=== PATIENT | female | born 1970 | race Caucasian/White ===

== ENCOUNTER → 2018-03-22 10:29 | Outpatient (CLI) | payer OTHER, SELFPAY | PROVIDERS: Family Provider Internal Medicine; PCP Internal Medicine; Referring Provider Nurse Practitioner Primary Care; Visit Provider Nurse Practitioner Primary Care | DX: R00.2 Palpitations (principal) | CPT/HCPCS: 93225; 93226 ==

== ENCOUNTER → 2022-06-19 | Outpatient (CLI) | payer OTHER, SELFPAY ==
[2022-06-19 12:43] LABS: hCG Titer Quant., Serum 4 mIU/mL (1-3)
[2022-06-19 12:46] LABS: T3 Total - Triiodothyronine 1.03 ng/mL (0.6-1.81)
[2022-06-19 12:48] LABS: Ferritin 90 ng/mL (8-252); Follicle Stimulating Hormone 67.3 mIU/mL; T4 Free Direct 0.94 ng/dL (0.76-1.46); Thyroid Stim Hormone (TSH) 1.07 uIU/mL (0.358-3.74)
== END | disposition home or self-care (01) ==
LOC: MTLAB 09:54
PROVIDERS: PCP Internal Medicine; Referring Provider Dermatology Pediatric Dermatology; Visit Provider Dermatology Pediatric Dermatology
DX: L65.9 Nonscarring hair loss, unspecified (principal); E28.2 Polycystic ovarian syndrome; E03.8 Other specified hypothyroidism; L82.1 Other seborrheic keratosis; L81.4 Other melanin hyperpigmentation; D10.1 Benign neoplasm of tongue; D22.5 Melanocytic nevi of trunk; Z71.89 Other specified counseling; L57.8 Other skin changes due to chronic exposure to nonionizing radiation; L91.8 Other hypertrophic disorders of the skin; Z87.2 Personal history of diseases of the skin and subcutaneous tissue
CPT/HCPCS: 36415; 82157; 82627; 82728; 83001; 84270; 84402; 84403; 84439; 84443; 84480; 84702; 86038; 86376; 82626

== ENCOUNTER → 2024-11-26 | Outpatient (CLI) | payer OTHER, SELFPAY ==
--- NOTE | 2024-11-26 13:06 | BI_ITS ---
EXAM: DIAG MAMM W/CAD, UNILAT; LT BRST UNILAT ISAAK ADD ON 11/26/2024 CLINICAL HISTORY: 54-year-old female presents for follow-up of the left breast findings seen on the outside examination of 10/24/2024. Family history of breast cancer in a paternal grandmother at age 63. TECHNIQUE: DIAG MAMM W/CAD, UNILAT; LT BRST UNILAT ISAAK ADD ON. COMPARISON: Prior exam(s) dated 10/24/2024, 03/29/2007. FINDINGS: MAMMOGRAM: TISSUE DENSITY: The breasts are heterogeneously dense, which may obscure small masses. The mammogram demonstrates that the patient has dense breasts. Supplemental screening with whole breast ultrasound or MRI may be considered for further evaluation. Unilateral Left Breast Mammographic Findings: 1. Follow-up examination performed for the focal asymmetry in the left breast visualized on the outside examination of 10/24/2024. On the present examination, there is an irregular spiculated mass in the upper inner left breast at posterior depth. 2. There is a mass with associated calcifications in the medial left breast at anterior depth. 3. There are innumerable masses scattered throughout the left breast. ULTRASOUND: 1. Ultrasound performed of the upper inner left breast demonstrates an irregular hypoechoic mass with posterior shadowing in the left breast at 11 o'clock 6 cm from the nipple, measuring 0.9 x 0.9 x 0.8 cm. This correlates with the mammographic finding. 2. There is a cyst cluster in the left breast at 10 o'clock 3 cm from the nipple measuring 0.9 x 0.9 x 0.6 cm. This correlates to the other mammographic finding in the medial left breast at anterior depth. 3. There is an additional incidental complicated cyst in the left breast at 9 o'clock 5 cm from the nipple measuring 0.9 x 0.6 x 0.4 cm and a cyst at 12 o'clock 5 cm from the nipple measuring 2.4 x 2.4 x 2.1 cm. BI/Lt Brst Unilat Isaak Add On IMPRESSION: 1. Left breast mass at 11 o'clock 6 cm from the nipple is highly suggestive of malignancy. Recommend tissue sampling with ultrasound core needle biopsy. Also, at the time of the biopsy recommend addit ional images being taken of the left axilla and the remainder of the left breast to assess for additional suspicious masses and axillary lymph nodes. OVERALL FINAL ASSESSMENT BI-RADS 5: HIGHLY SUGGESTIVE OF MALIGNANCY. RECOMMENDATION: Biopsy Recommended A letter with findings and recommendations will be mailed to the patient. Reading Location: [id number]
== END | disposition home or self-care (01) ==
LOC: OPBI 13:00
PROVIDERS: PCP Internal Medicine; Referring Provider Nurse Practitioner Family; Visit Provider Nurse Practitioner Family
DX: R92.8 Other abnormal and inconclusive findings on diagnostic imaging of breast (principal)
CPT/HCPCS: 76642; 77061; 77065; G0279

== ENCOUNTER → 2024-12-17 | Outpatient (CLI) | payer OTHER, SELFPAY ==
--- NOTE | 2024-12-17 09:45 | BRBX_PTH ---
PATIENT: DEEPIKA BOYKIN LOC: [facility] U#:[id number] AGE/SX: 54/F ROOM: RE12/17/[address]: Dr. Aimee Hylton MD : 1970 BED: DIS: 12/17/2024 SPEC #: [id number] RECD: 12/17/24 10:09 STATUS: YOANA REOriana #: [id number] ALEX: 12/17/24 09:[address]: Aimee Hylton DEPT: SURGICAL PATHOLOGY RECD BY: Froy Banks ENTERED: 12/17/24 14:10 SP TYPE: BREAST BX OTHR DR: Jaqui Berg, PODIATRIC PHYSICIAN-C Tissues: A - Left breast, NOS Procedures: Immunohistochemical Stains Surgery Specimen Level V IHC Stain ADDITIONAL HEADER OPERATION: Left breast biopsy PRE-OP DIAGNOSIS: Left breast TISSUE SUBMITTED: A- Left breast - 11:00, 9cm from nipple MICROSCOPIC DIAGNOSIS A. 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 - Grade 1 (tubule 1, nuclear 1, mitosis 1). - ER: positive (95%, strong intensity). - NC: positive (50%, intermediate intensity). - [id number]: PENDING, to be reported in an addendum. - Ki67: 10-15% MICROSCOPIC DESCRIPTION Slides are reviewed. E-cadherin is positive. CK5/6 and p40 are negative in the carcinoma. ?All matched controls reacted appropriately. These tests were developed and their performance characteristics determined by [facility]. They may not have been cleared or approved by the U.S. Food and Drug Administration. The FDA has determined that such clearance or approval is not necessary.? The above immunohistochemical?markers and/or special stains have been reviewed by the Pathologist. GROSS DESCRIPTION A. Received in formalin labeled with the patient's name and date of . Designated as L breast tissue are 3 pool-yellow, fragmented tissue cores, 1.1 cm to 1.3 cm in length by 0.1 cm in diameter. Entirely submitted in 1 cassette. Cold ischemic time: <1 minuteFormalin fixation time: 9 hours, 45 minutes [place] 12/17/2024 CPT:[id number] ADDENDUM ADDENDUM ADDENDUM ADDENDUM ADDENDUM ADDENDUM ADDENDUM ADDENDUM ADDENDUM ADDENDUM ADDENDUM ADDENDUM ADDENDUM ADDENDUM ADDENDUM ADDENDUM 12/24/2024 16:24 ADDENDUM 12/24/2024 16:24 ADDENDUM 12/24/2024 16:24 ADDENDUM 12/24/2024 16:24 ADDENDUM 12/24/2024 16:24 This addendum is to report the [id number] performed at [facility]: [id number]: positive (3+) All controls show appropriate reactivity. All immunohistochemistry, in situ hybridization, and histochemical tests were developed by and are performed at the [facility], [address], [address], [place] [address]. All Immunofluorescent (IF)?tests were developed by and are performed at the [facility], [facility]. [address] [place] [address], [place], [place] ?[address]. All tests reported here, except those addressing HER2 overexpression as a predictive marker, have not been cleared by or approved by the US Food and Drug Administration (FDA). The laboratory is regulated under CLIA as qualified to perform high-complexity testing. The tests are used for clinical purposes. They should not be regarded as investigational or for research.
== END | disposition home or self-care (01) ==
LOC: LABSPEC 10:56
PROVIDERS: PCP Nurse Practitioner Family; Referring Provider Surgery; Visit Provider Surgery
DX: C50.912 Malignant neoplasm of unspecified site of left female breast (principal)
CPT/HCPCS: 88307; 88341; 88342

== ENCOUNTER → 2025-01-09 | Outpatient (CLI) | payer OTHER, SELFPAY ==
--- NOTE | 2025-01-09 11:17 | ECHODONC_ITS ---
Reason For Study : CHEMO Procedure This was a 2D Doppler, Color Flow transthoracic echocardiogram. Myocardial strain analysis was performed in this exam to aid in the assessment of cardiac function. Exam performed in department. Left Ventricle Normal LV size. Mild concentric left ventricular hypertrophy. The left ventricular ejection fraction is 65 %. Stage 1 diastolic dysfunction. The global longitudinal strain is normal. Right Ventricle Normal right ventricle. Atria The left and right atria are normal. Mitral Valve Trivial mitral valve insufficiency. Tricuspid Valve Normal tricuspid valve. Aortic Valve Trisinus/trileaflet aortic valve. Pulmonic Valve The pulmonic valve is not well visualized. Great Vessels Normal sized aortic root. Pericardium/Pleural No pericardial effusion. MMode/2D Measurements & Calculations LVIDd: 4.8 cm IVSd: 1.4 cm LVOT diam: 2.0 cm LVIDs: 3.2 cm LVPWd: 1.4 cm LVOT area: 3.0 cm2 RVDd: 2.8 cm FS: 33.1 % Ao root diam: 3.4 cm LVAd ap4: 19.7 cm2 LVAd ap2: 19.2 cm2 LA dimension: 3.9 cm LVLd ap4: 6.5 cm LVLd ap2: 5.3 cm EDV(MOD-sp4): 49.7 ml EDV(MOD-sp2): 54.8 ml EDV(sp4-el): 50.7 ml EDV(sp2-el): 58.6 ml LVAs ap4: 12.6 cm2 LVLs ap4: 6.2 cm ESV(MOD-sp4): 22.8 ml ESV(sp4-el): 22.0 ml EF(MOD-sp4): 54.1 % EF(sp4-el): 56.6 % SV(MOD-sp4): 26.9 ml SV(sp4-el): 28.7 ml LA A4 area: 16.7 cm2 SI(MOD-sp4): 12.5 ml/m2 LA dimension(2D): 3.8 cm RA A4 area: 13.1 cm2 Time Measurements MV dec time: 0.21 sec Doppler Measurements & Calculations MV E max kai: 72.0 cm/sec Lat Peak E' Kai: 9.7 cm/sec Med Peak E' Kai: 6.8 cm/sec MV A max kai: 84.9 cm/sec E/E' lat: 7.4 E/E' med: 10.6 MV E/A: 0.85 MV V2 max: 92.5 cm/sec Ao V2 max: 155.7 cm/sec MV max P.4 mmHg MV dec slope: 356.7 cm/sec2 Ao max P.7 mmHg MV V2 mean: 63.2 cm/sec Ao V2 mean: 102.3 cm/sec MV mean P.7 mmHg Ao mean P.9 mmHg MV V2 VTI: 34.4 cm Ao V2 VTI: 35.0 cm AV (velocity ratio): 0.84 MVA(VTI): 2.6 cm2 YAMIL(I,D): 2.6 cm2 YAMIL(V,D): 2.4 cm2 LV V1 max: 121.6 cm/sec SV(LVOT): 90.1 ml PA V2 max: 102.8 cm/sec LV V1 max P.9 mmHg PA V2 mean: 77.8 cm/sec LV V1 mean P.2 mmHg LV V1 mean: 84.0 cm/sec LV V1 VTI: 29.6 cm ECHO/ONC Echo Complete Interpretation Summary Mild concentric left ventricular hypertrophy. The left ventricular ejection fraction is 65 %. Stage 1 diastolic dysfunction. Ordering Physician: Jason Bueno Referring Physician: Jason Bueno Performed By: Alyson Monreal RCS
== END | disposition home or self-care (01) ==
LOC: CVS 11:07
PROVIDERS: PCP Nurse Practitioner Family; Referring Provider Internal Medicine Hematology & Oncology; Visit Provider Internal Medicine Hematology & Oncology
DX: C50.919 Malignant neoplasm of unspecified site of unspecified female breast (principal)
CPT/HCPCS: 93306; 93356

== ENCOUNTER → 2025-01-12 | Outpatient (CLI) | payer OTHER, SELFPAY ==
--- NOTE | 2025-01-12 13:57 | MRI_ITS ---
PROCEDURE: BREAST BILATERAL W/O AND W 01/12/2025 REASON FOR EXAM: HAS MULTIPLE CYSTS AND LEFT BREAST IDC TECHNIQUE: Procedure Code: [id number] Modality: MR Procedure: BREAST BILATERAL W/O AND W CONTRAST: 23 mL of Clariscan contrast COMPARISON: Breast ultrasound examination dated 11/26/2024 and mammogram studies dated 11/26/2024, 10/24/2004, and 10/19/2023. FINDINGS: TISSUE DENSITY: The breasts are heterogeneously dense, which may obscure small masses. Background Parenchymal Enhancement: Moderate. This may decrease the sensitivity of breast MRI. RIGHT Breast: Multiple benign-appearing cystic and fibrocystic masses are seen in the right breast. No suspicious mass or non-mass enhancement. LEFT Breast: An 11 mm, abnormal enhancing mass in the superior medial aspect of the left breast is noted, approximately 6 cm from the nipple. This mass is highly worrisome for malignancy. It does correlate to a mass seen on the mammogram and ultrasound exam. Biopsy is warranted. Benign-appearing cystic and fibrocystic appearing masses are seen elsewhere in the breast. There are no additional suspicious masses or non-mass enhancement areas. Other Findings: No suspicious axillary or internal mammary lymph nodes. Visualized portions of the thoracic and abdominal viscera are unremarkable. MRI/Breast Bilateral W/O and W IMPRESSION: OVERALL FINAL ASSESSMENT BI-RADS 5: HIGHLY SUGGESTIVE OF MALIGNANCY. RECOMMENDATION: Biopsy Recommended At the time of the breast mass biopsy or yonathan or to the biopsy, dedicated ultrasound of the axillary region should be performed for further evaluation of the lymph nodes. If any abnormal nodes are seen, though should also be biopsied at the time of the left breast mass biopsy. Reading Location: [id number]
== END | disposition home or self-care (01) ==
LOC: MRI 13:54
PROVIDERS: PCP Nurse Practitioner Family; Referring Provider Surgery; Visit Provider Surgery
DX: C50.919 Malignant neoplasm of unspecified site of unspecified female breast (principal)
CPT/HCPCS: 77049; A9575; A4216; C8908

== ENCOUNTER 2025-01-14 05:54 | Day surgery (SDC) | payer OTHER, SELFPAY ==
--- NOTE | 2025-01-13 10:40 | PAT.ANESEVAL ---
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 When Was Last Pacemaker Check QUESTION #4 FULL TEXT: You/Your Family Experience fever (hyperthermia) with Anesthesia Last Oral Intake Last Oral intake: Last Oral Intake NPO since Meds taken in AM with sips of water? 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 Female Yes 01/08/25 15:07 HX of Motion Sickness No 01/08/25 15:07 HX of N/V After Surgery No 01/08/25 15:07 Non-Smoker Yes 01/08/25 15:07 Duration of Surgery greater No 01/08/25 15:07 than 60 minutes Number of Risk Factors 2 01/08/25 15:07 PONV Score Moderate Risk 01/08/25 15:07 Height & Weight Height & Weight: Anesthesia: Height & Weight Height 5 ft 5 in 01/05/25 11:29 Respiratory Assessment Respiratory Assessment - boat joiner helper: Respiratory Tract Infection Hx - boat joiner helper Hx Respiratory Tract Infection No 01/08/25 15:07 STOP Sleep Apnea STOP Sleep Apnea - boat joiner helper: STOP Sleep Apnea - boat joiner helper Hx Hypertension Yes: CONTROLLED WITH MED 01/08/25 15:07 Hx Sleep Apnea No 01/08/25 15:07 CPAP BIPAP Do you snore loudly (louder No 01/08/25 15:07 than talking or can be heard Do you often feel tired/ No 01/08/25 15:07 fatigued/ sleepy during daytime? Has anyone observed you stop No 01/08/25 15:07 breathing during sleep? STOP Results Negative 01/08/25 15:07 QUESTION #5 FULL TEXT : Do you snore loudly (louder than talking or can be heard through closed doors)? 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 Specify any problems Hx of Preganancy in last 3 No 01/08/25 15:07 Months Nurse Filling Out Transfusion DSCHRIBER 01/08/25 15:07 & Questions: Date: 01/08/25 01/08/25 15:07 Time: 15:01/08/25 15:07 Patient unable to answer at this time (ie. confused, unrespo /Reproduction History /Reproductive History - boat joiner helper: /Reproductive Hx- boat joiner helper Hx Now No 01/08/25 15:07 Gestational Age (in weeks): EDC: Hx Hx Para Hx Section SAB No 01/08/25 15:07 Active Medications Active Medications: Current Medications Generic Name Dose Route Start Last Admin Trade Name Freq PRN Reason Stop Dose Admin Cefazolin Sodium 2 gm/ Sodium 110 mls @ 200 mls/hr 01/14/25 07:30 Chloride IV 01/14/25 08:02 INTRAOP ONE PFS Medical History (Updated 01/08/25 @ 15:21 by Renetta Osorio) Post-menopausal Wears glasses Cancer Arthritis High cholesterol Back pain Migraine headache Pre-diabetes Dietary restriction Former smoker History of echocardiogram History of Holter monitoring Endometriosis HTN (hypertension) Anxiety Home Medications ?Medication ?Instructions ?Recorded ?Last Taken ?Type cholecalciferol (vitamin D3) 1,250 1,250 mcg PO QWEEK 12/17/24 Unknown History mcg (50,000 unit) tablet hydrochlorothiazide 12.5 mg capsule 12.5 mg PO QAM 12/17/24 Unknown History metformin 500 mg tablet 500 mg PO BID 12/17/24 Unknown History pravastatin 20 mg tablet 20 mg PO QDAY 12/17/24 Unknown History propranolol 60 mg capsule,24 60 mg PO QDAY 12/17/24 Unknown History hr,extended release lidocaine-prilocaine 2.5 %-2.5 % 1 applic topical ONCE PRN port 01/07/25 Unknown Rx topical cream access 30 days #30 grams ondansetron 8 mg disintegrating 8 mg PO Q8H PRN nausea and 01/07/25 Unknown Rx tablet vomiting #30 tabs prochlorperazine maleate 10 mg 10 mg PO Q6H PRN nausea and 01/07/25 Unknown Rx tablet vomiting #30 tabs Allergy/AdvReac Type Severity Reaction Status Date / Time adhesive tape Allergy Severe rash Verified 01/08/25 15:04 acetaminophen (From Vicodin) Allergy Intermediate Other Verified 01/08/25 15:04 hydrocodone (From Vicodin) Allergy Intermediate Other Verified 01/08/25 15:04 Family History Father Colon cancer Mother Cancer pancreatic Grandmother Breast cancer paternal grandmother Heart disease Grandfather Colon cancer Heart disease Surgical History (Updated 01/08/25 @ 15:21 by Renetta Osorio) History of hysteroscopy H/O left breast biopsy Social History Smoking Status: Former smoker Tobacco: How many years used: 20 alcohol intake: never substance use type: does not use Audit: Pertinent Findings Pertinent Findings Echo (EF%) pertinent findings: 01/09/2025. EF of 65%. No aortic stenosis noted. Mild LVH Recommendation Anesthesia Recommendation Anesthesia recommendation: OPTIMIZED for anesthesia
[2025-01-14] VITALS (7 sets, daily range): BP systolic 142–159; BP diastolic 81–92; PULSE 55–68; RESP 16–20; TEMP 36.1–36.6; O2SAT 95–99; BMI 40.7
--- OUTSIDE RECORDS SUMMARY | 2025-01-14 05:57 | XMS RPT_ITS | CCD ---
Author Organization [facility] CliniSymd Care Team Providers Care Psychology Department Chair Name Role Phone Ivet Castanon MD Primary Care Provider Donn Choe MD Primary Care Provider Donn Choe MD Primary Care Provider Donn Choe MD Primary Care Provider Donn Choe MD Primary Care Provider Tannhof CERTIFIED TECHNICIAN SPECIALIST.Jaqui WALKER Unavailable Joey CERTIFIED TECHNICIAN SPECIALIST.Ashish WALKER Unavailable Farzad Covarrubias MD Primary Care Provider Juany CERTIFIED TECHNICIAN SPECIALIST.Nenita WALKER Unavailable Juany CERTIFIED TECHNICIAN SPECIALIST.Nenita WALKER M Unavailable Dr. Ivet Castanon MD Primary Care Provider Chelsea CERTIFIED ANESTHESIOLOGIST ASSISTANT-CDiana Attending Provider Chelsea STONER-CDiana Referring Provider Dr. Aimee Hylton MD Attending Provider Morena CERTIFIED ANESTHESIOLOGIST ASSISTANT-CJaqui Primary Care Provider Morena STONER-CJaqui Referring Provider Dr. Aimee Hylton MD Referring Provider Dr. Jason Bueno MD Attending Provider Dr. Jason Bueno MD Referring Provider Hollis CERTIFIED ANESTHESIOLOGIST ASSISTANT-C, Milana Attending Provider IHRAM, KLEBER P Attending Unavailable RAJIV, YUKO Referring Unavailable COVARRUBIAS, LATOSHA Primary Care Unavailable ELDERBOBBYCK, DONN Prince Primary Care Unavailable TANNHOF, JAQUI Referring Unavailable ELDERBROCK, DONN D Primary Care Unavailable ELDERBROCK, DONN D Primary Care Unavailable TANNHOF, JAQUI Referring Unavailable NENITA MEJIA Attending Unavailable COVARRUBIAS, LATOSHA Primary Care Unavailable DONN CHOE D Primary Care Unavailable TANNHOF, JAQUI Attending Unavailable BALLARD, DIANA Referring Unavailable COVARRUBIAS, LATOSHA Primary Care Unavailable BALLARD, DIANA Attending Unavailable COVARRUBIAS, LATOSHA Primary Care Unavailable BALLARD, DIANA Referring Unavailable BALLARD, DIANA Referring Unavailable COVARRUBIAS, LATOSHA Primary Care Unavailable BALLARD, DIANA Referring Unavailable COVARRUBIAS, LATOSHA Primary Care Unavailable BOOM ESPOSITO Attending Unavailable COVARRUBIAS, LATOSHA Primary Care Unavailable Isckarus, Mansour Attending Unavailable Tannho, Jaqui Primary Care Unavailable Robotham, Aimee Referring Unavailable Tannho, Jaqui Primary Care Unavailable Robotham, Aimee Attending Unavailable Tannho, Jaqui Primary Care Unavailable Katerina Mitchell Attending Unavailable Tannho, Jaqui Primary Care Unavailable Tannhof, Jaqui Referring Unavailable Robotham, Aimee Attending Unavailable Ballard CERTIFIED ANESTHESIOLOGIST ASSISTANT, Diana Attending Unavailable Ballard CERTIFIED ANESTHESIOLOGIST ASSISTANT, Diana Referring Unavailable Ganta, Ivet Primary Care Unavailable Tannho, Jaqui Primary Care Unavailable Robotham, Aimee Referring Unavailable Robotham, Aimee Attending Unavailable Hollis CERTIFIED ANESTHESIOLOGIST ASSISTANTMilana Attending Unavailable [facility] Jaqui Primary Care Unavailable Tannho, Jaqui Referring Unavailable Tannho, Jaqui Primary Care Unavailable Tannhof, Jaqui Referring Unavailable Robotham, Aimee Attending Unavailable Isckarus, Mansour Attending Unavailable Isckarus, Mansour Referring Unavailable Tannho, Jaqui Primary Care Unavailable Isckarus, Mansour Attending Unavailable Isckarus, Mansour Referring Unavailable Tannhof, Jaqui Primary Care Unavailable Tannhof, Jaqui Primary Care Unavailable Robotham, Aimee Attending Unavailable Tannhof, Jaqui Primary Care Unavailable Robotham, Aimee Attending Unavailable Robotham, Aimee Referring Unavailable Allergies Allergy Classification Reported Allergen(s) Allergy Type Date of Onset Reaction(s) Facility (20 sources) Acetaminophen / HYDROcodone; Translations: [HYDROCODONE-ACETA MINOPHEN] Drug Allergy 9 GI Upset [facility] Work Phone: (6 sources) Acetaminophen Drug Allergy [address] [facility] (6 sources) HYDROcodone Drug Allergy [address] [facility] (4 sources) Adhesive Tape; Translations: [adhesive tape] Allergy to substance [address] [facility] Comment on above: cloth bandages are o norman. (1 source) Acetaminophen Drug Allergy [address] [facility] Repository (1 source) HYDROcodone Drug Allergy [address] [facility] Repository Medications Current Medications Medication Drug Class(es) Dates Sig (Normalized) Sig (Original) Cholecalciferol (20 sources) Vitamin D Start: 12-17-2024 take 1 tablet by mouth every week Cholecalciferol (Vitamin D3) 1,250 mcg (50,000 unit) tablet Active 1250 ug PO EVERY WEEK December 17, 2024 12:00am Start: 03-29-2022 take 1 capsule by mo ut every week cholecalciferol, Vitamin D3, (VITAMIN D3) 1,250 mcg (50,000 unit) cap capsule Indications: Vitamin D deficiency Take 1 capsule by mouth one time a week. 12 capsule 3 03/29/2022 Active Comment on above: Take 1 capsule by mo ut one time a week. dexamethasone 4 mg oral tablet (1 source) Corticosteroid Start : 01-07 take 2 tablets by mouth twice daily Dexamethasone 4 mg tablet Active 8 mg PO .COMPLEX 12 5 January 07, 2025 12:00am Malignant neoplasm of breast Malignant neoplasm of unspecified site of left female breast Estrogen receptor positive status [ER+] 8 mg orally twice daily ONLY the day before the day of and the day after hydroCHLOROthiazide 12.5 mg oral capsule (20 sources) Thiazide Diuretic Start : 11-07 End: 09-06 take 1 capsule by mouth once daily in the morning Hydrochlorothiazide 12.5 mg capsule Active 12.5 mg PO EVERY MORNING December 17, 2024 12:00am Start: 01-10-2021 take 1 capsule by mo ut once daily hydroCHLOROthiazide 12.5 mg capsule Indications: Essential hypertension Take 1 capsule by mouth once daily. 90 capsule 3 01/10/2021 Active Comment on above: Take 1 capsule by mo [facility] once daily. Lidocaine / Prilocaine (1 source) Antiarrhythmic, Amide Local Anesthetic Start: 01-08-20 Lidocaine-Prilocain e 2.5-2.5 % cream Active 1 NMA TOPICAL ONCE as needed for port access 30 30 2 January 07, 2025 12:00am Malignant neoplasm of breast Malignant neoplasm of unspecified site of left female breast Estrogen receptor positive status [ER+] LORazepam 0.5 mg oral tablet (4 sources) Benzodiazepine Start: 12-24-19 take 1 tablet by mouth every hour for anxiety Lorazepam (Ativan) 0.5 mg tablet Active 0.5 mg PO ONCE as needed for anxiety 2 0 December 23, 2024 12:00am Take 1 tab an hour before procedure, if needed take the other tab half hour before procedure metFORMIN hydrochloride 500 mg oral tablet (20 sources) Biguanide Start: 12-18-19 take 1 tablet by mouth twice daily Metformin 500 mg tablet Active 500 mg PO TWICE A DAY December 17, 2024 12:00am Start: 03-31-2022 End: 06-23-2025 take 2 tablets by mouth once daily at breakfast, then take 1 tablet by mouth once daily at dinner metFORMIN ER (GLUCOPHAGE XR) 500 mg 24 hr tablet Indications: Controlled type 2 diabetes mellitus without complication, without long-term current use of insulin (HCC) Take 2 tablets by mouth daily with breakfast AND 1 tablet daily with dinner. 270 tablet 3 10/20/2024 Active Comment on above: Take 1 tablet by [facility] daily with breakfast. nitrofurantoin, macrocrystals 25 mg / nitrofurantoin, monohydrate 75 mg oral capsule (1 source) Nitrofuran Antibacterial Start: End: take 1 capsule by mouth twice daily nitrofurantoin monohydrate and macrocrystal (MACROBID) 100 mg capsule Take 1 capsule by mouth two times a day for 5 days. 10 capsule 07/13/2024 07/18/2024 Active ondansetron 8 mg disintegrating oral tablet (20 sources) Serotonin-3 Receptor Antagonist Start: take 1 tablet by mouth every eight hours as needed for nausea and vomiting Ondansetron 8 mg tablet,disintegrating Active 8 mg PO Q8H as needed for nausea and vomiting January 07, 2025 12:00am Malignant neoplasm of breast Malignant neoplasm of unspecified site of left female breast Estrogen receptor positive status [ER+] Start: 03-11-2018 End: 03-25-2024 take 1 tablet by mouth every six hours as needed ondansetron orally disintegrating (ZOFRAN ODT) 4 mg disintegrating tablet Take 1 tablet by mouth every 6 hours as needed for Nausea/Vomiting. 6 tablet 03/11/2018 03/25/2024 Discontinued (Course of therapy completed) Comment on above: Take 1 tablet by omkar th every 6 hours as needed for Nausea/Vomiting. OTC NUTRITIONAL SUPPLEMENT (9 sources) Start: 10-21-19 OTC NUTRITIONAL SUPPLEMENT Nutraful two tabs once a day 10/20/2024 Active pravastatin sodium 20 mg oral tablet (20 sources) HMG-CoA Reductase Inhibitor Start: 06-23-19 take 1 tablet by mouth once daily Pravastatin 20 mg tablet Active 20 mg PO daily December 17, 2024 12:00am Start: 01-10-2021 End: 06-21-2024 take 1 tablet by mouth once daily pravastatin (PRAVACHOL) 20 mg tablet Indications: Mixed hyperlipidemia Take 1 tablet by mouth once daily. 90 tablet 3 08/20/2023 06/21/2024 Discontinued Comment on above: Take 1 tablet by omkar th once daily. TAKE 1 TABLET BY OMKAR TH ONCE DAILY prochlorperazine 10 mg oral tablet (1 source) Phenothiazine Start: 2024 take 1 tablet by mouth every six hours as needed for nausea and vomiting Prochlorperazine Maleate 10 mg tablet Active 10 mg PO EVERY 6 HOURS as needed for nausea and vomiting January 07, 2025 12:00am Chemotherapy-induced nausea and vomiting Nausea with vomiting, unspecified Adverse effect of antineoplastic and immunosuppressive drugs, initial encounter 24 hr propranolol hydrochloride 60 mg extended release oral capsule (20 sources) beta-Adrenergic Juan Start: 2024 take 1 capsule by mouth once daily Propranolol 60 mg capsule,extended release 24 hr Active 60 mg PO daily December 17, 2024 12:00am Start: 01-10-2021 End: 09-06-2025 take 1 tablet by mouth three times daily propranolol (INDERAL) 20 mg tablet Indications: Hypertension, essential Take 1 tablet by mouth three times a day. 270 tablet 3 09/11/2024 10/20/2024 Discontinued (Changing Therapy/Dosage Form) Comment on above: Take 1 tablet by omkar th three times daily. TAKE 1 TABLET BY OMKAR TH 3 TIMES DAILY Completed/Discontinued Medications Medication Drug Class(es) Dates Sig (Normalized) Sig (Original) busPIRone hydrochloride 5 mg oral tablet (20 sources) Start: 01-10-2021 End: 10-20-2024 take 1 tablet by mouth three times daily as needed busPIRone (BUSPAR) 5 mg tablet Indications: Generalized anxiety disorder with panic attacks Take 1 tablet by mouth three times a day as needed. 270 tablet 3 08/20/2023 10/20/2024 Discontinued (Discontinued by Patient) Comment on above: Take 1 tablet by omkar three times daily as needed. cyclobenzaprine hydrochloride 10 mg oral tablet (11 sources) Muscle Relaxant Start: 10-07-2020 End: 07-14-2022 take 5-10 mg by mouth every eight hours as needed cyclobenzaprine (FLEXERIL) 10 mg tablet Take 0.5-1 tablets by mouth three times daily as needed for Muscle Spasm. 90 tablet 0 10/07/2020 07/14/2022 Discontinued Comment on above: Take 0.5-1 tablets b y mouth three times daily as needed for Muscle Spasm. diclofenac sodium 0.01 mg/mg topical gel (20 sources) Nonsteroidal Anti-inflammatory Drug Start: 02-26-2018 End: 03-25-2024 diclofenac sodium (VOLTAREN) 1 % topical gel Indications: Chronic right-sided low back pain with right-sided sciatica Apply 2 g to affected area as directed. 2-4 time daily 100 g 2 02/26/2018 03/25/2024 Discontinued (Course of therapy completed) Comment on above: Apply 2 g to affecte d area as directed. 2-4 time daily fexofenadine hydrochloride 180 mg oral tablet (11 sources) Histamine-1 Receptor Antagonist Start: 08-18-2020 End: 07-14-2022 take 1 tablet by mouth once daily fexofenadine (JANUSZ ALLERGY) 180 mg tablet Take 1 tablet by mouth once daily. 30 tablet 2 08/18/2020 07/14/2022 Discontinued Comment on above: Take 1 tablet by omkar th once daily. fluticasone propionate 0.05 mg/actuat metered dose nasal spray (11 sources) Corticosteroid Start: 08-18-2020 End: 07-14-2022 take 2 spray(s) by mouth once daily fluticasone (FLONASE) 50 mcg/actuation nasal spray Use 2 Sprays in each nostril once daily. Rinse mouth after use. 1 Bottle 2 08/18/2020 07/14/2022 Discontinued Comment on above: Use 2 Sprays in each nostril once daily. Rinse mouth after use. meloxicam 15 mg oral tablet (11 sources) Nonsteroidal Anti-inflammatory Drug Start: 11-19-2020 End: 07-14-2022 take 1 tablet by mouth once daily at mealtime meloxicam (MOBIC) 15 mg tablet Take 1 tablet by mouth once daily. With food. 90 tablet 3 11/19/2020 07/14/2022 Discontinued Comment on above: Take 1 tablet by omkar th once daily. With food. nutroful (6 sources) Start: 12-17-2024 End: 01-05-2025 nutroful Discontinued PO December 17, 2024 12:00am January 05, 2025 11:18am Start: 12-17-2024 nutroful Activ e PO December 17, 2024 12:00am SUMAtriptan 50 mg oral tablet (11 sources) Serotonin-1b and Serotonin-1d Receptor Agonist Start: 03-11-2018 End: 07-14-2022 take 1 tablet by mouth every two hours as needed for headache SUMAtriptan (IMITREX) 50 mg tablet Take 1 tablet by mouth as needed for Migraine Headache (see administration instructions). May repeat dose in 2 hours if ineffective 9 tablet 2 03/11/2018 07/14/2022 Discontinued Comment on above: Take 1 tablet by omkar th as needed for Migraine Headache (see administration instructions). May repeat dose in 2 hours if ineffective Problems Active Problems Problem Classification Problem Date Documented Date Episodic/Chronic Adjustment disorders (20 sources) Family tension; Translations: [Reaction to severe stress, unspecified] Onset: 05-22-2016 05-22-2016 Chronic Administrative/socia l admission (1 source) Counseling, unspecified; Translations: [Counseling, unspecified] Onset: 01-08-2025 Episodic Anxiety disorders (8 sources) Generalized anxiety disorder; Translations: [Generalized anxiety disorder] Onset: 03-25-2024 Chronic Cancer of breast (12 sources) Malignant tumor of breast ; Translations: [Malignant neoplasm of unspecified site of unspecified female breast] Onset: 01-05-2025 01-05-2025 Chronic Diabetes mellitus without complication (20 sources) Type 2 diabetes mellitus without complication; Translations: [Type 2 diabetes mellitus without complications] Onset: 01-15-2015 09-21-2015 Chronic Diabetes mellitus without complication (3 sources) Prediabetes; Translations: [Prediabetes] 01-05-2025 Episodic Disorders of lipid metabolism (20 sources) Mixed hyperlipidemia; Translations: [Mixed hyperlipidemia] Onset: 04-29-2012 11-13-2017 Chronic E Codes: Adverse effects of medical drugs (1 source) Adverse effect of antineoplastic and immunosuppressive drugs, initial encounter; Translations: [Adverse effect of antineoplastic and immunosuppressive drugs, initial encounter] Onset: 01-08-2025 Episodic Essential hypertension (20 sources) Essential hypertension; Translations: [Essential (primary) hypertension] Onset: 03-25-2024 Chronic Headache; including migraine (20 sources) Migraine with aura; Translations: [Migraine with aura, not intractable, with status migrainosus] Onset: 12-18-2014 12-18-2014 Chronic Menopausal disorders (1 source) Menopausal syndrome; Translations: [Menopausal and female climacteric states] 10-24-2024 Chronic Nausea and vomiting (1 source) Nausea with vomiting, unspecified; Translations: [Nausea with vomiting, unspecified] Onset: 01-08-2025 Episodic Nonmalignant breast conditions (20 sources) Fibrocystic disease of breast; Translations: [Diffuse cystic mastopathy of unspecified breast] Onset: 07-21-2009 07-21-2009 Chronic Nonmalignant breast conditions (20 sources) Breast lump; Translations: [Unspecified lump in unspecified breast] Onset: 08-16-2011 Resolved: 08-18-2014 08-18-2014 Episodic Nutritional deficiencies (15 sources) Vitamin D deficiency; Translations: [Vitamin D deficiency, unspecified] Onset: 10-20-2024 Chronic Other aftercare (1 source) Encounter for adjustment and management of vascular access device; Translations: [Encounter for adjustment and management of vascular access device] Onset: 01-08-2025 Episodic Other connective tissue disease (3 sources) Muscle pain; Translations: [Myalgia, unspecified site] Episodic Other hematologic conditions (1 source) ESR raised; Translations: [Elevated erythrocyte sedimentation rate] 01-12-2023 Episodic Other nervous system disorders (3 sources) Chronic pain syndrome; Translations: [Chronic pain syndrome] 01-11-2023 Chronic Other nervous system disorders (1 source) Chronic pain syndrome; Translations: [Chronic pain syndrome] Onset: 03-25-2024 Chronic Other nutritional; endocrine; and metabolic disorders (20 sources) Body mass index 40+ - severely obese; Translations: [Body mass index (BMI) 40.0-44.9, adult] Onset: 08-19-2013 08-19-2013 Chronic Other nutritional; endocrine; and metabolic disorders (2 sources) Severe obesity; Translations: [Morbid (severe) obesity due to excess calories] Chronic Other nutritional; endocrine; and metabolic disorders (1 source) Body mass index (BMI) 40.0-44.9, adult; Translations: [BMI 40.0-44.9, adult (HCC)] Onset: 08-19-2013 Chronic Other screening for suspected conditions (not mental disorders or infectious disease) (20 sources) Patient encounter status; Translations: [Encounter for screening mammogram for malignant neoplasm of breast] Onset: 10-24-2024 Episodic Other skin disorders (2 sources) Loss of hair; Translations: [Nonscarring hair loss, unspecified] Episodic Other skin disorders (1 source) Nonscarring hair loss, unspecified; Translations: [Hair thinning] Onset: 10-24-2024 Episodic Other skin disorders (1 source) Generalized hyperhidrosis; Translations: [Night sweats] Onset: 10-24-2024 Episodic Residual codes; unclassified (1 source) Estrogen receptor positive status [ER+]; Translations: [Estrogen receptor positive status [ER+]] Onset: 01-08-2025 Episodic Screening and history of mental health and substance abuse codes (20 sources) Tobacco use and exposure - finding; Translations: [Personal history of nicotine dependence] Onset: 11-26-2010 08-18-2014 Episodic Unclassified (2 sources) Infiltrating ductal carcinoma of breast Unclassified (19 sources) C50.919 - Malignant neoplasm of unspecified site of unspecified female breast Unclassified (6 sources) Malignant neoplasm of breast Unclassified (1 source) Consult Onset: 12-08-2024 Urinary tract infections (1 source) Acute cystitis; Translations: [Acute cystitis without hematuria] 07-13-2024 Episodic Past or Other Problems Problem Classification Problem Date Documented Da te Episodic/Chronic Immunizations and screening for infectious disease (1 source) Encounter for immunization; Translations: [Encounter for immunization] Onset: 03-25-2024 Episodic Menstrual disorders (20 sources) Excessive and frequent menstruation; Translations: [Excessive and frequent menstruation with regular cycle] Onset: 09-24-2007 Resolved: 08-18-2014 08-18-2014 Chronic Other skin disorders (19 sources) Ingrowing nail; Translations: [Ingrowing nail] Onset: 06-17-2008 Resolved: 08-18-2014 08-18-2014 Episodic Skin and subcutaneous tissue infections (20 sources) Pilonidal cyst; Translations: [Pilonidal cyst without abscess] Onset: 07-15-2008 Resolved: 10-12-2015 07-19-2016 Episodic Spondylosis; intervertebral disc disorders; other back problems (20 sources) Acute back pain with sciatica; Translations: [Lumbago with sciatica, unspecified side] Onset: 01-26-2016 01-26-2016 Episodic Unclassified (3 sources) Patient encounter status 10-24-2024 Unclassified (1 source) Benign mammary dysplasia of left breast 12-10-2024 Results Test Name Value Interpretation Reference Range Facility Breast Bilateral W/O and Won 01-12-2025 Breast Bilateral W/O and W [facility] Imaging Services [address] [place] [id number] Breast Bilateral W/O and W MR#: [id number] Acct: [id number] Name: ALLISON BOYKIN Rep #: [id number] : 1970 F 54 From: Elise Ortega PCP: TORIE Mccarthy Status: REG CLI Study: Breast Bilateral W/O and W Date of Exam: 01/12 Exam# [id number] Ordering Dr: Aimee Hylton MD PROCEDURE: BREAST BILATERAL W/O AND W 01/12/2025 REASON FOR EXAM: HAS MULTIPLE CYSTS AND LEFT BREAST IDC TECHNIQUE: Procedure Code: [id number] Modality: MR Procedure: BREAST BILATERAL W/O AND W CONTRAST: 23 mL of Clariscan contrast COMPARISON: Breast ultrasound examination dated 11/26/2024 and mammogram studies dated 11/26/2024, 10/24/2004, and 10/19/2023. FINDINGS: TISSUE DENSITY: The breasts are heterogeneously dense, which may obscure small masses. Background Parenchymal Enhancement: Moderate. This may decrease the sensitivity of breast MRI. RIGHT Breast: Multiple benign-appearing cystic and fibrocystic masses are seen in the right breast. No suspicious mass or non-mass enhancement. LEFT Breast: An 11 mm, abnormal enhancing mass in the superior medial aspect of the left breast is noted, approximately 6 cm from the nipple. This mass is highly worrisome for malignancy. It does correlate to a mass seen on the mammogram and ultrasound exam. Biopsy is warranted. Benign-appearing cystic and fibrocystic appearing masses are seen elsewhere in the breast. There are no additional suspicious masses or non-mass enhancement areas. Other Findings: No suspicious axillary or internal mammary lymph nodes. Visualized portions of the thoracic and abdominal viscera are unremarkable. MRI/Breast Bilateral W/O and W IMPRESSION: OVERALL FINAL ASSESSMENT BI-RADS 5: HIGHLY SUGGESTIVE OF MALIGNANCY. RECOMMENDATION: Biopsy Recommended At the time of the breast mass biopsy or prior to the biopsy, dedicated ultrasound of the axillary region should be performed for further evaluation of the lymph nodes. If any abnormal nodes are seen, though should also be biopsied at the time of the left breast mass biopsy. Reading Location: [id number] CC: TORIE Berg; Dr. Aimee Hylton MD Billing Adjudicator: Signed Normal [facility] ONC Echo Completeon 01-10-20 ONC Echo Complete [facility] [address] [place] [address] ONC Echo Complete 01/09/25 1118 MR#: [id number] Acct: [id number] Name: ALLISON BOYKIN Rep #: [id number] : 1970 54 From: Katerina Mitchell MD Attending Dr: Dr. Jason Bueno MD Status: REG CLI Ordering Dr: Jason Bueno MD Date: 01/09/25 Location: [facility] Sex: F C Admitted: Reason For Study : CHEMO Procedure This was a 2D Doppler, Color Flow transthoracic echocardiogram. Myocardial strain analysis was performed in this exam to aid in the assessment of cardiac function. Exam performed in department. Left Ventricle Normal LV size. Mild concentric left ventricular hypertrophy. The left ventricular ejection fraction is 65 %. Stage 1 diastolic dysfunction. The global longitudinal strain is normal. Right Ventricle Normal right ventricle. Atria The left and right atria are normal. Mitral Valve Trivial mitral valve insufficiency. Tricuspid Valve Normal tricuspid valve. Aortic Valve Trisinus/trileaflet aortic valve. Pulmonic Valve The pulmonic valve is not well visualized. Great Vessels Normal sized aortic root. Pericardium/Pleural No pericardial effusion. MMode/2D Measurements Calculations LVIDd: 4.8 cm IVSd: 1.4 cm LVOT diam: 2.0 cm LVIDs: 3.2 cm LVPWd: 1.4 cm LVOT area: 3.0 cm2 RVDd: 2.8 cm FS: 33.1 % Ao root diam: 3.4 cm LVAd ap4: 19.7 cm2 LVAd ap2: 19.2 cm2 LA dimension: 3.9 cm LVLd ap4: 6.5 cm LVLd ap2: 5.3 cm EDV(MOD-sp4): 49.7 ml EDV(MOD-sp2): 54.8 ml EDV(sp4-el): 50.7 ml EDV(sp2-el): 58.6 ml LVAs ap4: 12.6 cm2 LVLs ap4: 6.2 cm ESV(MOD-sp4): 22.8 ml ESV(sp4-el): 22.0 ml EF(MOD-sp4): 54.1 % EF(sp4-el): 56.6 % SV(MOD-sp4): 26.9 ml SV(sp4-el): 28.7 ml LA A4 area: 16.7 cm2 SI(MOD-sp4): 12.5 ml/m2 LA dimension(2D): 3.8 cm RA A4 area: 13.1 cm2 Time Measurements MV dec time: 0.21 sec Doppler Measurements Calculations MV E max robert: 72.0 cm/sec Lat Peak E' Robert: 9.7 cm/sec Med Peak E' Robert: 6.8 cm/sec MV A max robert: 84.9 cm/sec E/E' lat: 7.4 E/E' med: 10.6 MV E/A: 0.85 MV V2 max: 92.5 cm/sec Ao V2 max: 155.7 cm/sec MV max P.4 mmHg MV dec slope: 356.7 cm/sec2 Ao max P.7 mmHg MV V2 mean: 63.2 cm/sec Ao V2 mean: 102.3 cm/sec MV mean P.7 mmHg Ao mean P.9 mmHg MV V2 VTI: 34.4 cm Ao V2 VTI: 35.0 cm AV (velocity ratio): 0.84 MVA(VTI): 2.6 cm2 YAMIL(I,D): 2.6 cm2 YAMIL(V,D): 2.4 cm2 LV V1 max: 121.6 cm/sec SV(LVOT): 90.1 ml PA V2 max: 102.8 cm/sec LV V1 max P.9 mmHg PA V2 mean: 77.8 cm/sec LV V1 mean P.2 mmHg LV V1 mean: 84.0 cm/sec LV V1 VTI: 29.6 cm ECHO/ONC Echo Complete Interpretation Summary Mild concentric left ventricular hypertrophy. The left ventricular ejection fraction is 65 %. Stage 1 diastolic dysfunction. Ordering Physician: Jason Bueno Referring Physician: Jason Bueno Performed By: Alyson Monreal RCS 01/13/25 0856 Date Katerina Mitchell MD CC: CERTIFIED ANESTHESIOLOGIST ASSISTANT-C Jaqui Berg; Dr. Jason Bueno MD Date Dictated: 01/09/25 1118 Date Transcribed: 01/13/25 0853 Billing Adjudicator: Signed Normal [facility] Oncology Visit Reporton 12-29 Oncology Visit Report [facility] [address] [place] [address] OFFICE VISIT Date of Service: 01/07/25 1522 MR#: [id number] Acct: [id number] Name: ALLISON BOYKIN Rep #: [id number] : 1970 From: Milana Shafer NP CERTIFIED ANESTHESIOLOGIST ASSISTANT -[place] Age/Sex: 54/F Location: [facility] Status: Signed HPI Subjective Date of Service 01/07/25 Chief Complaint Chemotherapy Education - [facility] History of Present Illness 54-year-old female postmenopausal (last menstrual period was 3 years earlier) whose disease presented after an abnormal screening mammogram. November 26, 2024 screening mammography and ultrasound: Unilateral Left Breast Mammographic Findings: 1. Follow-up examination performed for the focal asymmetry in the left breast visualized on the outside examination of 10/24/2024. On the present examination, there is an irregular spiculated mass in the upper inner left breast at posterior depth. 2. There is a mass with associated calcifications in the medial left breast at anterior depth. 3. There are innumerable masses scattered throughout the left breast. ULTRASOUND: 1. Ultrasound performed of the upper inner left breast demonstrates an irregular hypoechoic mass with posterior shadowing in the left breast at 11 o'clock 6 cm from the nipple, measuring 0.9 x 0.9 x 0.8 cm. This correlates with the mammographic finding. 2. There is a cyst cluster in the left breast at 10 o'clock 3 cm from the nipple measuring 0.9 x 0.9 x 0.6 cm. This correlates to the other mammographic finding in the medial left breast at anterior depth. 3. There is an additional incidental complicated cyst in the left breast at 9 o'clock 5 cm from the nipple measuring 0.9 x 0.6 x 0.4 cm and a cyst at 12 o'clock 5 cm from the nipple measuring 2.4 x 2.4 x 2.1 cm. IMPRESSION: 1. Left breast mass at 11 o'clock 6 cm from the nipple is highly suggestive of malignancy. Recommend tissue sampling with ultrasound core needle biopsy. Also, at the time of the biopsy recommend additional images being taken of the left axilla and the remainder of the left breast to assess for additional suspicious masses and axillary lymph nodes. OVERALL FINAL ASSESSMENT BI-RADS 5: HIGHLY SUGGESTIVE OF MALIGNANCY. December 17, 2024 MICROSCOPIC DIAGNOSIS A. Breast, left, 11 o???clock, 9 CMFN, core biopsy: - Invasive ductal carcinoma at least 0.8 cm. - Grade 1 (tubule 1, nuclear 1, mitosis 1). - ER: positive (95%, strong intensity). - FL: positive (50%, intermediate intensity). - [id number]: PENDING, to be reported in an addendum. - Ki67: 10-15% This addendum is to report the [id number] performed at [facility]: [id number]: positive (3+) Interval History The patient is presenting to clinic accompanied by spouse for an education visit. [facility] Medical History (Updated 01/08/25 @ 10:08 by Milana Shafer NP, CERTIFIED ANESTHESIOLOGIST ASSISTANT-C) Encounter for education Dyslipidemia Breast cancer Prediabetes Endometriosis HTN (hypertension) Anxiety Surgical History H/O left breast biopsy Family History Father Colon cancer Mother Cancer pancreatic Grandmother Breast cancer paternal grandmother Heart disease Grandfather Colon cancer Heart disease Social History Smoking Status: Former smoker Tobacco: How many years used: 20 alcohol intake: never substance use type: does not use ROS Constitutional Constitutional: Reports systems reviewed and no addt'l complaints, except as documented, weight loss and other Details: Active weight loss ; Denies anorexia, fatigue or fever(s) Eyes Eyes: Reports systems reviewed and no addt'l complaints, except as documented; Denies change in vision ENT HEENT: Reports systems reviewed and no addt'l complaints, except as documented; Denies mouth lesions Cardiovascular Cardiovascular: Reports systems reviewed and no addt'l complaints, except as documented; Denies chest pain with activity or edema Respiratory/Chest Respiratory/Chest: Reports systems reviewed and no addt'l complaints, except as documented; Denies cough or dyspnea Gastrointestinal Gastrointestinal: Reports systems reviewed and no addt'l complaints, except as documented; Denies change in bowel habits, hematochezia or melena Genitourinary Genitourinary: Reports systems reviewed and no addt'l complaints, except as documented Musculoskeletal Musculoskeletal: Reports systems reviewed and no addt'l complaints, except as documented and arthralgias; Denies back pain Integumentary Integumentary: Reports systems reviewed and no addt'l complaints, except as documented; Denies new lesions Neurologic Neurologic: Reports systems reviewed and no addt'l complaints, except as documented; Denies focal weakness or paresthesias Psychia (more content not included)... Normal [facility] Surgery Visit Reporton 01-07 Surgery Visit Report [facility] [address] [place] [address] OFFICE VISIT Date of Service: 01/07/25 MR#: [id number] Acct: [id number] Name: ALLISON BOYKIN Suresh Rep #: [id number] : 1970 Provider: Dr. Aimee freeman MD Age/Sex: 54/F Location: [facility] Status: Signed Intake Vital Signs 01/05/25 11:29 01/07/25 14:33 Height 5 ft 5 in 5 ft 5 in Weight: 248 lb 246 lb 6 oz BMI 41.2 41.0 BP 142/90 H 169/96 H Blood Pressure Location Rt brachial Rt brachial Position Sitting Sitting Respiration 18 17 Pulse 60 75 Pulse Source Monitor Monitor Temp 98.2 F Pulse Oximetry (%) 97 98 Oxygen Delivery Method room air room air Intake Visit Reasons: PORT PLACEMENT Chief Complaint: port placement Allergies adhesive tape Allergy (Severe, Verified 01/07/25 14:35) rash acetaminophen (From Vicodin) Allergy (Intermediate, Verified 01/07/25 14:35) Other hydrocodone (From Vicodin) Allergy (Intermediate, Verified 01/07/25 14:35) Other Medications ???Medication ???Instructions ???Recorded ???Confirmed ???Type cholecalciferol (vitamin D3) 1,250 1,250 mcg PO QWEEK 12/17/2412/29 History mcg (50,000 unit) tablet hydrochlorothiazide 12.5 mg capsule 12.5 mg PO QAM 12/17/24 5 History metformin 500 mg tablet 500 mg PO BID 12/17/24 01/07/25 Hi story pravastatin 20 mg tablet 20 mg PO QDAY 12/17/24 01/07/25 Hi story propranolol 60 mg capsule,24 60 mg PO QDAY 12/17/24 01/07/25 Hi story hr,extended release lorazepam 0.5 mg tablet (Ativan) 0.5 mg PO ONCE PRN anxiety #2 tabs 12/23/24 01/07/25 Rx PFSH Medical History (Updated 01/07/25 @ 14:[address] Aimee Hylton MD) Dyslipidemia Breast cancer Prediabetes Endometriosis HTN (hypertension) Anxiety Surgical History (Updated 01/05/25 @ 11:23 by Lin Terrazas) H/O left breast biopsy Family History (Updated 01/05/25 @ 11:22 by Lin Terrazas) Father Colon cancer Mother Cancer pancreatic Grandmother Breast cancer paternal grandmother Heart disease Grandfather Colon cancer Heart disease Social History (Updated 01/05/25 @ 11:21 by Lin Terrazas) Smoking Status: Former smoker Tobacco: How many years used: 20 alcohol intake: never substance use type: does not use HPI HPI HPI: 54-year-old female presents to discuss port placement due to 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 Patient will plan to get her MRI done at an outpatient facility as insurance will not pay for a hospital facility. Patient states she had multiple conversations with insurance to try to get chemotherapy approved. ROS General General: Yes breast cancer; No weight change, appetite, fatigue, colon cancer or weakness HEENT HEENT: No difficulty swallowing, eye injury, eye surgery, swollen glands or hoarseness Endo Endocrine: No thyroid disease, diabetes mellitus, thyroid cancer, Hair loss, heat intolerance or cold intolerance Additional Details: pre diabetic Skin Skin: No rash or changing moles Breast Breast: Yes left breast lump, abnormal mammogram and abnormal US; No right breast lump, nipple discharge, breast pain or breast enlargement Musc Musculoskeletal: No back problems, arthritis, rheumatoid arthritis, gout or joint pain Cardio Cardiovascular: No murmur, pacemaker, heart disease, atrial fibrillation, high blood pressure, heart attack, heart stent, palpitations, shortness of breath with exertion or chest pain Psych Psychiatric: No depression, anxiety or hearing voices Resp Respiratory: No shortness of breath, No sleep apnea, No cough, No COPD, No asthma, No emphysema and No wheezing Gastro Gastrointestinal: No abdominal pain, No nausea or vomiting, No diarrhea, No constipation, No blood in stool, No acid reflux, No hemorrhoids, No ulcers, No gallbladder problem and No black,tarry stools Adams Hematologic: No blood thinners, No blood disorders, No bleeding, No anemia and No blood clots Neuro Neurologic: No system reviewed and no additional complaints, except as documented, No as per HPI, No abnormal gait, No abnormal hearing, No abnormal movements, No abnormal speech, No behavioral changes, No burning sensations, No confusion, No convulsions, No disequilibrium, No dizziness, No localized weakness, No frequent falls, No headache(s), No lack of coordination, No loss of vision, No memory loss, No numbness, No other visual disturbances, No radicular pain, No restless legs, No sensory deficit, No syncope, No tingling, No tremor(s), No weakness and No other Exam Const General: cooperative, healthy appearing, comfortable and no acute distress HENKS Head: normocephalic Neck Neck: supple Chest Other: Palpation upper chest bilaterally normal Resp Effort Inspe (more content not included)... Normal [facility] Absolute lymphocyte countOrd ered By: Jason Bueno on 01-05-2025 Lymphocytes Auto (Unsp spec) [#/Vol] 2.18 10*3/uL 0.83-4.[address] [facility] Absolute neutrophil countOrd ered By: Jasno Bueno on 01-05-2025 Neutrophils (Bld) [#/Vol] 5.3 10*3/uL 2.0-7.[address] [facility] Anion gap in Serum or Plasma Ordered By: Jason Bueno on 01-05-2025 Anion gap [Moles/Vol] 13 mmol/L 5-15 [facility] Automated lymphocyte count a s percentage of total leukocytesOrdered By: Jason Bueno on 01-05-2025 Lymphocytes/100 WBC Auto (Unsp spec) 26.5 % 19-[address] [facility] BUN/creatinine ratioOrdered By: Jason Bueno on 01-05-2025 Urea nitrogen/Creatinine [Mass ratio] 24.4 mg/mg High 10-[address] [facility] Basophil percentageOrdered B y: Jason Bueno on 01-05-2025 Basophils/100 WBC (Bld) 0.9 % 0-1 [facility] Bilirubin, totalOrdered By: Jason Bueno on 01-05-2025 Bilirubin [Mass/Vol] 0.26 mg/dL 0.00-1.30 [facility] CBC W/Diff, Automatedon Absolute Lymph 2.18 X10 3/uL Normal 0.83-4.[address] [facility] Comment on above: Performed By: #### L 900.0098, L500.4050, L100.0100 #### [facility] [address] [place], [address] Absolute Neut 5.3 X10 3/uL Normal 2.0-7.[address] [facility] Comment on above: Performed By: #### L 900.0098, L500.4050, L100.0100 #### [facility] [address] [place], [address] Basophils/100 WBC (Bld) 0.9 % Normal 0-1 [facility] Comment on above: Performed By: #### L 900.0098, L500.4050, L100.0100 #### [facility] [address] [place], [address] Eosinophils/100 WBC (Bld) 1.7 % Normal 0-[address] [facility] Comment on above: Performed By: #### L 900.0098, L500.4050, L100.0100 #### [facility] [address] [place], [address] Erythrocyte distribution width (RBC) [Ratio] 12.3 % Normal 11.6-14.[address] [facility] Comment on above: Performed By: #### L 900.0098, L500.4050, L100.0100 #### [facility] [address] [place], [address] Hematocrit (Bld) [Volume fraction] 41.7 % Normal 37-[address] [facility] Comment on above: Performed By: #### L 900.0098, L500.4050, L100.0100 #### [facility] [address] [place], [address] Hemoglobin (Bld) [Mass/Vol] 13.8 g/dL Normal 12.0-15.[address] [facility] Comment on above: Performed By: #### L 900.0098, L500.4050, L100.0100 #### [facility] [address] [place], [address] IG% 0.400 Normal 0.0-0.[address] [facility] Comment on above: Result Comment: IG% - Immature Granulocytes (promyelocytes, myelocytes and metamyelocytes) > 1% indicates that a LEFT SHIFT is Present. Performed By: #### L 900.0098, L500.4050, L100.0100 #### [facility] [address] [place], [address] Lymphocytes/100 WBC (Bld) 26.5 % Normal 19-[address] [facility] Comment on above: Performed By: #### L 900.0098, L500.4050, L100.0100 #### [facility] [address] [place], [address] MCH (RBC) [Entitic mass] 27.7 pg Normal 27.0-32.[address] [facility] Comment on above: Performed By: #### L 900.0098, L500.4050, L100.0100 #### [facility] [address] [place], [address] MCHC (RBC) [Mass/Vol] 33.1 g/dL Normal 32-36 [facility] Comment on above: Performed By: #### L 900.0098, L500.4050, L100.0100 #### [facility] [address] [place], [address] MCV (RBC) [Entitic vol] 83.6 fL Normal 81-99 [facility] Comment on above: Performed By: #### L 900.0098, L500.4050, L100.0100 #### [facility] [address] [place], [address] Monocytes/100 WBC (Bld) 6.2 % Normal 0-10 [facility] Comment on above: Performed By: #### L 900.0098, L500.4050, L100.0100 #### [facility] [address] [place], [address] Neutrophils/100 WBC (Bld) 64.3 % Normal 47-[address] [facility] Comment on above: Performed By: #### L 900.0098, L500.4050, L100.0100 #### [facility] [address] [place], [address] Nucleated RBC (Bld) [#/Vol] 0 10*3/uL Normal 0-[address] [facility] Comment on above: Performed By: #### L 900.0098, L500.4050, L100.0100 #### [facility] [address] [place], [address] Platelet mean volume (Bld) [Entitic vol] 11.8 fL Normal 6.2-12.[address] [facility] Comment on above: Performed By: #### L 900.0098, L500.4050, L100.0100 #### [facility] [address] [place], [address] Platelets (Bld) [#/Vol] 208 10*3/uL Normal 150-[address] [facility] Comment on above: Performed By: #### L 900.0098, L500.4050, L100.0100 #### [facility] [address] [place], [address] RBC (Bld) [#/Vol] 4.99 10*6/uL Normal 4.2-5.4 [facility] Comment on above: Performed By: #### L 900.0098, L500.4050, L100.0100 #### [facility] [address] [place], [address] RDW SD 37.4 fl Normal 35.1-43.[address] [facility] Comment on above: Performed By: #### L 900.0098, L500.4050, L100.0100 #### [facility] [address] [place], [address] WBC (Bld) [#/Vol] 8.2 10*3/uL Normal 4.4-11.0 [facility] Comment on above: Performed By: #### L 900.0098, L500.4050, L100.0100 #### [facility] [address] [place], [address] Carbon dioxide, total [Moles /volume] in Central venous bloodOrdered By: Jason Bueno on 01-05-2025 CO2 [Moles/Vol] 23.7 mmol/L 21.0-32.[address] [facility] Chloride assayOrdered By: Billy Bueno on 01-05-2025 Chloride [Moles/Vol] 103 mmol/L 98-108 [facility] Comprehensive Metabolic Prof ilon 01-05-2025 Albumin [Mass/Vol] 4.5 g/dL Normal 3.5-5.0 [facility] Comment on above: Performed By: #### L 900.0098, L500.4050, L100.0100 #### [facility] [address] [place], [address] Albumin/Globulin [Mass ratio] 1.5 {ratio} Normal 0.9-2.[address] [facility] Comment on above: Performed By: #### L 900.0098, L500.4050, L100.0100 #### [facility] [address] [place], [address] ALK PHOS 70 U/L Normal 35-[address] [facility] Comment on above: Performed By: #### L 900.0098, L500.4050, L100.0100 #### [facility] [address] [place], [address] ALT [Catalytic activity/Vol] 25 U/L Normal <=[address] [facility] Comment on above: Performed By: #### L 900.0098, L500.4050, L100.0100 #### [facility] [address] [place], [address] AST [Catalytic activity/Vol] 19 U/L Normal <=[address] [facility] Comment on above: Performed By: #### L 900.0098, L500.4050, L100.0100 #### [facility] [address] [place], [address] Bilirubin [Mass/Vol] 0.26 mg/dL Normal 0.00-1.30 [facility] Comment on above: Performed By: #### L 900.0098, L500.4050, L100.0100 #### [facility] [address] [place], [address] BUN/CRE 24.4 RATIO High 10-[address] [facility] Comment on above: Performed By: #### L 900.0098, L500.4050, L100.0100 #### [facility] [address] [place], [address] Calcium [Mass/Vol] 9.9 mg/dL Normal 7.6-11.0 [facility] Comment on above: Performed By: #### L 900.0098, L500.4050, L100.0100 #### [facility] [address] [place], [address] Chloride [Moles/Vol] 103 mmol/L Normal 98-108 [facility] Comment on above: Performed By: #### L 900.0098, L500.4050, L100.0100 #### [facility] [address] [place], [address] CO2 [Moles/Vol] 23.7 mmol/L Normal 21.0-32.[address] [facility] Comment on above: Performed By: #### L 900.0098, L500.4050, L100.0100 #### [facility] [address] [place], [address] Creatinine [Mass/Vol] 0.83 mg/dL Normal 0.70-1.20 [facility] Comment on above: Performed By: #### L 900.0098, L500.4050, L100.0100 #### [facility] [address] [place], [address] GAP 13 Normal 5-[address] [facility] Comment on above: Performed By: #### L 900.0098, L500.4050, L100.0100 #### [facility] [address] [place], [address] GFR/1.73 sq M.predicted among non-blacks MDRD (S/P/Bld) [Vol rate/Area] 84 mL/min/{1.73_m2} Normal >[address] [facility] Comment on above: Result Comment: mL/m in/1.73m2 CKD-EPI Creatinine Equation (2020) Performed By: #### L 900.0098, L500.4050, L100.0100 #### [facility] [address] [place], [address] Globulin (S) [Mass/Vol] 3.0 g/dL Normal 2.2-4.2 [facility] Comment on above: Performed By: #### L 900.0098, L500.4050, L100.0100 #### [facility] [address] [place], [address] Glucose [Mass/Vol] 123 mg/dL High 70-99 [facility] Comment on above: Performed By: #### L 900.0098, L500.4050, L100.0100 #### [facility] [address] [place], [address] Potassium [Moles/Vol] 3.7 mmol/L Normal 3.3-5.1 [facility] Comment on above: Performed By: #### L 900.0098, L500.4050, L100.0100 #### [facility] [address] [place], [address] Sodium [Moles/Vol] 140 mmol/L Normal 133-145 [facility] Comment on above: Performed By: #### L 900.0098, L500.4050, L100.0100 #### [facility] [address] [place], [address] T PROT 7.5 g/dL Normal 5.9-8.[address] [facility] Comment on above: Performed By: #### L 900.0098, L500.4050, L100.0100 #### [facility] [address] [place], [address] Urea nitrogen [Mass/Vol] 20 mg/dL High 4-[address] [facility] Comment on above: Performed By: #### L 900.0098, L500.4050, L100.0100 #### [facility] [address] [place], [address] Eosinophil percentageOrdered By: Jason Bueno on 01-05-2025 Eosinophils/100 WBC (Bld) 1.7 % 0-[address] [facility] Erythrocyte distribution wid th ratioOrdered By: Jason Bueno on 01-05-2025 Erythrocyte distribution width (RBC) [Ratio] 12.3 % 11.6-14.[address] [facility] Erythrocyte distribution wid th standard deviationOrdered By: Jason Bueno on 01-05-2025 Erythrocyte distribution width (RBC) [Ratio] 37.4 fl 35.1-43.[address] [facility] Glomerular filtration rate ( GFR) estimation/1.73 sq m using serum, plasma, or whole bOrdered By: Jason Bueno on 01-05-2025 GFR/1.73 sq M.predicted among non-blacks MDRD (S/P/Bld) [Vol rate/Area] 84 mL/min/{1.73_m2} >[address] [facility] Comment on above: mL/min/1.73m2 CKD-EP I Creatinine Equation (2020) Hematocrit Auto (Bld) [Volum e fraction]Ordered By: Jason Bueno on 01-05-2025 Hematocrit (Bld) [Volume fraction] 41.7 % 37-[address] [facility] Hemoglobin measurementOrdere d By: Jason Bueno on 01-05-2025 Hemoglobin (Bld) [Mass/Vol] 13.8 g/dL 12.0-15.[address] [facility] Immature granulocytes/100 WB C Auto (Bld)Ordered By: Jason Bueno on 01-05-2025 Immature granulocytes/100 WBC (Bld) 0.400 % 0.0-0.[address] [facility] Comment on above: IG% - Immature Granu locytes (promyelocytes, myelocytes and metamyelocytes) > 1% indicates that a LEFT SHIFT is Present. Laboratory - Chemistry and C hemistry - challengeOrdered By: Jason Bueno on 01-05-2025 AST [Catalytic activity/Vol] 19 U/L <[address] [facility] MCV (mean corpuscular volume ) determinationOrdered By: Jason Bueno on 01-05-2025 MCV (RBC) [Entitic vol] 83.6 fL 81-99 [facility] Mean corpuscular hemoglobin (MCH) determinationOrdered By: Jason Bueno on 01-05-2025 MCH (RBC) [Entitic mass] 27.7 pg 27.0-32.[address] [facility] Mean corpuscular hemoglobin concentration (MCHC) determinationOrdered By: Jason Bueno on 01-05-2025 MCHC (RBC) [Mass/Vol] 33.1 g/dL 32-36 [facility] Mean platelet volume determi nationOrdered By: Jason Bueno on 01-05-2025 Platelet mean volume (Bld) [Entitic vol] 11.8 fL 6.2-12.[address] [facility] Monocyte percentageOrdered B y: Jason Bueno on 01-05-2025 Monocytes/100 WBC (Bld) 6.2 % 0-10 [facility] NATERAon 01-05-2025 NATURA SEE SCANNED REPORT Normal [facility] Comment on above: Performed By: #### L 900.0098, L500.4050, L100.0100 #### [facility] [address] [place], [address] Neutrophil percentageOrdered By: Jason Bueno on 01-05-2025 Neutrophils/100 WBC (Bld) 64.3 % 47-[address] [facility] Nucleated red blood cell per centageOrdered By: Jason Bueno on 01-05-2025 Nucleated RBC/100 WBC (Bld) [Ratio] 0 % 0-[address] [facility] Oncology Visit Reporton Oncology Visit Report [facility] [place] [facility] [address] [facility] [place] [address] OFFICE VISIT Date of Service: 01/05/25 1109 MR#: [id number] Acct: [id number] Name: ALLISON BOYKIN Rep #: [id number] : 1970 From: Jason Bueno MD Age/Sex: 54/F [place] [facility] [place]: Signed HPI Subjective Date of Service 01/05/25 Chief Complaint Breast cancer History of Present Illness 54-year-old female postmenopausal (last menstrual period was 3 years earlier) whose disease presented after an abnormal screening mammogram. November 26, 2024 screening mammography and ultrasound: Unilateral Left Breast Mammographic Findings: 1. Follow-up examination performed for the focal asymmetry in the left breast visualized on the outside examination of 10/24/2024. On the present examination, there is an irregular spiculated mass in the upper inner left breast at posterior depth. 2. There is a mass with associated calcifications in the medial left breast at anterior depth. 3. There are innumerable masses scattered throughout the left breast. ULTRASOUND: 1. Ultrasound performed of the upper inner left breast demonstrates an irregular hypoechoic mass with posterior shadowing in the left breast at 11 o'clock 6 cm from the nipple, measuring 0.9 x 0.9 x 0.8 cm. This correlates with the mammographic finding. 2. There is a cyst cluster in the left breast at 10 o'clock 3 cm from the nipple measuring 0.9 x 0.9 x 0.6 cm. This correlates to the other mammographic finding in the medial left breast at anterior depth. 3. There is an additional incidental complicated cyst in the left breast at 9 o'clock 5 cm from the nipple measuring 0.9 x 0.6 x 0.4 cm and a cyst at 12 o'clock 5 cm from the nipple measuring 2.4 x 2.4 x 2.1 cm. IMPRESSION: 1. Left breast mass at 11 o'clock 6 cm from the nipple is highly suggestive of malignancy. Recommend tissue sampling with ultrasound core needle biopsy. Also, at the time of the biopsy recommend additional images being taken of the left axilla and the remainder of the left breast to assess for additional suspicious masses and axillary lymph nodes. OVERALL FINAL ASSESSMENT BI-RADS 5: HIGHLY SUGGESTIVE OF MALIGNANCY. December 17, 2024 MICROSCOPIC DIAGNOSIS A. Breast, left, 11 o???clock, 9 CMFN, core biopsy: - Invasive ductal carcinoma at least 0.8 cm. - Grade 1 (tubule 1, nuclear 1, mitosis 1). - ER: positive (95%, strong intensity). - FL: positive (50%, intermediate intensity). - [id number]: PENDING, to be reported in an addendum. - Ki67: 10-15% This addendum is to report the TQF8NCI performed at [facility]: [id number]: positive (3+) [facility] Medical History (Updated 01/05/25 @ 12:[address] Jason Bueno MD) Dyslipidemia Breast cancer Prediabetes Endometriosis HTN (hypertension) Anxiety Surgical History (Updated 01/05/25 @ 11:23 by Lin Terrazas) H/O left breast biopsy Family History (Updated 01/05/25 @ 11:22 by Lin Terrazas) Father Colon cancer Mother Cancer pancreatic Grandmother Breast cancer paternal grandmother Heart disease Grandfather Colon cancer Heart disease Social History (Updated 01/05/25 @ 11:21 by Lin Terrazas) Smoking Status: Former smoker Tobacco: How many years used: 20 alcohol intake: never substance use type: does not use ROS Constitutional Constitutional: Reports systems reviewed and no addt'l complaints, except as documented, weight loss and other Details: Active weight loss ; Denies anorexia, fatigue or fever(s) Eyes Eyes: Reports systems reviewed and no addt'l complaints, except as documented; Denies change in vision ENT HEENT: Reports systems reviewed and no addt'l complaints, except as documented; Denies mouth lesions Cardiovascular Cardiovascular: Reports systems reviewed and no addt'l complaints, except as documented; Denies chest pain with activity or edema Respiratory/Chest Respiratory/Chest: Reports systems reviewed and no addt'l complaints, except as documented; Denies cough or dyspnea Gastrointestinal Gastrointestinal: Reports systems reviewed and no addt'l complaints, except as documented; Denies change in bowel habits, hematochezia or melena Genitourinary Genitourinary: Reports systems reviewed and no addt'l complaints, except as documented Musculoskeletal Musculoskeletal: Reports systems reviewed and no addt'l complaints, except as documented and arthralgias; Denies back pain Integumentary Integumentary: Reports systems reviewed and no addt'l complaints, except as documented; Denies new lesions Neurologic Neurologic: Reports systems reviewed and no addt'l complaints, except as documented; Denies focal weakness or paresthesias Psychiatric Psychiatric: Reports systems reviewed and no addt'l complaints, except as documented Endocrine Endocrinology: Reports systems reviewed and no addt'l (more content not included)... Normal [facility] Platelet countOrdered By: Billy Bueno on 01-05-2025 Platelets (Bld) [#/Vol] 208 10*3/uL 150-[address] [facility] Potassium measurement (mass/ volume)Ordered By: Jason Bueno on 01-05-2025 Potassium (Unsp spec) [Mass/Vol] 3.7 mmol/L 3.3-5.[address] [facility] RBC Auto (Bld) [#/Vol]Ordere d By: Jason Bueno on 01-05-2025 RBC (Bld) [#/Vol] 4.99 10*6/uL 4.2-5.4 [facility] Serum creatinine measurement (mass/volume)Ordered By: Jason Bueno on 01-05-2025 Creatinine [Mass/Vol] 0.83 mg/dL 0.70-1.20 [facility] Serum globulin measurementOr dered By: Jason Bueno on 01-05-2025 Globulin (S) [Mass/Vol] 3.0 g/dL 2.2-4.2 [facility] Serum glucose measurement (m ass/volume)Ordered By: Jason Bueno on 01-05-2025 Glucose [Mass/Vol] 123 mg/dL High 70-99 [facility] Serum or plasma alanine ahuja otransferase (ALT) measurementOrdered By: Jason Bueno on 01-05-2025 ALT [Catalytic activity/Vol] 25 U/L <[address] [facility] Serum or plasma albumin shannon urement (mass/volume)Ordered By: Jason Bueno on 01-05-2025 Albumin [Mass/Vol] 4.5 g/dL 3.5-5.0 [facility] Serum or plasma albumin/glob ulin mass ratioOrdered By: Jason Bueno on 01-05-2025 Albumin/Globulin [Mass ratio] 1.5 {ratio} 0.9-2.[address] [facility] Serum or plasma alkaline lisa sphatase measurementOrdered By: Jason Bueno on 01-05-2025 ALP [Catalytic activity/Vol] 70 U/L 35-[address] [facility] Serum or plasma calcium shannon urement (mass/volume)Ordered By: Jason Bueno on 01-05-2025 Calcium [Mass/Vol] 9.9 mg/dL 7.6-11.0 [facility] Serum or plasma urea nitroge n measurement (mass/volume)Ordered By: Jason Myles on 01-05-2025 Urea nitrogen [Mass/Vol] 20 mg/dL High 4-[address] [facility] Sodium levelOrdered By: James ernandez Myles on 01-05-2025 Sodium [Moles/Vol] 140 mmol/L 133-145 [facility] Total proteinOrdered By: Hieu king Myles on 01-05-2025 Protein [Mass/Vol] 7.5 g/dL 5.9-8.4 [facility] White blood cell (WBC) count Ordered By: Jason Myles on 01-05-2025 WBC (Bld) [#/Vol] 8.2 10*3/uL 4.4-11.0 [facility] Surgical pathology reportOrd ered By: Shonna Aponte on 12-19-2024 Surgical pathology study [facility] Immunohistochemical Stainson 12-17-2024 Immunohistochemical Stains ---- Patient Age/Sex Location Account Attending Physician ---- ALLISON BOYKIN 54/F LABSPEC [id number] Dr. Aimee Hylton MD ---- Specimen: [id number] Received: 12/17/24 Status: YOANA White Num: [id number] Spec Type: BREAST BX Subm Dr: Dr. Aimee Hylton MD HEADER OPERATION: Left breast biopsy PRE-OP DIAGNOSIS: Left breast TISSUE SUBMITTED: A- Left breast - 11:00, 9cm from nipple ---- MICROSCOPIC DIAGNOSIS A. 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 - Grade 1 (tubule 1, nuclear 1, mitosis 1). - ER: positive (95%, strong intensity). - FL: positive (50%, intermediate intensity). - HCZ0DEP: PENDING, to be reported in an addendum. - Ki67: 10-15% MICROSCOPIC DESCRIPTION Slides are reviewed. E-cadherin is positive. CK5/6 and p40 are negative in the carcinoma. ???All matched controls reacted appropriately. These tests were developed and their performance characteristics determined by [facility]. They may not have been cleared or approved by the U.S. Food and Drug Administration. The FDA has determined that such clearance or approval is not necessary.??? The above immunohistochemical??? markers and/or special stains have been reviewed by the Pathologist. GROSS DESCRIPTION A. Received in formalin labeled with the patient's name and date of . Designated as L breast tissue are 3 pool-yellow, fragmented tissue cores, 1.1 cm to 1.3 cm in length by 0.1 cm in diameter. Entirely submitted in 1 cassette. Cold ischemic time: <1 minuteFormalin fixation time: 9 hours, 45 minutes [place] 12/17/2024 CPT:02055,54142,75711n 2,08871b1 ---- ---- Patient Age/Sex Location Account Attending Physician ---- ALLISON BOYKIN 54/F LABSPEC [id number] Dr. Aimee Hylton MD ---- ADDENDUM Addendum 1 Entered: 12/24/24-1623 This addendum is to report the CTE0BBI performed at [facility]: [id number]: positive (3+) All controls show appropriate reactivity. All immunohistochemistry, in situ hybridization, and histochemical tests were developed by and are performed at the [facility], [address] [place] [address]. All Immunofluorescent (IF)???tests were developed by and are performed at the [facility], [address] [place] [address] ???[id number]. All tests reported here, except those addressing HER2 overexpression as a predictive marker, have not been cleared by or approved by the US Food and Drug Administration (FDA). The laboratory is regulated under CLIA as qualified to perform high-complexity testing. The tests are used for clinical purposes. They should not be regarded as investigational or for research. Addendum Signed (signature on file) Dr. Shonna Aponte MD 12/24/24 1624 ---- ---- Patient Age/Sex Location Account Attending Physician ---- ALLISON BOYKIN 54/F LABSPEC [id number] Dr. Aimee Hylton MD ---- Signed (signature on file) Dr. Shonna Aponte MD 12/19/24 1527 ---- Normal [facility] Comment on above: Performed By: #### P MOJGANND ####[facility] [id number] [place], [place], [id number] Surgery Visit Reporton 12-17 Surgery Visit Report [facility] [address] [place] [address] OFFICE VISIT Date of Service: 12/17/24 MR#: [id number] Acct: [id number] Name: ALLISON BOYKIN Rep #: [id number] : 1970 Provider: Dr. Aimee freeman MD Age/Sex: 54/F Location: [facility] [place] Status: Signed Intake Vital Signs 12/17/24 09:13 Height 5 ft 7 in Weight: 254 lb BMI 39.7 BP 159/97 H Blood Pressure Location Rt brachial Position Sitting Respiration 17 Pulse 75 Pulse Source Monitor Pulse Oximetry (%) 98 Oxygen Delivery Method room air Intake Visit Reasons: Birads 5 Chief Complaint: birads 5 Is patient in pain?: No Allergies acetaminophen (From Vicodin) Allergy (Intermediate, Verified 12/17/24 09:14) Other hydrocodone (From Vicodin) Allergy (Intermediate, Verified 12/17/24 09:14) Other Medications ???Medication ???Instructions ???Recorded ???Confirmed ???Type cholecalciferol (vitamin D3) 1,250 1,250 mcg PO QWEEK 12/17/2411/29 History mcg (50,000 unit) tablet hydrochlorothiazide 12.5 mg capsule 12.5 mg PO QAM 12/17/24 5 History metformin 500 mg tablet 500 mg PO BID 12/17/24 12/17/24 Hi story nutroful PO 12/17/24 12/17/24 History pravastatin 20 mg tablet 20 mg PO QDAY 12/17/24 12/17/24 Hi story propranolol 60 mg capsule,24 60 mg PO QDAY 12/17/24 12/17/24 Hi story hr,extended release PFSH Medical History (Updated 12/17/24 @ 09:11 by Poonam Edwards) HTN (hypertension) Anxiety Family History (Updated 12/17/24 @ 09:12 by Poonam Edwards) Father Colon cancer Mother Cancer pancreatic Grandmother Breast cancer paternal grandmother Social History (Updated 12/17/24 @ 09:13 by Poonam Edwards) Smoking Status: Former smoker alcohol intake: never HPI HPI HPI: 54-year-old female presents due to abnormal screening mammogram and ultrasound. Patient does have very dense breast tissue. The patient had a hypoechoic lesion in the left breast at 11:00 6 cm from the nipple per report given a BI-RADS 5 with posterior shadowing. Patient denies any breast pain or change in overlying skin or nipple discharge. Patient does have a history of breast cysts and has had some aspirated in the past as well. Age at menses 14, age at time of of first child N/AA, family history of breast cancer paternal grandmother in her late 50s???status post lumpectomy and radiation, no previous breast biopsies BREAST LIMITED UNILATERAL 11/26/2024 CLINICAL HISTORY: 54-year-old female presents for follow-up of the left breast findings seen on the outside examination of 10/24/2024. Family history of breast cancer in a paternal grandmother at age 63. TECHNIQUE: BREAST LIMITED UNILATERAL. COMPARISON: Prior exam(s) dated 10/24/2024, 03/29/2007. FINDINGS: MAMMOGRAM: TISSUE DENSITY: The breasts are heterogeneously dense, which may obscure small masses. The mammogram demonstrates that the patient has dense breasts. Supplemental screening with whole breast ultrasound or MRI may be considered for further evaluation. Unilateral Left Breast Mammographic Findings: 1. Follow-up examination performed for the focal asymmetry in the left breast visualized on the outside examination of 10/24/2024. On the present examination, there is an irregular spiculated mass in the upper inner left breast at posterior depth. 2. There is a mass with associated calcifications in the medial left breast at anterior depth. 3. There are innumerable masses scattered throughout the left breast. ULTRASOUND: 1. Ultrasound performed of the upper inner left breast demonstrates an irregular hypoechoic mass with posterior shadowing in the left breast at 11 o'clock 6 cm from the nipple, measuring 0.9 x 0.9 x 0.8 cm. This correlates with the mammographic finding. 2. There is a cyst cluster in the left breast at 10 o'clock 3 cm from the nipple measuring 0.9 x 0.9 x 0.6 cm. This correlates to the other mammographic finding in the medial left breast at anterior depth. 3. There is an additional incidental complicated cyst in the left breast at 9 o'clock 5 cm from the nipple measuring 0.9 x 0.6 x 0.4 cm and a cyst at 12 o'clock 5 cm from the nipple measuring 2.4 x 2.4 x 2.1 cm. US/Breast Limited Unilateral IMPRESSION: 1. Left breast mass at 11 o'clock 6 cm from the nipple is highly suggestive of malignancy. Recommend tissue sampling with ultrasound core needle biopsy. Also, at the time of the biopsy recommend additional images being taken of the left axilla and the remainder of the left breast to assess for additional suspicious masses and axillary lymph nodes. OVERALL FINAL ASSESSMENT BI-RADS 5: HIGHLY SUGGESTIVE OF MALIGNANCY. ROS General General: No weight (more content not included)... [facility] (RADMN) ALLISON BOYKIN ([id number]) 1970 F Date Time Provider Department 12/11/24 SWAPNA CHAMPION RADMN During your visit today, we recorded the following information about you: Swapna Champion, RN 12/11/2024 1:44 PM Signed Outside Biopsy Recommended Review Request Patient Name: Allison Boykin Date films received: 11/26/2024 Name of outside facility: [facility] Images in AGFA: Yes Outside Radiologist's recommendation: Left Breast US Bx Date of outside study: 11/26/2024 Patient told to bring script: No IS PATIENT ON BLOOD THINNERS: no Last INR AND Date: Comments Graciela Brothers MD 12/15/2024 12:12 PM Signed Approve ultrasound biopsy of a mass in the left breast at 11:00, 6 cm from the nipple seen on the 11/26/2024 ultrasound. Also, recommend left diagnostic mammogram and left ultrasound for further evaluation of the multiple findings seen on the 11/26/2024 ultrasound. Allergies As of Date: 12/11/2024 Noted Allergy Reaction VICODIN (HYDROCODONE-ACETAMINO PHE*06/17/2008 8 - GI Upset Date Reviewed: 12/10/2024 Reviewed by: Lars Serna, RN - Fully Assessed Reason for Visit: Outside Recommended Biopsy Review [Other] Prescriptions as of 12/18/2024 - OTC NUTRITIONAL SUPPLEMENT Nutraful two tabs once a day - metFORMIN ER (GLUCOPHAGE XR) 500 mg 24 hr tablet Take 2 tablets by mouth daily with breakfast AND 1 tablet daily with dinner. - propranolol ER (INDERAL LA) 60 mg 24 hr capsule Take 1 capsule by mouth once daily. - hydroCHLOROthiazide 12.5 mg capsule Take 1 capsule by mouth once daily. - pravastatin (PRAVACHOL) 20 mg tablet Take 1 tablet by mouth once daily. - cholecalciferol, Vitamin D3, (VITAMIN D3) 1,250 mcg (50,000 unit) cap capsule Take 1 capsule by mouth one time a week. Problem List As Of Date 12/11/2024 Noted Resolved Excessive or frequent menstruation [N92.0] 09/24/2007 08/18/2014 Dysmenorrhea [N94.6] 09/24/2007 08/18/2014 Ingrowing nail [L60.0] 06/17/2008 08/18/2014 Cellulitis and abscess of foot, except toes [L0*07/15/2008 08/18/2014 Fibrocystic Disease of Breast [N60.19] 07/21/2009 History of tobacco use [Z87.891] 11/26/2010 Lump or mass in breast [N63.0] 08/16/2011 08/18/2014 Mixed hyperlipidemia [E78.2] 04/29/2012 BMI 40.0-44.9, adult (HCC) [Z68.41] 08/19/2013 Migraine with aura and with status migrainosus,* 5 Diabetes mellitus type 2, controlled, without c*01/15/2015 Pilonidal cyst with abscess [L05.01] 03/29/2015 10/12/2015 Acute back pain with sciatica [M54.40] 01/26/2016 Stress at home [F43.9] 05/22/2016 Pilonidal cyst without abscess [L05.91] 07/19/2016 Vitamin D deficiency [E55.9] 10/20/2024 Primary hypertension [I10] 10/20/2024 Encounter Status:Closed by SWAPNA CHAMPION on 12/18/24 Normal [facility]OVon 12-10-2024 CNOV Office Visit (GENSWS ) ALLISON BOYKIN ([id number]) 1970 F Date Time Provider Department 12/10/24 3:00 PM BOOM ESPOSITO GENZOYA During your visit today, we recorded the following information about you: Boom Esposito MD 12/10/2024 6:37 PM Signed HISTORY AND PHYSICAL - BREAST COMPLAINT Allison Boykin 1970 REFERRING PHYSICIAN: Dr. Covarrubias/Dr. Gandhi CHIEF COMPLAINT: Abnormal left breast imaging suspicious area 12:00 HPI: Rosanne Prince Ashutosh is a 54-year-old female presenting for evaluation of multiple breast cysts, with a recent diagnostic mammogram revealing a concerning shadow within one of the cysts. Rosanne has a history of multiple breast cysts, one of which was previously aspirated due to its large size and discomfort. She recently underwent a diagnostic mammogram, which revealed a shadow within one of the cysts that was not present in previous imaging. Rosanne reports that none of the cysts are currently causing her discomfort, but she is concerned about the new finding. She was initially seen by Dr. Gandhi, who referred her back to Dr. Esposito for further evaluation. Imaging - Breast Ultrasound: - Dense breast tissue with multiple cysts, including a large cyst measuring approximately 5 cm from the nipple at the 12 o?clock position. - One lesion measuring approximately 0.86 cm with shadowing and lacking posterior acoustic enhancement, suspicious for possible solid component. The area of concern between multiple cysts was noted to be at the 11 o'clock position 6 cm from the nipple. - Diagnostic Mammogram: - Multiple cystic lesions in the left breast, with a suspicious area at approximately the 11-12 o?clock position. Images were imported from the [facility] system and reviewed prior to evaluating the patient The patient is being seen by me today at the request of Dr. Farzad Covarrubias MD for my opinion and advice regarding area of suspicion on ultrasound with recommended biopsy. PAST MEDICAL HISTORY Diagnosis Date Chronic low back pain with sciatica 09/18/2008 Diabetes (HCC) Diffuse cystic mastopathy 04/30/1999 Aspiration on left x2 Dysmetabolic syndrome 08/19/2013 Essential hypertension Hyperlipidemia Other and unspecified ovarian cyst Solitary cyst of breast 04/16/2007 PAST SURGICAL HISTORY Procedure Laterality Date DILATION AND CURETTAGE DXAND/THER NONOBSTETRIC 07/05 Dilation AND curettage US FNA BREAST 04/16/07;2003 U/S FNA large outer mid left breast cyst Current Outpatient Medications Medication Sig Dispense Refill OTC NUTRITIONAL SUPPLEMENT Nutraful two tabs once a day metFORMIN ER (GLUCOPHAGE XR) 500 mg 24 hr tablet Take 2 tablets by mouth daily with breakfast AND 1 tablet daily with dinner. 270 tablet 3 pravastatin (PRAVACHOL) 20 mg tablet Take 1 tablet by mouth once daily. 90 tablet 3 cholecalciferol, Vitamin D3, (VITAMIN D3) 1,250 mcg (50,000 unit) cap capsule Take 1 capsule by mouth one time a week. 12 capsule 3 propranolol ER (INDERAL LA) 60 mg 24 hr capsule Take 1 capsule by mouth once daily. 90 capsule 3 hydroCHLOROthiazide 12.5 mg capsule Take 1 capsule by mouth once daily. 90 capsule 3 No current facility-administered medications for this visit. ALLERGIES: Vicodin [Hydrocodone-Acetamino phen] PERSONAL HISTORY: SOCIAL HISTORY[1] FAMILY HISTORY: FAMILY HISTORY Problem Relation Age of Onset Cancer Mother PANCREATIC, 48 Prostate Cancer Father No Known Problems Brother Breast Cancer Paternal Grandmother 67 Prostate Cancer Paternal Grandfather REVIEW OF SYMPTOMS: The review of systems data was entered by the nurse and reviewed by me There are no exam notes on file for this visit. PHYSICAL EXAMINATION: General: The patient is 54 year old female, well nourished, well hydrated in no acute distress. The patient is oriented to time, place, and person. VITALS: Last menstrual period 04/30/2018. There is no height or weight on file to calculate BMI. HEENT: Normal cephalic, ataumatic, pupils are equally round, sclera are anicteric, mucous membranes are moist, oropharynx is clear. Neck has no masses, asymmetry or lymphadenopathy. Thyroid is unremarkable. Respiratory: Clear to auscultation and percussion. Normal respiratory excursion and pattern. Cardiac: Examination is regular rate and rhythm. Abdominal exam: Soft, nontender, with no palpable masses. No hepatosplenomegaly. No palpable hernias. Rectal exam: exam deferred Extremities: no clubbing, cyanosis or edema. No adenopathy. Breast: Visual inspection reveals no retractions, nipple inversion, or skin changes. Palpation of the right breast reveals multiple benign feeling nodules. Palpation of the left breast reveals no dominant or suspicious masses and multiple benign feeling nodules. Axillary exam demonstrates no suspicious masses in either (more content not included)... Normal [facility] CNOVon 12-08-2024 CNOV Office Visit (GENSWS ) ALLISON BOYKIN ([id number]) 1970 F Date Time Provider Department 12/08/24 3:30 PM KLEBER GANDHI During your visit today, we recorded the following information about you: Temperature Pulse Blood pressure Weight 97.2 degrees 76/minute 148/98 116.5 kg Kleber Gandhi MD 12/10/2024 12:40 PM Signed HISTORY AND PHYSICAL Allison Boykin 1970 REFERRING PHYSICIAN: Yuko Osborn APRN.[employer]INEER CHIEF COMPLAINT: Consult (Abnormal mammogram) HPI: Rosanne Boykin is a 54-year-old female with a history of multiple breast cysts, presenting for evaluation of a recent mammogram and ultrasound. Rosanne has a history of multiple cysts in both breasts, with 6-8 cysts in the left breast and several in the right breast. She has undergone previous aspirations and biopsies by Dr. Weber, with the last biopsy performed in 2011. She reports undergoing annual mammograms. Recent imaging revealed an area of concern at the 11 o'clock position, 6 cm in size, which appeared different from previous cysts. The ultrasound showed a deep shadow, prompting the need for a biopsy. Rosanne inquires about the procedure and expresses concern about the findings. The patient is being seen by me today at the request of Dr. Osborn for my opinion and advice regarding Encounter for screening mammogram for malignant neoplasm of breast. PAST MEDICAL HISTORY Diagnosis Date Chronic low back pain with sciatica 09/18/2008 Diabetes (HCC) Diffuse cystic mastopathy 04/30/1999 Aspiration on left x2 Dysmetabolic syndrome 08/19/2013 Essential hypertension Hyperlipidemia Other and unspecified ovarian cyst Solitary cyst of breast 04/16/2007 PAST SURGICAL HISTORY Procedure Laterality Date DILATION AND CURETTAGE DXAND/THER NONOBSTETRIC 07/05 Dilation AND curettage US FNA BREAST 04/16/07;2003 U/S FNA large outer mid left breast cyst Current Outpatient Medications Medication Sig OTC NUTRITIONAL SUPPLEMENT Nutraful two tabs once a day metFORMIN ER (GLUCOPHAGE XR) 500 mg 24 hr tablet Take 2 tablets by mouth daily with breakfast AND 1 tablet daily with dinner. propranolol ER (INDERAL LA) 60 mg 24 hr capsule Take 1 capsule by mouth once daily. hydroCHLOROthiazide 12.5 mg capsule Take 1 capsule by mouth once daily. pravastatin (PRAVACHOL) 20 mg tablet Take 1 tablet by mouth once daily. cholecalciferol, Vitamin D3, (VITAMIN D3) 1,250 mcg (50,000 unit) cap capsule Take 1 capsule by mouth one time a week. No current facility-administered medications for this visit. ALLERGIES: Vicodin [Hydrocodone-Acetamino phen] PERSONAL HISTORY: SOCIAL HISTORY[1] FAMILY HISTORY: FAMILY HISTORY Problem Relation Age of Onset Cancer Mother PANCREATIC, 48 Prostate Cancer Father No Known Problems Brother Breast Cancer Paternal Grandmother 67 Prostate Cancer Paternal Grandfather REVIEW OF SYMPTOMS: The review of systems data was entered by the nurse and reviewed by me There are no exam notes on file for this visit. PHYSICAL EXAMINATION: General: The patient is 54 year old female, well nourished, well hydrated in no acute distress. The patient is oriented to time, place, and person. VITALS: Blood pressure 148/98, pulse 76, temperature 36.2 ?C (97.2 ?F), weight 116.5 kg (256 lb 12.8 oz), last menstrual period 04/30/2018, SpO2 98%. HEENT: Normal cephalic, ataumatic, pupils are equally round, sclera are anicteric, mucous membranes are moist, oropharynx is clear. Neck has no masses, asymmetry or lymphadenopathy. Thyroid is unremarkable. Respiratory: Clear to auscultation and percussion. Normal respiratory excursion and pattern. Cardiac: Examination is regular rate and rhythm. Abdominal exam: Soft, nontender, with no palpable masses. No hepatosplenomegaly. No palpable hernias. Rectal exam: exam deferred Extremities: no clubbing, cyanosis or edema. No adenopathy. Other: LABORATORY VALUES: As Noted RADIOLOGIC STUDIES: As Noted Assessment IMPRESSION: Encounter for screening mammogram for malignant neoplasm of breast PLAN: 1. Encounter for screening mammogram for malignant neoplasm of breast (Z12.31) Ultrasound revealed a lesion at 11 o'clock position with deep shadowing, differentiating it from simple cysts. Lesion is less than 2 cm in diameter and appears irregular, warranting further investigation. - Scheduled an ultrasound-guided biopsy with Dr. Weber to obtain tissue samples for histopathological examination. - Educated patient on the biopsy procedure, including skin preparation with Betadine, local anesthesia, and the use of a hollow needle to obtain tissue samples. - Informed patient about the placement of a small titanium clip to donn the biopsy site. - Advised patient that if the lesion is not visible during the biopsy, a referral to interventional radiology for a high-powered (more content not included)... Normal [facility] ALLISON BOYKIN ([id number]) 1970 F Date Time Provider Department 12/03/24 KLEBER GANDHI GENZOYA During your visit today, we recorded the following information about you: Mariela Betancourt RN 12/03/2024 11:29 AM Signed Images requested from [facility] Allergies As of Date: 12/03/2024 Noted Allergy Reaction VICODIN (HYDROCODONE-ACETAMINO PHE*06/17/2008 8 - GI Upset Date Reviewed: 10/24/2024 Reviewed by: Diana Ballard APRN.DUST CONTROL ENGINEER - Fully Assessed Prescriptions as of 12/03/2024 - OTC NUTRITIONAL SUPPLEMENT Nutraful two tabs once a day - metFORMIN ER (GLUCOPHAGE XR) 500 mg 24 hr tablet Take 2 tablets by mouth daily with breakfast AND 1 tablet daily with dinner. - propranolol ER (INDERAL LA) 60 mg 24 hr capsule Take 1 capsule by mouth once daily. - hydroCHLOROthiazide 12.5 mg capsule Take 1 capsule by mouth once daily. - pravastatin (PRAVACHOL) 20 mg tablet Take 1 tablet by mouth once daily. - cholecalciferol, Vitamin D3, (VITAMIN D3) 1,250 mcg (50,000 unit) cap capsule Take 1 capsule by mouth one time a week. Problem List As Of Date 12/03/2024 Noted Resolved Excessive or frequent menstruation [N92.0] 09/24/2007 08/18/2014 Dysmenorrhea [N94.6] 09/24/2007 08/18/2014 Ingrowing nail [L60.0] 06/17/2008 08/18/2014 Cellulitis and abscess of foot, except toes [L0*07/15/2008 08/18/2014 Fibrocystic Disease of Breast [N60.19] 07/21/2009 History of tobacco use [Z87.891] 11/26/2010 Lump or mass in breast [N63.0] 08/16/2011 08/18/2014 Mixed hyperlipidemia [E78.2] 04/29/2012 BMI 40.0-44.9, adult (HCC) [Z68.41] 08/19/2013 Migraine with aura and with status migrainosus,* 5 Diabetes mellitus type 2, controlled, without c*01/15/2015 Pilonidal cyst with abscess [L05.01] 03/29/2015 10/12/2015 Acute back pain with sciatica [M54.40] 01/26/2016 Stress at home [F43.9] 05/22/2016 Pilonidal cyst without abscess [L05.91] 07/19/2016 Vitamin D deficiency [E55.9] 10/20/2024 Primary hypertension [I10] 10/20/2024 Encounter Status:Closed by MARIELA BETANCOURT on 12/03/24 Normal [facility] Breast Limited Unilateralon 11-26-2024 Breast Limited Unilateral [facility] Imaging Services [address] [place] [id number] Breast Limited Unilateral MR#: [id number] Acct: [id number] Name: ASHUTOSHALLISON Rep #: [id number] : 1970 F 54 From: Esperanza Kelly MD PCP: Dr. Ivet Castanon MD Status: [facility] Study: Breast Limited Unilateral Date of Exam: Exam# [id number] Ordering Dr: Diana Ballard CERTIFIED ANESTHESIOLOGIST ASSISTANT CERTIFIED ANESTHESIOLOGIST ASSISTANT-C EXAM: BREAST LIMITED UNILATERAL 11/26/2024 CLINICAL HISTORY: 54-year-old female presents for follow-up of the left breast findings seen on the outside examination of 10/24/2024. Family history of breast cancer in a paternal grandmother at age 63. TECHNIQUE: BREAST LIMITED UNILATERAL. COMPARISON: Prior exam(s) dated 10/24/2024, 03/29/2007. FINDINGS: MAMMOGRAM: TISSUE DENSITY: The breasts are heterogeneously dense, which may obscure small masses. The mammogram demonstrates that the patient has dense breasts. Supplemental screening with whole breast ultrasound or MRI may be considered for further evaluation. Unilateral Left Breast Mammographic Findings: 1. Follow-up examination performed for the focal asymmetry in the left breast visualized on the outside examination of 10/24/2024. On the present examination, there is an irregular spiculated mass in the upper inner left breast at posterior depth. 2. There is a mass with associated calcifications in the medial left breast at anterior depth. 3. There are innumerable masses scattered throughout the left breast. ULTRASOUND: 1. Ultrasound performed of the upper inner left breast demonstrates an irregular hypoechoic mass with posterior shadowing in the left breast at 11 o'clock 6 cm from the nipple, measuring 0.9 x 0.9 x 0.8 cm. This correlates with the mammographic finding. 2. There is a cyst cluster in the left breast at 10 o'clock 3 cm from the nipple measuring 0.9 x 0.9 x 0.6 cm. This correlates to the other mammographic finding in the medial left breast at anterior depth. 3. There is an additional incidental complicated cyst in the left breast at 9 o'clock 5 cm from the nipple measuring 0.9 x 0.6 x 0.4 cm and a cyst at 12 o'clock 5 cm from the nipple measuring 2.4 x 2.4 x 2.1 cm. US/Breast Limited Unilateral IMPRESSION: 1. Left breast mass at 11 o'clock 6 cm from the nipple is highly suggestive of malignancy. Recommend tissue sampling with ultrasound core needle biopsy. Also, at the time of the biopsy recommend additional images being taken of the left axilla and the remainder of the left breast to assess for additional suspicious masses and axillary lymph nodes. OVERALL FINAL ASSESSMENT BI-RADS 5: HIGHLY SUGGESTIVE OF MALIGNANCY. RECOMMENDATION: Biopsy Recommended A letter with findings and recommendations will be mailed to the patient. Reading Location: [id number] CC: TORIE Ballard; Dr. Ivet Castanon MD Billing Adjudicator: Signed [facility] Breast imaging reportOrdered By: Esperanza Kelly on 11-26-2024 Study report [facility] Imaging Services [address] [place], [place] [id number] DIAG MAMM W/CAD, UNILAT MR#: [id number] Acct: [id number] Name: ALLISON BOYKIN Rep #: [id number] : 1970 F 54 From: Caity Kelly MD PCP: Dr. Ivet Castanon MD Status: REG C [facility]DA Study:DIAG MAMM W/CAD, UNILAT Date of Exam: 11/26/24 Exam# [id number] Ordering Dr: Diana Ballard CERTIFIED ANESTHESIOLOGIST ASSISTANT CERTIFIED ANESTHESIOLOGIST ASSISTANT-C EXAM: DIAG MAMM W/CAD, UNILAT; LT BRST UNILAT GUY ADD ON 11/26/2024 CLINICAL HISTORY: 54-year-old female presents for follow-up of the left breast findings seen on the outside examination of 10/24/2024. Family history of breast cancer in a paternal grandmother at age 63. TECHNIQUE: DIAG MAMM W/CAD, UNILAT; LT BRST UNILAT GUY ADD ON. COMPARISON: Prior exam(s) dated 10/24/2024, 03/29/2007. FINDINGS: MAMMOGRAM: TISSUE DENSITY: The breasts are heterogeneously dense, which may obscure small masses. The mammogram demonstrates that the patient has dense breasts. Supplemental screening with whole breast ultrasound or MRI may be considered for further evaluation. Unilateral Left Breast Mammographic Findings: 1. Follow-up examination performed for the focal asymmetry in the left breast visualized on the outside examination of 10/24/2024. On the present examination, there is an irregular spiculated mass in the upper inner left breast at posterior depth. 2. There is a mass with associated calcifications in the medial left breast at anterior depth. 3. There are innumerable masses scattered throughout the left breast. ULTRASOUND: 1. Ultrasound performed of the upper inner left breast demonstrates an irregular hypoechoic mass with posterior shadowing in the left breast at 11 o'clock 6 cm from the nipple, measuring 0.9 x 0.9 x 0.8 cm. This correlates with the mammographic finding. 2. There is a cyst cluster in the left breast at 10 o'clock 3 cm from the nipple measuring 0.9 x 0.9 x 0.6 cm. This correlates to the other mammographic finding in the medial left breast at anterior depth. 3. There is an additional incidental complicated cyst in the left breast at 9 o'clock 5 cm from the nipple measuring 0.9 x 0.6 x 0.4 cm and a cyst at 12 o'clock 5 cm from the nipple measuring 2.4 x 2.4 x 2.1 cm. BI/DIAG MAMM W/CAD, UNILAT IMPRESSION: 1. Left breast mass at 11 o'clock 6 cm from the nipple is highly suggestive of malignancy. Recommend tissue sampling with ultrasound core needle biopsy. Also, at the time of the biopsy recommend additional images being taken of the left axilla and the remainder of the left breast to assess for additional suspicious masses and axillary lymph nodes. OVERALL FINAL ASSESSMENT BI-RADS 5: HIGHLY SUGGESTIVE OF MALIGNANCY. RECOMMENDATION: Biopsy Recommended A letter with findings and recommendations will be mailed to the patient. Reading Location: [facility] CC: CERTIFIED ANESTHESIOLOGIST ASSISTANT-C Diana Ballard; Dr. Ivet Castanon MD ~ Billing Adjudicator: Signed [facility] Study report [facility] Imaging Services [address] [place] [address] Lt Brst Unilat Guy Add On MR#: [id number] Acct: [id number] Name: ALLISON BOYKIN Rep #: [id number] : 1970 F 54 From: Caity Kelly MD PCP: Dr. Ivet Castanon MD Status: REG [place] [facility] Study:Lt Brst Unilat Guy Add On Date of Exam : 11/26/24 Exam# [id number] Ordering Dr: Diana Ballard NP CERTIFIED ANESTHESIOLOGIST ASSISTANT-C EXAM: DIAG MAMM W/CAD, UNILAT; LT BRST UNILAT GUY ADD ON 11/26/2024 CLINICAL HISTORY: 54-year-old female presents for follow-up of the left breast findings seen on the outside examination of 10/24/2024. Family history of breast cancer in a paternal grandmother at age 63. TECHNIQUE: DIAG MAMM W/CAD, UNILAT; LT BRST UNILAT GUY ADD ON. COMPARISON: Prior exam(s) dated 10/24/2024, 03/29/2007. FINDINGS: MAMMOGRAM: TISSUE DENSITY: The breasts are heterogeneously dense, which may obscure small masses. The mammogram demonstrates that the patient has dense breasts. Supplemental screening with whole breast ultrasound or MRI may be considered for further evaluation. Unilateral Left Breast Mammographic Findings: 1. Follow-up examination performed for the focal asymmetry in the left breast visualized on the outside examination of 10/24/2024. On the present examination, there is an irregular spiculated mass in the upper inner left breast at posterior depth. 2. There is a mass with associated calcifications in the medial left breast at anterior depth. 3. There are innumerable masses scattered throughout the left breast. ULTRASOUND: 1. Ultrasound performed of the upper inner left breast demonstrates an irregular hypoechoic mass with posterior shadowing in the left breast at 11 o'clock 6 cm from the nipple, measuring 0.9 x 0.9 x 0.8 cm. This correlates with the mammographic finding. 2. There is a cyst cluster in the left breast at 10 o'clock 3 cm from the nipple measuring 0.9 x 0.9 x 0.6 cm. This correlates to the other mammographic finding in the medial left breast at anterior depth. 3. There is an additional incidental complicated cyst in the left breast at 9 o'clock 5 cm from the nipple measuring 0.9 x 0.6 x 0.4 cm and a cyst at 12 o'clock 5 cm from the nipple measuring 2.4 x 2.4 x 2.1 cm. BI/Lt Brst Unilat Guy Add On IMPRESSION: 1. Left breast mass at 11 o'clock 6 cm from the nipple is highly suggestive of malignancy. Recommend tissue sampling with ultrasound core needle biopsy. Also, at the time of the biopsy recommend additional images being taken of the left axilla and the remainder of the left breast to assess for additional suspicious masses and axillary lymph nodes. OVERALL FINAL ASSESSMENT BI-RADS 5: HIGHLY SUGGESTIVE OF MALIGNANCY. RECOMMENDATION: Biopsy Recommended A letter with findings and recommendations will be mailed to the patient. Reading Location: [id number] CC: CERTIFIED ANESTHESIOLOGIST ASSISTANT-C Diana Ballard; Dr. Ivet Castanon MD ~ Billing Adjudicator: Signed [facility] DIAG MAMM W/CAD, UNILATon DIAG MAMM W/CAD, UNILAT [facility] Imaging Services [address] [place] [address] DIAG MAMM W/CAD, UNILAT MR#: [id number] Acct: [id number] Name: ALLISON BOYKIN Rep #: [id number] : 1970 F 54 From: Esperanza Kelly MD PCP: Dr. Ivet Castanon MD Status: REG CLI Study: DIAG MAMM W/CAD, UNILAT Date of Exam: 11/26/24 Exam# [id number] Ordering Dr: Diana Ballard NP CERTIFIED ANESTHESIOLOGIST ASSISTANT-C EXAM: DIAG MAMM W/CAD, UNILAT; LT BRST UNILAT GUY ADD ON 11/26/2024 CLINICAL HISTORY: 54-year-old female presents for follow-up of the left breast findings seen on the outside examination of 10/24/2024. Family history of breast cancer in a paternal grandmother at age 63. TECHNIQUE: DIAG MAMM W/CAD, UNILAT; LT BRST UNILAT GUY ADD ON. COMPARISON: Prior exam(s) dated 10/24/2024, 03/29/2007. FINDINGS: MAMMOGRAM: TISSUE DENSITY: The breasts are heterogeneously dense, which may obscure small masses. The mammogram demonstrates that the patient has dense breasts. Supplemental screening with whole breast ultrasound or MRI may be considered for further evaluation. Unilateral Left Breast Mammographic Findings: 1. Follow-up examination performed for the focal asymmetry in the left breast visualized on the outside examination of 10/24/2024. On the present examination, there is an irregular spiculated mass in the upper inner left breast at posterior depth. 2. There is a mass with associated calcifications in the medial left breast at anterior depth. 3. There are innumerable masses scattered throughout the left breast. ULTRASOUND: 1. Ultrasound performed of the upper inner left breast demonstrates an irregular hypoechoic mass with posterior shadowing in the left breast at 11 o'clock 6 cm from the nipple, measuring 0.9 x 0.9 x 0.8 cm. This correlates with the mammographic finding. 2. There is a cyst cluster in the left breast at 10 o'clock 3 cm from the nipple measuring 0.9 x 0.9 x 0.6 cm. This correlates to the other mammographic finding in the medial left breast at anterior depth. 3. There is an additional incidental complicated cyst in the left breast at 9 o'clock 5 cm from the nipple measuring 0.9 x 0.6 x 0.4 cm and a cyst at 12 o'clock 5 cm from the nipple measuring 2.4 x 2.4 x 2.1 cm. BI/DIAG MAMM W/CAD, UNILAT IMPRESSION: 1. Left breast mass at 11 o'clock 6 cm from the nipple is highly suggestive of malignancy. Recommend tissue sampling with ultrasound core needle biopsy. Also, at the time of the biopsy recommend additional images being taken of the left axilla and the remainder of the left breast to assess for additional suspicious masses and axillary lymph nodes. OVERALL FINAL ASSESSMENT BI-RADS 5: HIGHLY SUGGESTIVE OF MALIGNANCY. RECOMMENDATION: Biopsy Recommended A letter with findings and recommendations will be mailed to the patient. Reading Location: [facility] CC: TORIE Ballard; Dr. Ivet Castanon MD Billing Adjudicator: Signed Normal [facility] Brst Unilat Guy Add Onon 11-26-2024 [facility] Imaging Services [address] [place] [address] Lt Brst Unilat Guy Add On MR#: [id number] Acct: [id number] Name: ALLISON BOYKIN Rep #: [id number] : 1970 F 54 From: Esperanza Kelly MD PCP: Dr. Ivet Castanon MD Status: REG CLI Study: Lt Brst Unilat Guy Add On Date of Exam: 11/26 Exam# [id number] Ordering Dr: Diana Ballard NP CERTIFIED ANESTHESIOLOGIST ASSISTANT-C EXAM: DIAG MAMM W/CAD, UNILAT; LT BRST UNILAT GUY ADD ON 11/26/2024 CLINICAL HISTORY: 54-year-old female presents for follow-up of the left breast findings seen on the outside examination of 10/24/2024. Family history of breast cancer in a paternal grandmother at age 63. TECHNIQUE: DIAG MAMM W/CAD, UNILAT; LT BRST UNILAT GUY ADD ON. COMPARISON: Prior exam(s) dated 10/24/2024, 03/29/2007. FINDINGS: MAMMOGRAM: TISSUE DENSITY: The breasts are heterogeneously dense, which may obscure small masses. The mammogram demonstrates that the patient has dense breasts. Supplemental screening with whole breast ultrasound or MRI may be considered for further evaluation. Unilateral Left Breast Mammographic Findings: 1. Follow-up examination performed for the focal asymmetry in the left breast visualized on the outside examination of 10/24/2024. On the present examination, there is an irregular spiculated mass in the upper inner left breast at posterior depth. 2. There is a mass with associated calcifications in the medial left breast at anterior depth. 3. There are innumerable masses scattered throughout the left breast. ULTRASOUND: 1. Ultrasound performed of the upper inner left breast demonstrates an irregular hypoechoic mass with posterior shadowing in the left breast at 11 o'clock 6 cm from the nipple, measuring 0.9 x 0.9 x 0.8 cm. This correlates with the mammographic finding. 2. There is a cyst cluster in the left breast at 10 o'clock 3 cm from the nipple measuring 0.9 x 0.9 x 0.6 cm. This correlates to the other mammographic finding in the medial left breast at anterior depth. 3. There is an additional incidental complicated cyst in the left breast at 9 o'clock 5 cm from the nipple measuring 0.9 x 0.6 x 0.4 cm and a cyst at 12 o'clock 5 cm from the nipple measuring 2.4 x 2.4 x 2.1 cm. BI/Lt Brst Unilat Guy Add On IMPRESSION: 1. Left breast mass at 11 o'clock 6 cm from the nipple is highly suggestive of malignancy. Recommend tissue sampling with ultrasound core needle biopsy. Also, at the time of the biopsy recommend additional images being taken of the left axilla and the remainder of the left breast to assess for additional suspicious masses and axillary lymph nodes. OVERALL FINAL ASSESSMENT BI-RADS 5: HIGHLY SUGGESTIVE OF MALIGNANCY. RECOMMENDATION: Biopsy Recommended A letter with findings and recommendations will be mailed to the patient. Reading Location: [id number] CC: TORIE Ballard; Dr. Ivet Castanon MD Billing Adjudicator: Signed Normal [facility] TSH SerPl-aCncon 11-03-2024 TSH Qn 1.770 m[IU]/L Normal 0.270-4.200 [facility] Comment on above: Order Comment: Speci men Type: BLOOD SPECIMENOrdering Facility: [facility] Address: [address] [place] [address] Performed By: #### 3 [id number] ####[facility] LABCLIA [id number] [address] OF [facility] CNOVon 10-24-2024 CNOV Office Visit (OBGYWM ) ALLISON BOYKIN ([id number]) 1970 F Date Time Provider Department 10/24/24 10:00 AM DIANA BALLARD During your visit today, we recorded the following information about you: Blood pressure Weight Height Last Period 128/70 119.7 kg 1.645 m 04/30/18 Diana Ballard APRN.DUST CONTROL ENGINEER 10/24/2024 12:20 PM Signed 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 Hair Loss - Noticed hair loss around age 50, coinciding with the onset of menopause. - Tried various treatments with dermatology, including minoxidil, Rogaine, and pumpkin seed oil pills, which helped reduce shedding but did not promote regrowth. - Recently started taking Nutrafol one week ago. Weight Management - Currently focused on weight management, has lost 6 pounds in the past two weeks. - Following the Weight Wat[employer] program, which emphasizes a minimum of 30 grams of protein per meal. - is also participating in the program and has lost 8 pounds. - Denies trying any serious weight loss programs in the past. Postmenopausal: Yes since age 48 HRT use: No. Last Pap: 07/14/2022 normal HPV: 07/14/2022 negative History of abnormal pap: No Last mammogram: Today, results pending History of abnormal mammogram: Yes , fibrocystic breasts , Left breast cyst aspiration Sexually active: Yes History of STDS: None Patient concerns for STD exposure: No. Time with current partner: 20+ years Pain with intercourse: No Postcoital bleeding: No Hot flashes: No Night sweats: random Documentation from previous visit of 07/14/2022 was copied and pasted, documentation has been reviewed and edited as necessary for today's visit. 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 LMP: 04/30/2018, Postmenopausal Age at Menarche: 14 Age at First : Age at Menopause: Warehouse Handler History Comments: Sexual Activity: Yes; Male Contraception: Pill PAST MEDICAL HISTORY Diagnosis Date Chronic low back pain with sciatica 09/18/2008 Diabetes (HCC) Diffuse cystic mastopathy 04/30/1999 Aspiration on left x2 Dysmetabolic syndrome 08/19/2013 Essential hypertension Hyperlipidemia Other and unspecified ovarian cyst Solitary cyst of breast 04/16/2007 PAST SURGICAL HISTORY Procedure Laterality Date DILATION AND CURETTAGE DXAND/THER NONOBSTETRIC 07/05 Dilation AND curettage US FNA BREAST 04/16/07;2003 U/S FNA large outer mid left breast cyst FAMILY HISTORY Problem Relation Age of Onset Cancer Mother PANCREATIC, 48 Prostate Cancer Father No Known Problems Brother Breast Cancer Paternal Grandmother 67 Prostate Cancer Paternal Grandfather SOCIAL HISTORY Social History Tobacco Use Smoking status: Former Current packs/day: 0.50 Average packs/day: 0.5 packs/day for 20.0 years (10.0 ttl pk-yrs) Types: Cigarettes Smokeless tobacco: Former Quit date: 11/21/2013 Vaping Use Vaping status: Never Used Substance Use Topics Alcohol use: Yes Comment: socially, 2x/year Drug use: No REVIEW OF SYSTEMS Abdomen: No abdominal pain, nausea, vomiting, diarrhea, or constipation. No bloating, early satiety, indigestion, or increased flatulence. Bladder: No dysuria, gross hematuria, urinary frequency, urinary urgency, or incontinence Breast: No breast lumps, nipple d/c, overlying skin changes, redness or skin retraction Allergies and current medication updated:Yes SENSITIVE EXAM: The sensitive examination was discussed with the Patient or Patient's Authorized Sales Supervisor. As applicable, any other physician, advance practice provider, medical student, or other health professional student that will be observing or involved in the sensitive examination for educational or training purposes was discussed with the Patient or Authorized Sales Supervisor. The Patient or Authorized Sales Supervisor has agreed to proceed with the sensitive examination. (Sensitive examination includes inspection and/or palpation of the breasts, pelvis, prostate and anorectal regions). EXAM: BP 128/70 Ht 5' 4.764 (1.65m) Wt 263 lb 12.8 oz (119.7kg) LMP 04/30/2018 BMI 44.22 kg/(m2). GENERAL: pleasant, female in no apparent distress HEENT: Normocephalic, atraumatic, mucus membranes moist, and no lesions NECK: Supple, full range of motion, no adenopathy, and thyroid normal DERMATOLOGY: Normal, without lesions, non-icteric, and non-hirsute BREAST: soft, non-tender, symmetric, no dominant mass, normal nipple-areolar complex, no lymphadenopathy, and no nipple discharge CHEST: Normal inspiratory effort ABDOMEN: soft, non-tender, and no masses PELVIC: external genitalia normal, normal Bartholin's glands, urethra, Taft's glands (more content not included)... Normal [facility] SCREENING W TOMOon 10-24 [place] SCREENING [place] * * *Final Report* * * DATE OF EXAM: Oct 24 2024 9:33AM [id number] - [place] SCREENING W [place] / PROCEDURE REASON: Encounter for screening mammogram for malignant neoplasm of breast * * * * Physician Interpretation * * * * RESULT: [address] [place] [address] #[id number] - [place] SCREENING W [place] HISTORY: 54 year-old patient presents for screening. Patient is asymptomatic in both breasts. Patient states no personal history of breast cancer. The patient has a family history of breast cancer. COMPARISON STUDIES: The present examination has been compared to prior imaging studies dated 02/18/2019 (ultrasound), 11/12/2020 (mammogram), 06/05/2022 (mammogram), 10/12/2023 (mammogram) and 10/19/2023 (mammogram). MAMMOGRAM TECHNIQUE: The study was acquired using full field digital technology and interpreted from soft copy. Digital Breast Tomosynthesis (DBT) images were obtained and used to assist in the interpretation of this examination. MAMMOGRAM FINDINGS: The breasts are heterogeneously dense, which may obscure small masses. There is a focal asymmetry in the upper inner quadrant of the left breast. This is best visualized on tomosynthesis CC view slice # 72 and MLO view slice # 86. No suspicious masses, calcifications or other abnormalities are seen in the right breast. IMPRESSION: The focal asymmetry in the upper inner quadrant of the left breast requires additional evaluation. Diagnostic mammogram is recommended. BI-RADS Category 0: Incomplete: Needs Additional Imaging Evaluation RISK: Based on the Tyrer-Cuzick (TC) risk assessment model, this patient has a 14.9% lifetime risk of developing breast cancer, meaning they are at average risk for developing breast cancer. However, this is only an estimate based on available history provided on the patient's questionnaire. We encourage all patients to talk with their providers about these results, further recommendations for managing breast health, and appropriate supplemental screening options if the patient has dense breast tissue. REF#[id number]. Interpreting Radiologist: Juliocesar Glasgow M.D. Electronically signed on: 10/25/2024 Billing Adjudicator: GREGG Transcribe Date/Time: Oct 24 2024 9:14A Dictated by: JULIOCESAR GLASGOW MD This examination was interpreted and the report reviewed and electronically signed by: JULIOCESAR GLASGOW MD on Oct 25 2024 9:19AM EST [id number] Normal [facility] CNOVon 10-20-2024 CNOV Office Visit (INTMWS ) ALLISON BOYKIN ([id number]) 1970 F Date Time Provider Department 10/20/24 10:00 AM NENITA MEJIA INTMWS During your visit today, we recorded the following information about you: Pulse Respiration Blood pressure Weight 72/minute 12/minute 122/84 119.8 kg Nenita Mejia, CERTIFIED TECHNICIAN SPECIALIST.DUST CONTROL ENGINEER 10/28/2024 7:37 AM Addendum CC: Patient presents with: Establish Care HPI Recording using ambient AI software for draft documentation of the visit was discussed with the patient/authorized hardware supplies sales representative; all questions welcomed and answered. 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 Diabetes Mellitus: - Taking metformin 500 mg BID; increased from once daily since last visit in February. - No adverse effects from metformin; ensures intake with food. - Recent A1c: 6.8%. - Recent glucose: 157 mg/dL. - No home glucose monitoring. - Recent dietary changes to reduce sugar intake; switched to Coke Zero and using Truvia in tea. - Joined [employer]; using darius for dietary guidance. - Denies regular meal times; struggles with consistent medication adherence due to work schedule. Hypertension: - Taking hydrochlorothiazide and propranolol. - Recent BP: 122/84 mmHg. - Previously taking propranolol TID; now taking all three doses at once due to difficulty adhering to TID schedule. - Denies dizziness or lightheadedness. 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 - Occasional alcohol consumption; no drug use. - Former smoker. Review of Systems Respiratory: Negative for cough, shortness of breath and wheezing. Cardiovascular: Negative for chest pain, palpitations and leg swelling. PAST MEDICAL HISTORY Diagnosis Date Chronic low back pain with sciatica 09/18/2008 Diabetes (HCC) Diffuse cystic mastopathy 04/30/1999 Aspiration on left x2 Dysmetabolic syndrome 08/19/2013 Essential hypertension Hyperlipidemia Other and unspecified ovarian cyst Solitary cyst of breast 04/16/2007 PAST SURGICAL HISTORY Procedure Laterality Date DILATION AND CURETTAGE DXAND/THER NONOBSTETRIC 07/05 Dilation AND curettage US FNA BREAST 04/16/07;2003 U/S FNA large outer mid left breast cyst ALLERGIES Vicodin [Hydrocodone-Acetamino phen] MEDICATIONS OTC NUTRITIONAL SUPPLEMENT Nutraful two tabs once a day metFORMIN ER (GLUCOPHAGE XR) 500 mg 24 hr tablet Take 2 tablets by mouth daily with breakfast AND 1 tablet daily with dinner. propranolol ER (INDERAL LA) 60 mg 24 hr capsule Take 1 capsule by mouth once daily. hydroCHLOROthiazide 12.5 mg capsule Take 1 capsule by mouth once daily. pravastatin (PRAVACHOL) 20 mg tablet Take 1 tablet by mouth once daily. cholecalciferol, Vitamin D3, (VITAMIN D3) 1,250 mcg (50,000 unit) cap capsule Take 1 capsule by mouth one time a week. FAMILY HISTORY Problem Relation Age of Onset Cancer Mother PANCREATIC, 48 Prostate Cancer Father No Known Problems Brother Breast Cancer Paternal Grandmother 67 Prostate Cancer Paternal Grandfather Social History Tobacco Use Smoking status: Former Current packs/day: 0.50 Average packs/day: 0.5 packs/day for 20.0 years (10.0 ttl pk-yrs) Types: Cigarettes Smokeless tobacco: Former Quit date: 11/21/2013 Vaping Use Vaping status: Never Used Substance Use Topics Alcohol use: Yes Comment: socially, 2x/year Drug use: No BP 122/84 Pulse 72 Resp 12 Wt 119.8 kg (264 lb 1.8 oz) LMP 06/02/2019 SpO2 98% BMI 43.95 kg/m? Physical Exam Vitals reviewed. Constitutional: Appearance: Normal appearance. Cardiovascular: Rate and Rhythm: Normal rate and regular rhythm. Heart sounds: Normal heart sounds. No murmur heard. Pulmonary: Effort: Pulmonary effort is normal. Breath sounds: Normal breath sounds. No wheezing, rhonchi or rales. Skin: General: Skin is warm and dry. Neurological: Mental Status: She is alert. Psychiatric: Mood and Affect: Mood normal. Health maintenance reviewed with patient: Hepatitis B Vaccine(1 of 3 - 19+ 3-dose series) Never done Pneumococcal Vaccine: 50+(2 of 2 - PCV) due on 12/19/2015 Shingrix Vaccine(1 of 2) Never done Mammogram Screening due on 10/18/2024 Covid-19 Vaccine(3 - 2023- season) due on 10/20/2025 HbA1C due on 04/07/2025 LDL Cholesterol due on 10/06/2025 Annual PCP Team Chronic Disease Visit due on 10/20/2025 Depression Screening due on 10/20/2025 Anxiety Screening due on 10/20/2025 Colorectal Cancer Screening due on 01/16/2026 Cervical Cancer Screening due on 07/15/2027 DTaP,Tdap,Td Vaccine(3 - Td or Tdap) due on 09/29/2032 Influenza Vaccine Completed Urine Albumin:Creatinine Ratio Discon (more content not included)... Normal [facility] Comprehensive metabolic 2000 panelon 10-06-2024 Albumin [Mass/Vol] 4.5 g/dL Normal 3.9-4.[address] [facility] Comment on above: Order Comment: Speci men Type: BLOOD SPECIMENOrdering Facility: [facility] Address: [address] [place] [address] Performed By: #### 2 4323-8 ####[facility] [id number] [place] [address] [place] ALP [Catalytic activity/Vol] 85 U/L Normal 34-123 [facility] Comment on above: Order Comment: Speci men Type: BLOOD SPECIMENOrdering Facility: [facility] Address: [address] [id number] Performed By: #### 2 4323-8 ####[facility] [id number] [place] [address] [place] ALT [Catalytic activity/Vol] 31 U/L Normal 7-38 [facility] Comment on above: Order Comment: Speci men Type: BLOOD SPECIMENOrdering Facility: [facility] Address: [address] [place] [address] Performed By: #### 2 4323-8 ####[facility] [place] MILLTOWNCLIA [id number] [place] [address] [place] Anion gap [Moles/Vol] 15 mmol/L Normal 8-15 [facility] Comment on above: Order Comment: Speci men Type: BLOOD SPECIMENOrdering Facility: [facility] Address: [address] [place] [address] Performed By: #### 2 4323-8 ####[facility] MILLTOWNCLIA [id number] [place] [address] [place] AST [Catalytic activity/Vol] 22 U/L Normal 13-35 [facility] Comment on above: Order Comment: Speci men Type: BLOOD SPECIMENOrdering Facility: [facility] Address: [address] [place] [address] Performed By: #### 2 4323-8 ####[facility] H[facility]ITALWNCLIA [id number] [place] [address] [place] Bilirubin [Mass/Vol] 0.3 mg/dL Normal 0.2-1.3 [facility] Comment on above: Order Comment: Speci men Type: BLOOD SPECIMENOrdering Facility: [facility] Address: [address] [place] [address] Performed By: #### 2 4323-8 ####[facility] MILLTOWNCLIA [id number] [place] [address] [place] Calcium [Mass/Vol] 9.6 mg/dL Normal 8.5-10.[address] [facility] Comment on above: Order Comment: Speci men Type: BLOOD SPECIMENOrdering Facility: [facility] Address: [address] [place] [address] Performed By: #### 2 4323-8 ####[facility] MILLTOWNCLIA [id number] [place] [address] [place] Chloride [Moles/Vol] 102 mmol/L Normal 98-107 [facility] Comment on above: Order Comment: Speci men Type: BLOOD SPECIMENOrdering Facility: [facility] Address: [address] [place] [address] Performed By: #### 2 4323-8 ####[facility] [id number] [place] [address] [place] CO2 [Moles/Vol] 22 mmol/L Normal 22-30 [facility] Comment on above: Order Comment: Speci men Type: BLOOD SPECIMENOrdering Facility: [facility] Address: [address] [place] [address] Performed By: #### 2 4323-8 ####[facility] [id number] [place] [address] [place] Creatinine [Mass/Vol] 0.86 mg/dL Normal 0.58-0.96 [facility] Comment on above: Order Comment: Speci men Type: BLOOD SPECIMENOrdering Facility: [facility] Address: [address] [place] [address] Performed By: #### 2 4323-8 ####[facility] [id number] [address] OF [facility] Creatinine and Glomerular filtration rate.predicted panel (S/P/Bld) 80 mL/min/1.73m??? Normal >=60 [facility] Comment on above: Order Comment: Speci men Type: BLOOD SPECIMENOrdering Facility: [facility] Address: [address] [place] [address] Result Comment: Maggy mated Glomerular Filtration Rate (eGFR) is calculated using the 2020 CKD-EPI creatinine equation. This equation utilizes serum creatinine, sex, and age as parameters. The creatinine assay has traceable calibration to isotope dilution-mass spectrometry. Refer to KDIGO guidelines for clinical interpretation. In patients with unstable renal function, e.g. those with acute kidney injury, the eGFR may not accurately reflect actual GFR. Performed By: #### 2 4323-8 ####[facility] [id number] [place] [address] [place] Glucose [Mass/Vol] 157 mg/dL High 74-[address] [facility] Comment on above: Order Comment: Cinthia amaro Type: BLOOD SPECIMENOrdering Facility: [facility] Address: [address] [place] [address] Result Comment: The [place] Diabetes Association (ADA) provides guidance for cutoff values for fasting glucose and random glucose. The ADA defines fasting as no caloric intake for at least 8 hours. Fasting plasma glucose results between 100 to 125 mg/dL indicate increased risk for diabetes (prediabetes). Fasting plasma glucose results greater than or equal to 126 mg/dL meet the criteria for diagnosis of diabetes. In the absence of unequivocal hyperglycemia, results should be confirmed by repeat testing. In a patient with classic symptoms of hyperglycemia or hyperglycemic crisis, random plasma glucose results greater than or equal to 200 mg/dL meet the criteria for diagnosis of diabetes. Reference: Standards of Medical Care in Diabetes 2016, [place] Diabetes Association. Diabetes Care. 2016.39(Suppl 1). Performed By: #### 2 4323-8 ####[facility] SHAWLIA [id number] [place] [address] [place] Potassium [Moles/Vol] 4.3 mmol/L Normal 3.7-5.1 [facility] Comment on above: Order Comment: Cinthia amaro Type: BLOOD SPECIMENOrdering Facility: [facility] Address: [address] [id number] Performed By: #### 2 4323-8 ####[facility] [id number] [place] [address] [place] Protein [Mass/Vol] 7.4 g/dL Normal 6.3-8.[address] [facility] Comment on above: Order Comment: Cinthia amaro Type: BLOOD SPECIMENOrdering Facility: [facility] Address: [address] [place] [address] Performed By: #### 2 4323-8 ####[facility] [id number] [place] [address] [place] Sodium [Moles/Vol] 139 mmol/L Normal 136-[address] [facility] Comment on above: Order Comment: Speci men Type: BLOOD SPECIMENOrdering Facility: [facility] Address: [address] [place] [address] Performed By: #### 2 4323-8 ####[facility] [id number] [place] [address] [place] Urea nitrogen [Mass/Vol] 16 mg/dL Normal 7-21 [facility] Comment on above: Order Comment: Speci men Type: BLOOD SPECIMENOrdering Facility: [facility] Address: [address] [place] [address] Performed By: #### 2 4323-8 ####[facility] [id number] [place] [address] [place] HbA1c (Bld)on 10-06-2024 Average glucose Estimated from glycated hemoglobin (Bld) [Mass/Vol] 148 mg/dL Normal [facility] Comment on above: Order Comment: Speci men Type: BLOOD SPECIMENOrdering Facility: [facility] Address: [address] [place] [address] Result Comment: eAG: (Estimated average glucose) is a calculated value from HgbA1c and is hardware supplies sales representative of the average blood glucose level in the last 2-3 month period. Performed By: #### 5 5454-3 ####[facility] LABCLIA [id number] [place] [address] [place] HbA1c (Bld) [Mass fraction] 6.8 % High 4.3-5.6 [facility] Comment on above: Order Comment: Speci men Type: BLOOD SPECIMENOrdering Facility: [facility] Address: [address] [place] [address] Result Comment: Amer ican Diabetes Association guidelines indicate that patients with HgbA1c in the range 5.7-6.4% are at increased risk for development of diabetes, and intervention by lifestyle modification may be beneficial. HgbA1c greater or equal to 6.5% is considered diagnostic of diabetes. Performed By: #### 5 5454-3 ####[facility] LABCLIA [id number] [place] [address] [place] Lipid 1996 panelon 5 Cholesterol [Mass/Vol] 171 mg/dL Normal <[address] [facility] Comment on above: Order Comment: Speci men Type: BLOOD SPECIMENOrdering Facility: [facility] Address: [address] [place] [address] Result Comment: <200 mg/dL, Desirable 200-239 mg/dL, Borderline high >239 mg/dL, High Performed By: #### 2 4331-1 ####[facility] LABCLIA [id number] [id number] [place] [address] [place] Cholesterol in HDL [Mass/Vol] 56 mg/dL Normal >39 [facility] Comment on above: Order Comment: Speci men Type: BLOOD SPECIMENOrdering Facility: [facility] Address: [address] [place] [address] Result Comment: 40-5 9 mg/dL, Acceptable >59 mg/dL, High: Negative risk factor for coronary heart disease <40 mg/dL, Low: Positive risk factor for coronary heart disease Performed By: #### 2 4331-1 ####[facility] LABCLIA [id number] [address] [address] [facility] [id number] [address] [place] Cholesterol in LDL [Mass/Vol] 88 mg/dL Normal <100 [facility] Comment on above: Order Comment: Speci men Type: BLOOD SPECIMENOrdering Facility: [facility] Address: [address] [place] [address] Result Comment: <100 mg/dL, Optimal 100-129 mg/dL, Near optimal/above optimal 130-159 mg/dL, Borderline high 160-189 mg/dL, High >189 mg/dL, Very high Secondary prevention optimal LDL Cholesterol levels are recommended to be <70 mg/dL LDL cholesterol is calculated using the Day-NIH equation. Performed By: #### 2 4331-1 ####[facility] LABIA [id number] [address] [id number] [place] [address] [place] Cholesterol in LDL/Cholesterol in HDL [Mass ratio] 1.57 {ratio} Normal <2.54 [facility] Comment on above: Order Comment: Cinthia amaro Type: BLOOD SPECIMENOrdering Facility: [facility] Address: [address] [place] [address] Result Comment: Refe rence: 1. National Cholesterol Education Program ATP III Guideline At-A-Glance Quick Desk Reference: National Heart, Lung, and Blood [place]. National Institutes of Health. 2001: NIH Publication No. 01-3305. 2. An International Atherosclerosis Society position paper: global recommendations for the management of dyslipidemia: executive summary, Atherosclerosis. 2014: 232(2):410-413. Performed By: #### 2 4331-1 ####[facility] LABCLIA [id number] [id number] [place] [address] [place] Cholesterol in VLDL [Mass/Vol] 25 mg/dL Normal <30 [facility] Comment on above: Order Comment: Lolyi men Type: BLOOD SPECIMENOrdering Facility: [facility] Address: [address] [place] [address] Performed By: #### 2 4331-1 ####[facility] LABCLIA [id number] [id number] [place] [address] Cholesterol non HDL [Mass/Vol] 115 mg/dL Normal <130 [facility] Comment on above: Order Comment: Speci men Type: BLOOD SPECIMENOrdering Facility: [facility] Address: [address] [place] [address] Result Comment: <130 mg/dL, Optimal 130-159 mg/dL, Near optimal/above optimal 160-189 mg/dL, Borderline high 190-219 mg/dL, High >219 mg/dL, Very high Secondary prevention optimal non HDL Cholesterol levels are recommended to be <100 mg/dL Performed By: #### 2 4331-1 ####[facility] LABCLIA [id number] [address] [id number] [place] [address] [place] Cholesterol.total/Choles terol in HDL [Mass ratio] 3.05 {ratio} Normal <5.10 [facility] Comment on above: Order Comment: Speci men Type: BLOOD SPECIMENOrdering Facility: [facility] Address: [address] [place] [address] Performed By: #### 2 4331-1 ####[facility] LABCLIA [id number] [address] [id number] [place] [address] [place] [facility] FASTING TIME 12 hrs Normal [facility] Comment on above: Order Comment: Speci men Type: BLOOD SPECIMENOrdering Facility: [facility] Address: [address] [place] [address] Performed By: #### 2 4331-1 ####[facility] LABCLIA [id number] [address] [id number] [address] Triglyceride [Mass/Vol] 155 mg/dL High <150 [facility] Comment on above: Order Comment: Speci men Type: BLOOD SPECIMENOrdering Facility: [facility] Address: [facility] [place] [address] Result Comment: <150 mg/dL, Normal 150-199 mg/dL, Borderline high 200-499 mg/dL, High >499 mg/dL, Very high Performed By: #### 2 4331-1 ####[facility] LABCLIA [id number] [address] [id number] [address]Non 03-28-2024 [facility] [place]ISON BOYKIN ([id number]) 1970 F Date Time Provider Department 03/28[facility] visit today, we recorded the following information about you: Jaqui Berg APRN.CNP 03/28/2024 9:58 AM Signed Spoke to patient, she is agreeable to increase metformin 500 mg twice daily and work on eating a low-carb diet. Repeat labs in 6 months prior to next visit. Jaqui Berg APRN.DUST CONTROL ENGINEER Allergies As of Date: 03/28/2024 Noted Allergy Reaction VICODIN (HYDROCODONE-ACETAMINO PHE*06/17/2008 8 - GI Upset Date Reviewed: 03/25/2024 Reviewed by: Edilma Hirsch LPN - Fully Assessed Reason for Visit: Results [95] Cmt: Labs Prescriptions as of 03/28/2024 - propranolol (INDERAL) 20 mg tablet Take 1 tablet by mouth three times a day. - hydroCHLOROthiazide 12.5 mg capsule Take 1 capsule by mouth once daily. - metFORMIN ER (GLUCOPHAGE XR) 500 mg 24 hr tablet Take 1 tablet by mouth daily with breakfast. - pravastatin (PRAVACHOL) 20 mg tablet Take 1 tablet by mouth once daily. - busPIRone (BUSPAR) 5 mg tablet Take 1 tablet by mouth three times a day as needed. - cholecalciferol, Vitamin D3, (VITAMIN D3) 1,250 mcg (50,000 unit) cap capsule Take 1 capsule by mouth one time a week. Problem List As Of Date 03/28/2024 Noted Resolved Excessive or frequent menstruation [N92.0] 09/24/2007 08/18/2014 Dysmenorrhea [N94.6] 09/24/2007 08/18/2014 Ingrowing nail [L60.0] 06/17/2008 08/18/2014 Cellulitis and abscess of foot, except toes [L0*07/15/2008 08/18/2014 Fibrocystic Disease of Breast [N60.19] 07/21/2009 History of tobacco use [Z87.891] 11/26/2010 Lump or mass in breast [N63.0] 08/16/2011 08/18/2014 Mixed hyperlipidemia [E78.2] 04/29/2012 BMI 40.0-44.9, adult (HCC) [Z68.41] 08/19/2013 Migraine with aura and with status migrainosus,* 5 Diabetes mellitus type 2, controlled, without c*01/15/2015 Pilonidal cyst with abscess [L05.01] 03/29/2015 10/12/2015 Acute back pain with sciatica [M54.40] 01/26/2016 Stress at home [F43.9] 05/22/2016 Pilonidal cyst without abscess [L05.91] 07/19/2016 Encounter Status:Closed by JAQUI BERG on 03/28/24 Normal [facility] CNOVon 03-25-2024 CNOV Office Visit (FAMPWS ) ALLISON BOYKIN ([id number]) 1970 F Date Time Provider Department 03/25/24 9:20 AM [facility] visit today, we recorded the following information about you: Pulse Respiration Blood pressure Weight 97/minute 16/minute 160/120 118 kg Jaqui Berg APRN.DUST CONTROL ENGINEER 03/25/2024 10:35 AM Signed This is a 53 year old female who presents today with: Patient presents with: 6 Month Exam HISTORY OF PRESENT ILLNESS: Allison Boykin is a 53 year old female. Patient presents with: 6 Month Exam Here in the office for follow-up. Labs pending. Diabetes: Taking metformin ER 500 mg daily. Working on diet and exercise. A1C pending. Trying to be mindful with diet. Eating whole foods. Walking a couple of times per week. HTN: Taking propanolol 20 mg 3 times daily and HCTZ 12.5 mg. Has been checking BP at home, has been running 130/70's. BP elevated today, increase stress with 's illness. Denies chest pain, palpitations, or dizziness Lipids: Taking Pravastain 20 mg daily. Watching diet. Anxiety: Taking BuSpar 5 mg as needed. Has not needed medication, symptoms well controlled. Denies any increased sadness, or SI/HI. Chronic pain: Has had autoimmune work-up in the past which was negative. Will usually have bilateral shoulders, hips, knee pain. Refers that pain has improved. Using THC/Cannabis cream to joint as needed. Dermatology: Was following with Dr. Lynch, had autoimmune and thyroid work up, was normal. Has had some hairloss in the center of hairline. Using products from dermatology but stopped using due to cost. Vitamin D: Taking Vitamin D3 50,000 international unit(s) . Vaccines: Would like flu vaccine PAST MEDICAL HISTORY: PAST MEDICAL HISTORY Diagnosis Date Chronic low back pain with sciatica 09/18/2008 Diabetes (HCC) Diffuse cystic mastopathy 04/30/1999 Aspiration on left x2 Dysmetabolic syndrome 08/19/2013 Essential hypertension Hyperlipidemia Other and unspecified ovarian cyst Solitary cyst of breast 04/16/2007 PAST SURGICAL HISTORY Procedure Laterality Date DILATION AND CURETTAGE DXAND/THER NONOBSTETRIC 07/05 Dilation AND curettage US FNA BREAST 04/16/07;2003 U/S FNA large outer mid left breast cyst ALLERGIES Vicodin [Hydrocodone-Acetamino phen] MEDICATIONS Current Outpatient Medications Medication Sig propranolol (INDERAL) 20 mg tablet Take 1 tablet by mouth three times a day. hydroCHLOROthiazide 12.5 mg capsule Take 1 capsule by mouth once daily. metFORMIN ER (GLUCOPHAGE XR) 500 mg 24 hr tablet Take 1 tablet by mouth daily with breakfast. pravastatin (PRAVACHOL) 20 mg tablet Take 1 tablet by mouth once daily. busPIRone (BUSPAR) 5 mg tablet Take 1 tablet by mouth three times a day as needed. cholecalciferol, Vitamin D3, (VITAMIN D3) 1,250 mcg (50,000 unit) cap capsule Take 1 capsule by mouth one time a week. ondansetron orally disintegrating (ZOFRAN ODT) 4 mg disintegrating tablet Take 1 tablet by mouth every 6 hours as needed for Nausea/Vomiting. (Patient not taking: Reported on 09/29/2022) diclofenac sodium (VOLTAREN) 1 % topical gel Apply 2 g to affected area as directed. 2-4 time daily No current facility-administered medications for this visit. FAMILY HISTORY Problem Relation Age of Onset Cancer Mother PANCREATIC, 48 Prostate Cancer Father No Known Problems Brother Breast Cancer Paternal Grandmother 67 Prostate Cancer Paternal Grandfather Social History Tobacco Use Smoking status: Former Current packs/day: 0.50 Average packs/day: 0.5 packs/day for 20.0 years (10.0 ttl pk-yrs) Types: Cigarettes Smokeless tobacco: Former Quit date: 11/21/2013 Vaping Use Vaping status: Never Used Substance Use Topics Alcohol use: Yes Comment: socially, 2x/year Drug use: No REVIEW OF SYSTEMS GENERAL: No weight loss, malaise or fevers/chills HEENT: Negative for frequent or significant headaches, No changes in hearing or vision. NECK: Negative for lumps, goiter, pain and significant neck swelling RESPIRATORY: Negative for cough, hemoptysis, wheezing, dyspnea or shortness of breath CARDIOVASCULAR: Negative for chest pain, leg swelling, orthopnea, or palpitations GI: No nausea, vomiting, or diarrhea/constipation. No hematochezia/melena. No heartburn or reflux symptoms. : No history of dysuria, frequency or incontinence MUSCULOSKELETAL: Negative for joint pain or swelling. SKIN: Negative for lesions, rash, and itching ENDOCRINE: Negative for cold or heat intolerance, polyuria, polydipsia and goiter NEURO: No history of headaches, syncope, paralysis, seizures or tremors MOOD: Negative for depression, anxiety, or suicidal ideation. EXAM: BP 160/120 Pulse 97 Resp 16 Wt 118 kg (260 lb 2.3 oz) LMP 06/02/2019 SpO2 96% BMI 43.29 kg/m? PHYSICAL EXAM: General Appearance: Well (more content not included)... Normal [facility] Comprehensive metabolic 2000 panelon 03-25-2024 Albumin [Mass/Vol] 4.4 g/dL Normal 3.9-4.[address] [facility] Comment on above: Order Comment: Speci men Type: BLOOD SPECIMENOrdering Facility: [facility] Address: [address] [id number] Performed By: #### 2 4323-8 ####[facility] [id number] [place] [address] [place] ALP [Catalytic activity/Vol] 91 U/L Normal 34-123 [facility] Comment on above: Order Comment: Speci men Type: BLOOD SPECIMENOrdering Facility: [facility] Address: [address] [place] [address] Performed By: #### 2 4323-8 ####[facility] [id number] [place] [address] [place] ALT [Catalytic activity/Vol] 21 U/L Normal 7-38 [facility] Comment on above: Order Comment: Speci men Type: BLOOD SPECIMENOrdering Facility: [facility] Address: [address] [place] [address] Performed By: #### 2 4323-8 ####[facility] RYAN MILLTOWNCLIA [id number] [place] [address] [place] Anion gap [Moles/Vol] 10 mmol/L Normal 8-15 [facility] Comment on above: Order Comment: Speci men Type: BLOOD SPECIMENOrdering Facility: [facility] Address: [address] [place] [address] Performed By: #### 2 4323-8 ####[facility] MILLTOWNCLIA [id number] [place] [address] [place] AST [Catalytic activity/Vol] 15 U/L Normal 13-35 [facility] Comment on above: Order Comment: Speci men Type: BLOOD SPECIMENOrdering Facility: [facility] Address: [address] [place] [address] Performed By: #### 2 4323-8 ####[facility] MILLTOWNCLIA [id number] [place] [address] [place] Bilirubin [Mass/Vol] 0.3 mg/dL Normal 0.2-1.3 [facility] Comment on above: Order Comment: Speci men Type: BLOOD SPECIMENOrdering Facility: [facility] Address: [address] [place] [address] Performed By: #### 2 4323-8 ####[facility] MILLTOWNCLIA [id number] [place] [address] [place] Calcium [Mass/Vol] 9.8 mg/dL Normal 8.5-10.[address] [facility] Comment on above: Order Comment: Speci men Type: BLOOD SPECIMENOrdering Facility: [facility] Address: [address] [place] [address] Performed By: #### 2 4323-8 ####[facility] MILLTOWNCLIA [id number] [place] [address] [place] Chloride [Moles/Vol] 104 mmol/L Normal 98-107 [facility] Comment on above: Order Comment: Speci men Type: BLOOD SPECIMENOrdering Facility: [facility] Address: [address] [place] [address] Performed By: #### 2 4323-8 ####[facility] [id number] [place] [address] [place] CO2 [Moles/Vol] 25 mmol/L Normal 22-30 [facility] Comment on above: Order Comment: Speci men Type: BLOOD SPECIMENOrdering Facility: [facility] Address: [address] [place] [address] Performed By: #### 2 4323-8 ####[facility] [id number] [place] [address] [place] Creatinine [Mass/Vol] 0.80 mg/dL Normal 0.58-0.96 [facility] Comment on above: Order Comment: Speci men Type: BLOOD SPECIMENOrdering Facility: [facility] Address: [address] [place] [address] Performed By: #### 2 4323-8 ####[facility] [id number] [address] OF [facility] Creatinine and Glomerular filtration rate.predicted panel (S/P/Bld) 88 mL/min/1.73m??? Normal >=60 [facility] Comment on above: Order Comment: Speci men Type: BLOOD SPECIMENOrdering Facility: [facility] Address: [address] [place] [address] Result Comment: Maggy mated Glomerular Filtration Rate (eGFR) is calculated using the 2020 CKD-EPI creatinine equation. This equation utilizes serum creatinine, sex, and age as parameters. The creatinine assay has traceable calibration to isotope dilution-mass spectrometry. Refer to KDIGO guidelines for clinical interpretation. In patients with unstable renal function, e.g. those with acute kidney injury, the eGFR may not accurately reflect actual GFR. Performed By: #### 2 4323-8 ####[facility] SHAWNCLIA [id number] [place] [address] [place] Glucose [Mass/Vol] 168 mg/dL High 74-[address] [facility] Comment on above: Order Comment: Speci men Type: BLOOD SPECIMENOrdering Facility: [facility] Address: [address] [place], [place] [address] Result Comment: The [place] Diabetes Association (ADA) provides guidance for cutoff values for fasting glucose and random glucose. The ADA defines fasting as no caloric intake for at least 8 hours. Fasting plasma glucose results between 100 to 125 mg/dL indicate increased risk for diabetes (prediabetes). Fasting plasma glucose results greater than or equal to 126 mg/dL meet the criteria for diagnosis of diabetes. In the absence of unequivocal hyperglycemia, results should be confirmed by repeat testing. In a patient with classic symptoms of hyperglycemia or hyperglycemic crisis, random plasma glucose results greater than or equal to 200 mg/dL meet the criteria for diagnosis of diabetes. Reference: Standards of Medical Care in Diabetes 2016, [place] Diabetes Association. Diabetes Care. 2016.39(Suppl 1). Performed By: #### 2 4323-8 ####[facility] [id number] [place] [address] [place] Potassium [Moles/Vol] 4.2 mmol/L Normal 3.7-5.1 [facility] Comment on above: Order Comment: Speci men Type: BLOOD SPECIMENOrdering Facility: [facility] Address: [address] [place] [address] Performed By: #### 2 4323-8 ####[facility] [id number] [place] [address] [place] Protein [Mass/Vol] 7.4 g/dL Normal 6.3-8.[address] [facility] Comment on above: Order Comment: Speci men Type: BLOOD SPECIMENOrdering Facility: [facility] Address: [address] [place] [address] Performed By: #### 2 4323-8 ####[facility] [id number] [place] [address] [place] Sodium [Moles/Vol] 139 mmol/L Normal 136-[address] [facility] Comment on above: Order Comment: Speci men Type: BLOOD SPECIMENOrdering Facility: [facility] Address: [address] [place] [address] Performed By: #### 2 4323-8 ####[facility] [id number] [place] [address] [place] Urea nitrogen [Mass/Vol] 18 mg/dL Normal 7-21 [facility] Comment on above: Order Comment: Speci men Type: BLOOD SPECIMENOrdering Facility: [facility] Address: [address] [place] [address] Performed By: #### 2 4323-8 ####[facility] [id number] [place] [address] [place] HbA1c (Bld)on 03-25-2024 Average glucose Estimated from glycated hemoglobin (Bld) [Mass/Vol] 140 mg/dL Normal [facility] Comment on above: Order Comment: Speci men Type: BLOOD SPECIMENOrdering Facility: [facility] Address: [address] [place] [address] Result Comment: eAG: (Estimated average glucose) is a calculated value from HgbA1c and is hardware supplies sales representative of the average blood glucose level in the last 2-3 month period. Performed By: #### 5 5454-3 ####[facility] LABCLIA [id number] [facility] [id number] [place] [address] [place] HbA1c (Bld) [Mass fraction] 6.5 % High 4.3-5.6 [facility] Comment on above: Order Comment: Speci men Type: BLOOD SPECIMENOrdering Facility: [facility] Address: [address] [place] [address] Result Comment: Amer ican Diabetes Association guidelines indicate that patients with HgbA1c in the range 5.7-6.4% are at increased risk for development of diabetes, and intervention by lifestyle modification may be beneficial. HgbA1c greater or equal to 6.5% is considered diagnostic of diabetes. Performed By: #### 5 5454-3 ####[facility] LABCLIA [id number] [place] [address] [place] Lipid 1996 panelon 4 Cholesterol [Mass/Vol] 185 mg/dL Normal <[address] [facility] Comment on above: Order Comment: Speci men Type: BLOOD SPECIMENOrdering Facility: [facility] Address: [address] [place] [address] Result Comment: <200 mg/dL, Desirable 200-239 mg/dL, Borderline high >239 mg/dL, High Performed By: #### 2 4331-1 ####[facility] LABCLIA [id number] [address] [id number] [address] [place] Cholesterol in HDL [Mass/Vol] 56 mg/dL Normal >39 [facility] Comment on above: Order Comment: Lolyi men Type: BLOOD SPECIMENOrdering Facility: [facility] Address: [address] [place] [address] Result Comment: 40-5 9 mg/dL, Acceptable >59 mg/dL, High: Negative risk factor for coronary heart disease <40 mg/dL, Low: Positive risk factor for coronary heart disease Performed By: #### 2 4331-1 ####[facility] LABCLIA [id number] [address] [id number] [address] [place] Cholesterol in LDL [Mass/Vol] 89 mg/dL Normal <100 [facility] Comment on above: Order Comment: Speci men Type: BLOOD SPECIMENOrdering Facility: [facility] Address: [address] [place] [address] Result Comment: <100 mg/dL, Optimal 100-129 mg/dL, Near optimal/above optimal 130-159 mg/dL, Borderline high 160-189 mg/dL, High >189 mg/dL, Very high Secondary prevention optimal LDL Cholesterol levels are recommended to be < 70 mg/dL Performed By: #### 2 4331-1 ####[facility] LABCLIA [id number] [address] [id number] [place] [address] [place] Cholesterol in LDL/Cholesterol in HDL [Mass ratio] 1.59 {ratio} Normal <2.54 [facility] Comment on above: Order Comment: Lolyi men Type: BLOOD SPECIMENOrdering Facility: [facility] Address: [address] [place] [address] Result Comment: Refe rence: 1. National Cholesterol Education Program ATP III Guideline At-A-Glance Quick Desk Reference: National Heart, Lung, and Blood [place]. National Institutes of Health. 2001: NIH Publication No. 01-3305. 2. An International Atherosclerosis Society position paper: global recommendations for the management of dyslipidemia: executive summary, Atherosclerosis. 2014: 232(2):410-413. Performed By: #### 2 4331-1 ####[facility] LABCLIA [id number] [address] [id number] [place] [address] [place] Cholesterol in VLDL [Mass/Vol] 40 mg/dL High <30 [facility] Comment on above: Order Comment: Lolyi men Type: BLOOD SPECIMENOrdering Facility: [facility] Address: [address] [place] [address] Performed By: #### 2 4331-1 ####[facility] LABCLIA [id number] [address] [id number] [address] STATES OF [facility] Cholesterol non HDL [Mass/Vol] 129 mg/dL Normal <130 [facility] Comment on above: Order Comment: Speci men Type: BLOOD SPECIMENOrdering Facility: [facility] Address: [address] [place] [address] Result Comment: <130 mg/dL, Optimal 130-159 mg/dL, Near optimal/above optimal 160-189 mg/dL, Borderline high 190-219 mg/dL, High >219 mg/dL, Very high Secondary prevention optimal non HDL Cholesterol levels are recommended to be <100 mg/dL Performed By: #### 2 4331-1 ####[facility] LABCLIA [id number] [address] [id number] [place] [address] [place] Cholesterol.total/Choles terol in HDL [Mass ratio] 3.30 {ratio} Normal <5.10 [facility] Comment on above: Order Comment: Speci men Type: BLOOD SPECIMENOrdering Facility: [facility] Address: [address] [place] [address] Performed By: #### 2 4331-1 ####[facility] LABCLIA [id number] [address] [id number] [place] [address] [place] FASTING TIME 11 hrs Normal [facility] Comment on above: Order Comment: Speci men Type: BLOOD SPECIMENOrdering Facility: [facility] Address: [address] [place] [address] Performed By: #### 2 4331-1 ####[facility] LABCLIA [id number] [address] [address] [facility] [id number] [place] [address] [place] Triglyceride [Mass/Vol] 202 mg/dL High <150 [facility] Comment on above: Order Comment: Speci men Type: BLOOD SPECIMENOrdering Facility: [facility] Address: [facility] [place] [address] Result Comment: <150 mg/dL, Normal 150-199 mg/dL, Borderline high 200-499 mg/dL, High >499 mg/dL, Very high Performed By: #### 2 4331-1 ####[facility] LABCLIA [id number] [place] [id number] [facility] [id number] [place] [address] [place] MG Breast Screeningon 2023 IMPRESSION: NEGATIVE There is no mammographic evidence of malignancy. A 1 year screening mammogram is recommended. Sammi lujan/rashaad:10/19/2023 08:24:27 Bench Machine Operator(s): RT Prudencio(R)(M), [facility] [place] letter sent: Normal over 40 Mammogram BI-RADS: 1 Negative Multiple national specialty organizations have released breast cancer screening guidelines for women at average risk for developing breast cancer - guidelines that are based on both evidence and opinion, yet differ on when to start and how often to screen for breast cancer. With representation from Breast Imaging, Internal Medicine, Women's Health, Family Medicine, and Medical/Surgical Oncology, the [facility] has carefully reviewed the data and reached the following consensus: 1) All women should engage in shared decision-making with their providers to decide when to start and how often to screen; 2) All women should have the opportunity to start screening mammography at age 40; 3) For women ages 45-55, we recommend annual screening mammograms; 4) For women ages 55 and over, we support both the transition from an annual to a biennial interval if this aligns more with patient's values and preferences, or continuation with annual screening; 5) All women should discuss with their providers when to stop screening mammograms. Billing Adjudicator: Rashaad Transcribe Date/Time: Oct 19 2023 8:11A Dictated by: SAMMI OSORIO MD This examination was interpreted and the report reviewed and electronically signed by: SAMMI OSORIO MD on Oct 19 2023 8:24AM [facility] DIVISION OF RADIOLOGY * * *Final Report* * * DATE OF EXAM: Oct 19 2023 8:11AM [facility] SCREENING / PROCEDURE REASON: tech repeat no charge * * * * Physician Interpretation * * * * RESULT: #[id number] - [facility]YAN SCREENING BILATERAL DIGITAL SCREENING MAMMOGRAM WITH CAD: 10/19/2023 HISTORY: LMLO due to motion Tech Repeat No Charge. RESULT: TECHNIQUE: The study was acquired using full field digital technology and interpreted from soft copy. Current study was also evaluated with a Computer Aided Detection (CAD). Comparison is made to exams dated: 10/12/2023 mammogram, 06/05/2022 mammogram, and 11/12/2020 mammogram - [facility]. The breasts are heterogeneously dense, which may obscure small masses. Repeat left MLO view performed due to motion on screening mammogram. Satisfactory technique on current examination. No significant masses, calcifications, or other findings are seen in either breast. DIVISION OF RADIOLOGY [facility] * * *Final Report* * * DATE OF EXAM: Oct 19 2023 8:11AM [facility] - [facility] SCREENING / PROCEDURE REASON: tech repeat no charge * * * * Physician Interpretation * * * * RESULT: #[id number] - ARYAN SCREENING BILATERAL DIGITAL SCREENING MAMMOGRAM WITH CAD: 10/19/2023 HISTORY: LMLO due to motion Tech Repeat No Charge. RESULT: TECHNIQUE: The study was acquired using full field digital technology and interpreted from soft copy. Current study was also evaluated with a Computer Aided Detection (CAD). Comparison is made to exams dated: 10/12/2023 mammogram, 06/05/2022 mammogram, and 11/12/2020 mammogram - [facility]. The breasts are heterogeneously dense, which may obscure small masses. Repeat left MLO view performed due to motion on screening mammogram. Satisfactory technique on current examination. No significant masses, calcifications, or other findings are seen in either breast. IMPRESSION IMPRESSION: NEGATIVE There is no mammographic evidence of malignancy. A 1 year screening mammogram is recommended. Sammi lujan/rashaad:10/19/2023 08:24:27 Bench Machine Operator(s): Vernell Reardon RT(R)(M), [facility] letter sent: Normal over 40 Mammogram BI-RADS: 1 Negative Multiple national specialty organizations have released breast cancer screening guidelines for women at average risk for developing breast cancer - guidelines that are based on both evidence and opinion, yet differ on when to start and how often to screen for breast cancer. With representation from Breast Imaging, Internal Medicine, Women's Health, Family Medicine, and Medical/Surgical Oncology, the [facility] has carefully reviewed the data and reached the following consensus: 1) All women should engage in shared decision-making with their providers to decide when to start and how often to screen; 2) All women should have the opportunity to start screening mammography at age 40; 3) For women ages 45-55, we recommend annual screening mammograms; 4) For women ages 55 and over, we support both the transition from an annual to a biennial interval if this aligns more with patient's values and preferences, or continuation with annual screening; 5) All women should discuss with their providers when to stop screening mammograms. Billing Adjudicator: Rashaad Transcribe Date/Time: Oct 19 2023 8:11A Dictated by: SAMMI OSORIO MD This examination was interpreted and the report reviewed and electronically signed by: SAMMI OSORIO MD on Oct 19 2023 8:24AM EST [facility] Radiology Study observation (narrative) [facility] MG Breast ScreeningOrdered B y: [facility] Provider on 10-19-2023 [facility] [facility] - Chemistry and C hemistry - challengeOrdered By: Dr. Lynch on 06-19-2022 Free T4 [Mass/Vol] 0.94 ng/dL 0.76-1.46 [facility] No Panel InformationOrdered By: Dr. Lynch on 06-19-2022 Follicle Stimulating Hormone 67.3 mIU/mL [facility] Comment on above: NORMAL REFERENCE RAN GES FEMALE FOLLICULAR 2.3 - 12.6 mIU/mL MID-CYCLE PEAK 5.2 - 17.5 mIU/mL LUTEAL 1.7 - 12.9 mIU/mL POST-MENOPAUSAL ON MHT 5.9 - 72.8 mIU/mL NOT ON MHT 12.7 - 132.2 mlU/mL MALE 0.7 - 10.8 mIU/mL Thyroid Stimulating Hormone (TSH) 1.07 uIU/mL 0.358-3.[address] [facility] Total Triiodothyronine 1.03 ng/mL 0.6-1.81 [facility] Serum or plasma choriogonado tropin detectionOrdered By: Dr. Lynch on 06-19-2022 HCG ( test) Ql 4 mIU/mL <4 [facility] Comment on above: hCG levels with Gest ational AgeGestational Age hCG mIU/mL (IU/L)0.2 - 1 week 5 - 501-2 weeks 50 - 5002-3 weeks 100 - 53411-8 weeks 500 - 180660-2 weeks 1000 - 050171-7 weeks 14628 - 100,0006-8 weeks 89402 - 200,0002-3 months 60736 - 100,000 Serum or plasma ferritin burak surement (mass/volume)Ordered By: Dr. Lynch on 06-19-2022 Ferritin [Mass/Vol] 90 ng/mL 8-252 [facility] ARYAN SCREENINGon 06-05-2022 [facility] Vital Signs Date Time Vital Sign Value Performing Clinician Faci lity 01-07-2025 15:28-0400 Body height 165.[address] Ivet Castanon MD Work Phone: [facility] 01-07-2025 15:28-0400 Body mass index (BMI) [Ratio] 40.9 kg/m2 Dr. Ivet Castanon MD Work Phone: [facility] 01-07-2025 15:28-0400 Body temperature 98.7 [degF] Dr. Ivet Castanon MD Work Phone: [facility] 01-07-2025 15:28-0400 Body weight 111.[address] Ivet Castanon MD Work Phone: 4(380)908-871576 [place] [address] 01-07-2025 15:28-0400 Diastolic blood pressure 84 mm[Hg] Dr. Ivet Castanon MD Work Phone: 1(103)987-615476 [place] [address] 01-07-2025 15:28-0400 Heart rate 54 /min Dr. Ivet Castanon MD Work Phone: 2(309)505-301776 [place] [address] 01-07-2025 15:28-0400 Respiratory rate 18 /min Dr. Ivet Castanon MD Work Phone: 9(224)133-046176 [place] [address] 01-07-2025 15:28-0400 SaO2% (BldA) [Mass fraction] 98 % Dr. Ivet Castanon MD Work Phone: 5(724)287-880976 [place] [address] 01-07-2025 15:28-0400 Systolic blood pressure 158 mm[Hg] Dr. Ivet Castanon MD Work Phone: 2(033)812-293376 [place] [address] 01-07-2025 14:33-0400 Body height 165.[address] Ivet Castanon MD Work Phone: 9(443)472-271476 [place] [address] 01-07-2025 14:33-0400 Body mass index (BMI) [Ratio] 41 kg/m2 Dr. Ivet Castanon MD Work Phone: 8(326)823-980176 [place] [address] 01-07-2025 14:33-0400 Body weight 111.[address] Ivet Castanon MD Work Phone: 0(303)445-393376 [place] [address] 01-07-2025 14:33-0400 Diastolic blood pressure 96 mm[Hg] Dr. Ivet Castanon MD Work Phone: 3(452)550-614676 [place] [address] 01-07-2025 14:33-0400 Heart rate 75 /min Dr. Ivet Castanon MD Work Phone: 3(403)152-438576 [place] [address] 01-07-2025 14:33-0400 Respiratory rate 17 /min Dr. Ivet Castanon MD Work Phone: 4(589)046-944176 [place] [address] 01-07-2025 14:33-0400 SaO2% (BldA) [Mass fraction] 98 % Dr. Ivet Castanon MD Work Phone: 6(198)594-935276 [place] [address] 01-07-2025 14:33-0400 Systolic blood pressure 169 mm[Hg] Dr. Ivet Castanon MD Work Phone: 5(246)323-291276 [place] [address] 01-05-2025 11:29-0400 Body height 165.[address] Ivet Castanon MD Work Phone: 5(320)339-711376 [place] [address] 01-05-2025 11:29-0400 Body mass index (BMI) [Ratio] 41.2 kg/m2 Dr. Ivet Castanon MD Work Phone: 3(146)790-191276 [place] [address] 01-05-2025 11:29-0400 Body temperature 98.2 [degF] Dr. Ivet Castanon MD Work Phone: 3(606)683-985976 [place] [address] 01-05-2025 11:29-0400 Body weight 112.[address] Ivet Castanon MD Work Phone: 8(082)816-066576 [place] [address] 01-05-2025 11:29-0400 Diastolic blood pressure 90 mm[Hg] Dr. Ivet Castanon MD Work Phone: 5(318)243-745276 [place] [address] 01-05-2025 11:29-0400 Heart rate 60 /min Dr. Ivet Castanon MD Work Phone: 0(273)108-795776 [place] [address] 01-05-2025 11:29-0400 Respiratory rate 18 /min Dr. Ivet Castanon MD Work Phone: 0(670)283-052076 [place] [address] 01-05-2025 11:29-0400 SaO2% (BldA) [Mass fraction] 97 % Dr. Ivet Castanon MD Work Phone: 3(245)890-484076 [place] [address] 01-05-2025 11:29-0400 Systolic blood pressure 142 mm[Hg] Dr. Ivet Castanon MD Work Phone: 9(237)027-300676 [place] [address] 12-17-2024 09:13-0400 Body height 170.[address] Ivet Castanon MD Work Phone: 7(100)809-909576 [place] [address] 12-17-2024 09:13-0400 Body mass index (BMI) [Ratio] 39.7 kg/m2 Dr. Ivet Castanon MD Work Phone: [facility] 12-17-2024 09:13-0400 Body weight 115.[address] Ivet Castanon MD Work Phone: 1(687)185-336476 [place] [address] 12-17-2024 09:13-0400 Diastolic blood pressure 97 mm[Hg] Dr. Ivet Castanon MD Work Phone: 9(499)195-685476 [place] [address] 12-17-2024 09:13-0400 Heart rate 75 /min Dr. Ivet Castanon MD Work Phone: 0(227)968-940376 [place] [address] 12-17-2024 09:13-0400 Respiratory rate 17 /min Dr. Ivet Castanon MD Work Phone: 6(305)418-633676 [place] [address] 12-17-2024 09:13-0400 SaO2% (BldA) [Mass fraction] 98 % Dr. Ivet Castanon MD Work Phone: 3(977)508-412306 [place] [address] 12-17-2024 09:13-0400 Systolic blood pressure 159 mm[Hg] Dr. Ivet Castanon MD Work Phone: 0(170)457-631176 [place] [address] 12-08-2024 15:17-0400 Body mass index (BMI) [Ratio] 43.05 kg/m2 Kleber Gandhi MD Work Phone: [facility] 12-08-2024 15:17-0400 Body temperature 97.2 [degF] Kleber Gandhi MD Work Phone: [facility] 12-08-2024 15:17-0400 Body weight 116.48 kg Kleber Gandhi MD Work Phone: [facility] 12-08-2024 15:17-0400 Diastolic blood pressure 98 mm[Hg] Kleber Gandhi MD Work Phone: [facility] 12-08-2024 15:17-0400 Heart rate 76 /min Kleber Gandhi MD Work Phone: [facility] 12-08-2024 15:17-0400 SaO2% (BldA) [Mass fraction] 98 % Kleber Gandhi MD Work Phone: [facility] 12-08-2024 15:17-0400 Systolic blood pressure 148 mm[Hg] Kleber Gandhi MD Work Phone: [facility] 10-24-2024 09:47-0400 Body height 164.5 cm Diana Ballard APRN.DUST CONTROL ENGINEER Work Phone: [facility] 10-24-2024 09:47-0400 Body mass index (BMI) [Ratio] 44.22 kg/m2 Daina Ballard APRN.DUST CONTROL ENGINEER Work Phone: [facility] 10-24-2024 09:47-0400 Body weight 119.66 kg Diana Ballard APRN.DUST CONTROL ENGINEER Work Phone: [facility] 10-24-2024 09:47-0400 Diastolic blood pressure 70 mm[Hg] Diana Ballard APRN.DUST CONTROL ENGINEER Work Phone: [facility] 10-24-2024 09:47-0400 Systolic blood pressure 128 mm[Hg] Diana Ballard APRN.DUST CONTROL ENGINEER Work Phone: [facility] 10-20-2024 09:54-0400 Body mass index (BMI) [Ratio] 43.95 kg/m2 Nenita Mejia APRN.DUST CONTROL ENGINEER Work Phone: [facility] 10-20-2024 09:54-0400 Body weight 119.8 kg Nenita Mejia APRN.DUST CONTROL ENGINEER Work Phone: [facility] 10-20-2024 09:54-0400 Diastolic blood pressure 84 mm[Hg] Nenita Mejia APRN.DUST CONTROL ENGINEER Work Phone: [facility] 10-20-2024 09:54-0400 Heart rate 72 /min Nenita Mejia APRN.DUST CONTROL ENGINEER Work Phone: [facility] 10-20-2024 09:54-0400 Respiratory rate 12 /min Nenita Mejia APRN.DUST CONTROL ENGINEER Work Phone: [facility] 10-20-2024 09:54-0400 SaO2% (BldA) [Mass fraction] 98 % Nenita Juany CERTIFIED TECHNICIAN SPECIALIST.DUST CONTROL ENGINEER Work Phone: [facility] 10-20-2024 09:54-0400 Systolic blood pressure 122 mm[Hg] Nenita Juany CERTIFIED TECHNICIAN SPECIALIST.DUST CONTROL ENGINEER Work Phone: [facility] 03-25-2024 08:54-0500 Body mass index (BMI) [Ratio] 43.29 kg/m2 Jaqui Tannhof CERTIFIED TECHNICIAN SPECIALIST.DUST CONTROL ENGINEER Work Phone: [facility] 03-25-2024 08:54-0500 Body weight 118 kg Jaqui Tannhof CERTIFIED TECHNICIAN SPECIALIST.DUST CONTROL ENGINEER Work Phone: [facility] 03-25-2024 08:54-0500 Diastolic blood pressure 120 mm[Hg] Jaqui Tannhof CERTIFIED TECHNICIAN SPECIALIST.DUST CONTROL ENGINEER Work Phone: [facility] 03-25-2024 08:54-0500 Heart rate 97 /min Jaqui Tannhof CERTIFIED TECHNICIAN SPECIALIST.DUST CONTROL ENGINEER Work Phone: [facility] 03-25-2024 08:54-0500 Respiratory rate 16 /min Jaqui Tannhof CERTIFIED TECHNICIAN SPECIALIST.DUST CONTROL ENGINEER Work Phone: [facility] 03-25-2024 08:54-0500 SaO2% (BldA) [Mass fraction] 96 % Jaqui Tannhof CERTIFIED TECHNICIAN SPECIALIST.DUST CONTROL ENGINEER Work Phone: [facility] 03-25-2024 08:54-0500 Systolic blood pressure 160 mm[Hg] Jaqui Tannhof CERTIFIED TECHNICIAN SPECIALIST.DUST CONTROL ENGINEER Work Phone: [facility] 08-20-2023 10:47-0400 Diastolic blood pressure 80 mm[Hg] Jaqui Tannhof CERTIFIED TECHNICIAN SPECIALIST.DUST CONTROL ENGINEER Work Phone: [facility] 08-20-2023 10:47-0400 Systolic blood pressure 140 mm[Hg] Jaqui Tannhof CERTIFIED TECHNICIAN SPECIALIST.DUST CONTROL ENGINEER Work Phone: [facility] 08-20-2023 09:06-0400 Body mass index (BMI) [Ratio] 43.93 kg/m2 Jaqui Tannhof CERTIFIED TECHNICIAN SPECIALIST.DUST CONTROL ENGINEER Work Phone: [facility] 08-20-2023 09:06-0400 Body weight 119.75 kg Jaqui Tannhof CERTIFIED TECHNICIAN SPECIALIST.DUST CONTROL ENGINEER Work Phone: [facility] 08-20-2023 09:06-0400 Heart rate 64 /min Jaqui Tannhof CERTIFIED TECHNICIAN SPECIALIST.DUST CONTROL ENGINEER Work Phone: [facility] 08-20-2023 09:06-0400 Respiratory rate 16 /min Jaqui Tannhof CERTIFIED TECHNICIAN SPECIALIST.DUST CONTROL ENGINEER Work Phone: [facility] 08-20-2023 09:06-0400 SaO2% (BldA) [Mass fraction] 97 % Jaqui Tannhof CERTIFIED TECHNICIAN SPECIALIST.DUST CONTROL ENGINEER Work Phone: [facility] 01-12-2023 13:23-0400 Body weight 119.3 kg Jaqui Tannhof CERTIFIED TECHNICIAN SPECIALIST.DUST CONTROL ENGINEER Work Phone: [facility] 01-12-2023 13:23-0400 Diastolic blood pressure 98 mm[Hg] Jaqui Tannhof CERTIFIED TECHNICIAN SPECIALIST.DUST CONTROL ENGINEER Work Phone: [facility] 01-12-2023 13:23-0400 Heart rate 79 /min Jaqui Tannhof CERTIFIED TECHNICIAN SPECIALIST.DUST CONTROL ENGINEER Work Phone: [facility] 01-12-2023 13:23-0400 Respiratory rate 16 /min Jaqui Tannhof CERTIFIED TECHNICIAN SPECIALIST.DUST CONTROL ENGINEER Work Phone: [facility] 01-12-2023 13:23-0400 SaO2% (BldA) [Mass fraction] 95 % Jaqui Tannhof CERTIFIED TECHNICIAN SPECIALIST.DUST CONTROL ENGINEER Work Phone: [facility] 01-12-2023 13:23-0400 Systolic blood pressure 150 mm[Hg] Jaqui Tannhof CERTIFIED TECHNICIAN SPECIALIST.DUST CONTROL ENGINEER Work Phone: [facility] 09-29-2022 10:32-0400 Diastolic blood pressure 88 mm[Hg] Jaqui Tannhof CERTIFIED TECHNICIAN SPECIALIST.DUST CONTROL ENGINEER Work Phone: [facility] 09-29-2022 10:32-0400 Systolic blood pressure 140 mm[Hg] Jaqui Verahof CERTIFIED TECHNICIAN SPECIALIST.DUST CONTROL ENGINEER Work Phone: [facility] 09-29-2022 09:48-0400 Body weight 117.48 kg Jaqui Verahof CERTIFIED TECHNICIAN SPECIALIST.DUST CONTROL ENGINEER Work Phone: [facility] 09-29-2022 09:48-0400 Heart rate 77 /min Jaqui Verahof CERTIFIED TECHNICIAN SPECIALIST.DUST CONTROL ENGINEER Work Phone: [facility] 09-29-2022 09:48-0400 Respiratory rate 16 /min Jaqui Verahof CERTIFIED TECHNICIAN SPECIALIST.DUST CONTROL ENGINEER Work Phone: [facility] 09-29-2022 09:48-0400 SaO2% (BldA) [Mass fraction] 94 % Jaqui Verahof CERTIFIED TECHNICIAN SPECIALIST.DUST CONTROL ENGINEER Work Phone: [facility] 07-14-2022 08:24-0400 Body height 165.1 cm Diana Ballard CERTIFIED TECHNICIAN SPECIALIST.DUST CONTROL ENGINEER Work Phone: [facility] 07-14-2022 08:24-0400 Body weight 116.57 kg Diana Simie CERTIFIED TECHNICIAN SPECIALIST.DUST CONTROL ENGINEER Work Phone: [facility] 07-14-2022 08:24-0400 Diastolic blood pressure 92 mm[Hg] Diana Ballard CERTIFIED TECHNICIAN SPECIALIST.DUST CONTROL ENGINEER Work Phone: [facility] 07-14-2022 08:24-0400 Systolic blood pressure 138 mm[Hg] Diana Simie CERTIFIED TECHNICIAN SPECIALIST.DUST CONTROL ENGINEER Work Phone: [facility] 03-31-2022 10:53-0500 Body weight 116.57 kg Jaqui Verahof CERTIFIED TECHNICIAN SPECIALIST.DUST CONTROL ENGINEER Work Phone: [facility] 03-31-2022 10:53-0500 Diastolic blood pressure 93 mm[Hg] Jaquitaylor Verahof CERTIFIED TECHNICIAN SPECIALIST.DUST CONTROL ENGINEER Work Phone: [facility] 03-31-2022 10:53-0500 Heart rate 70 /min Jaqui Verahof CERTIFIED TECHNICIAN SPECIALIST.DUST CONTROL ENGINEER Work Phone: [facility] 03-31-2022 10:53-0500 Respiratory rate 16 /min Jaqui Tannhof CERTIFIED TECHNICIAN SPECIALIST.DUST CONTROL ENGINEER Work Phone: [facility] 03-31-2022 10:53-0500 SaO2% (BldA) [Mass fraction] 96 % Jaqui Tannhof CERTIFIED TECHNICIAN SPECIALIST.DUST CONTROL ENGINEER Work Phone: [facility] 03-31-2022 10:53-0500 Systolic blood pressure 140 mm[Hg] Jaqui Tannhof CERTIFIED TECHNICIAN SPECIALIST.DUST CONTROL ENGINEER Work Phone: [facility] 07-25-2021 08:40-0400 Body weight 115.21 kg Jaqui Tannhof CERTIFIED TECHNICIAN SPECIALIST.DUST CONTROL ENGINEER Work Phone: [facility] 07-25-2021 08:40-0400 Diastolic blood pressure 90 mm[Hg] Jaqui Tannhof CERTIFIED TECHNICIAN SPECIALIST.DUST CONTROL ENGINEER Work Phone: [facility] 07-25-2021 08:40-0400 Heart rate 72 /min Jaqui Tannhof CERTIFIED TECHNICIAN SPECIALIST.DUST CONTROL ENGINEER Work Phone: [facility] 07-25-2021 08:40-0400 Respiratory rate 16 /min Jaqui Tannhof CERTIFIED TECHNICIAN SPECIALIST.DUST CONTROL ENGINEER Work Phone: [facility] 07-25-2021 08:40-0400 SaO2% (BldA) [Mass fraction] 95 % Jaqui Tannhof CERTIFIED TECHNICIAN SPECIALIST.DUST CONTROL ENGINEER Work Phone: [facility] 07-25-2021 08:40-0400 Systolic blood pressure 140 mm[Hg] Jaqui Tannhof CERTIFIED TECHNICIAN SPECIALIST.DUST CONTROL ENGINEER Work Phone: [facility] Encounters Encounter Date Encounter Type Care Provider Facility Start: 01-14-2025 ambulatory [facility] Facility :[facility] Start: 01-12-2025 ambulatory [facility] Facility :[facility] Start: 01-09-2025 ambulatory [facility] Facility :[facility] Start: 01-07-2025 End: 01-07-[address] Aimee Hylton MD -[facility] Work Phone: Start: 01-07-2025 End: 01-07-[address] Ivet Castanon MD Work Phone: -[facility] Start: 01-05-[address] Medardo Bueno MD -[facility] Start: 01-05-2025 End: 01-05-[address] Jason Bueno MD -[facility] Work Phone: Start: 01-05-2025 End: 01-05-[address] Ivet Castanon MD Work Phone: -[facility] Start: 12-22-2024 Non-patient / Non-visit Dr. Salbador Hylton MD -[facility] Start: 12-22-[address] Ivet forde MD Work Phone: [facility] Start: 12-17-2024 End: 12-17-[address] Ivet Castanon MD Work Phone: -Laboratory Specimen Start: 12-17-2024 End: 12-17-[address] Aimee Hylton MD -Laboratory Specimen Work Phone: Start: 12-17-2024 End: 12-17-[address] Aimee Hylton MD -[facility] Work Phone: Start: 12-17-2024 End: 12-17-[address] Ivet Castanon MD Work Phone: [facility] Start: 12-17-2024 End: 12-17-2024 ambulatory [facility] Facility:[facility] Start: 12-11-2024 End: 12-18-2024 Telephone encounter Swapna Champion RN Work Phone: Mammography Comment on above: Outside Recommended Biopsy Review Start: 12-10-2024 End: 12-10-2024 Patient encounter procedure Boom Esposito MD Work Phone: General Surgery Comment on above: Abnormal finding on breast imaging (Primary Dx); Benign mammary dysplasia of left breast; Encounter for screening mammogram for malignant neoplasm of breast Start: 12-10-2024 End: 12-10-2024 ambulatory BOOM ESPOSITO Facility:[facility] Start: 12-08-2024 End: 12-08-2024 Patient encounter procedure Kleber Gandhi MD Work Phone: General Surgery Comment on above: Encounter for screen ing mammogram for malignant neoplasm of breast Start: 12-08-2024 End: 12-08-2024 ambulatory KLEBER GANDHI Facility:[facility] Start: 11-26-2024 End: 11-26-[address] Ivet Castanon MD Work Phone: -Outpatient Breast Imaging Start: 11-26-2024 End: 11-26-2024 Patient encounter procedure Diana VOGT -[facility] Work Phone: Start: 11-26-2024 End: 11-26-2024 ambulatory Diana Ballard NP Facility:[facility] Start: 11-04-2024 End: 01-04-2025 Follow-up encounter Diana Ballard APRN.CNP Work Phone: OB/Gynecology Start: 11-03-2024 End: 11-03-2024 ambulatory FARZAD COVARRUBIAS Facility:[facility] Start: 11-03-2024 Encounter for gynecological examination (general) (routine) with abnormal findings KLEBER GANDHI [facility] Start: 11-03-2024 End: 11-03-2024 Patient encounter status Screen [facility] Start: 11-03-2024 End: 11-03-2024 Subsequent hospital visit by physician [facility] Start: 10-27-2024 End: 12-27-2024 Follow-up encounter Diana Ballard APRN.CNP Work Phone: OB/Gynecology Start: 10-24-2024 End: 10-24-2024 Patient encounter procedure Diana Ballard APRN.CNP Work Phone: OB/Gynecology Comment on above: Encounter for gyneco logical examination with abnormal finding (Primary Dx); Hair thinning; Vasomotor symptoms due to menopause; Encounter for screening mammogram for breast cancer; Class 3 severe obesity with body mass index (BMI) of 40.0 to 44.9 in adult, unspecified obesity type, unspecified whether serious comorbidity present (HCC) Start: 10-24-2024 End: 10-24-2024 Patient encounter status Diana Ballard APRN.CNP Work Phone: [facility] Start: 10-24-2024 Encounter for gynecological examination (general) (routine) without abnormal findings DIANA BALLARD [facility] Start: 10-24-2024 End: 10-24-2024 ambulatory DIANA BALLARD Facility:[facility] Start: 10-24-2024 End: 10-24-2024 Subsequent hospital visit by physician [facility] Comment on above: Encounter for screen ing mammogram for malignant neoplasm of breast [Z12.31] Start: 10-20-2024 End: 10-20-2024 Office outpatient visit 25 minutes Nenita Mejia APRN.CNP Work Phone: [facility] Comment on above: Controlled type 2 di abetes mellitus without complication, without long-term current use of insulin (HCC) (Primary Dx); Primary hypertension; Vitamin D deficiency; Mixed hyperlipidemia; BMI 40.0-44.9, adult (HCC); Screening for depression; Encounter for screening examination for other mental health and behavioral disorders Start: 10-20-2024 End: 10-20-2024 ambulatory NENITA MEJIA Facility:[facility] Start: 10-06-2024 End: 10-06-2024 ambulatory DONN CHOE Facility:[facility] Start: 09-11-2024 End: 09-11-2024 ambulatory Donn Choe MD Work Phone: [facility] Comment on above: Help with prescripti ons Start: 07-13-2024 End: 07-13-2024 ambulatory DONN CHOE Facility:[facility] Start: 07-13-2024 End: 07-13-2024 Telemedicine consultation with patient Niyah Ortiz TASHIA Work Phone: Telemedicine Comment on above: Acute cystitis witho ut hematuria (Primary Dx) Start: 06-21-2024 End: 06-23-2024 Refill Jaqui Berg APRN.CNP Work Phone: [facility] Comment on above: Refill Request Start: 03-28-2024 End: 03-28-2024 Telephone encounter Jaqui Berg APRN.CNP Work Phone: [facility] Comment on above: Results (Labs ) Start: 03-25-2024 End: 03-25-2024 Patient encounter procedure Jaqui Berg APRN.AARON Work Phone: [facility] Comment on above: Controlled type 2 di abetes mellitus without complication, without long-term current use of insulin (HCC) (Primary Dx); Hypertension, essential; Mixed hyperlipidemia; Generalized anxiety disorder with panic attacks; Chronic pain syndrome; Vitamin D deficiency; Encounter for immunization Start: 03-25-2024 End: 03-25-2024 ambulatory [facility] Facility:[facility] Start: 10-19-2023 Documentation procedure Mammog charmaine Coordinator [facility] Department Start: 10-19-2023 Letter encounter Mammography Coordinator [facility] Start: 10-19-2023 End: 10-19-2023 Subsequent hospital visit by physician Screen [facility]amm[facility] Start: 10-16-2023 Documentation procedure Mammog charmaine Coordinator [facility] Start: 10-16-2023 Letter encounter Mammography Coordinator [facility] Start: 10-12-2023 End: 10-12-2023 Subsequent hospital visit by physician [facility] Comment on above: Encounter for screen ing mammogram for breast cancer [Z12.31] Start: 08-20-2023 End: 08-20-2023 Patient encounter procedure Jaqui Berg APRN.CNP Work Phone: [facility] Comment on above: Controlled type 2 di abetes mellitus without complication, without long-term current use of insulin (HCC) (Primary Dx); Hypertension, essential; Generalized anxiety disorder with panic attacks; Chronic pain syndrome; Mixed hyperlipidemia Start: 08-10-2023 Refill Ashish FOWLER RN.DUST CONTROL ENGINEER Work Phone: [facility] Comment on above: Refill Request Start: 07-30-2023 ambulatory Jaqui Berg APRN.CNP Work Phone: [facility] Comment on above: Bloodwork Start: 07-11-2023 ambulatory Donn garnett MD Work Phone: Internal Medicine [facility] Start: 06-27-2023 Refill Ashish FOWLER RN.DUST CONTROL ENGINEER Work Phone: [facility] Comment on above: Refill Request Start: 04-09-2023 ambulatory Jaqui Berg APRN.DUST CONTROL ENGINEER Work Phone: [facility] Comment on above: Can't get over this flu Start: 01-12-2023 End: 01-12-2023 Patient encounter procedure Jaqui Berg APRN.DUST CONTROL ENGINEER Work Phone: [facility] Comment on above: Hypertension, essent ial (Primary Dx); Controlled type 2 diabetes mellitus without complication, without long-term current use of insulin (HCC); Generalized anxiety disorder with panic attacks; Chronic pain syndrome; Elevated sed rate; Vitamin D deficiency; Screening for colon cancer Start: 09-29-2022 End: 09-29-2022 Patient encounter procedure Jaqui Berg APRN.[employer] Work Phone: [facility] Comment on above: Hypertension, essent ial (Primary Dx); Controlled type 2 diabetes mellitus without complication, without long-term current use of insulin (HCC); Generalized anxiety disorder with panic attacks; Myalgia; Hair loss; Encounter for immunization Start: 09-06-2022 Refill Jaqui Berg APRN.[employer] ENGINEER Work Phone: [facility] Comment on above: Refill Request Start: 08-28-2022 Refill Jaqui Berg APRN.[employer] ENGINEER Work Phone: [facility] Comment on above: Refill Request Start: 08-11-2022 Refill Jaqui Berg APRN.[facility] Work Phone: [facility] Comment on above: Refill Request Start: 07-14-2022 End: 07-14-2022 Patient encounter procedure Diana Ballard APRN.[employer] ENGINEER Work Phone: OB/Gynecology Comment on above: Encounter for gyneco logical examination (general) (routine) without abnormal findings (Primary Dx); Encounter for screening for human papillomavirus (HPV); Pap smear for cervical cancer screening; Encounter for screening mammogram for breast cancer; Dense breast tissue; Class 3 severe obesity with serious comorbidity and body mass index (BMI) of 40.0 to 44.9 in adult, unspecified obesity type (HCC) Start: 07-14-2022 End: 07-14-2022 Patient encounter status Diana Ballard APRN.CNP Work Phone: OB/Gynecology Start: 06-19-2022 End: 06-19-[address] [facility] Work Phone: Start: 06-19-2022 End: 06-19-2022 Patient encounter procedure [facility] [place] Start: 06-05-2022 Documentation procedure [facility]og [facility] [facility] Start: 06-05-2022 Letter encounter Mammography Coordinator [facility] Department Start: 06-05-2022 End: 06-05-2022 Subsequent hospital visit by physician Screen Mammo [facility] Mammogram Comment on above: Encounter for screen ing mammogram for breast cancer [Z12.31] Start: 03-31-2022 End: 03-31-2022 Patient encounter procedure Jaqui Berg APRN.CNP Work Phone: [facility] Comment on above: Controlled type 2 di abetes mellitus without complication, without long-term current use of insulin ([facility]) (Primary Dx); Hypertension, essential; Vitamin D deficiency; Generalized anxiety disorder with panic attacks; Myalgia Start: 03-28-2022 Telephone encounter Jaqui boss APRN.CNP Work Phone: [facility] Comment on above: Results (Labs ) Start: 12-21-2021 ambulatory Donn garnett MD Work Phone: Internal Medicine [facility] [place] Start: 10-15-2021 Refill Jaqui Berg APRN.CNP Work Phone: [facility] Comment on above: Refill Request Start: 09-01-2021 Refill Jaqui Berg APRN.CNP Work Phone: [facility] [place] Comment on above: Refill Request Start: 07-25-2021 Telephone encounter Ivet forde MD Work Phone: [facility] [place] Comment on above: Appointment Start: 07-25-2021 End: 07-25-2021 Patient encounter procedure Jaqui Berg APRN.CNP Work Phone: [facility] [place] Comment on above: Generalized anxiety disorder with panic attacks (Primary Dx); Hypertension, essential; Controlled type 2 diabetes mellitus without complication, without long-term current use of insulin (HCC); Mixed hyperlipidemia; Myalgia Start: 07-21-2021 Telephone encounter Jaqui boss APRN.[employer] Work Phone: Radiology Comment on above: Orders Procedures Date Procedure Procedure Detail Performing Clinician Start: 01-05-[address] Ivet Castanon MD Work Phone: Start: 11-26-[address] Ivet Castanon MD Work Phone: Start: 11-26-[address] Ivet Castanon MD Work Phone: Start: 10-20-2024 Adult depression scr eening assessment Nenita Mejia APRN.[employer] Work Phone: Start: 10-19-2023 Screening mammograph y bi 2-view breast inc cad Donn Choe MD Work Phone: Start: 08-20-2023 Adult depression scr eening assessment Jaqui Berg APRN.[employer] Work Phone: Start: 06-05-2022 End: 06-05-2022 Mammography Bulk Order Provider Start: 11-12-2020 Mammography Jaqui boss APRN.[employer] Work Phone: Start: 08-14-2020 Adult depression scr eening assessment Jaqui Berg APRN.[employer]INE[employer] Work Phone: Plan of Treatment Date Care Activity Detail Author Start: 09-29-2032 [facility] Start: 07-15-2027 HPV TESTING HPV TESTING [facility] Start: 07-15-2027 PAP TESTING PAP TESTING [facility] Start: 07-15-2027 Screening for malignant neoplasm of cervix [facility] Start: 01-16-2026 Cologuard (FIT-DNA) Cologuard (FIT-DNA) [facility] Start: 01-16-2026 Colorectal Cancer Screening Colorectal Cancer Screening [facility] Start: 01-16-2026 Screening for malignant neoplasm of colon [facility] Start: 10-24-2025 Screening for malignant neoplasm of breast Mammogram Screening [facility] Start: 10-20-2025 Annual PCP Team Chronic Disease Visit Annual PCP Team Chronic Disease Visit [facility] Start: 10-20-2025 Anxiety Screening Anxiety Screening [facility] Start: 10-20-2025 Covid-19 Vaccine () Covid-19 Vaccine () [facility] Comment on above: Postponed from 12/30/2023 (Declined at t his time) Start: 10-20-2025 Depression Screening Depression Screening [facility] Start: 10-06-2025 Hepatitis B surface antibody level LDL Cholesterol [facility] Start: 05-12-2025 End: 05-12-2025 Patient encounter procedure 05/12/2025 1:00 PM EST Office Visit [facility] [address] [facility] [address] Moisés Vazquez MD [address] [place] [address] transfer care [facility] Comment on above: transfer care Start: 05-04-2025 End: 05-04-2025 ambulatory 05/04/2025 7:45 AM EST Results Only [place] [facility] [address] [place] [address] [facility] Start: 04-21-2025 End: 07-21-2025 25-hydroxyvitamin D3 [Mass/volume] in Serum or Plasma VITAMIN D 25 HYDROXY Lab Routine Vitamin D deficiency Expected: 04/21/2025 (Approximate), Expires: 07/21/2025 [facility] Comment on above: Expected: 04/21/2025 (Approximate), Expi res: 07/21/2025 Start: 04-21-2025 End: 07-21-2025 Hemoglobin A1c in Blood HEMOGLOBIN A1C Lab Routine Controlled type 2 diabetes mellitus without complication, without long-term current use of insulin (HCC) Expected: 04/21/2025 (Approximate), Expires: 07/21/2025 [facility] Work Phone: Comment on above: Expected: 04/21/2025 (Approximate), Expi res: 07/21/2025 Start: 04-07-2025 [facility]oglobin [facility]c [facility] Start: 03-25-2025 Annual PCP Team Chronic Disease Visit Annual PCP Team Chronic Disease Visit [facility] Start: 03-25-2025 Hepatitis B surface antibody level LDL Cholesterol [facility] Start: 01-19-2025 End: 01-19-2025 Patient encounter procedure Mammography Comment on above: [place] [facility] LEFT AND ULTRASOUND US BIOPSY BREAST LEF T Start: 01-05-2025 CBC W Auto Differential panel - Blood [facility] Start: 01-05-2025 Comprehensive metabolic 2000 panel - Serum or Plasma [facility] Start: 01-05-[address] [facility] Start: 01-05-[address] [facility] Start: 12-29-2024 Influenza vaccination Influenza Vaccine (#1) [facility] Start: 12-03-2024 End: 12-03-2024 Patient encounter procedure Mammogram Comment on above: Abnormal mammogram [R92.8] Start: 10-30-2024 End: 10-30-2024 ambulatory 10/30/2024 7:45 AM EDT [facility] [address] [place] [address] [facility] Start: 10-24-2024 End: 01-23-2025 Thyrotropin [Units/volume] in Serum or Plasma THYROID STIMULATING HORMONE Lab Routine Hair thinning Expected: 10/24/2024, Expires: 01/23/2025 [facility] Comment on above: Expected: 10/24/2024, Expires: Start: 10-24-2024 End: 10-24-2024 Patient encounter procedure Mammogram Comment on above: Yearly exam Start: 10-20-2024 End: 10-20-2024 Patient encounter procedure 10/20/2024 10:00 AM EDT Office Visit [facility] [place] [address] [facility] [address] Nenita Mejia, CERTIFIED TECHNICIAN SPECIALIST.DUST CONTROL ENGINEER [address] [place] [address] wants to establish care with new pcp. [facility] [place] Comment on above: wants to establish care with new pcp. Start: 10-18-2024 Screening for malignant neoplasm of breast Mammogram Screening [facility] Start: 10-11-2024 Screening for malignant neoplasm of breast Mammogram Screening [facility] Start: 10-06-2024 End: 10-06-2024 ambulatory 10/06/2024 8:00 AM EDT [facility] [address] [facility] [place] [address] [facility] Start: 09-29-2024 End: 09-29-2024 Patient encounter procedure 09/29/2024 9:00 AM EDT Office Visit [facility] [address] [facility] [address] Jaqui Berg, CERTIFIED TECHNICIAN SPECIALIST.DUST CONTROL ENGINEER [address] [place] [address] 6 month follow up with labs [facility] Comment on above: 6 month follow up with labs Start: 09-22-2024 End: 12-22-2024 Comprehensive metabolic 2000 panel - Serum or Plasma COMPREHENSIVE METABOLIC PANEL Lab Routine Mixed hyperlipidemia Expected: 09/22/2024, Expires: 12/22/2024 [facility] Work Phone: Comment on above: Expected: 09/22/2024, Expires: Start: 09-22-2024 End: 12-22-2024 Hemoglobin A1c in Blood HEMOGLOBIN A1C Lab Routine Controlled type 2 diabetes mellitus without complication, without long-term current use of insulin (HCC) Expected: 09/22/2024, Expires: 12/22/2024 [facility] Comment on above: Expected: 09/22/2024, Expires: Start: 09-22-2024 Hemoglobin A1c measurement [facility]C [facility] Start: 09-22-2024 End: 12-22-2024 Lipid 1996 panel - Serum or Plasma LIPID PANEL BASIC Lab Routine Mixed hyperlipidemia Expected: 09/22/2024, Expires: 12/22/2024 [facility] Comment on above: Expected: 09/22/2024, Expires: Start: 08-19-2024 Annual PCP Team Chronic Disease Visit Annual PCP Team Chronic Disease Visit [facility] Start: 08-19-2024 Anxiety Screening Anxiety Screening [facility] Start: 08-19-2024 Depression Screening Depression Screening [facility] Start: 08-13-2024 Hepatitis B surface antibody level LDL Cholesterol [facility] Start: 07-24-2024 End: 07-24-2024 Patient encounter procedure 07/24/2024 9:30 AM EDT Office Visit OB/Gynecology [address] [place] [address] Diana Ballard, CERTIFIED TECHNICIAN SPECIALIST.DUST CONTROL ENGINEER [address] [place] [place] [address] Exam only OB/Gynecology Comment on above: Exam only Start: 02-29-2024 End: 02-29-2024 Patient encounter procedure 02/29/2024 7:40 AM EDT Office Visit [facility] [address] [facility] [place] [address] Jaqui Berg, CERTIFIED TECHNICIAN SPECIALIST.DUST CONTROL ENGINEER [address] [facility] [place] [address] 6 month follow up and labs Family [facility] Comment on above: 6 month follow up and labs Start: 02-19-2024 End: 05-20-2024 Comprehensive metabolic 2000 panel - Serum or Plasma COMPREHENSIVE METABOLIC PANEL Lab Routine Controlled type 2 diabetes mellitus without complication, without long-term current use of insulin (HCC) Expected: 02/19/2024, Expires: 05/20/2024 [facility] Work Phone: Comment on above: Expected: 02/19/2024, Expires: 5 Start: 02-19-2024 End: 05-20-2024 Hemoglobin A1c in Blood HEMOGLOBIN A1C Lab Routine Controlled type 2 diabetes mellitus without complication, without long-term current use of insulin (HCC) Expected: 02/19/2024, Expires: 05/20/2024 [facility] Comment on above: Expected: 02/19/2024, Expires: 5 Start: 02-19-2024 End: 05-20-2024 Lipid 1996 panel - Serum or Plasma LIPID PANEL BASIC Lab Routine Mixed hyperlipidemia Expected: 02/19/2024, Expires: 05/20/2024 [facility] Comment on above: Expected: 02/19/2024, Expires: Start: 02-13-2024 Hemoglobin A1c measurement HbA1C [facility] Start: 01-13-2024 Annual PCP Team Chronic Disease Visit Annual PCP Team Chronic Disease Visit [facility] Start: 01-13-2024 BP Controlled (<130/80) BP Controlled (<130/80) [facility] Start: 01-13-2024 Pneumococcal vaccination [facility] Comment on above: Postponed from 12/19/2015 (Declined at t his time) Start: 12-30-2023 Covid-19 Vaccine ( season) Covid-19 Vaccine ( season) [facility] Start: 12-30-2023 Influenza vaccination Influenza Vaccine (Season Ended) [facility] Start: 11-13-2023 End: 11-13-2023 Patient encounter procedure 11/13/2023 10:30 AM EDT Office Visit OB/Gynecology [address] [place] [address] Diana Ballard APRN.DUST CONTROL ENGINEER [address] [place] [address] Yearly checkup OB/Gynecology Comment on above: Yearly checkup Start: 09-30-2023 ANNUAL PCP TEAM CHRONIC DISEASE VISIT ANNUAL PCP TEAM CHRONIC DISEASE VISIT [facility] Start: 09-30-2023 COVID-19 VACCINE (3 - Booster for Pfizer series) COVID-19 VACCINE (3 - Booster for Pfizer series) [facility] Comment on above: Postponed from 03/28/2021 (Declined at t his time) Start: 09-30-2023 Covid-19 Vaccine (3 - Pfizer series) Covid-19 Vaccine (3 - Pfizer series) [facility] Comment on above: Postponed from 03/28/2021 (Declined at t his time) Start: 09-30-2023 HEPATITIS B (1 of 3 - 3-dose series) HEPATITIS B (1 of 3 - 3-dose series) [facility] Comment on above: Postponed from 1970 (Declined at t his time) Start: 09-30-2023 Hepatitis B Vaccine (1 of 3 - 19+ 3-dose series) Hepatitis B Vaccine (1 of 3 - 19+ 3-dose series) [facility] Comment on above: Postponed from 1989 (Declined at t his time) Start: 09-30-2023 Hepatitis B Vaccine (1 of 3 - 3-dose series) Hepatitis B Vaccine (1 of 3 - 3-dose series) [facility] Comment on above: Postponed from 1970 (Declined at t his time) Start: 09-30-2023 SHINGRIX VACCINE (1 of 2) SHINGRIX VACCINE (1 of 2) [facility] Comment on above: Postponed from 2020 (Declined at t his time) Start: 08-27-2023 End: 08-27-2023 Patient encounter procedure Mammogram Comment on above: annual exam Start: 07-04-2023 Hemoglobin A1c measurement HbA1C [facility] Start: 07-04-2023 Hemoglobin A1c/Hemoglobin.total in Blood HbA1C [facility] Start: 06-05-2023 Mammography [facility] Start: 06-05-2023 Screening for malignant neoplasm of breast Mammogram Screening [facility] Start: 04-30-2023 Behavioral Health Screening Behavioral Health Screening [facility] Start: 04-30-2023 Depression Assessment Depression Assessment [facility] Start: 04-13-2023 End: 06-13-2023 Comprehensive metabolic 2000 panel - Serum or Plasma COMP METABOLIC PANEL Lab Routine Controlled type 2 diabetes mellitus without complication, without long-term current use of insulin (HCC) Expected: 04/13/2023, Expires: 06/13/2023 [facility] Work Phone: Comment on above: Expected: 04/13/2023, Expires: 4 Start: 04-13-2023 End: 06-13-2023 Hemoglobin A1c in Blood HGB A1C Lab Routine Controlled type 2 diabetes mellitus without complication, without long-term current use of insulin (HCC) Expected: 04/13/2023, Expires: 06/13/2023 [facility] Work Phone: Comment on above: Expected: 04/13/2023, Expires: 4 Start: 03-31-2023 ANNUAL PCP TEAM CHRONIC DISEASE VISIT ANNUAL PCP TEAM CHRONIC DISEASE VISIT [facility] Start: 03-24-2023 Hepatitis B surface antibody level LDL CHOLESTEROL [facility] Start: 01-14-2023 Hemoglobin A1c/Hemoglobin.total in Blood HBA1C [facility] Start: 12-29-2022 Covid-19 Vaccine () Covid-19 Vaccine () [facility] Start: 12-29-2022 Influenza vaccination [facility] Start: 09-29-2022 End: 11-29-2022 Comprehensive metabolic 2000 panel - Serum or Plasma COMP METABOLIC PANEL Lab Routine Controlled type 2 diabetes mellitus without complication, without long-term current use of insulin (HCC) Expected: 09/29/2022, Expires: 11/29/2022 [facility] Work Phone: Comment on above: Expected: 09/29/2022, Expires: 3 Start: 09-29-2022 End: 11-29-2022 Hemoglobin A1c in Blood HGB A1C Lab Routine Controlled type 2 diabetes mellitus without complication, without long-term current use of insulin (HCC) Expected: 09/29/2022, Expires: 11/29/2022 [facility] Work Phone: Comment on above: Expected: 09/29/2022, Expires: 3 Start: 09-21-2022 Hemoglobin A1c/Hemoglobin.total in Blood HBA1C [facility] Start: 07-25-2022 ANNUAL PCP TEAM CHRONIC DISEASE VISIT ANNUAL PCP TEAM CHRONIC DISEASE VISIT [facility] Start: 07-22-2022 Hepatitis B surface antibody level LDL CHOLESTEROL [facility] Start: 06-29-2022 End: 08-29-2022 Comprehensive metabolic 2000 panel - Serum or Plasma COMP METABOLIC PANEL Lab Routine Controlled type 2 diabetes mellitus without complication, without long-term current use of insulin (HCC) Expected: 06/29/2022, Expires: 08/29/2022 [facility] Work Phone: Comment on above: Expected: 06/29/2022, Expires: 3 Start: 06-29-2022 End: 08-29-2022 Hemoglobin A1c in Blood HGB A1C Lab Routine Controlled type 2 diabetes mellitus without complication, without long-term current use of insulin ([facility]) Expected: 06/29/2022, Expires: 08/29/2022 [facility] Work Phone: Comment on above: Expected: 06/29/2022, Expires: 3 Start: 06-27-2022 End: 08-27-2022 25-hydroxyvitamin D3 [Mass/volume] in Serum or Plasma VITAMIN D 25 HYDROXY Lab Routine Vitamin D deficiency Expected: 06/27/2022, Expires: 08/27/2022 [facility] Work Phone: Comment on above: Expected: 06/27/2022, Expires: 3 Start: 06-19-[address] [facility] Start: 04-30-2022 DEPRESSION ASSESSMENT DEPRESSION ASSESSMENT [facility] Start: 01-31-2022 COLORECTAL CANCER SCREENING COLORECTAL CANCER SCREENING [facility] Start: 01-31-2022 FECAL OCCULT BLOOD FECAL OCCULT BLOOD [facility] Start: 01-31-2022 Screening for malignant neoplasm of colon Fecal Occult Blood [facility] Start: 01-22-2022 Hemoglobin A1c/Hemoglobin.total in Blood HBA1C [facility] Start: 12-29-2021 Influenza vaccination [facility] Start: 12-03-2021 ANNUAL PCP TEAM CHRONIC DISEASE VISIT ANNUAL PCP TEAM CHRONIC DISEASE VISIT [facility] Start: 12-03-2021 SHINGRIX VACCINE (1 of 2) SHINGRIX VACCINE (1 of 2) [facility] Comment on above: Postponed from 2020 (Declined at t his time) Start: 12-03-2021 Urine microalbumin profile DTAP,TDAP,TD (2 - Td or Tdap) [facility] Comment on above: Postponed from 12/25/2017 (Declined at t his time) Start: 11-12-2021 Mammography MAMMOGRAM [facility] Start: 08-14-2021 Adult depression screening assessment DEPRESSION SCREENING [facility] Start: 07-25-2021 End: 09-24-2021 C reactive protein [Mass/volume] in Serum or Plasma C-REACTIVE PROTEIN (CRP) Lab Routine Myalgia Expected: 07/25/2021, Expires: 09/24/2021 [facility] Work Phone: Comment on above: Expected: 07/25/2021, Expires: 2 Start: 07-25-2021 End: 09-24-2021 CBC W Auto Differential panel - Blood CBC + DIFF Lab Routine Myalgia Expected: 07/25/2021, Expires: 09/24/2021 [facility] Work Phone: Comment on above: Expected: 07/25/2021, Expires: 2 Start: 07-25-2021 End: 09-24-2021 Comprehensive metabolic 2000 panel - Serum or Plasma COMP METABOLIC PANEL Lab Routine Myalgia Expected: 07/25/2021, Expires: 09/24/2021 [facility] Work Phone: Comment on above: Expected: 07/25/2021, Expires: 2 Start: 07-25-2021 End: 09-24-2021 Erythrocyte sedimentation rate SED RATE WESTERGREN Lab Routine Myalgia Expected: 07/25/2021, Expires: 09/24/2021 [facility] Work Phone: Comment on above: Expected: 07/25/2021, Expires: 2 Start: 07-25-2021 End: 09-24-2021 Folate [Mass/volume] in Serum or Plasma FOLATE SERUM Lab Routine Myalgia Expected: 07/25/2021, Expires: 09/24/2021 [facility] Work Phone: Comment on above: Expected: 07/25/2021, Expires: 2 Start: 07-25-2021 End: 09-24-2021 Hemoglobin A1c/Hemoglobin.total in Blood HGB A1C Lab Routine Controlled type 2 diabetes mellitus without complication, without long-term current use of insulin (HCC) Expected: 07/25/2021, Expires: 09/24/2021 [facility] Work Phone: Comment on above: Expected: 07/25/2021, Expires: 2 Start: 07-25-2021 End: 09-24-2021 Nuclear Ab [Presence] in Serum by Immunoassay TYLER BLOOD Lab Routine Myalgia Expected: 07/25/2021, Expires: 09/24/2021 [facility] Work Phone: Comment on above: Expected: 07/25/2021, Expires: 2 Start: 07-25-2021 End: 09-24-2021 RHEUMATOID FACTOR BL RHEUMATOID FACTOR BL Lab Routine Myalgia Expected: 07/25/2021, Expires: 09/24/2021 [facility] Work Phone: Comment on above: Expected: 07/25/2021, Expires: 2 Start: 07-25-2021 End: 09-24-2021 VITAMIN B12 BLOOD VITAMIN B12 BLOOD Lab Routine Myalgia Expected: 07/25/2021, Expires: 09/24/2021 [facility] Work Phone: Comment on above: Expected: 07/25/2021, Expires: 2 Start: 07-25-2021 End: 09-24-2021 VITAMIN D 25 HYDROXY VITAMIN D 25 HYDROXY Lab Routine Myalgia Expected: 07/25/2021, Expires: 09/24/2021 [facility] Work Phone: Comment on above: Expected: 07/25/2021, Expires: 2 Start: 07-01-2021 COVID-19 VACCINE (3 - Booster for Pfizer series) COVID-19 VACCINE (3 - Booster for Pfizer series) [facility] Start: 05-16-2021 HPV TESTING HPV TESTING [facility] Start: 05-16-2021 PAP TESTING PAP TESTING [facility] Start: 05-15-2021 Hemoglobin A1c/Hemoglobin.total in Blood HBA1C [facility] Start: 04-30-2021 DEPRESSION ASSESSMENT DEPRESSION ASSESSMENT [facility] Start: 03-28-2021 COVID-19 VACCINE (3 - Booster for Pfizer series) COVID-19 VACCINE (3 - Booster for Pfizer series) [facility] Start: 12-29-2020 Influenza vaccination INFLUENZA (#1) [facility] Start: 2020 SHINGRIX VACCINE (1 of 2) SHINGRIX VACCINE (1 of 2) [facility] Start: 12-25-2017 Urine microalbumin profile DTAP,TDAP,TD (2 - Td or Tdap) [facility] Start: 12-19-2015 PNEUMOCOCCAL (2 - PCV) PNEUMOCOCCAL (2 - PCV) [facility] Start: 12-19-2015 Pneumococcal vaccination Pneumococcal Vaccine (2 of 2 - PCV) [facility] Start: 12-19-2015 Pneumococcal Vaccine: 50+ (2 of 2 - PCV) Pneumococcal Vaccine: 50+ (2 of 2 - PCV) [facility] Start: 07-27-2015 COLOGUARD (FIT-DNA) COLOGUARD (FIT-DNA) [facility] Start: 07-27-2015 Colonoscopy COLONOSCOPY [facility] Start: 07-27-[address] COLONOGRAPHY [facility] Start: 07-27-2015 Screening for malignant neoplasm of colon [facility] Start: 07-27-2015 SIGMOIDOSCOPY SIGMOIDOSCOPY [facility] Start: 1989 HEPATITIS B (1 of 3 - Risk 3-dose series) HEPATITIS B (1 of 3 - Risk 3-dose series) [facility] Start: 1989 Hepatitis B Vaccine (1 of 3 - 19+ 3-dose series) Hepatitis B Vaccine (1 of 3 - 19+ 3-dose series) [facility] Start: 1988 BP CONTROLLED (<130/80) BP CONTROLLED (<130/80) [facility] Start: 1970 HEPATITIS B (1 of 3 - 3-dose series) HEPATITIS B (1 of 3 - 3-dose series) [facility] Alanine aminotransfe rase [Enzymatic activity/volume] in Serum or Plasma [facility] Albumin [Mass/volume ] in Serum or Plasma [facility] Alkaline phosphatase [Enzymatic activity/volume] in Serum or Plasma [facility] Androstenedione [Mas s/volume] in Serum or Plasma [facility] Anion gap in Serum or Plasma [facility] Bilirubin, total measurement [facility] BUN/Creatinine ratio [facility] Calcium [Mass/volume ] in Serum or Plasma [facility] Carbon dioxide, tota l [Moles/volume] in Central venous blood [facility] COLOGUARD COLOGUARD Lab Ro utine Screening for colon cancer Ordered: 01/12/2023 [facility] Work Phone: Comment on above: Ordered: 01/12/2023 Creatinine [Mass/vol ume] in Serum or Plasma [facility] End: 11-23-2025 DBT Breast - bilateral screening ARYAN SCREENING W GUY Radiology Routine Encounter for gynecological examination with abnormal finding Encounter for screening mammogram for breast cancer 1 Occurrences starting 10/24/2024 until 11/23/2025 [facility] Work Phone: Comment on above: 1 Occurrences starting 10/24/2024 until 11/23/2025 DBT Breast - bilater al screening ARYAN SCREENING W GUY Radiology Routine Encounter for screening mammogram for malignant neoplasm of breast 10/24/2024 9:33 AM EDT [facility] Work Phone: Dehydroepiandrostero ne sulfate (DHEA-S) [Mass/volume] in Serum or Plasma [facility] Erythrocyte mean cor puscular volume determination [facility] Glucose [Mass/volume ] in Serum or Plasma [facility] Hematocrit [Volume F raction] of Blood [facility] Hemoglobin [Mass/vol ume] in Blood [facility] Leukocytes [#/volume] in Blood [facility] End: 08-13-2023 ARYNA SCREENING W GUY ARYAN SCREENING W GUY Radiology Routine Encounter for gynecological examination (general) (routine) without abnormal findings Encounter for screening mammogram for breast cancer Dense breast tissue 1 Occurrences starting 07/14/2022 until 08/13/2023 [facility] Work Phone: Comment on above: 1 Occurrences starting 07/14/2022 until 08/13/2023 Mean corpuscular hem oglobin concentration determination [facility] Mean corpuscular hem oglobin determination [facility] Measurement of renal function [facility] End: 11-26-2025 MG Breast - left Diagnostic for implant ARYAN DIAGNOSTIC LEFT Radiology Routine Abnormal mammogram 1 Occurrences starting 10/27/2024 until 11/26/2025 [facility] Work Phone: Comment on above: 1 Occurrences starting 10/27/2024 until 11/26/2025 End: 08-09-2024 MG Breast Screening ARYAN SCREENING Radiology Routine Encounter for screening mammogram for breast cancer 1 Occurrences starting 07/11/2023 until 08/09/2024 [facility] Work Phone: Comment on above: 1 Occurrences starting 07/11/2023 until 08/09/2024 MG Breast Screening ARYAN SCREENIN G Radiology Routine Encounter for screening mammogram for breast cancer 10/12/2023 8:48 AM EDT [facility] Work Phone: Neutrophil count [facility] Neutrophil percent differential count [facility] Nuclear Ab [Titer] i n Serum by Immunofluorescence [facility] PAP TEST PAP TEST Lab Dodie yu Encounter for gynecological examination (general) (routine) without abnormal findings Encounter for screening for human papillomavirus (HPV) Pap smear for cervical cancer screening 07/14/2022 9:21 AM EDT [facility] Work Phone: Platelets [#/volume] in Blood [facility] Potassium measurement [facility] Red blood cell count [facility] Red cell distributio n width determination [facility] End: 01-20-2023 Screening mammography bi 2-view breast inc cad ARYAN SCREENING Radiology Routine Encounter for screening mammogram for breast cancer 1 Occurrences starting 12/21/2021 until 01/20/2023 [facility] Work Phone: Comment on above: 1 Occurrences starting 12/21/2021 until 01/20/2023 Serum chloride measurement [facility] Sex hormone binding globulin [Moles/volume] in Serum or Plasma [facility] Sodium measurement [facility] Testosterone Free [Mass/volume] in Serum or Plasma [facility] Testosterone measurement [facility] Thyroperoxidase Ab [Units/volume] in Serum or Plasma [facility] Total protein measurement [facility] Urea nitrogen [Mass/ volume] in Serum or Plasma [facility] End: 11-26-2025 US Breast - left limited US BREAST LTD LEFT Radiology Routine Abnormal mammogram 1 Occurrences starting 10/27/2024 until 11/26/2025 [facility] Comment on above: 1 Occurrences starting 10/27/2024 until 11/26/2025 End: 01-09-2026 US Guidance for biopsy of Breast - left US BIOPSY BREAST LEFT Radiology Routine Benign mammary dysplasia of left breast Encounter for screening mammogram for malignant neoplasm of breast Abnormal finding on breast imaging 1 Occurrences starting 12/10/2024 until 01/09/2026 [facility] Work Phone: Comment on above: 1 Occurrences starting 12/10/2024 until 01/09/2026 [facility] Immunizations Immunization Date Immunization Notes Care Provider Marley key 03-25-2024 influenza, seasonal, injectable Jaqui Berg APRN.[employer] Work Phone: [facility] 03-25-2024 influenza virus vacc ine, unspecified formulation Screen Wstr [facility] 09-29-2022 tetanus toxoid, redu tam diphtheria toxoid, and acellular pertussis vaccine, adsorbed Jaqui Berg CERTIFIED TECHNICIAN SPECIALIST.[employer] ENGINEER Work Phone: [facility] 01-31-2021 COVID-19 vaccine, ag e 12+ yr (PFIZER-BIONTECH - PURPLE TOP) Jaqui Berg CERTIFIED TECHNICIAN SPECIALIST.[employer] CONTR[employer] ENGINEER Work Phone: [facility] 01-07-2021 COVID-19 vaccine, ag e 12+ yr (PFIZER-BIONTECH - PURPLE TOP) Jaqui Berg CERTIFIED TECHNICIAN SPECIALIST.DUST CONTR[employer] ENGINEER Work Phone: [facility] Work Phone: 02-05-2019 influenza, injectabl e, quadrivalent, contains preservative Jaqui Berg APRN.[employer]INE[employer] Work Phone: [facility] 02-05-2019 influenza virus vacc ine, unspecified formulation Jaqui Berg CERTIFIED TECHNICIAN SPECIALIST.[employer] CONTR[employer] ENGINEER Work Phone: [facility] 05-22-2016 influenza, injectabl e, quadrivalent, contains preservative Jaqui Berg APRN.[employer] ENGINE[employer] Work Phone: [facility] Work Phone: 12-18-2014 pneumococcal polysaccharide vaccine, 23 valent Jaqui Berg CERTIFIED TECHNICIAN SPECIALIST.[employer] CONTR[employer] ENGINEER Work Phone: [facility] 02-21-2012 influenza virus vacc ine, unspecified formulation Jaqui Berg CERTIFIED TECHNICIAN SPECIALIST.[employer] CONTR[employer] ENGINEER Work Phone: [facility] 04-10-2008 influenza virus vacc ine, unspecified formulation Jaqui Berg CERTIFIED TECHNICIAN SPECIALIST.[employer] CONTR[employer] ENGINEER Work Phone: [facility] 12-26-2007 tetanus toxoid, redu tam diphtheria toxoid, and acellular pertussis vaccine, adsorbed Jaqui Berg CERTIFIED TECHNICIAN SPECIALIST.[employer] CONTR[employer] ENGINEER Work Phone: [facility] Payers Date Payer Category Payer Self-pay [id number] 2024 Self-pay [id number] 2022 Private Health Insurance [id number] 2017 Private Health Insurance [facility] [id number] 2017-Present [phone] [address] [place] [address] POS [id number] 2017 Private Health Insurance [id number] Unknown [id number] Unknown [id number] Unknown [id number] Unknown [id number] Unknown [id number] Unknown [id number] Unknown [id number] Unknown [id number] Unknown [id number] Unknown [id number] Unknown [id number] Unknown [id number] Unknown [id number] Social History Date Type Detail Facility Start: 12-24-2013 End: 01-05-2025 Tobacco smoking status NHIS Ex-smoker [facility] History of tobacco use Cigarette Smoker [facility] Start: 12-24-2013 End: 09-29-2022 Cigarettes smoked current (pack per day) - Reported 0.5 [facility] Start: 12-24-2013 End: 10-20-2024 Tobacco use and exposure Former smokeless tobacco user [facility] End: 11-21-2013 History of tobacco use User of smokeless tobacco [facility] Start: 01-07-2021 End: 10-24-2024 Alcohol intake Current drinker of alcohol (finding) [facility] Start: 08-14-2020 End: 03-24-2022 History SDOH Alcohol Frequency 2 [facility] Start: 08-14-2020 End: 03-24-2022 History SDOH Alcohol Std Drinks 1 [facility] Start: 02-23-2015 History SDOH Alcohol Comment socially, 2x/year [facility] Start: 08-14-2020 End: 03-24-2022 History SDOH Social Connections Phone 5 [facility] Start: 08-14-2020 End: 03-24-2022 History SDOH Social Connections Living 3 [facility] Start: 08-14-2020 Education 15 [facility] Start: 1970 Sex Assigned At Not on file [facility] Start: 07-15-2021 End: 03-31-2022 Exposure to SARS-CoV-2 (event) Not sure [facility] History of tobacco use Current smoker [facility] Work Phone: Start: 1970 Sex Assigned At Female [facility] Start: 03-24-2022 End: 09-29-2022 Social connection and isolation panel [facility] Do you belong to any clubs or organizations such as sabianism groups, unions, fraternal or athletic groups, or school groups? No [facility] Are you now , , , , never or living with a partner? [facility] How often to you hav e a drink containing alcohol? Monthly or less [facility] How many standard dr inks containing alcohol do you have on a typical day? 3 or 4 [facility] How often do you hav e 6 or more drinks on 1 occasion? Never [facility] Start: 03-31-2012 How hard is it for you to pay for the very basics like food, housing, medical care, and heating Not hard at all [facility] Do you feel stress - tense, restless, nervous, or anxious, or unable to sleep at night because your mind is troubled all the time - these days [OSQ] To some extent [facility] (I/We) worried cindi er (my/our) food would run out before (I/we) got money to buy more. Never true [facility] Start: 06-03-2022 Gender identity Identifies as female gender (finding) [facility] Start: 06-03-2022 Sexual orientation Heterosexual (finding) [facility] Tobacco smoking stat us NHIS Unknown if ever smoked [facility] Work Phone: Functional Status Date Assessment Result Facility 12-08-2024 Total score [AUDIT-C] 2 12/09/19 3:17 PM EDT Mariela Betancourt RN [facility] 08-18-2014 Are you deaf, or do you have serious difficulty hearing No 08/18/2014 2:25 PM EDT Eloisa Brewster LPN No [facility] Work Phone: 08-18-2014 Are you blind, or do you have serious difficulty seeing, even when wearing glasses No 08/18/2014 2:25 PM EDT Eloisa Brewster LPN No [facility] 08-18-2014 Do you have serious difficulty walking or climbing stairs No 08/18/2014 2:25 PM EDT Eloisa Brewster LPN No [facility] 08-18-2014 Do you have difficul ty dressing or bathing No 08/18/2014 2:25 PM EDT Eloisa Brewster LPN No [facility] 08-18-2014 Because of a physica l, mental, or emotional condition, do you have difficulty doing errands alone such as visiting a physician's office or shopping No 08/18/2014 2:25 PM EDT Eloisa Brewster LPN No [facility] Mental Status Date Assessment Result Facility 08-18-2014 Because of a physica l, mental, or emotional condition, do you have serious difficulty concentrating, remembering, or making decisions No 08/18/2014 2:25 PM EDT Eloisa Brewster LPN No [facility] Clinical Notes 03-29-2015 to 01-07-2025 Note Date & Type Note Facility 01-07-2025 Progress note [facility] 01-07-2025 Progress note Note Date/Time January 07, 2025 2:55pm [facility] [place], [place] [address] OFFICE VISIT Date of Service: 01/07/25 MR#: [id number] Acct: [id number] Name: ASHUTOSH,ALLISON Prince Rep #: [id number] : 1970 Provider: Dr. Rea Hylton MD Age/Sex: 54/F Location: [facility] Status: Signed Intake Vital Signs 01/05/25 11:29 01/07/25 14:33 Height 5 ft 5 in 5 ft 5 in Weight: 248 lb 246 lb 6 oz BMI 41.2 41.0 BP 142/90 H 169/96 H Blood Pressure Location Rt brachial Rt brachial Position Sitting Sitting Respiration 18 17 Pulse 60 75 Pulse Source Monitor Monitor Temp 98.2 F Pulse Oximetry (%) 97 98 Oxygen Delivery Method room air room air Intake Visit Reasons: PORT PLACEMENT Chief Complaint: port placement Allergies adhesive tape Allergy (Severe, Verified 01/07/25 14:35) rash acetaminophen (From Vicodin) Allergy (Intermediate, Verified 01/07/25 14:35) Other hydrocodone (From Vicodin) Allergy (Intermediate, Verified 01/07/25 14:35) Other Medications ?Medication ?Instructions ?Recorded ?Confirmed ?Type cholecalciferol (vitamin D3) 1,250 1,250 mcg PO QWEEK 12/17/24 01/07/25 History mcg (50,000 unit) tablet hydrochlorothiazide 12.5 mg capsule 12.5 mg PO QAM 01/07/25 History metformin 500 mg tablet 500 mg PO BID 12/17/2401/07 History pravastatin 20 mg tablet 20 mg PO QDAY 12/17/2401/07 History propranolol 60 mg capsule,24 60 mg PO QDAY 12/17/24 History hr,extended release lorazepam 0.5 mg tablet (Ativan) 0.5 mg PO ONCE PRN an xiety #2 tabs 12/23/24 01/07/25 Rx PFSH Medical History (Updated 01/07/25 @ 14:[address] Aimee Hylton MD) Dyslipidemia Breast cancer Prediabetes Endometriosis HTN (hypertension) Anxiety Surgical History (Updated 01/05/25 @ 11:23 by Lin Terrazas) H/O left breast biopsy Family History (Updated 01/05/25 @ 11:22 by Lin Terrazas) Father Colon cancer Mother Cancer pancreatic Grandmother Breast cancer paternal grandmother Heart disease Grandfather Colon cancer Heart disease Social History (Updated 01/05/25 @ 11:21 by Lin Terrazas) Smoking Status: Former smoker Tobacco: How many years used: 20 alcohol intake: never substance use type: does not use HPI HPI HPI: 54-year-old female presents to discuss port placement due to 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 Patient will plan to get her MRI done at an outpatient facility as insurance will not pay for a hospital facility. Patient states she had multiple conversations with insurance to try to get chemotherapy approved. ROS General General: Yes breast cancer; No weight change, appetite, fatigue, colon cancer or weakness HEENT HEENT: No difficulty swallowing, eye injury, eye surgery, swollen glands or hoarseness Endo Endocrine: No thyroid disease, diabetes mellitus, thyroid cancer, Hair loss, heat intolerance or cold intolerance Additional Details: pre diabetic Skin Skin: No rash or changing moles Breast Breast: Yes left breast lump, abnormal mammogram and abnormal US; No right breast lump, nipple discharge, breast pain or breast enlargement Musc Musculoskeletal: No back problems, arthritis, rheumatoid arthritis, gout or joint pain Cardio Cardiovascular: No murmur, pacemaker, heart disease, atrial fibrillation, high blood pressure, heart attack, heart stent, palpitations, shortness of breath with exertion or chest pain Psych Psychiatric: No depression, anxiety or hearing voices Resp Respiratory: No shortness of breath, No sleep apnea, No cough, No COPD, No asthma, No emphysema and No wheezing Gastro Gastrointestinal: No abdominal pain, No nausea or vomiting, No diarrhea, No constipation, No blood in stool, No acid reflux, No hemorrhoids, No ulcers, No gallbladder problem and No black,tarry stools Adams Hematologic: No blood thinners, No blood disorders, No bleeding, No anemia and No blood clots Neuro Neurologic: No system reviewed and no additional complaints, except as documented, No as per HPI, No abnormal gait, No abnormal hearing, No abnormal movements, No abnormal speech, No behavioral changes, No burning sensations, No confusion, No convulsions, No disequilibrium, No dizziness, No localized weakness, No frequent falls, No headache(s), No lack of coordination, No loss ofvision, No memory loss, No numbness, No other visual disturbances, No radicular pain, No restless legs, No sensory deficit, No syncope, No tingling, No tremor(s), No weakness and No other Exam Const General: cooperative, healthy appearing, comfortable and no acute distress HENMT Head: normocephalic Neck Neck: supple Chest Other: Palpation upper chest bilaterally normal Resp Effort & Inspection: normal respiratory effort Cardio Rate: regular rate Skin General: no rashes or lesions noted Neuro General: CN's II-XI intact bilaterally Extrem General: normal to inspection Psych Mental Status: mental status grossly normal Attitude: cooperative Assessment and Plan Assessment and Plan (1) Encounter for insertion of venous access port: Status: Acute (2) Breast cancer: Status: Acute Qualifiers: Breast location: unspecified site of breast Estrogen receptor status: positive Patient sex: female Laterality: left Qualified Code(s): C50.912 - Malignant neoplasm of unspecified site of left female breast; Z17.0 - Estrogen receptor positive status [ER+] Plan Patient plan to get breast MRI at outpatient facility as insurance would not pay for hospital facility. I have discussed above with the patient- Port-a-Cath placement. Right IJ possible left Patient has been counseled as to the risks/benefits of the procedure. I have explained the risks of the surgery, including but not limited to: infection, bleeding, injury to any blood vessels/nerves, injury to lungs (such as pneumothorax or hemothorax and need for chest tube), not having any access, nonfunctioning of port due to thrombosis, infection of port, etc. the patient understands and agrees to proceed. I have answered all the patient's questions to the patient?s satisfaction and the patient has no further questions. Aimee Hylton M.D. Pager: [phone] [facility] [address] [place] [address], [address] [place] [address] Office: [phone] Coding Level of Care Code Off vis,est,level 3 Diagnoses Encounter for insertion of venous access port Z45.2 Malignant neoplasm of left breast in female, estrogen receptor positive, unspecified site of breast C50.912; Z17.0 Breast location: unspecified site of breast Estrogen receptor status: positive Patient sex: female Laterality: left 01/07/25 7970 <Electronically signed by Aimee Gan am, MD> Date _ Aimee Hylton MD Cosigner Signature: Date (if applicable) CC: TORIE Berg; Dr. Jason Bueno MD ~ [employer] Work Phone: [phone]) 884-382309-08-2025 Progress [facility] [address] [place] [address] OFFICE VISIT Date of Service: 01/05/25 1109 MR#: [id number] Acct: [id number] Name: ALLISON BOYKIN Rep #: [id number] : 1970 From: Jason kent MD Age/Sex: 54/F Location: [facility] Status: Signed HPI Subjective Date of Service 01/05/25 Chief Complaint Breast cancer History of Present Illness 54-year-old female postmenopausal (last menstrual period was 3 years earlier) whose disease presented after an abnormal screening mammogram. November 26, 2024 screening mammography and ultrasound: Unilateral Left Breast Mammographic Findings: 1. Follow-up examination performed for the focal asymmetry in the left breast visualized on the outside examination of 10/24/2024. On the present examination, there is an irregular spiculated mass in the upper inner left breast at posterior depth. 2. There is a mass with associated calcifications in the medial left breast at anterior depth. 3. There are innumerable masses scattered throughout the left breast. ULTRASOUND: 1. Ultrasound performed of the upper inner left breast demonstrates an irregular hypoechoic mass with posterior shadowing in the left breast at 11 o'clock 6 cm from the nipple, measuring 0.9 x 0.9 x 0.8 cm. This correlates with the mammographic finding. 2. There is a cyst cluster in the left breast at 10 o'clock 3 cm from the nipple measuring 0.9 x 0.9 x 0.6 cm. This correlates to the other mammographic finding in the medial left breast at anterior depth. 3. There is an additional incidental complicated cyst in the left breast at 9 o'clock 5 cm from thenipple measuring 0.9 x 0.6 x 0.4 cm and a cyst at 12 o'clock 5 cm from the nipple measuring 2.4 x 2.4 x 2.1 cm. IMPRESSION: 1. Left breast mass at 11 o'clock 6 cm from the nipple is highly suggestive of malignancy. Recommend tissue sampling with ultrasound core needle biopsy. Also, at the time of the biopsy recommend additional images being taken of the left axilla and the remainder of the left breast to assess for additional suspicious masses and axillary lymph nodes. OVERALL FINAL ASSESSMENT BI-RADS 5: HIGHLY SUGGESTIVE OF MALIGNANCY. December 17, 2024 MICROSCOPIC DIAGNOSIS A. Breast, left, 11 o?clock, 9 CMFN, core biopsy: - Invasive ductal carcinoma at least 0.8 cm. - Grade 1 (tubule 1, nuclear 1, mitosis 1). - ER: positive (95%, strong intensity). - FL: positive (50%, intermediate intensity). - [id number]: PENDING, to be reported in an addendum. - Ki67: 10-15% This addendum is to report the GVZ0XPV performed at [facility]: [id number]: positive (3+) [facility] Medical History (Updated 01/05/25 @ 12:[address] Jason Bueno MD) Dyslipidemia Breast cancer Prediabetes Endometriosis HTN (hypertension) Anxiety Surgical History (Updated 01/05/25 @ 11:23 by Lin Terrazas) H/O left breast biopsy Family History (Updated 01/05/25 @ 11:22 by Lin Terrazas) Father Colon cancer Mother Cancer pancreatic Grandmother Breast cancer paternal grandmother Heart disease Grandfather Colon cancer Heart disease Social History (Updated 01/05/25 @ 11:21 by Lin Terrazas) Smoking Status: Former smoker Tobacco: How many years used: 20 alcohol intake: never substance use type: does not use ROS Constitutional Constitutional: Reports systems reviewed and no addt'l complaints, except as documented, weight loss and other Details: Active weight loss ; Denies anorexia, fatigue or fever(s) Eyes Eyes: Reports systems reviewed and no addt'l complaints, except as documented; Denies change in vision ENT HEENT: Reports systems reviewed and no addt'l complaints, except as documented; Denies mouth lesions Cardiovascular Cardiovascular: Reports systems reviewed and no addt'l complaints, except as documented; Denies chest pain with activity or edema Respiratory/Chest Respiratory/Chest: Reports systems reviewed and no addt'l complaints, except as documented; Denies cough or dyspnea Gastrointestinal Gastrointestinal: Reports systems reviewed and no addt'l complaints, except as documented; Denies change in bowel habits, hematochezia or melena Genitourinary Genitourinary: Reports systems reviewed and no addt'l complaints, except as documented Musculoskeletal Musculoskeletal: Reports systems reviewed and no addt'l complaints, except as documented and arthralgias; Denies back pain Integumentary Integumentary: Reports systems reviewed and no addt'l complaints, except as documented; Denies new lesions Neurologic Neurologic: Reports systems reviewed and no addt'l complaints, except as documented; Denies focal weakness or paresthesias Psychiatric Psychiatric: Reports systems reviewed and no addt'l complaints, except as documented Endocrine Endocrinology: Reports systems reviewed and no addt'l complaints, except as documented Hematologic/Lymphatic Hematologic/Lymphatic: Reports systems reviewed and no addt'l complaints, exceptas documented Allergic/Immunologic Allergic/Immunologic: Reports systems reviewed and no addt'l complaints, except as documented Intake Vital Signs 12/17/24 09:13 01/05/25 11:11 01/05/25 11:29 Height 5 ft 7 in 5 ft 7 in 5 ft 5 in Weight: 115.212 kg 112.491 kg BMI 39.7 41.2 BP 159/97 H 142/90 H Blood Pressure Location Rt brachial Rt brachial Position Sitting Sitting Respiration 17 18 Pulse 75 60 Pulse Source Monitor Monitor Temp 98.2 F Temperature Source Temporal Artery Pulse Oximetry (%) 98 97 Oxygen Delivery Method room air room air Intake Is patient in pain?: No Allergies adhesive tape Allergy (Severe, Verified 01/05/25 11:18) rash acetaminophen (From Vicodin) Allergy (Intermediate, Verified 01/05/25 11:16) Other hydrocodone (From Vicodin) Allergy (Intermediate, Verified 01/05/25 11:16) Other Medications ?Medication ?Instructions ?Recorded ?Confirmed ?Type cholecalciferol (vitamin D3) 1,250 1,250 mcg PO QWEEK 12/17/24 01/05/25 History mcg (50,000 unit) tablet hydrochlorothiazide 12.5 mg capsule 12.5 mg PO QAM 01/05/25 History metformin 500 mg tablet 500 mg PO BID 12/17/2401/05 History pravastatin 20 mg tablet 20 mg PO QDAY 12/17/2401/05 History propranolol 60 mg capsule,24 60 mg PO QDAY 12/17/24 History hr,extended release lorazepam 0.5 mg tablet (Ativan) 0.5 mg PO ONCE PRN an xiety #2 tabs 12/23/24 01/05/25 Rx Have you fallen in the past year?: No Central Venous Access Central Venous Access: No Exam Physical Exam Narrative ECOG 0 Const alert, oriented x3 and no apparent distress General Appearance: cooperative Nutritional Appearance: obese HEENT Face and Sinus: normal facial exam Mouth: oral and palatal mucosa normal Eyes General Eye: normal appearance of both eyes Neck no lymphadenopathy and no JVD Resp clear to auscultation bilaterally Cardio regular rate and regular rhythm Jugular Venous Distention: Negative for JVD GI soft to palpation, non-tender and non-distended Back/Spine no thoracic nor lumbar tenderness Extremity no clubbing, cyanosis or edema Skin no rashes or lesions noted Neuro oriented x3, CN's II-XII intact bilaterally, moves all extremities and no focal motor deficits Coordination / Balance: srsmbv-gn-imqw test normal Speech: speech normal Gait (Neuro): normal gait Psych mental status grossly normal Coding Level of Care Code Off vis,new,level 5 Exam Problem Focused Diagnoses Malignant neoplasm of left breast in female, estrogen receptor positive, unspecified site of huhwjtX38.912; Z17.0 Breast location: unspecified site of breast Estrogen receptor status: positive Patient sex: female Laterality: left Assessment and Plan Assessment and Plan (1) Breast cancer: Status: Acute Qualifiers: Breast location: unspecified site of breast Estrogen receptor status: positive Patient sex: female Laterality: left Qualified Code(s): C50.912 - Malignant neoplasm of unspecified site of left female breast; Z17.0 - Estrogen receptor positive status [ER+] Orders: Orders CBC W/Diff, Automated Today C50.919 - Malignant neoplasm of unspecified site of unspecified female breast Comprehensive Metabolic Profil Today C50.919 - Malignant neoplasm of unspecified site of unspecified female breast MARCK Today C50.919 - Malignant neoplasm of unspecified site of unspecified female breast Referrals General Surgery C50.919 - Malignant neoplasm of unspecified site of unspecified female breast Plan 54-year-old female, postmenopausal close clinical stage I (T1b, N0, M0) though she has multiple abnormalities in the left breast some of which are cystic or complex cysts. Cancer is ER positive (95%,strong) FL +50%, intermediate) HER2 overexpressed 3+ and Ki-67 10 to 15%. Chronic comorbid conditions: Prediabetes/diabetes, hypertension, dyslipidemia, obesity, history suggestive of TIA (facial droop) in 2024 recovered fully. Recommendations: Based on NCCN guidelines and up-to-date review of treatment of early-stage HER2 positive HR positive breast cancer with intent to cure: 1. Neoadjuvant systemic therapy with combination chemoimmunotherapy TCHP 6 cycles. Patient will be supported with antiemetics and primary prophylaxis against febrile neutropenic sepsis with growth factor. To obtain insurance authorization and schedule anticancer teaching session. 2. For locoregional therapy patient is scheduled for an MRI of the breast January 06, 2025 following which she will make a decision jointly with her surgeon whether to pursue mastectomy or breast conserving surgery and adjuvant radiation therapy. Noted the fact that she has multiple mammogram/ultrasound abnormalities though some of which have a benign cystic appearance others are indeterminate. 3. Pretreatment evaluation to include CBC, chemistry panel, cardiac echo. 4. Central venous access. Patient was seen with her impression and plan discussed. Jason Bueno MD Brine Mixer Operator, [facility] Divisions of Medical Oncology & Hematology Department of Internal Medicine [place] [address] This note was generated using a voice recognition system software. Although it was reviewed by the author prior to finalization, it may still contain incorrect words, spelling, and punctuation that were not noted when reviewing prior to saving. If a clinically significant typo or inaccurately typedphrase is noted, please notify the author. Clinical Quality Measures Falls Risk Screening/Assistive Devices Have you fallen in the past year?: No 01/05/25 1220 onel ROBLEDO> Date _ Jason Bueno MD Cosigner Signature: Date (if applicable) CC: TORIE Berg; Dr. Aimee Hylton MD ~ [facility]09-08-2025 Progress note Author Jason Bueno [facility] Note Date/Time January 05, 2025 12:20pm [facility] [place] [address] OFFICE VISIT Date of Service: 01/05/25 1109 MR#: [id number] Acct: [id number] Name: ALLISON BOYKIN Suresh Rep #: [id number] : 1970 From: Jason kent MD Age/Sex: 54/F Location: [facility] [place] Status: Signed HPI Subjective Date of Service 01/05/25 Chief Complaint Breast cancer History of Present Illness 54-year-old female postmenopausal (last menstrual period was 3 years earlier) whose disease presented after an abnormal screening mammogram. November 26, 2024 screening mammography and ultrasound: Unilateral Left Breast Mammographic Findings: 1. Follow-up examination performed for the focal asymmetry in the left breast visualized on the outside examination of 10/24/2024. On the present examination, there is an irregular spiculated mass in the upper inner left breast at posterior depth. 2. There is a mass with associated calcifications in the medial left breast at anterior depth. 3. There are innumerable masses scattered throughout the left breast. ULTRASOUND: 1. Ultrasound performed of the upper inner left breast demonstrates an irregular hypoechoic mass with posterior shadowing in the left breast at 11 o'clock 6 cm from the nipple, measuring 0.9 x 0.9 x 0.8 cm. This correlates with the mammographic finding. 2. There is a cyst cluster in the left breast at 10 o'clock 3 cm from the nipple measuring 0.9 x 0.9 x 0.6 cm. This correlates to the other mammographic finding in the medial left breast at anterior depth. 3. There is an additional incidental complicated cyst in the left breast at 9 o'clock 5 cm from the nipple measuring 0.9 x 0.6 x 0.4 cm and a cyst at 12 o'clock 5 cm from the nipple measuring 2.4 x 2.4 x 2.1 cm. IMPRESSION: 1. Left breast mass at 11 o'clock 6 cm from the nipple is highly suggestive of malignancy. Recommend tissue sampling with ultrasound core needle biopsy. Also, at the time of the biopsy recommend additional images being taken of the left axilla and the remainder of the left breast to assess for additional suspicious masses and axillary lymph nodes. OVERALL FINAL ASSESSMENT BI-RADS 5: HIGHLY SUGGESTIVE OF MALIGNANCY. December 17, 2024 MICROSCOPIC DIAGNOSIS A. Breast, left, 11 o?clock, 9 CMFN, core biopsy: - Invasive ductal carcinoma at least 0.8 cm. - Grade 1 (tubule 1, nuclear 1, mitosis 1). - ER: positive (95%, strong intensity). - FL: positive (50%, intermediate intensity). - [id number]: PENDING, to be reported in an addendum. - Ki67: 10-15% This addendum is to report the XMP1PSB performed at [facility]: [id number]: positive (3+) [facility] Medical History (Updated 01/05/25 @ 12:[address] Jason Bueno MD) Dyslipidemia Breast cancer Prediabetes Endometriosis HTN (hypertension) Anxiety Surgical History (Updated 01/05/25 @ 11:23 by Lin Terrazas) H/O left breast biopsy Family History (Updated 01/05/25 @ 11:22 by Lin Terrazas) Father Colon cancer Mother Cancer pancreatic Grandmother Breast cancer paternal grandmother Heart disease Grandfather Colon cancer Heart disease Social History (Updated 01/05/25 @ 11:21 by Lin Terrazas) Smoking Status: Former smoker Tobacco: How many years used: 20 alcohol intake: never substance use type: does not use ROS Constitutional Constitutional: Reports systems reviewed and no addt'l complaints, except as documented, weight loss and other Details: Active weight loss ; Denies anorexia, fatigue or fever(s) Eyes Eyes: Reports systems reviewed and no addt'l complaints, except as documented; Denies change in vision ENT HEENT: Reports systems reviewed and no addt'l complaints, except as documented; Denies mouth lesions Cardiovascular Cardiovascular: Reports systems reviewed and no addt'l complaints, except as documented; Denies chest pain with activity or edema Respiratory/Chest Respiratory/Chest: Reports systems reviewed and no addt'l complaints, except as documented; Denies cough or dyspnea Gastrointestinal Gastrointestinal: Reports systems reviewed and no addt'l complaints, except as documented; Denies change in bowel habits, hematochezia or melena Genitourinary Genitourinary: Reports systems reviewed and no addt'l complaints, except as documented Musculoskeletal Musculoskeletal: Reports systems reviewed and no addt'l complaints, except as documented and arthralgias; Denies back pain Integumentary Integumentary: Reports systems reviewed and no addt'l complaints, except as documented; Denies new lesions Neurologic Neurologic: Reports systems reviewed and no addt'l complaints, except as documented; Denies focal weakness or paresthesias Psychiatric Psychiatric: Reports systems reviewed and no addt'l complaints, except as documented Endocrine Endocrinology: Reports systems reviewed and no addt'l complaints, except as documented Hematologic/Lymphatic Hematologic/Lymphatic: Reports systems reviewed and no addt'l complaints, exceptas documented Allergic/Immunologic Allergic/Immunologic: Reports systems reviewed and no addt'l complaints, except as documented Intake Vital Signs 12/17/24 09:13 01/05/25 11:11 01/05/25 11:29 Height 5 ft 7 in 5 ft 7 in 5 ft 5 in Weight: 115.212 kg 112.491 kg BMI 39.7 41.2 BP 159/97 H 142/90 H Blood Pressure Location Rt brachial Rt brachial Position Sitting Sitting Respiration 17 18 Pulse 75 60 Pulse Source Monitor Monitor Temp 98.2 F Temperature Source Temporal Artery Pulse Oximetry (%) 98 97 Oxygen Delivery Method room air room air Intake Is patient in pain?: No Allergies adhesive tape Allergy (Severe, Verified 01/05/25 11:18) rash acetaminophen (From Vicodin) Allergy (Intermediate, Verified 01/05/25 11:16) Other hydrocodone (From Vicodin) Allergy (Intermediate, Verified 01/05/25 11:16) Other Medications ?Medication ?Instructions ?Recorded ?Confirmed ?Type cholecalciferol (vitamin D3) 1,250 1,250 mcg PO QWEEK 12/17/24 01/05/25 History mcg (50,000 unit) tablet hydrochlorothiazide 12.5 mg capsule 12.5 mg PO QAM 01/05/25 History metformin 500 mg tablet 500 mg PO BID 12/17/2401/05 History pravastatin 20 mg tablet 20 mg PO QDAY 12/17/2401/05 History propranolol 60 mg capsule,24 60 mg PO QDAY 12/17/24 History hr,extended release lorazepam 0.5 mg tablet (Ativan) 0.5 mg PO ONCE PRN an xiety #2 tabs 12/23/24 01/05/25 Rx Have you fallen in the past year?: No Central Venous Access Central Venous Access: No Exam Physical Exam Narrative ECOG 0 Const alert, oriented x3 and no apparent distress General Appearance: cooperative Nutritional Appearance: obese HEENT Face and Sinus: normal facial exam Mouth: oral and palatal mucosa normal Eyes General Eye: normal appearance of both eyes Neck no lymphadenopathy and no JVD Resp clear to auscultation bilaterally Cardio regular rate and regular rhythm Jugular Venous Distention: Negative for JVD GI soft to palpation, non-tender and non-distended Back/Spine no thoracic nor lumbar tenderness Extremity no clubbing, cyanosis or edema Skin no rashes or lesions noted Neuro oriented x3, CN's II-XII intact bilaterally, moves all extremities and no focal motor deficits Coordination / Balance: cogiyz-hi-fnpz test normal Speech: speech normal Gait (Neuro): normal gait Psych mental status grossly normal Coding Level of Care Code Off vis,new,level 5 Exam Problem Focused Diagnoses Malignant neoplasm of left breast in female, estrogen receptor positive, unspecified site of breast C50.912; Z17.0 Breast location: unspecified site of breast Estrogen receptor status: positive Patient sex: female Laterality: left Assessment and Plan Assessment and Plan (1) Breast cancer: Status: Acute Qualifiers: Breast location: unspecified site of breast Estrogen receptor status: positive Patient sex: female Laterality: left Qualified Code(s): C50.912 - Malignant neoplasm of unspecified site of left female breast; Z17.0 - Estrogen receptor positive status [ER+] Orders: Orders CBC W/Diff, Automated Today C50.919 - Malignant neoplasm of unspecified site of unspecified female breast Comprehensive Metabolic Profil Today C50.919 - Malignant neoplasm of unspecified site of unspecified female breast MARCK Today C50.919 - Malignant neoplasm of unspecified site of unspecified female breast Referrals General Surgery C50.919 - Malignant neoplasm of unspecified site of unspecified female breast Plan 54-year-old female, postmenopausal close clinical stage I (T1b, N0, M0) though she has multiple abnormalities in the left breast some of which are cystic or complex cysts. Cancer is ER positive (95%, strong) FL +50%, intermediate) HER2 overexpressed 3+ and Ki-67 10 to 15%. Chronic comorbid conditions: Prediabetes/diabetes, hypertension, dyslipidemia, obesity, history suggestive of TIA (facial droop) in 2024 recovered fully. Recommendations: Based on NCCN guidelines and up-to-date review of treatment of early-stage HER2 positive HR positive breast cancer with intent to cure: 1. Neoadjuvant systemic therapy with combination chemoimmunotherapy TCHP 6 cycles. Patient will be supported with antiemetics and primary prophylaxis against febrile neutropenic sepsis with growth factor. To obtain insurance authorization and schedule anticancer teaching session. 2. For locoregional therapy patient is scheduled for an MRI of the breast January 06, 2025 following which she will make a decision jointly with her surgeon whether to pursue mastectomy or breast conserving surgery and adjuvant radiation therapy. Noted the fact that she has multiple mammogram/ultrasound abnormalities though some of which have a benign cystic appearance others are indeterminate. 3. Pretreatment evaluation to include CBC, chemistry panel, cardiac echo. 4. Central venous access. Patient was seen with her impression and plan discussed. Jason Bueno MD Brine Mixer Operator, [facility] Divisions of Medical Oncology & Hematology Department of Internal Medicine [place] [address] This note was generated using a voice recognition system software. Although it was reviewed by the author prior to finalization, it may still contain incorrect words, spelling, and punctuation that were not noted when reviewing prior to saving. If a clinically significant typo or inaccurately typed phrase is noted, please notify the author. Clinical Quality Measures Falls Risk Screening/Assistive Devices Have you fallen in the past year?: No 01/05/25 1220 <Electronically signed by Jason sykes MD> Date _ Jason Bueno MD Cosigner Signature: Date (if applicable) CC: TORIE Berg; Dr. Aimee Hylton MD ~ [facility] Work Phone: 1(531) 223-795808-20-2025 Evaluation note* Diagnosis Onset Date Resolution Status Admit Date Left breast mass acute November 292024 8:49am [facility] Work Phone: 1(695) 259-625808-20-2025 Evaluation note* Diagnosis Onset Date Resolution Status Admit Date Left breast mass deleted November 292024 8:49am Breast cancer acute January 052024 10:46am [facility] [employer] Work Phone: 1(800) 218-734508-20-2025 Evaluation note* Diagnosis Onset Date Resolution Status Admit Date Left breast mass deleted November 292024 8:49am Breast cancer acute January 052024 10:46am Breast cancer acute December 292024 2:22pm Encounter for insertion of venous access port acute December 2:22pm [facility] Work Phone: 1(962) 528-401608-20-2025 Evaluation note* Diagnosis Onset Date Resolution Status Admit Date Left breast mass deleted November 292024 8:49am Breast cancer acute January 052024 10:46am Breast cancer acute December 292024 2:22pm Encounter for insertion of venous access port acute December 2:22pm Breast cancer acute December 292024 3:16pm [facility] Work Phone: 1(216) 986-426708-18-2025 Telephone encounter Note* Telephone Encounter - Graciela Brothesr MD - 12/15/2024 12:09 PM EDT Approve ultrasound biopsy of a mass in the left breast at 11:00, 6 cm from the nipple seen on the 11/26/2024 ultrasound. Also, recommend left diagnostic mammogram and left ultrasound for further evaluation of the multiple findings seen on the 11/26/2024 ultrasound. [facility] Work Phone: 1(923) 390-738308-18-2025 Miscellaneous Notes* Telephone Encounter - Graciela Brothers MD - 12/15/2024 12:09 PM EDT Approve ultrasound biopsy of a mass in the left breast at 11:00, 6 cm from the nipple seen on the 11/26/2024 ultrasound. Also, recommend left diagnostic mammogram and left ultrasound for further evaluation of the multiple findings seen on the 11/26/2024 ultrasound. * Telephone Encounter - Swapna Champion RN - 12/11/2024 1:42 PM EDT Outside Biopsy Recommended Review Request Patient Name: Allison Boykin Date films received: 11/26/2024 Name of outside facility: [facility] Images in AGFA: Yes Outside Radiologist's recommendation: Left Breast US Bx Date of outside study: 11/26/2024 Patient told to bring script: No IS PATIENT ON BLOOD THINNERS: no Last INR & Date: [facility] Telephone encounter Note * Telephone Encounter - Swapna Champion RN - 12/11/2024 1:42 PM EDT Outside Biopsy Recommended Review Request Patient Name: Allison Boykin Date films received: 11/26/2024 Name of outside facility: [facility] Images in [facility]GFA: Yes Outside Radiologist's recommendation: Left Breast US Bx Date of outside study: 11/26/2024 Patient told to bring script: No IS PATIENT ON BLOOD THINNERS: no Last INR & Date: Comments [facility] Work Phone: 1(159) 148-750008-13-2025 NoteHNO ID: [id number] Author: BOOM ESPOSITO MD Service: ? Author Type: Physician Type: Progress Notes Filed: 12/10/2024 18:37 Note Text: HISTORY AND PHYSICAL - BREAST COMPLAINT Allison Boykin 1970 REFERRING PHYSICIAN: Dr. Covarrubias/Dr. Gandhi CHIEF COMPLAINT: Abnormal left breast imaging suspicious area 12:00 HPI: Rosanne Boykin is a 54-year-old female presenting for evaluation of multiple breast cysts, with a recent diagnostic mammogram revealing a concerning shadow within one of the cysts. Rosanne has a history of multiple breast cysts, one of which was previously aspirated due to its large size and discomfort. She recently underwent a diagnostic mammogram, which revealed a shadow within one of the cysts that was not present in previous imaging. Rosanne reports that none of the cysts are currently causing her discomfort, but she is concerned about the new finding. She was initially seen by Dr. Gandhi, who referred her back to Dr. Esposito for further evaluation. Imaging - Breast Ultrasound: - Dense breast tissue with multiple cysts, including a large cyst measuring approximately 5 cm from the nipple at the 12 o?clock position. - One lesion measuring approximately 0.86 cm with shadowing and lacking posterior acoustic enhancement, suspicious for possible solid component. The area of concern between multiple cysts was noted to be at the 11 o'clock position 6 cm from the nipple. - Diagnostic Mammogram: - Multiple cystic lesions in the left breast, with a suspicious area at approximately the 11-12 o?clock position. Images were imported from the [facility] system and reviewed prior to evaluating the patient The patient is being seen by me today at the request of Dr. Farzad Covarrubias MD for my opinion and advice regarding area of suspicion on ultrasound with recommended biopsy. PAST MEDICAL HISTORY Diagnosis Date Chronic low back pain with sciatica 09/18/2008 Diabetes (HCC) Diffuse cystic mastopathy 04/30/1999 Aspiration on left x2 Dysmetabolic syndrome 08/19/2013 Essential hypertension Hyperlipidemia Other and unspecified ovarian cyst Solitary cyst of breast 04/16/2007 PAST SURGICAL HISTORY Procedure Laterality Date DILATION AND CURETTAGE DXAND/THER NONOBSTETRIC 07/05 Dilation AND curettage US FNA BREAST 04/16/07;2003 U/S FNA large outer mid left breast cyst Current Outpatient Medications Medication Sig Dispense Refill OTC NUTRITIONAL SUPPLEMENT Nutraful two tabs once a day metFORMIN ER (GLUCOPHAGE XR) 500 mg 24 hr tablet Take 2 tablets by mouth daily with breakfast AND 1 tablet daily with dinner. 270 tablet 3 pravastatin (PRAVACHOL) 20 mg tablet Take 1 tablet by mouth once daily. 90 tablet 3 cholecalciferol, Vitamin D3, (VITAMIN D3) 1,250 mcg (50,000 unit) cap capsule Take 1 capsule by mouth one time a week. 12 capsule 3 propranolol ER (INDERAL LA) 60 mg 24 hr capsule Take 1 capsule by mouth once daily. 90 capsule 3 hydroCHLOROthiazide 12.5 mg capsule Take 1 capsule by mouth once daily. 90 capsule 3 No current facility-administered medications for this visit. ALLERGIES: Vicodin [Hydrocodone-Acetaminophen] PERSONAL HISTORY: SOCIAL HISTORY[1] FAMILY HISTORY: FAMILY HISTORY Problem Relation Age of Onset Cancer Mother PANCREATIC, 48 Prostate Cancer Father No Known Problems Brother Breast Cancer Paternal Grandmother 67 Prostate Cancer Paternal Grandfather REVIEW OF SYMPTOMS: The review of systems data was entered by the nurse and reviewed by me There are no exam notes on file for this visit. PHYSICAL EXAMINATION: General: The patient is 54 year old female, well nourished, well hydrated in no acute distress. The patient is oriented to time, place, and person. VITALS: Last menstrual period 04/30/2018. There is no height or weight on file to calculate BMI. HEENT: Normal cephalic, ataumatic, pupils are equally round, sclera are anicteric, mucous membranes are moist, oropharynx is clear. Neck has no masses, asymmetry or lymphadenopathy. Thyroid is unremarkable. Respiratory: Clear to auscultation and percussion. Normal respiratory excursion and pattern. Cardiac: Examination is regular rate and rhythm. Abdominal exam: Soft, nontender, with no palpable masses. No hepatosplenomegaly. No palpable hernias. Rectal exam: exam deferred Extremities: no clubbing, cyanosis or edema. No adenopathy. Breast: Visual inspection reveals no retractions, nipple inversion, or skin changes. Palpation of the right breast reveals multiple benign feeling nodules. Palpation of the left breast reveals no dominant or suspicious masses and multiple benign feeling nodules. Axillary exam demonstrates no suspicious masses in either the left or right axilla. There is no nipple discharge expressed from either the left or right breast. LABORATORY VALUES: As Noted RADIOLOGIC STUDIES: As Noted Intraoffice ultrasound was obtai (more content not included)...[facility]08-13-2025 History of Present illness Narrative* Boom Esposito MD - 12/10/2024 6:31 PM EDT HISTORY AND PHYSICAL - BREAST COMPLAINT Allison Boykin 1970 REFERRING PHYSICIAN: Dr. Covarrubias/Dr. Gandhi CHIEF COMPLAINT: Abnormal left breast imaging suspicious area 12:00 HPI: Rosanne Boykin is a 54-year-old female presenting for evaluation of multiple breast cysts, with a recent diagnostic mammogram revealing a concerning shadow within one of the cysts. Rosanne has a history of multiple breast cysts, one of which was previously aspirated due to its large size and discomfort. She recently underwent a diagnostic mammogram, which revealed a shadow withinone of the cysts that was not present in previous imaging. Rosanne reports that none of the cysts are currently causing her discomfort, but she is concerned about the new finding. She was initially seen by Dr. Gandhi, who referred her back to Dr. Esposito for further evaluation. Imaging - Breast Ultrasound: - Dense breast tissue with multiple cysts, including a large cyst measuring approximately 5 cm fromthe nipple at the 12 o clock position. - One lesion measuring approximately 0.86 cm with shadowing and lacking posterior acoustic enhancement, suspicious for possible solid component. The area of concern between multiple cysts was noted to be at the 11 o'clock position 6 cm from thenipple. - Diagnostic Mammogram: - Multiple cystic lesions in the left breast, with a suspicious area at approximately the 11-12 o clock position. Images were imported from the [facility] system and reviewed prior to evaluating the patient The patient is being seen by me today at the request of Dr. Farzad Covarrubias MD for my opinion and advice regarding area of suspicion on ultrasound with recommended biopsy. PAST MEDICAL HISTORY Diagnosis Date Chronic low back pain with sciatica 09/18/2008 Diabetes (HCC) Diffuse cystic mastopathy 04/30/1999 Aspiration on left x2 Dysmetabolic syndrome 08/19/2013 Essential hypertension Hyperlipidemia Other and unspecified ovarian cyst Solitary cyst of breast 04/16/2007 PAST SURGICAL HISTORY Procedure Laterality Date DILATION & CURETTAGE DX&/THER NONOBSTETRIC 07/05 Dilation & curettage US FNA BREAST 04/16/07;2003 U/S FNA large outer mid left breast cyst Current Outpatient Medications Medication Sig Dispense Refill OTC NUTRITIONAL SUPPLEMENT Nutraful two tabs once a day metFORMIN ER (GLUCOPHAGE XR) 500 mg 24 hr tablet Take 2 tablets by mouth daily with breakfast AND 1tablet daily with dinner. 270 tablet 3 pravastatin (PRAVACHOL) 20 mg tablet Take 1 tablet by mouth once daily. 90 tablet 3 cholecalciferol, Vitamin D3, (VITAMIN D3) 1,250 mcg (50,000 unit) cap capsule Take 1 capsule by mouth one time a week. 12 capsule 3 propranolol ER (INDERAL LA) 60 mg 24 hr capsule Take 1 capsule by mouth once daily. 90 capsule 3 hydroCHLOROthiazide 12.5 mg capsule Take 1 capsule by mouth once daily. 90 capsule 3 No current facility-administered medications for this visit. ALLERGIES: Vicodin [Hydrocodone-Acetaminophen] PERSONAL HISTORY: SOCIAL HISTORY[1] FAMILY HISTORY: FAMILY HISTORY Problem Relation Age of Onset Cancer Mother PANCREATIC, 48 Prostate Cancer Father No Known Problems Brother Breast Cancer Paternal Grandmother 67 Prostate Cancer Paternal Grandfather REVIEW OF SYMPTOMS: The review of systems data was entered by the nurse and reviewed by me There are no exam notes on file for this visit. PHYSICAL EXAMINATION: General: The patient is 54 year old female, well nourished, well hydrated in no acute distress. Thepatient is oriented to time, place, and person. VITALS: Last menstrual period 04/30/2018. There is no height or weight on file to calculate BMI. HEENT: Normal cephalic, ataumatic, pupils are equally round, sclera are anicteric, mucous membranesare moist, oropharynx is clear. Neck has no masses, asymmetry or lymphadenopathy. Thyroid is unremarkable. Respiratory: Clear to auscultation and percussion. Normal respiratory excursion and pattern. Cardiac: Examination is regular rate and rhythm. Abdominal exam: Soft, nontender, with no palpable masses. No hepatosplenomegaly. No palpable hernias. Rectal exam: exam deferred Extremities: no clubbing, cyanosis or edema. No adenopathy. Breast: Visual inspection reveals no retractions, nipple inversion, or skin changes. Palpation of the right breast reveals multiple benign feeling nodules. Palpation of the left breast reveals no dominant or suspicious masses and multiple benign feeling nodules. Axillary exam demonstrates no suspicious masses in either the left or right axilla. There is no nipple discharge expressed from either the left or right breast. LABORATORY VALUES: As Noted RADIOLOGIC STUDIES: As Noted Intraoffice ultrasound was obtained which demonstrated multiple cysts as noted on the ultrasound. The area of abnormality seen at the 11 o'clock position 6 cm from the nipple was not able to be adequately visualized to be assured that I was seeing the same image on my ultrasound as was noted on [facility] imaging ultrasound. Assessment IMPRESSION: Abnormal ultrasound left breast 11 o'clock position 6 minutes from nipple PLAN: 1. 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 No significant changes noted in the size or number of cysts compared to previous examinations. - Monitor for any changes in size or number of cysts. - Patient advised to report any new symptoms or changes. 2. Encounter for screening mammogram for malignant neoplasm of breast (Z12.31) Recent screening mammogram performed, revealing dense breast tissue with multiple cysts. No evidence of malignant neoplasm detected on imaging. - Continue regular screening mammograms as per standard guidelines. - Patient educated on the importance of regular screenings for early detection of breast cancer. 3. Abnormal finding on breast imaging (R92.8) Ultrasound revealed an area of concern with irregular borders and shadowing, not consistent with a simple cyst. Unable to palpate the abnormality during physical examination. - Referred to breast radiologist for ultrasound-guided core biopsy or aspiration of the abnormal area. - Orders for the procedure will be placed tonight. - Breast navigator will contact the patient to schedule the procedure at [place], the closest facility for ultrasound-guided biopsy. - Follow-up appointment to be scheduled a few days after the biopsy results are available to discuss findings and next steps. Diagnoses: (R92.8) Abnormal finding on breast imaging (primary encounter diagnosis) (N60.92) Benign mammary dysplasia of left breast (Z12.31) Encounter for screening mammogram for malignant neoplasm of breast My findings have been communicated to Dr. Gandhi via shared medical record. This note will be forwarded to Dr. Farzad Covarrubias MD. Return to Clinic: The patient is instructed to follow-up with me after the testing has been completed. Boom Esposito MD [1] Social History Tobacco Use Smoking status: Former Current packs/day: 0.50 Average packs/day: 0.5 packs/day for 20.0 years (10.0 ttl pk-yrs) Types: Cigarettes Smokeless tobacco: Former Quit date: 11/21/2013 Vaping Use Vaping status: Never Used Substance Use Topics Alcohol use: Yes Comment: socially, 2x/year Drug use: No [facility] NoteHNO ID: [id number] Author: KLEBER GANDHI MD Service: ? Author Type: Physician Type: Progress Notes Filed: 12/10/2024 12:40 Note Text: HISTORY AND PHYSICAL Allison Boykin 1970 REFERRING PHYSICIAN: Yuko Osborn APRN.DUST CONTROL ENGINEER CHIEF COMPLAINT: Consult (Abnormal mammogram) HPI: Rosanne Boykin is a 54-year-old female with a history of multiple breast cysts, presenting for evaluation of a recent mammogram and ultrasound. Rosanne has a history of multiple cysts in both breasts, with 6-8 cysts in the left breast and several in the right breast. She has undergone previous aspirations and biopsies by Dr. Weber, with the last biopsy performed in 2011. She reports undergoing annual mammograms. Recent imaging revealed an area of concern at the 11 o'clock position, 6 cm in size, which appeared different from previous cysts. The ultrasound showed a deep shadow, prompting the need for a biopsy. Rosanne inquires about the procedure and expresses concern about the findings. The patient is being seen by me today at the request of Dr. Osborn for my opinion and advice regarding Encounter for screening mammogram for malignant neoplasm of breast. PAST MEDICAL HISTORY Diagnosis Date Chronic low back pain with sciatica 09/18/2008 Diabetes (HCC) Diffuse cystic mastopathy 04/30/1999 Aspiration on left x2 Dysmetabolic syndrome 08/19/2013 Essential hypertension Hyperlipidemia Other and unspecified ovarian cyst Solitary cyst of breast 04/16/2007 PAST SURGICAL HISTORY Procedure Laterality Date DILATION AND CURETTAGE DXAND/THER NONOBSTETRIC 07/05 Dilation AND curettage US FNA BREAST 04/16/07;2003 U/S FNA large outer mid left breast cyst Current Outpatient Medications Medication Sig OTC NUTRITIONAL SUPPLEMENT Nutraful two tabs once a day metFORMIN ER (GLUCOPHAGE XR) 500 mg 24 hr tablet Take 2 tablets by mouth daily with breakfast AND 1 tablet daily with dinner. propranolol ER (INDERAL LA) 60 mg 24 hr capsule Take 1 capsule by mouth once daily. hydroCHLOROthiazide 12.5 mg capsule Take 1 capsule by mouth once daily. pravastatin (PRAVACHOL) 20 mg tablet Take 1 tablet by mouth once daily. cholecalciferol, Vitamin D3, (VITAMIN D3) 1,250 mcg (50,000 unit) cap capsule Take 1 capsule by mouth one time a week. No current facility-administered medications for this visit. ALLERGIES: Vicodin [Hydrocodone-Acetaminophen] PERSONAL HISTORY: SOCIAL HISTORY[1] FAMILY HISTORY: FAMILY HISTORY Problem Relation Age of Onset Cancer Mother PANCREATIC, 48 Prostate Cancer Father No Known Problems Brother Breast Cancer Paternal Grandmother 67 Prostate Cancer Paternal Grandfather REVIEW OF SYMPTOMS: The review of systems data was entered by the nurse and reviewed by me There are no exam notes on file for this visit. PHYSICAL EXAMINATION: General: The patient is 54 year old female, well nourished, well hydrated in no acute distress. The patient is oriented to time, place, and person. VITALS: Blood pressure 148/98, pulse 76, temperature 36.2 ?C (97.2 ?F), weight 116.5 kg (256 lb 12.8 oz), last menstrual period 04/30/2018, SpO2 98%. HEENT: Normal cephalic, ataumatic, pupils are equally round, sclera are anicteric, mucous membranes are moist, oropharynx is clear. Neck has no masses, asymmetry or lymphadenopathy. Thyroid is unremarkable. Respiratory: Clear to auscultation and percussion. Normal respiratory excursion and pattern. Cardiac: Examination is regular rate and rhythm. Abdominal exam: Soft, nontender, with no palpable masses. No hepatosplenomegaly. No palpable hernias. Rectal exam: exam deferred Extremities: no clubbing, cyanosis or edema. No adenopathy. Other: LABORATORY VALUES: As Noted RADIOLOGIC STUDIES: As Noted Assessment IMPRESSION: Encounter for screening mammogram for malignant neoplasm of breast PLAN: 1. Encounter for screening mammogram for malignant neoplasm of breast (Z12.31) Ultrasound revealed a lesion at 11 o'clock position with deep shadowing, differentiating it from simple cysts. Lesion is less than 2 cm in diameter and appears irregular, warranting further investigation. - Scheduled an ultrasound-guided biopsy with Dr. Weber to obtain tissue samples for histopathological examination. - Educated patient on the biopsy procedure, including skin preparation with Betadine, local anesthesia, and the use of a hollow needle to obtain tissue samples. - Informed patient about the placement of a small titanium clip to donn the biopsy site. - Advised patient that if the lesion is not visible during the biopsy, a referral to interventional radiology for a high-powered ultrasound will be made. - Patient instructed to schedule the biopsy with Dr. Weber at the front attendant. Diagnoses: (Z12.31) Encounter for screening mammogram for malignant neoplasm of breast My findings have been communicated to Dr. Osborn via shared medical record. This (more content not included)...[facility]08-13-2025 History of Present illness Narrative* Kleber Gandhi MD - 12/10/2024 12:33 PM EDT HISTORY AND PHYSICAL Allison Boykin 1970 REFERRING PHYSICIAN: Yuko Osborn APRN.DUST CONTROL ENGINEER CHIEF COMPLAINT: Consult (Abnormal mammogram) HPI: Rosanne Boykin is a 54-year-old female with a history of multiple breast cysts, presenting for evaluation of a recent mammogram and ultrasound. Rosanne has a history of multiple cysts in both breasts, with 6-8 cysts in the left breast and several in the right breast. She has undergone previous aspirations and biopsies by Dr. Weber, with the last biopsy performed in 2011. She reports undergoing annual mammograms. Recent imaging revealed an area of concern at the 11 o'clock position, 6 cm in size, which appeareddifferent from previous cysts. The ultrasound showed a deep shadow, prompting the need for a biopsy. Rosanne inquires about the procedure and expresses concern about the findings. The patient is being seen by me today at the request of Dr. Osborn for my opinion and advice regarding Encounter for screening mammogram for malignant neoplasm of breast. PAST MEDICAL HISTORY Diagnosis Date Chronic low back pain with sciatica 09/18/2008 Diabetes (HCC) Diffuse cystic mastopathy 04/30/1999 Aspiration on left x2 Dysmetabolic syndrome 08/19/2013 Essential hypertension Hyperlipidemia Other and unspecified ovarian cyst Solitary cyst of breast 04/16/2007 PAST SURGICAL HISTORY Procedure Laterality Date DILATION & CURETTAGE DX&/THER NONOBSTETRIC 07/05 Dilation & curettage US FNA BREAST 04/16/07;2003 U/S FNA large outer mid left breast cyst Current Outpatient Medications Medication Sig OTC NUTRITIONAL SUPPLEMENT Nutraful two tabs once a day metFORMIN ER (GLUCOPHAGE XR) 500 mg 24 hr tablet Take 2 tablets by mouth daily with breakfast AND 1tablet daily with dinner. propranolol ER (INDERAL LA) 60 mg 24 hr capsule Take 1 capsule by mouth once daily. hydroCHLOROthiazide 12.5 mg capsule Take 1 capsule by mouth once daily. pravastatin (PRAVACHOL) 20 mg tablet Take 1 tablet by mouth once daily. cholecalciferol, Vitamin D3, (VITAMIN D3) 1,250 mcg (50,000 unit) cap capsule Take 1 capsule by mouth one time a week. No current facility-administered medications for this visit. ALLERGIES: Vicodin [Hydrocodone-Acetaminophen] PERSONAL HISTORY: SOCIAL HISTORY[1] FAMILY HISTORY: FAMILY HISTORY Problem Relation Age of Onset Cancer Mother PANCREATIC, 48 Prostate Cancer Father No Known Problems Brother Breast Cancer Paternal Grandmother 67 Prostate Cancer Paternal Grandfather REVIEW OF SYMPTOMS: The review of systems data was entered by the nurse and reviewed by me There are no exam notes on file for this visit. PHYSICAL EXAMINATION: General: The patient is 54 year old female, well nourished, well hydrated in no acute distress. Thepatient is oriented to time, place, and person. VITALS: Blood pressure 148/98, pulse 76, temperature 36.2 C (97.2 F), weight 116.5 kg (256 lb 12.8 oz), last menstrual period 04/30/2018, SpO2 98%. HEENT: Normal cephalic, ataumatic, pupils are equally round, sclera are anicteric, mucous membranesare moist, oropharynx is clear. Neck has no masses, asymmetry or lymphadenopathy. Thyroid is unremarkable. Respiratory: Clear to auscultation and percussion. Normal respiratory excursion and pattern. Cardiac: Examination is regular rate and rhythm. Abdominal exam: Soft, nontender, with no palpable masses. No hepatosplenomegaly. No palpable hernias. Rectal exam: exam deferred Extremities: no clubbing, cyanosis or edema. No adenopathy. Other: LABORATORY VALUES: As Noted RADIOLOGIC STUDIES: As Noted Assessment IMPRESSION: Encounter for screening mammogram for malignant neoplasm of breast PLAN: 1. Encounter for screening mammogram for malignant neoplasm of breast (Z12.31) Ultrasound revealed a lesion at 11 o'clock position with deep shadowing, differentiating it from simple cysts. Lesion is less than 2 cm in diameter and appears irregular, warranting further investigation. - Scheduled an ultrasound-guided biopsy with Dr. Weber to obtain tissue samples for histopathological examination. - Educated patient on the biopsy procedure, including skin preparation with Betadine, local anesthesia, and the use of a hollow needle to obtain tissue samples. - Informed patient about the placement of a small titanium clip to donn the biopsy site. - Advised patient that if the lesion is not visible during the biopsy, a referral to interventionalradiology for a high-powered ultrasound will be made. - Patient instructed to schedule the biopsy with Dr. Weber at the front attendant. Diagnoses: (Z12.31) Encounter for screening mammogram for malignant neoplasm of breast My findings have been communicated to Dr. Osborn via shared medical record. This note will be forwarded to Dr. Farzad Covarrubias MD. Return to Clinic: The patient is instructed to follow-up with me as needed. Kleber Gandhi III, MD [1] Social History Tobacco Use Smoking status: Former Current packs/day: 0.50 Average packs/day: 0.5 packs/day for 20.0 years (10.0 ttl pk-yrs) Types: Cigarettes Smokeless tobacco: Former Quit date: 11/21/2013 Vaping Use Vaping status: Never Used Substance Use Topics Alcohol use: Yes Comment: socially, 2x/year Drug use: No documented in this encounterPark[facility] Radiology Diagnostic study note [facility] Imaging Services [address] [place] [address] [id number] Breast Limited Unilateral MR#: [id number] Acct: [id number] Name: ALLISON BOYKIN Rep #: [id number] : 1970 F 54 From: Caity Kelly MD PCP: Dr. Ivet Castanon MD Status: SABA GUERRERO Study:Breast Limited Unilateral Date of Exam: 11/26/24 Exam# [id number] Ordering Dr: Diana Ballard NP CERTIFIED ANESTHESIOLOGIST ASSISTANT-C EXAM: BREAST LIMITED UNILATERAL 11/26/2024 CLINICAL HISTORY: 54-year-old female presents for follow-up of the left breast findings seen on the outside examination of 10/24/2024. Family history of breast cancer in a paternal grandmother at age 63. TECHNIQUE: BREAST LIMITED UNILATERAL. COMPARISON: Prior exam(s) dated 10/24/2024, 03/29/2007. FINDINGS: MAMMOGRAM: TISSUE DENSITY: The breasts are heterogeneously dense, which may obscure small masses. The mammogram demonstrates that the patient has dense breasts. Supplemental screening with whole breast ultrasound or MRI may be considered for further evaluation. Unilateral Left Breast Mammographic Findings: 1. Follow-up examination performed for the focal asymmetry in the left breast visualized on the outside examination of 10/24/2024. On the present examination, there is an irregular spiculated mass inthe upper inner left breast at posterior depth. 2. There is a mass with associated calcifications in the medial left breast at anterior depth. 3. There are innumerable masses scattered throughout the left breast. ULTRASOUND: 1. Ultrasound performed of the upper inner left breast demonstrates an irregularhypoechoic mass with posterior shadowing in the left breast at 11 o'clock 6 cm from the nipple, measuring 0.9 x 0.9 x 0.8 cm. This correlates with the mammographic finding. 2. There is a cyst cluster in the left breast at 10 o'clock 3 cm from the nipplemeasuring 0.9 x 0.9x 0.6 cm. This correlates to the other mammographic finding in the medial left breast at anterior depth. 3. There is an additional incidental complicated cyst in the left breast at 9 o'clock 5 cm from thenipple measuring 0.9 x 0.6 x 0.4 cm and a cyst at 12 o'clock 5 cm from the nipple measuring 2.4 x 2.4 x 2.1 cm. US/Breast Limited Unilateral IMPRESSION: 1. Left breast mass at 11 o'clock 6 cm from the nipple is highly suggestive of malignancy. Recommend tissue sampling with ultrasound core needle biopsy. Also, at the time of the biopsy recommend additional images being taken of the left axilla and the remainder of the left breast to assess for additional suspicious masses and axillary lymph nodes. OVERALL FINAL ASSESSMENT BI-RADS 5: HIGHLY SUGGESTIVE OF MALIGNANCY. RECOMMENDATION: Biopsy Recommended A letter with findings and recommendations will be mailed to the patient. Reading Location: [id number] CC: TORIE Ballard; Dr. Ivet Castanon MD ~ Billing Adjudicator: Signed [facility]06-27-2025 Instructions* Patient Instructions* Diana Ballard APRN.CNP - 10/24/2024 10:27 AM EDT - Eat primarily whole foods. Limit carbs, especially processed carbs. Eat - Meat, vegetables and fruits with skin on if possible, eggs, cheese. - Do not drink your calories - 30 grams of protein for your first meal of the day decreases your hunger during the day by up to 40 %. Options include: Premier Protein or generic 30 gm protein 1 gm sugar or 5 eggs or 2-3 eggs andsome unbreaded meat and/or cheese. No fruit, vegetables, bread, grain, yogurt, Smoothies, etc. . Protein at every meal and snack - Walk for 15 minutes immediately after meal documented in this encounterPark[facility]06-27-2025 NoteHNO ID: [id number] Author: DIANA BALLARD APRN.CNP Service: ? 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 Rosanne is a 54 year old who presents for an annual gynecologic exam reported night sweats, hair loss. Hair Loss - Noticed hair loss around age 50, coinciding with the onset of menopause. - Tried various treatments with dermatology, including minoxidil, Rogaine, and pumpkin seed oil pills, which helped reduce shedding but did not promote regrowth. - Recently started taking Nutrafol one week ago. Weight Management - Currently focused on weight management, has lost 6 pounds in the past two weeks. - Following the Weight Watchers program, which emphasizes a minimum of 30 grams of protein per meal. - is also participating in the program and has lost 8 pounds. - Denies trying any serious weight loss programs in the past. Postmenopausal: Yes since age 48 HRT use: No. Last Pap: 07/14/2022 normal HPV: 07/14/2022 negative History of abnormal pap: No Last mammogram: Today, results pending History of abnormal mammogram: Yes , fibrocystic breasts , Left breast cyst aspiration Sexually active: Yes History of STDS: None Patient concerns for STD exposure: No. Time with current partner: 20+ years Pain with intercourse: No Postcoital bleeding: No Hot flashes: No Night sweats: random Documentation from previous visit of 07/14/2022 was copied and pasted, documentation has been reviewed and edited as necessary for today's visit. OB History Gravida1 Para0 Term0 Preterm0 AB1 Living0 SAB1 IAB0 Ectopic0 Multiple0 Live Births0 Comment: 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 LMP: 04/30/2018, Postmenopausal Age at Menarche: 14 Age at First : Age at Menopause: Warehouse Handler History Comments: Sexual Activity: Yes; Male Contraception: Pill PAST MEDICAL HISTORY Diagnosis Date Chronic low back pain with sciatica 09/18/2008 Diabetes (HCC) Diffuse cystic mastopathy 04/30/1999 Aspiration on left x2 Dysmetabolic syndrome 08/19/2013 Essential hypertension Hyperlipidemia Other and unspecified ovarian cyst Solitary cyst of breast 04/16/2007 PAST SURGICAL HISTORY Procedure Laterality Date DILATION AND CURETTAGE DXAND/THER NONOBSTETRIC 07/05 Dilation AND curettage US FNA BREAST 04/16/07;2003 U/S FNA large outer mid left breast cyst FAMILY HISTORY Problem Relation Age of Onset Cancer Mother PANCREATIC, 48 Prostate Cancer Father No Known Problems Brother Breast Cancer Paternal Grandmother 67 Prostate Cancer Paternal Grandfather SOCIAL HISTORY Social History Tobacco Use Smoking status: Former Current packs/day: 0.50 Average packs/day: 0.5 packs/day for 20.0 years (10.0 ttl pk-yrs) Types: Cigarettes Smokeless tobacco: Former Quit date: 11/21/2013 Vaping Use Vaping status: Never Used Substance Use Topics Alcohol use: Yes Comment: socially, 2x/year Drug use: No REVIEW OF SYSTEMS Abdomen: No abdominal pain, nausea, vomiting, diarrhea, or constipation. No bloating, early satiety, indigestion, or increased flatulence. Bladder: No dysuria, gross hematuria, urinary frequency, urinary urgency, or incontinence Breast: No breast lumps, nipple d/c, overlying skin changes, redness or skin retraction Allergies and current medication updated:Yes SENSITIVE EXAM: The sensitive examination was discussed with the Patient or Patient's Authorized Sales Supervisor. As applicable, any other physician, advance practice provider, medical student, or other health professional student that will be observing or involved in the sensitive examination for educational or training purposes was discussed with the Patient or Authorized Sales Supervisor. The Patient or Authorized Sales Supervisor has agreed to proceed with the sensitive examination. (Sensitive examination includes inspection and/or palpation of the breasts, pelvis, prostate and anorectal regions). EXAM: BP 128/70 Ht 5' 4.764 (1.65m) Wt 263 lb 12.8 oz (119.7kg) LMP 04/30/2018 BMI 44.22 kg/(m2). GENERAL: pleasant, female in no apparent distress HEENT: Normocephalic, atraumatic, mucus membranes moist, and no lesions NECK: Supple, full range of motion, no adenopathy, and thyroid normal DERMATOLOGY: Normal, without lesions, non-icteric, and non-hirsute BREAST: soft, non-tender, symmetric, no dominant mass, normal nipple-areolar complex, no lymphadenopathy, and no nipple discharge CHEST: Normal inspiratory effort ABDOMEN: soft, non-tender, and no masses PELVIC: external genitalia normal, normal Bartholin's glands, urethra, Taft's glands, no vulvar lesions, no cervical lesions, physiologic discharge present, normal appearing perineal body and perianal region BIMANUAL: uterus normal size, shape and consistency, no adnexal masses, and non-tender RECTOVAGINAL: deferred. 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 Rosanne is a 54 year old who presents for an annual gynecologic exam reported night sweats, hair loss. Hair Loss - Noticed hair loss around age 50, coinciding with the onset of menopause. - Tried various treatments with dermatology, including minoxidil, Rogaine, and pumpkin seed oil pills, which helped reduce shedding but did not promote regrowth. - Recently started taking Nutrafol one week ago. Weight Management - Currently focused on weight management, has lost 6 pounds in the past two weeks. - Following the Weight Watchers program, which emphasizes a minimum of 30 grams of protein per meal. - is also participating in the program and has lost 8 pounds. - Denies trying any serious weight loss programs in the past. Postmenopausal: Yes since age 48 HRT use: No. Last Pap: 07/14/2022 normal HPV: 07/14/2022 negative History of abnormal pap: No Last mammogram: Today, results pending History of abnormal mammogram: Yes , fibrocystic breasts , Left breast cyst aspiration Sexually active: Yes History of STDS: None Patient concerns for STD exposure: No. Time with current partner: 20+ years Pain with intercourse: No Postcoital bleeding: No Hot flashes: No Night sweats: random Documentation from previous visit of 07/14/2022 was copied and pasted, documentation has been reviewed and edited as necessary for today's visit. 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 LMP: 04/30/2018, Postmenopausal Age at Menarche: 14 Age at First : Age at Menopause: Warehouse Handler History Comments: Sexual Activity: Yes; Male Contraception: Pill PAST MEDICAL HISTORY Diagnosis Date Chronic low back pain with sciatica 09/18/2008 Diabetes (HCC) Diffuse cystic mastopathy 04/30/1999 Aspiration on left x2 Dysmetabolic syndrome 08/19/2013 Essential hypertension Hyperlipidemia Other and unspecified ovarian cyst Solitary cyst of breast 04/16/2007 PAST SURGICAL HISTORY Procedure Laterality Date DILATION & CURETTAGE DX&/THER NONOBSTETRIC 07/05 Dilation & curettage US FNA BREAST 04/16/07;2003 U/S FNA large outer mid left breast cyst FAMILY HISTORY Problem Relation Age of Onset Cancer Mother PANCREATIC, 48 Prostate Cancer Father No Known Problems Brother Breast Cancer Paternal Grandmother 67 Prostate Cancer Paternal Grandfather SOCIAL HISTORY Social History Tobacco Use Smoking status: Former Current packs/day: 0.50 Average packs/day: 0.5 packs/day for 20.0 years (10.0 ttl pk-yrs) Types: Cigarettes Smokeless tobacco: Former Quit date: 11/21/2013 Vaping Use Vaping status: Never Used Substance Use Topics Alcohol use: Yes Comment: socially, 2x/year Drug use: No REVIEW OF SYSTEMS Abdomen: No abdominal pain, nausea, vomiting, diarrhea, or constipation. No bloating, early satiety, indigestion, or increased flatulence. Bladder: No dysuria, gross hematuria, urinary frequency, urinary urgency, or incontinence Breast: No breast lumps, nipple d/c, overlying skin changes, redness or skin retraction Allergies and current medication updated:Yes SENSITIVE EXAM: The sensitive examination was discussed with the Patient or Patient's Authorized Sales Supervisor. As applicable, any other physician, advance practice provider, medical student, or other health professional student that will be observing or involved in the sensitive examination for educational or training purposes was discussed with the Patient or Authorized Sales Supervisor. The Patient or Authorized Sales Supervisor has agreed to proceed with the sensitive examination. (Sensitive examination includes inspection and/or palpation of the breasts, pelvis, prostate and anorectal regions). EXAM: BP 128/70 Ht 5' 4.764 (1.65m) Wt 263 lb 12.8 oz (119.7kg) LMP 04/30/2018 BMI 44.22 kg/(m^2). GENERAL: pleasant, female in no apparent distress HEENT: Normocephalic, atraumatic, mucus membranes moist, and no lesions NECK: Supple, full range of motion, no adenopathy, and thyroid normal DERMATOLOGY: Normal, without lesions, non-icteric, and non-hirsute BREAST: soft, non-tender, symmetric, no dominant mass, normal nipple-areolar complex, no lymphadenopathy, and no nipple discharge CHEST: Normal inspiratory effort ABDOMEN: soft, non-tender, and no masses PELVIC: external genitalia normal, normal Bartholin's glands, urethra, Taft's glands, no vulvar lesions, no cervical lesions, physiologic discharge present, normal appearing perineal body and perianal region BIMANUAL: uterus normal size, shape and consistency, no adnexal masses, and non-tender RECTOVAGINAL: deferred. NEURO: alert and oriented x3,exam grossly non-focal EXTREMITIES: normal ASSESSMENT/PLAN: 1) Health maintenance: Pap/HPV up to date. Mammogram ordered Mammogram up to date Nutrition, exercise and routine health maintenance exams reviewed. Calcium/Vitamin D supplementation information provided. Colon cancer screening: up to date with screening 2. Hair thinning (L65.9) - Noted hair thinning since age 50. - Previous treatments include minoxidil and pumpkin seed oil with limited regrowth. - Patient currently trying Nutrafol. - TSH 3. Vasomotor symptoms due to menopause (N95.1) - Experiencing night sweats; postmenopausal since age 48. - Educated on management strategies: using fans, wearing high school math teacher clothing at night. - Discussed that symptoms may persist but usually decrease in frequency and intensity over time. 4. Class 3 severe obesity with body mass index (BMI) of 40.0 to 44.9 in adult, unspecified obesity type, unspecified whether serious comorbidity present (HCC) (E66.813) - Patient actively participating in Weight Watchers program; has lost 6 pounds. - Educated on the importance of whole foods and high protein intake (minimum 30 grams per meal). - Discussed the benefits of protein shakes with 30 grams of protein and low sugar content for firstmeal of the day. - Encouraged continuation of current efforts and regular monitoring of weight and dietary intake. 5) Follow up one year or sooner as needed Diana Ballard APRN.AARON documented [facility] History of Present illness Narrative* Missy Corona, RT(R) - 10/24/2024 9:10 AM EDT Radiology Service Progress Note PATIENT NAME: Allison Boykin DATE OF SERVICE: October 24, 2024 TIME: 9:10 AM PATIENT IDENTITY VERIFICATION COMPLETED USING TWO (2) IDENTIFIERS: Name and Date of confirmedby patient verbally. FALL SCREENING: Has the patient had 2 falls in the last year or 1 fall with injury or currently using an Ambulatory Assistive Device (Walker, Cane, Wheelchair, Crutches, etc.)? No PATIENT GENDER DATA: Assigned female at . status: : No status:NO. PATIENT RELEVANT IMPLANT DATA REVIEWED: Not Applicable PATIENT PRESENTS WITH AN IMPLANTABLE OR ATTACHED INSURANCE CLAIMS SPECIALIST: No RADIOLOGY DEPARTMENT: Mammography PERIPHERAL IV DATA: Not applicable SIGNED BY: RT Saw(R) October 24, 2024 9:10 AM documented in this encounterPark[facility]06-27-[facility]25 NoteHNO ID: [id number] Author: MISSY CORONA RT(R) Service: ? Author Type: Technologist Type: Progress Notes Filed: 10/24/2024 09:11 Note Text: Radiology Service Progress Note PATIENT NAME: Allison Boykin DATE OF SERVICE: October 24, 2024 TIME: 9:10 AM PATIENT IDENTITY VERIFICATION COMPLETED USING TWO (2) IDENTIFIERS: Name and Date of confirmed by patient verbally. FALL SCREENING: Has the patient had 2 falls in the last year or 1 fall with injury or currently using an Ambulatory Assistive Device (Walker, Cane, Wheelchair, Crutches, etc.)? No PATIENT GENDER DATA: Assigned female at . status: : No status: NO. PATIENT RELEVANT IMPLANT DATA REVIEWED: Not Applicable PATIENT PRESENTS WITH AN IMPLANTABLE OR ATTACHED INSURANCE CLAIMS SPECIALIST: No RADIOLOGY DEPARTMENT: Mammography PERIPHERAL IV DATA: Not applicable SIGNED BY: RT Saw(R) October 24, 2024 9:10 [facility]06-23-2025 Instructions* Patient Instructions* Nenita Mejia, CERTIFIED TECHNICIAN SPECIALIST.DUST CONTROL ENGINEER - 10/20/2024 10:40 AM EDT - Switch to Inderal LA (propranolol extended-release) 60 mg once daily; you may finish your currentpropranolol pills first. - Take metformin as 2 tablets in the morning with food and 1 tablet in the evening with food to help reduce stomach upset. - Continue cutting back on sugar-sweetened drinks; sugar-free and Stevia- sweetened options are fine. documented in this encounterPark[facility]06-23-2025 NoteHNO ID: [id number] Author: NENITA MEJIA APRN.AARON Service: ? Author Type: Nurse Practitioner Type: Progress Notes Filed: 10/28/2024 07:37 Note Text: CC: Patient presents with: Establish Care HPI Recording using ambient AI software for draft documentation of the visit was discussed with the patient/authorized hardware supplies sales representative; all questions welcomed and answered. 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 Diabetes Mellitus: - Taking metformin 500 mg BID; increased from once daily since last visit in February. - No adverse effects from metformin; ensures intake with food. - Recent A1c: 6.8%. - Recent glucose: 157 mg/dL. - No home glucose monitoring. - Recent dietary changes to reduce sugar intake; switched to Coke Zero and using Truvia in tea. - Joined Weight Watchers; using darius for dietary guidance. - Denies regular meal times; struggles with consistent medication adherence due to work schedule. Hypertension: - Taking hydrochlorothiazide and propranolol. - Recent BP: 122/84 mmHg. - Previously taking propranolol TID; now taking all three doses at once due to difficulty adhering to TID schedule. - Denies dizziness or lightheadedness. 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 - Occasional alcohol consumption; no drug use. - Former smoker. Review of Systems Respiratory: Negative for cough, shortness of breath and wheezing. Cardiovascular: Negative for chest pain, palpitations and leg swelling. PAST MEDICAL HISTORY Diagnosis Date Chronic low back pain with sciatica 09/18/2008 Diabetes (HCC) Diffuse cystic mastopathy 04/30/1999 Aspiration on left x2 Dysmetabolic syndrome 08/19/2013 Essential hypertension Hyperlipidemia Other and unspecified ovarian cyst Solitary cyst of breast 04/16/2007 PAST SURGICAL HISTORY Procedure Laterality Date DILATION AND CURETTAGE DXAND/THER NONOBSTETRIC 07/05 Dilation AND curettage US FNA BREAST 04/16/07;2003 U/S FNA large outer mid left breast cyst ALLERGIES Vicodin [Hydrocodone-Acetaminophen] MEDICATIONS OTC NUTRITIONAL SUPPLEMENT Nutraful two tabs once a day metFORMIN ER (GLUCOPHAGE XR) 500 mg 24 hr tablet Take 2 tablets by mouth daily with breakfast AND 1 tablet daily with dinner. propranolol ER (INDERAL LA) 60 mg 24 hr capsule Take 1 capsule by mouth once daily. hydroCHLOROthiazide 12.5 mg capsule Take 1 capsule by mouth once daily. pravastatin (PRAVACHOL) 20 mg tablet Take 1 tablet by mouth once daily. cholecalciferol, Vitamin D3, (VITAMIN D3) 1,250 mcg (50,000 unit) cap capsule Take 1 capsule by mouth one time a week. FAMILY HISTORY Problem Relation Age of Onset Cancer Mother PANCREATIC, 48 Prostate Cancer Father No Known Problems Brother Breast Cancer Paternal Grandmother 67 Prostate Cancer Paternal Grandfather Social History Tobacco Use Smoking status: Former Current packs/day: 0.50 Average packs/day: 0.5 packs/day for 20.0 years (10.0 ttl pk-yrs) Types: Cigarettes Smokeless tobacco: Former Quit date: 11/21/2013 Vaping Use Vaping status: Never Used Substance Use Topics Alcohol use: Yes Comment: socially, 2x/year Drug use: No BP 122/84 Pulse 72 Resp 12 Wt 119.8 kg (264 lb 1.8 oz) LMP 06/02/2019 SpO2 98% BMI 43.95 kg/m? Physical Exam Vitals reviewed. Constitutional: Appearance: Normal appearance. Cardiovascular: Rate and Rhythm: Normal rate and regular rhythm. Heart sounds: Normal heart sounds. No murmur heard. Pulmonary: Effort: Pulmonary effort is normal. Breath sounds: Normal breath sounds. No wheezing, rhonchi or rales. Skin: General: Skin is warm and dry. Neurological: Mental Status: She is alert. Psychiatric: Mood and Affect: Mood normal. Health maintenance reviewed with patient: Hepatitis B Vaccine(1 of 3 - 19+ 3-dose series) Never done Pneumococcal Vaccine: 50+(2 of 2 - PCV) due on 12/19/2015 Shingrix Vaccine(1 of 2) Never done Mammogram Screening due on 10/18/2024 Covid-19 Vaccine(3 - ) due on 10/20/2025 HbA1C due on 04/07/2025 LDL Cholesterol due on 10/06/2025 Annual PCP Team Chronic Disease Visit due on 10/20/2025 Depression Screening due on 10/20/2025 Anxiety Screening due on 10/20/2025 Colorectal Cancer Screening due on 01/16/2026 Cervical Cancer Screening due on 07/15/2027 DTaP,Tdap,Td Vaccine(3 - Td or Tdap) due on 09/29/2032 Influenza Vaccine Completed Urine Albumin:Creatinine Ratio Discontinued Dilated Retinal Exam Discontinued Diabetic Foot Exam Discontinued Hepatitis C Screening Discontinued HIV Screening Discontinued DATA REVIEWED: Most recent labs Latest Ref Rng 10/06/2024 Protein, Total 6.3 - 8.0 g/dL 7.4 Albumin 3.9 - 4.9 g/dL 4.5 Blaze (more content not included)...[facility]06-23-2025 History of Present illness Narrative* Nenita Mejia, CERTIFIED TECHNICIAN SPECIALIST.DUST CONTROL ENGINEER - 10/20/2024 10:39 AM EDT CC: Patient presents with: Establish Care HPI Recording using Manatron software for draft documentation of the visit was discussed with the patient/authorized hardware supplies sales representative; all questions welcomed and answered. Patient/authorized hardware supplies sales representative agreed to proceed Rosanne Boykin is a 54-year-old female with a history of HTN and DM, presenting to [facility]. Diabetes Mellitus: - Taking metformin 500 mg BID; increased from once daily since last visit in February. - No adverse effects from metformin; ensures intake with food. - Recent A1c: 6.8%. - Recent glucose: 157 mg/dL. - No home glucose monitoring. - Recent dietary changes to reduce sugar intake; switched to Coke Zero and using Truvia in tea. - Joined Weight Watchers; using darius for dietary guidance. - Denies regular meal times; struggles with consistent medication adherence due to work schedule. Hypertension: - Taking hydrochlorothiazide and propranolol. - Recent BP: 122/84 mmHg. - Previously taking propranolol TID; now taking all three doses at once due to difficulty adhering to TID schedule. - Denies dizziness or lightheadedness. 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 - Occasional alcohol consumption; no drug use. - Former smoker. Review of Systems Respiratory: Negative for cough, shortness of breath and wheezing. Cardiovascular: Negative for chest pain, palpitations and leg swelling. PAST MEDICAL HISTORY Diagnosis Date Chronic low back pain with sciatica 09/18/2008 Diabetes (HCC) Diffuse cystic mastopathy 04/30/1999 Aspiration on left x2 Dysmetabolic syndrome 08/19/2013 Essential hypertension Hyperlipidemia Other and unspecified ovarian cyst Solitary cyst of breast 04/16/2007 PAST SURGICAL HISTORY Procedure Laterality Date DILATION & CURETTAGE DX&/THER NONOBSTETRIC 07/05 Dilation & curettage US FNA BREAST 04/16/07;2003 U/S FNA large outer mid left breast cyst ALLERGIES Vicodin [Hydrocodone-Acetaminophen] MEDICATIONS OTC NUTRITIONAL SUPPLEMENT Nutraful two tabs once a day metFORMIN ER (GLUCOPHAGE XR) 500 mg 24 hr tablet Take 2 tablets by mouth daily with breakfast AND 1tablet daily with dinner. propranolol ER (INDERAL LA) 60 mg 24 hr capsule Take 1 capsule by mouth once daily. hydroCHLOROthiazide 12.5 mg capsule Take 1 capsule by mouth once daily. pravastatin (PRAVACHOL) 20 mg tablet Take 1 tablet by mouth once daily. cholecalciferol, Vitamin D3, (VITAMIN D3) 1,250 mcg (50,000 unit) cap capsule Take 1 capsule by mouth one time a week. FAMILY HISTORY Problem Relation Age of Onset Cancer Mother PANCREATIC, 48 Prostate Cancer Father No Known Problems Brother Breast Cancer Paternal Grandmother 67 Prostate Cancer Paternal Grandfather Social History Tobacco Use Smoking status: Former Current packs/day: 0.50 Average packs/day: 0.5 packs/day for 20.0 years (10.0 ttl pk-yrs) Types: Cigarettes Smokeless tobacco: Former Quit date: 11/21/2013 Vaping Use Vaping status: Never Used Substance Use Topics Alcohol use: Yes Comment: socially, 2x/year Drug use: No BP 122/84 Pulse 72 Resp 12 Wt 119.8 kg (264 lb 1.8 oz) LMP 06/02/2019 SpO2 98% BMI 43.95 kg/m Physical Exam Vitals reviewed. Constitutional: Appearance: Normal appearance. Cardiovascular: Rate and Rhythm: Normal rate and regular rhythm. Heart sounds: Normal heart sounds. No murmur heard. Pulmonary: Effort: Pulmonary effort is normal. Breath sounds: Normal breath sounds. No wheezing, rhonchi or rales. Skin: General: Skin is warm and dry. Neurological: Mental Status: She is alert. Psychiatric: Mood and Affect: Mood normal. Health maintenance reviewed with patient: Hepatitis B Vaccine(1 of 3 - 19+ 3-dose series) Never done Pneumococcal Vaccine: 50+(2 of 2 - PCV) due on 12/19/2015 Shingrix Vaccine(1 of 2) Never done Mammogram Screening due on 10/18/2024 Covid-19 Vaccine( - 2023- season) due on 10/20/2025 HbA1C due on 04/07/2025 LDL Cholesterol due on 10/06/2025 Annual PCP Team Chronic Disease Visit due on 10/20/2025 Depression Screening due on 10/20/2025 Anxiety Screening due on 10/20/2025 Colorectal Cancer Screening due on 01/16/2026 Cervical Cancer Screening due on 07/15/2027 DTaP,Tdap,Td Vaccine(3 - Td or Tdap) due on 09/29/2032 Influenza Vaccine Completed Urine Albumin:Creatinine Ratio Discontinued Dilated Retinal Exam Discontinued Diabetic Foot Exam Discontinued Hepatitis C Screening Discontinued HIV Screening Discontinued DATA REVIEWED: Most recent labs Latest Ref Rng 10/06/2024 Protein, Total 6.3 - 8.0 g/dL 7.4 Albumin 3.9 - 4.9 g/dL 4.5 Calcium 8.5 - 10.2 mg/dL 9.6 Bilirubin, Total 0.2 - 1.3 mg/dL 0.3 Alkaline Phosphatase 34 - 123 U/L 85 AST 13 - 35 U/L 22 ALT 7 - 38 U/L 31 Glucose 74 - 99 mg/dL 157 (H) BUN 7 - 21 mg/dL 16 Creatinine 0.58 - 0.96 mg/dL 0.86 Sodium 136 - 144 mmol/L 139 Potassium 3.7 - 5.1 mmol/L 4.3 Chloride 98 - 107 mmol/L 102 CO2 22 - 30 mmol/L 22 Anion Gap 8 - 15 mmol/L 15 eGFR >=60 mL/min/1.73m 80 Cholesterol, Total <200 mg/dL 171 Triglyceride <150 mg/dL 155 (H) HDL Cholesterol >39 mg/dL 56 LDL Cholesterol, Calculated <100 mg/dL 88 Non HDL Cholesterol <130 mg/dL 115 VLDL Cholesterol <30 mg/dL 25 TC:HDL Ratio <5.10 3.05 LDL:HDL Ratio <2.54 1.57 Fasting Time hrs 12 Hemoglobin A1C 4.3 - 5.6 % 6.8 (H) Estimated Average Glucose mg/dL 148 Legend: (H) High Assessment/Plan 1. Controlled type 2 diabetes mellitus without complication, without long-term current use of insulin (HCC) (E11.9) - Hemoglobin A1c increased to 6.8% from previous measurement six months ago. - Patient has been taking metformin 500 mg twice daily since last visit on 03/25. - Discussed dietary modifications to reduce intake of sugary beverages and use of Stevia-based sweeteners. - Increased metformin to 500 mg in the morning and 500 mg in the evening. - Ordered repeat A1c in six months. 2. Hypertension, essential (I10) - Blood pressure well-controlled at 122/84 mmHg. - Currently on hydrochlorothiazide and propranolol. - Patient taking propranolol 20 mg, three tabs daily due to missing doses with three times a day asoriginally prescribed - Transitioned to propranolol extended-release 60 mg once daily - No reported side effects such as dizziness or lightheadedness. 3. Vitamin D deficiency (E55.9) - Patient on high-dose vitamin D supplementation. - Ordered vitamin D level to be checked in six months. 4. Mixed hyperlipidemia (E78.2) - Recent lipid panel shows triglycerides are the lowest since 2020, only 5 points above normal. - Continue current management. 5. BMI 40.0-44.9, adult (HCC) (Z68.41) - Discussed dietary changes and use of [employer] darius for monitoring food intake. - Encouraged continuation of dietary modifications and regular physical activity. 6. Screening for depression (Z13.31) - No current symptoms of depression reported. 7. Encounter for screening examination for other mental health and behavioral disorders (Z13.39) Prescription instructions reviewed with patient as applicable. Potential red flag symptoms discussed with the patient. Reviewed appropriate action plan to take if red flag symptoms occur. Patient agreeable to treatment plan. Nenita Mejia APRN.DUST CONTROL ENGINEER documented in this encounterPark[facility]* Addendum Note - Donn Choe MD - 09/11/2024 2:15 PM EDTAddended by: DONN CHOE on: 09/11/2024 02:15 PM Modules accepted: Orders [facility]05-15-2025 Miscellaneous Notes* Addendum Note - Donn Choe MD - 09/11/2024 2:15 PM EDTAddended by: DONN CHOE on: 09/11/2024 02:15 PM Modules accepted: Orders * Addendum Note - Meaghan Dominique MA - 09/11/2024 11:23 AM EDTAddended by: MEAGHAN DOMINIQUE on: 09/11/2024 11:23 AM Modules accepted: Orders * Telephone Encounter - Bridget Padron MA - 09/11/2024 8:05 AM EDT Prescription Refill Information The patient has been identified by name and date of : Yes Caregiver verified no other encounters exist for this prescription request: Yes Caregiver confirmed with patient/requestor that no other refills are due, in the near future, with this provider at this time: Yes The last office visit in the department: 03/25/24 Does the patient have a future office visit with this provider/department: Yes, but needs rescheduled as this is with Jaqui. Pt is currently establishing care with [facility] on . Pending rx's for 3months. Requested Prescriptions Pending Prescriptions Disp Refills hydroCHLOROthiazide 12.5 mg capsule 90 capsule 3 Sig: Take 1 capsule by mouth once daily. propranolol (INDERAL) 20 mg tablet 270 tablet 3 Sig: Take 1 tablet by mouth three times a day. Bridget Padron MA September 11, 2024 8:06 AM documented in this encounterPark[facility]05-15-2025 Note* Addendum Note - Meaghan Dominique MA - 09/11/2024 11:23 AM EDTAddended by: MEAGHAN DOMINIQUE on: 09/11/2024 11:23 AM Modules accepted: Orders [facility] Telephone encounter Note* Telephone Encounter - Bridget Padron MA - 09/11/2024 8:05 AM EDT Prescription Refill Information The patient has been identified by name and date of : Yes Caregiver verified no other encounters exist for this prescription request: Yes Caregiver confirmed with patient/requestor that no other refills are due, in the near future, with this provider at this time: Yes The last office visit in the department: 03/25/24 Does the patient have a future office visit with this provider/department: Yes, but needs rescheduled as this is with Jaqui. Pt is currently establishing care with [facility] on . Pending rx's for 3months. Requested Prescriptions Pending Prescriptions Disp Refills hydroCHLOROthiazide 12.5 mg capsule 90 capsule 3 Sig: Take 1 capsule by mouth once daily. propranolol (INDERAL) 20 mg tablet 270 tablet 3 Sig: Take 1 tablet by mouth three times a day. Bridget Padron MA September 11, 2024 8:06 AM [facility]03-16-2025 NoteHNO ID: [id number] Author: NIYAH ORTIZ APRN.DUST CONTROL ENGINEER Service: ? Author Type: Nurse Practitioner Type: Progress Notes Filed: 07/13/2024 10:03 Note Text: Telemedicine Visit - Distance Health Virtual Visit Note Patient seen on [employer] Video Visit platform. Location of patient: [place] I have communicated my name and active licensure. The patient's identity and physical location were verified at the time of this visit. Either the patient or their legal hardware supplies sales representative has been informed of the risks and benefits of -- and alternatives to -- treatment through a remote evaluation and consents to proceed with the evaluation remotely. History of Present Illness Allison Boykin is a 53 year old female with a history of UTI symptoms for 3 days. Urinary symptoms ROS: Positive for: Dysuria, Increase in frequency of urination, and Urgency Negative for: Abdominal pain , Back/Flank pain, Bladder pressure, Blood in urine, Cloudy urine, Diarrhea, Fevers, Vaginal itch or discharge, and Vomiting /Lactating: : No: Lactating: No STI concerns: No LMP: post menopause Number of previous UTI's in last 6 months: 0 Number of previous UTI's in last 12 months: 0 Alleviating Factors include Increasing fluids and cranberry juice with no relief in symptoms. PAST MEDICAL HISTORY Diagnosis Date Chronic low back pain with sciatica 09/18/2008 Diabetes (HCC) Diffuse cystic mastopathy 04/30/1999 Aspiration on left x2 Dysmetabolic syndrome 08/19/2013 Essential hypertension Hyperlipidemia Other and unspecified ovarian cyst Solitary cyst of breast 04/16/2007 PAST SURGICAL HISTORY Procedure Laterality Date DILATION AND CURETTAGE DXAND/THER NONOBSTETRIC 07/05 Dilation AND curettage US FNA BREAST 04/16/07;2003 U/S FNA large outer mid left breast cyst FAMILY HISTORY Problem Relation Age of Onset Cancer Mother PANCREATIC, 48 Prostate Cancer Father No Known Problems Brother Breast Cancer Paternal Grandmother 67 Prostate Cancer Paternal Grandfather Social History Tobacco Use Smoking status: Former Current packs/day: 0.50 Average packs/day: 0.5 packs/day for 20.0 years (10.0 ttl pk-yrs) Types: Cigarettes Smokeless tobacco: Former Quit date: 11/21/2013 Vaping Use Vaping status: Never Used Substance Use Topics Alcohol use: Yes Comment: socially, 2x/year Drug use: No ALLERGIES Allergen Reactions Vicodin [Hydrocodon* GI Upset Current Outpatient Medications Medication Sig nitrofurantoin monohydrate and macrocrystal (MACROBID) 100 mg capsule Take 1 capsule by mouth two times a day for 5 days. metFORMIN ER (GLUCOPHAGE XR) 500 mg 24 hr tablet Take 1 tablet by mouth daily with breakfast. pravastatin (PRAVACHOL) 20 mg tablet Take 1 tablet by mouth once daily. propranolol (INDERAL) 20 mg tablet Take 1 tablet by mouth three times a day. hydroCHLOROthiazide 12.5 mg capsule Take 1 capsule by mouth once daily. busPIRone (BUSPAR) 5 mg tablet Take 1 tablet by mouth three times a day as needed. cholecalciferol, Vitamin D3, (VITAMIN D3) 1,250 mcg (50,000 unit) cap capsule Take 1 capsule by mouth one time a week. No current facility-administered medications for this visit. Video Exam (Examination performed via Video enabled technology) General Appearance: Alert, oriented, pleasant, in NAD: Yes Ill appearing: No Lethargic appearing: No Respiratory distress: No Abdomen: non-tender by self palpation CVA Tenderness: non-tender bilaterally by self palpation ASSESSMENT/PLAN: 1. Acute cystitis without hematuria - ICD9: 595.0, ICD10: N30.00 1. Symptoms consistent with UTI 2. Antibiotic: Macrobid 3 Patient instructed to increase fluid intake through out the day. 4. May use UroStat (pyridium) over the counter for bladder spasm/discomfort. 5. Express Care if symptoms not resolved or markedly improved within 2-3 days 6. Go to EMERGENCY ROOM if fever, chills, or flank pain develop. - All questions answered Niyah Ortiz APRN.CNP History and Record Review External record(s) reviewed: prior outpatient record and prior labs/imaging. Differential Diagnoses - Cystitis without hematuria is more likely for the following reason(s): suggested by HANDP - pylonephritits is less likely for the following reason(s): HANDP not suggestive Disposition The patient was discharged.[facility]03-16-2025 History of Present illness Narrative* Niyah Ortiz APRN.CNP - 07/13/2024 10:00 AM EDT Telemedicine Visit - Distance Health Virtual Visit Note Patient seen on [employer] Video Visit platform. Location of patient: [place] I have communicated my name and active licensure. The patient's identity and physical location wereverified at the time of this visit. Either the patient or their legal hardware supplies sales representative has been informed of the risks and benefits of -- and alternatives to -- treatment through a remote evaluation andconsents to proceed with the evaluation remotely. History of Present Illness Allison Boykin is a 53 year old female with a history of UTI symptoms for 3 days. Urinary symptoms ROS: Positive for: Dysuria, Increase in frequency of urination, and Urgency Negative for: Abdominal pain , Back/Flank pain, Bladder pressure, Blood in urine, Cloudy urine, Diarrhea, Fevers, Vaginal itch or discharge, and Vomiting /Lactating: : No: Lactating: No STI concerns: No LMP: post menopause Number of previous UTI's in last 6 months: 0 Number of previous UTI's in last 12 months: 0 Alleviating Factors include Increasing fluids and cranberry juice with no relief in symptoms. PAST MEDICAL HISTORY Diagnosis Date Chronic low back pain with sciatica 09/18/2008 Diabetes (HCC) Diffuse cystic mastopathy 04/30/1999 Aspiration on left x2 Dysmetabolic syndrome 08/19/2013 Essential hypertension Hyperlipidemia Other and unspecified ovarian cyst Solitary cyst of breast 04/16/2007 PAST SURGICAL HISTORY Procedure Laterality Date DILATION & CURETTAGE DX&/THER NONOBSTETRIC 07/05 Dilation & curettage US FNA BREAST 04/16/07;2003 U/S FNA large outer mid left breast cyst FAMILY HISTORY Problem Relation Age of Onset Cancer Mother PANCREATIC, 48 Prostate Cancer Father No Known Problems Brother Breast Cancer Paternal Grandmother 67 Prostate Cancer Paternal Grandfather Social History Tobacco Use Smoking status: Former Current packs/day: 0.50 Average packs/day: 0.5 packs/day for 20.0 years (10.0 ttl pk-yrs) Types: Cigarettes Smokeless tobacco: Former Quit date: 11/21/2013 Vaping Use Vaping status: Never Used Substance Use Topics Alcohol use: Yes Comment: socially, 2x/year Drug use: No ALLERGIES Allergen Reactions Vicodin [Hydrocodon* GI Upset Current Outpatient Medications Medication Sig nitrofurantoin monohydrate and macrocrystal (MACROBID) 100 mg capsule Take 1 capsule by mouth two times a day for 5 days. metFORMIN ER (GLUCOPHAGE XR) 500 mg 24 hr tablet Take 1 tablet by mouth daily with breakfast. pravastatin (PRAVACHOL) 20 mg tablet Take 1 tablet by mouth once daily. propranolol (INDERAL) 20 mg tablet Take 1 tablet by mouth three times a day. hydroCHLOROthiazide 12.5 mg capsule Take 1 capsule by mouth once daily. busPIRone (BUSPAR) 5 mg tablet Take 1 tablet by mouth three times a day as needed. cholecalciferol, Vitamin D3, (VITAMIN D3) 1,250 mcg (50,000 unit) cap capsule Take 1 capsule by mouth one time a week. No current facility-administered medications for this visit. Video Exam (Examination performed via Video enabled technology) General Appearance: Alert, oriented, pleasant, in NAD: Yes Ill appearing: No Lethargic appearing: No Respiratory distress: No Abdomen: non-tender by self palpation CVA Tenderness: non-tender bilaterally by self palpation ASSESSMENT/PLAN: 1. Acute cystitis without hematuria - ICD9: 595.0, ICD10: N30.00 1. Symptoms consistent with UTI 2. Antibiotic: Macrobid 3 Patient instructed to increase fluid intake through out the day. 4. May use UroStat (pyridium) over the counter for bladder spasm/discomfort. 5. Express Care if symptoms not resolved or markedly improved within 2-3 days 6. Go to EMERGENCY ROOM if fever, chills, or flank pain develop. - All questions answered Niyah Ortiz APRN.CNP History and Record Review External record(s) reviewed: prior outpatient record and prior labs/imaging. Differential Diagnoses - Cystitis without hematuria is more likely for the following reason(s): suggested by H&P - pylonephritits is less likely for the following reason(s): H&P not suggestive Disposition The patient was discharged. documented in this encounterPark[facility] Telephone encounter Note * Telephone Encounter - Ashish Cook APRN.CNP - 06/23/2024 9:27 AM EST The following approved medication requests have been transmitted electronically. Requested Prescriptions Pending Prescriptions Disp Refills metFORMIN ER (GLUCOPHAGE XR) 500 mg 24 hr tablet 90 tablet 3 Sig: Take 1 tablet by mouth daily with breakfast. pravastatin (PRAVACHOL) 20 mg tablet 90 tablet 3 Sig: Take 1 tablet by mouth once daily. Ashish Cook APRN.CNP [facility]02-24-2025 Miscellaneous Notes* Telephone Encounter - Ashish Cook APRN.CNP - 06/23/2024 9:27 AM EST The following approved medication requests have been transmitted electronically. Requested Prescriptions Pending Prescriptions Disp Refills metFORMIN ER (GLUCOPHAGE XR) 500 mg 24 hr tablet 90 tablet 3 Sig: Take 1 tablet by mouth daily with breakfast. pravastatin (PRAVACHOL) 20 mg tablet 90 tablet 3 Sig: Take 1 tablet by mouth once daily. Ashish Cook APRN.CNP * Telephone Encounter - Edilma Hirsch LPN - 06/23/2024 9:18 AM EST Prescription Refill Information The patient has been identified by name and date of : Yes Caregiver verified no other encounters exist for this prescription request: Yes Caregiver confirmed with patient/requestor that no other refills are due, in the near future, with this provider at this time: Yes The last office visit in the department: 03/25/24 Does the patient have a future office visit with this provider/department: Yes 09/29/24 Requested Prescriptions Pending Prescriptions Disp Refills metFORMIN ER (GLUCOPHAGE XR) 500 mg 24 hr tablet 90 tablet 3 Sig: Take 1 tablet by mouth daily with breakfast. pravastatin (PRAVACHOL) 20 mg tablet 90 tablet 3 Sig: Take 1 tablet by mouth once daily. Edilma Hirsch LPN June 23, 2024 9:19 AM documented in this encounterPark[facility] Telephone encounter Note * Telephone Encounter - Edilma Hirsch LPN - 06/23/2024 9:18 AM EST Prescription Refill Information The patient has been identified by name and date of : Yes Caregiver verified no other encounters exist for this prescription request: Yes Caregiver confirmed with patient/requestor that no other refills are due, in the near future, with this provider at this time: Yes The last office visit in the department: 03/25/24 Does the patient have a future office visit with this provider/department: Yes 09/29/24 Requested Prescriptions Pending Prescriptions Disp Refills metFORMIN ER (GLUCOPHAGE XR) 500 mg 24 hr tablet 90 tablet 3 Sig: Take 1 tablet by mouth daily with breakfast. pravastatin (PRAVACHOL) 20 mg tablet 90 tablet 3 Sig: Take 1 tablet by mouth once daily. Edilma Hirsch LPN June 23, 2024 9:19 AM [facility]11-[facility] Telephone encounter Note* Telephone Encounter - Jaqui Berg APRN.CNP - 03/28/2024 9:58 AM EST Spoke to patient, she is agreeable to increase metformin 500 mg twice daily and work on eating a low-carb diet. Repeat labs in 6 months prior to next visit. Jaqui Berg APRN.CNP [facility]11-29-2024 Miscellaneous Notes* Telephone Encounter - Jaqui Berg APRN.CNP - 03/28/2024 9:58 AM EST Spoke to patient, she is agreeable to increase metformin 500 mg twice daily and work on eating a low-carb diet. Repeat labs in 6 months prior to next visit. Jaqui Berg APRN.CNP documented in this encounterPark[facility]11-26-[facility]24 Instructions* Patient Instructions* Jaqui Berg APRN.CNP - 03/25/2024 9:31 AM EST Labs pending Continue to take all medication as prescribed Work on eating a low carb diet and get some form of exercise. Flu vaccine Get repeat labs in 6 months prior to next visit May consider pumpkin oil as a DHT juan, can apply midoxinil foam 5% , to help with hair growth. documented in this encounterM[place] [id number] History of Present illness Narrative* Jaqui Berg APRN.DUST CONTROL ENGINEER - 03/25/2024 9:20 AM EST This is a 53 year old female who presents today with: Patient presents with: 6 Month Exam HISTORY OF PRESENT ILLNESS: Allison Boykin is a 53 year old female. Patient presents with: 6 Month Exam Here in the office for follow-up. Labs pending. Diabetes: Taking metformin ER 500 mg daily. Working on diet and exercise. A1C pending. Trying to bemindful with diet. Eating whole foods. Walking a couple of times per week. HTN: Taking propanolol 20 mg 3 times daily and HCTZ 12.5 mg. Has been checking BP at home, has beenrunning 130/70's. BP elevated today, increase stress with 's illness. Denies chest pain, palpitations, or dizziness Lipids: Taking Pravastain 20 mg daily. Watching diet. Anxiety: Taking BuSpar 5 mg as needed. Has not needed medication, symptoms well controlled. Denies any increased sadness, or SI/HI. Chronic pain: Has had autoimmune work-up in the past which was negative. Will usually have bilateral shoulders, hips, knee pain. Refers that pain has improved. Using THC/Cannabis cream to joint as needed. Dermatology: Was following with Dr. Lynch, had autoimmune and thyroid work up, was normal. Has had some hairloss in the center of hairline. Using products from dermatology but stopped using due to cost. Vitamin D: Taking Vitamin D3 50,000 international unit(s) . Vaccines: Would like flu vaccine PAST MEDICAL HISTORY: PAST MEDICAL HISTORY Diagnosis Date Chronic low back pain with sciatica 09/18/2008 Diabetes (HCC) Diffuse cystic mastopathy 04/30/1999 Aspiration on left x2 Dysmetabolic syndrome 08/19/2013 Essential hypertension Hyperlipidemia Other and unspecified ovarian cyst Solitary cyst of breast 04/16/2007 PAST SURGICAL HISTORY Procedure Laterality Date DILATION & CURETTAGE DX&/THER NONOBSTETRIC 07/05 Dilation & curettage US FNA BREAST 04/16/07;2003 U/S FNA large outer mid left breast cyst ALLERGIES Vicodin [Hydrocodone-Acetaminophen] MEDICATIONS Current Outpatient Medications Medication Sig propranolol (INDERAL) 20 mg tablet Take 1 tablet by mouth three times a day. hydroCHLOROthiazide 12.5 mg capsule Take 1 capsule by mouth once daily. metFORMIN ER (GLUCOPHAGE XR) 500 mg 24 hr tablet Take 1 tablet by mouth daily with breakfast. pravastatin (PRAVACHOL) 20 mg tablet Take 1 tablet by mouth once daily. busPIRone (BUSPAR) 5 mg tablet Take 1 tablet by mouth three times a day as needed. cholecalciferol, Vitamin D3, (VITAMIN D3) 1,250 mcg (50,000 unit) cap capsule Take 1 capsule by mouth one time a week. ondansetron orally disintegrating (ZOFRAN ODT) 4 mg disintegrating tablet Take 1 tablet by mouth every 6 hours as needed for Nausea/Vomiting. (Patient not taking: Reported on 09/29/2022) diclofenac sodium (VOLTAREN) 1 % topical gel Apply 2 g to affected area as directed. 2-4 time daily No current facility-administered medications for this visit. FAMILY HISTORY Problem Relation Age of Onset Cancer Mother PANCREATIC, 48 Prostate Cancer Father No Known Problems Brother Breast Cancer Paternal Grandmother 67 Prostate Cancer Paternal Grandfather Social History Tobacco Use Smoking status: Former Current packs/day: 0.50 Average packs/day: 0.5 packs/day for 20.0 years (10.0 ttl pk-yrs) Types: Cigarettes Smokeless tobacco: Former Quit date: 11/21/2013 Vaping Use Vaping status: Never Used Substance Use Topics Alcohol use: Yes Comment: socially, 2x/year Drug use: No REVIEW OF SYSTEMS GENERAL: No weight loss, malaise or fevers/chills HEENT: Negative for frequent or significant headaches, No changes in hearing or vision. NECK: Negative for lumps, goiter, pain and significant neck swelling RESPIRATORY: Negative for cough, hemoptysis, wheezing, dyspnea or shortness of breath CARDIOVASCULAR: Negative for chest pain, leg swelling, orthopnea, or palpitations GI: No nausea, vomiting, or diarrhea/constipation. No hematochezia/melena. No heartburn or reflux symptoms. : No history of dysuria, frequency or incontinence MUSCULOSKELETAL: Negative for joint pain or swelling. SKIN: Negative for lesions, rash, and itching ENDOCRINE: Negative for cold or heat intolerance, polyuria, polydipsia and goiter NEURO: No history of headaches, syncope, paralysis, seizures or tremors MOOD: Negative for depression, anxiety, or suicidal ideation. EXAM: BP 160/120 Pulse 97 Resp 16 Wt 118 kg (260 lb 2.3 oz) LMP 06/02/2019 SpO2 96% BMI 43.29kg/m PHYSICAL EXAM: General Appearance: Well appearing, alert, in no acute distress, well-hydrated, well nourished. Skin: Skin color, texture, turgor normal, no suspicious rashes or lesions. Head: Normocephalic, no masses, lesions, tenderness or abnormalities. Eyes: Anicteric sclera. Extraocular movements are intact. Lungs: Lungs clear to auscultation. No wheezing, rhonchi, rales. Heart: RRR without murmur, gallop, or rubs. No ectopy. Extremities: No deformities, edema, skin discoloration, clubbing or cyanosis. Good capillary refill. Peripheral Pulses: Capillary refill <2secs, strong peripheral pulses, Pulses palpable. Neurologic: Gait normal. Sensation grossly intact. Mood: Pleasant, engaged, good eye contact. ASSESSMENT/PLAN: 1. Controlled type 2 diabetes mellitus without complication, without long-term current use of insulin (HCC) - ICD9: 250.00, ICD10: E11.9 (primary diagnosis) - Control undetermined, due for labs - Continue current medications - Counseled on healthy diet and regular exercise - Discussed need for and benefit of weight loss. BMI 43.29 kg/(m^2) - HEMOGLOBIN A1C 2. Hypertension, essential - ICD9: 401.9, ICD10: I10 - Home blood pressure readings controlled - Continue current medications - Recommend home blood pressure monitoring, to bring results to next visit - Encouraged sodium restriction, DASH or Mediterranean diet - Recommend regular aerobic exercise - Discussed need for and benefit of weight loss. BMI 43.29 kg/(m^2) 3. Mixed hyperlipidemia - ICD9: 272.2, ICD10: E78.2 - Control undetermined, due for labs - Continue current medications - Counseled on healthy diet and regular exercise - Discussed need for and benefit of weight loss. BMI 43.29 kg/(m^2) - COMPREHENSIVE METABOLIC PANEL - LIPID PANEL BASIC 4. Generalized anxiety disorder with panic attacks - ICD9: 300.02, 300.01, ICD10: F41.1, F41.0 - Stable without medication. 5. Chronic pain syndrome - ICD9: 338.4, ICD10: G89.4 - Stable, continue supportive care at home. 6. Vitamin D deficiency - ICD9: 268.9, ICD10: E55.9 - Stable, continue with current supplement. 7. Encounter for immunization - ICD9: V03.89, ICD10: Z23 - VIS provided. - INFLUENZA VACCINE, AGE 6MO-64YR, TRIVALENT (AFLURIA, FLULAVAL, FLUVIRIN, FLUZONE) Follow-up 6 months or sooner pending test results. Discussed treatment plan and patient voices understanding. Patient's questions answered appropriately. Medications and potential side effects were discussed and patient voices understanding. Jaqui Berg APRN.AARON This note was partially generated using ralali voice recognition system. Note was reviewed for accuracy. There may be minor misspellings or grammar miscues with ralali voice recognition. documented in this encounterParkview [facility]11-[facility]24 NoteHNO ID: [id number] Author: JAQUI BERG APRN.AARON Service: ? Author Type: Nurse Practitioner Type: Progress Notes Filed: 03/25/2024 10:35 Note Text: This is a 53 year old female who presents today with: Patient presents with: 6 Month Exam HISTORY OF PRESENT ILLNESS: Allison Boykin is a 53 year old female. Patient presents with: 6 Month Exam Here in the office for follow-up. Labs pending. Diabetes: Taking metformin ER 500 mg daily. Working on diet and exercise. A1C pending. Trying to be mindful with diet. Eating whole foods. Walking a couple of times per week. HTN: Taking propanolol 20 mg 3 times daily and HCTZ 12.5 mg. Has been checking BP at home, has been running 130/70's. BP elevated today, increase stress with 's illness. Denies chest pain, palpitations, or dizziness Lipids: Taking Pravastain 20 mg daily. Watching diet. Anxiety: Taking BuSpar 5 mg as needed. Has not needed medication, symptoms well controlled. Denies any increased sadness, or SI/HI. Chronic pain: Has had autoimmune work-up in the past which was negative. Will usually have bilateral shoulders, hips, knee pain. Refers that pain has improved. Using THC/Cannabis cream to joint as needed. Dermatology: Was following with Dr. Lynch, had autoimmune and thyroid work up, was normal. Has had some hairloss in the center of hairAll Copy Products. Using products from dermatology but stopped using due to cost. Vitamin D: Taking Vitamin D3 50,000 international unit(s) . Vaccines: Would like flu vaccine PAST MEDICAL HISTORY: PAST MEDICAL HISTORY Diagnosis Date Chronic low back pain with sciatica 09/18/2008 Diabetes (HCC) Diffuse cystic mastopathy 04/30/1999 Aspiration on left x2 Dysmetabolic syndrome 08/19/2013 Essential hypertension Hyperlipidemia Other and unspecified ovarian cyst Solitary cyst of breast 04/16/2007 PAST SURGICAL HISTORY Procedure Laterality Date DILATION AND CURETTAGE DXAND/THER NONOBSTETRIC 07/05 Dilation AND curettage US FNA BREAST 04/16/07;2003 U/S FNA large outer mid left breast cyst ALLERGIES Vicodin [Hydrocodone-Acetaminophen] MEDICATIONS Current Outpatient Medications Medication Sig propranolol (INDERAL) 20 mg tablet Take 1 tablet by mouth three times a day. hydroCHLOROthiazide 12.5 mg capsule Take 1 capsule by mouth once daily. metFORMIN ER (GLUCOPHAGE XR) 500 mg 24 hr tablet Take 1 tablet by mouth daily with breakfast. pravastatin (PRAVACHOL) 20 mg tablet Take 1 tablet by mouth once daily. busPIRone (BUSPAR) 5 mg tablet Take 1 tablet by mouth three times a day as needed. cholecalciferol, Vitamin D3, (VITAMIN D3) 1,250 mcg (50,000 unit) cap capsule Take 1 capsule by mouth one time a week. ondansetron orally disintegrating (ZOFRAN ODT) 4 mg disintegrating tablet Take 1 tablet by mouth every 6 hours as needed for Nausea/Vomiting. (Patient not taking: Reported on 09/29/2022) diclofenac sodium (VOLTAREN) 1 % topical gel Apply 2 g to affected area as directed. 2-4 time daily No current facility-administered medications for this visit. FAMILY HISTORY Problem Relation Age of Onset Cancer Mother PANCREATIC, 48 Prostate Cancer Father No Known Problems Brother Breast Cancer Paternal Grandmother 67 Prostate Cancer Paternal Grandfather Social History Tobacco Use Smoking status: Former Current packs/day: 0.50 Average packs/day: 0.5 packs/day for 20.0 years (10.0 ttl pk-yrs) Types: Cigarettes Smokeless tobacco: Former Quit date: 11/21/2013 Vaping Use Vaping status: Never Used Substance Use Topics Alcohol use: Yes Comment: socially, 2x/year Drug use: No REVIEW OF SYSTEMS GENERAL: No weight loss, malaise or fevers/chills HEENT: Negative for frequent or significant headaches, No changes in hearing or vision. NECK: Negative for lumps, goiter, pain and significant neck swelling RESPIRATORY: Negative for cough, hemoptysis, wheezing, dyspnea or shortness of breath CARDIOVASCULAR: Negative for chest pain, leg swelling, orthopnea, or palpitations GI: No nausea, vomiting, or diarrhea/constipation. No hematochezia/melena. No heartburn or reflux symptoms. : No history of dysuria, frequency or incontinence MUSCULOSKELETAL: Negative for joint pain or swelling. SKIN: Negative for lesions, rash, and itching ENDOCRINE: Negative for cold or heat intolerance, polyuria, polydipsia and goiter NEURO: No history of headaches, syncope, paralysis, seizures or tremors MOOD: Negative for depression, anxiety, or suicidal ideation. EXAM: BP 160/120 Pulse 97 Resp 16 Wt 118 kg (260 lb 2.3 oz) LMP 06/02/2019 SpO2 96% BMI 43.29 kg/m? PHYSICAL EXAM: General Appearance: Well appearing, alert, in no acute distress, well-hydrated, well nourished. Skin: Skin color, texture, turgor normal, no suspicious rashes or lesions. Head: Normocephalic, no masses, lesions, tenderness or abnormalities. Eyes: Anicteric sclera. Extraocular movemen (more content not included)... [facility]06-21-2024 Note* Letter - Coordinator, Mammography - 10/19/2023 8:24 AM EDT October 19, 2023 PID: [id number] Allison Boykin [address] [place] [address] Dear Ms. Boykin, We are pleased to inform you that the results of your recent breast imaging exam on 10/19/2023 are normal. Your mammogram demonstrates that you have dense breast tissue, which could hide abnormalities. Dense breast tissue, in and of itself, is a relatively common condition. Therefore, this information is not provided to cause undue concern; rather, it is to raise your awareness and promote discussion with your health care provider regarding the presence of dense breast tissue in addition to other riskfactors. Early detection of cancer is very important. We also understand recommendations regarding breast cancer screening are controversial. Please discuss with your primary care provider which strategy is best for you and whether a mammogram is right for you. Your imaging studies and report will be kept on file at [facility] as part of your permanent medical record and are available for your continuing care. Thank you for allowing us to help in meeting your health care needs. Sincerely, Dr. Osorio Interpreting Radiologist [facility] (Normal over 40) [facility]06-21-2024 Miscellaneous Notes* Letter - Coordinator, Mammography - 10/19/2023 8:24 AM EDT October 19, 2023 PID: [id number] Allison Boykin [address] [place] [address] Dear Ms. Boykin, We are pleased to inform you that the results of your recent breast imaging exam on 10/19/2023 are normal. Your mammogram demonstrates that you have dense breast tissue, which could hide abnormalities. Dense breast tissue, in and of itself, is a relatively common condition. Therefore, this information is not provided to cause undue concern; rather, it is to raise your awareness and promote discussion with your health care provider regarding the presence of dense breast tissue in addition to other riskfactors. Early detection of cancer is very important. We also understand recommendations regarding breast cancer screening are controversial. Please discuss with your primary care provider which strategy is best for you and whether a mammogram is right for you. Your imaging studies and report will be kept on file at [facility] as part of your permanent medical record and are available for your continuing care. Thank you for allowing us to help in meeting your health care needs. Sincerely, Dr. Osorio Interpreting Radiologist [facility] (Normal over 40) documented in this encounterParkview Health [facility]06-21-[facility] History of Present illness Narrative* AlexysVernell Mammo Tech - 10/19/2023 8:10 AM EDT Radiology Service Progress Note PATIENT NAME: Allison Boykin DATE OF SERVICE: October 19, 2023 TIME: 8:51 AM PATIENT IDENTITY VERIFICATION COMPLETED USING TWO (2) IDENTIFIERS: Name and Date of confirmedby patient verbally. FALL SCREENING: Has the patient had 2 falls in the last year or 1 fall with injury or currently using an Ambulatory Assistive Device (Walker, Cane, Wheelchair, Crutches, etc.)? No PATIENT GENDER DATA: Female. status: : No status: NO. PATIENT RELEVANT IMPLANT DATA REVIEWED: Not Applicable PATIENT PRESENTS WITH AN IMPLANTABLE OR ATTACHED INSURANCE CLAIMS SPECIALIST: No RADIOLOGY DEPARTMENT: Mammography PERIPHERAL IV DATA: Not applicable SIGNED BY: Magdy Flannery October 19, 2023 8:51 AM documented in this encounterParkview [facility]06-[facility] Note* Letter - Coordinator, Mammography - 10/16/2023 12:24 PM EDT October 16, 2023 PID: [id number] Allison Boykin [address] [place] [address] Dear Ms. Boykin, Your recent breast imaging exam on 10/12/2023 showed a possible finding that requires additional imaging studies for a complete evaluation. Most such findings are probably benign (not cancer). Your mammogram demonstrates that you have dense breast tissue, which could hide abnormalities. Dense breast tissue, in and of itself, is a relatively common condition. Therefore, this information is not provided to cause undue concern; rather, it is to raise your awareness and promote discussion with your health care provider regarding the presence of dense breast tissue in addition to other riskfactors. If you have a healthcare provider who ordered/prescribed your screening mammogram: Please call [phone] or EXT: [phone] to schedule an appointment for your additional imaging (if youhave not already done so). If you DO NOT have a healthcare provider (ie you did not have an order/prescription for your screening mammogram): Please call to schedule an appointment for your additional imaging (if you have not already done so). You must have an order/prescription from your physician when calling to schedule your appointment. If your order/prescription is not electronic, you must bring the hard copy with you on the day of your exam to avoid delays. Your imaging studies and reports are kept on file at [facility] as part of your permanent medical record, and are available for your continuing care. Thank you for allowing us to help in meeting your health care needs. Sincerely, Dr. Cosme Interpreting Radiologist [facility] (Additional imaging) [facility]06-18-2024 Miscellaneous Notes* Letter - Coordinator, Mammography - 10/16/2023 12:24 PM EDT October 16, 2023 PID: [id number] Allison Boykin [address] [place] [address] Dear Ms. Boykin, Your recent breast imaging exam on 10/12/2023 showed a possible finding that requires additional imaging studies for a complete evaluation. Most such findings are probably benign (not cancer). Your mammogram demonstrates that you have dense breast tissue, which could hide abnormalities. Dense breast tissue, in and of itself, is a relatively common condition. Therefore, this information is not provided to cause undue concern; rather, it is to raise your awareness and promote discussion with your health care provider regarding the presence of dense breast tissue in addition to other riskfactors. If you have a healthcare provider who ordered/prescribed your screening mammogram: Please call [phone] or EXT: [phone] to schedule an appointment for your additional imaging (if youhave not already done so). If you DO NOT have a healthcare provider (ie you did not have an order/prescription for your screening mammogram): Please call to schedule an appointment for your additional imaging (if you have not already done so). You must have an order/prescription from your physician when calling to schedule your appointment. If your order/prescription is not electronic, you must bring the hard copy with you on the day of your exam to avoid delays. Your imaging studies and reports are kept on file at [facility] as part of your permanent medical record, and are available for your continuing care. Thank you for allowing us to help in meeting your health care needs. Sincerely, Dr. Cosme Interpreting Radiologist [facility] (Additional imaging) documented in this encounterParkview Health [facility]06-14-[facility]24 History of Present illness Narrative* Vernell Reardon Mammo Tech - 10/12/2023 8:30 AM EDT Radiology Service Progress Note PATIENT NAME: Allison Boykin DATE OF SERVICE: October 12, 2023 TIME: 8:48 AM PATIENT IDENTITY VERIFICATION COMPLETED USING TWO (2) IDENTIFIERS: Name and Date of confirmedby patient verbally. FALL SCREENING: Has the patient had 2 falls in the last year or 1 fall with injury or currently using an Ambulatory Assistive Device (Walker, Cane, Wheelchair, Crutches, etc.)? No PATIENT GENDER DATA: Female. status: : No status: NO. PATIENT RELEVANT IMPLANT DATA REVIEWED: Not Applicable PATIENT PRESENTS WITH AN IMPLANTABLE OR ATTACHED INSURANCE CLAIMS SPECIALIST: No RADIOLOGY DEPARTMENT: Mammography PERIPHERAL IV DATA: Not applicable SIGNED BY: Magdy Flannery October 12, 2023 8:48 AM documented in this encounterParkview Health [facility]04-22-2024 Instructions* Patient Instructions* Jaqui Berg APRN.CNP - 08/20/2023 9:24 AM EDT Get repeat fasting labs in 6 months prior to next visit Work on eating a low carb diet, increase protein, veggies, and get some form of exercise. Continue to take all medication as prescribed. Monitor blood pressure at home, goal 130/80 or less. Follow up in 6 months or sooner as needed. May look into Naturopathic Medicine to help with stress, Dr. Garza and Dr. George in [place]. documented in this encounterParkview Health [facility]04-[facility]24 History of Present illness Narrative* Jaqui Berg APRN.DUST CONTROL ENGINEER - 08/20/2023 9:20 AM EDT This is a 53 year old female who presents today with: Patient presents with: 6 Month Exam HISTORY OF PRESENT ILLNESS: Allison Boykin is a 53 year old female. Patient presents with: 6 Month Exam 6 month follow up Diabetes: Taking metformin ER 500 mg daily. Working on diet and exercise. A1C unchanged at 6.4. Hashad increased stress lately which has affected her diet. Eating more meals out. HTN: Taking propanolol 20 mg 3 times daily and HCTZ 12.5 mg. Has been checking BP at home, diastolic in the 90's. Denies chest pain, palpitations, or dizziness Anxiety: Taking BuSpar 5 mg as needed. Past several weeks has had increased stress at work. Having panic attacks daily but refers she just started using the buspar last week. Took 1 week off work which was helpful. Denies any increased sadness, or SI/HI. Chronic pain: Has had autoimmune work-up in the past which was negative. Will usually be bilateral such as shoulders, hips, knees. Refers that pain has improved. Dermatology: Following with Dr. Lynch, had autoimmune and thyroid work up, was normal. Has had somehairloss in the center of hairline. Using products from dermatology. Vaccines: Denies wanting any vaccines at this time. PAST MEDICAL HISTORY: PAST MEDICAL HISTORY Diagnosis Date Chronic low back pain with sciatica 09/18/2008 Diabetes (HCC) Diffuse cystic mastopathy 04/30/1999 Aspiration on left x2 Dysmetabolic syndrome 08/19/2013 Essential hypertension Hyperlipidemia Other and unspecified ovarian cyst Solitary cyst of breast 04/16/2007 PAST SURGICAL HISTORY Procedure Laterality Date DILATION & CURETTAGE DX&/THER NONOBSTETRIC 07/05 Dilation & curettage US FNA BREAST 04/16/07;2003 U/S FNA large outer mid left breast cyst ALLERGIES Vicodin [Hydrocodone-Acetaminophen] MEDICATIONS Current Outpatient Medications Medication Sig propranolol (INDERAL) 20 mg tablet Take 1 tablet by mouth three times daily. hydroCHLOROthiazide 12.5 mg capsule Take 1 capsule by mouth once daily. metFORMIN ER (GLUCOPHAGE XR) 500 mg 24 hr tablet Take 1 tablet by mouth daily with breakfast. pravastatin (PRAVACHOL) 20 mg tablet TAKE 1 TABLET BY MOUTH ONCE DAILY cholecalciferol, Vitamin D3, (VITAMIN D3) 1,250 mcg (50,000 unit) cap capsule Take 1 capsule by mouth one time a week. busPIRone (BUSPAR) 5 mg tablet Take 1 tablet by mouth three times daily as needed. ondansetron orally disintegrating (ZOFRAN ODT) 4 mg disintegrating tablet Take 1 tablet by mouth every 6 hours as needed for Nausea/Vomiting. (Patient not taking: Reported on 09/29/2022) diclofenac sodium (VOLTAREN) 1 % topical gel Apply 2 g to affected area as directed. 2-4 time daily No current facility-administered medications for this visit. FAMILY HISTORY Problem Relation Age of Onset Cancer Mother PANCREATIC, 48 Prostate Cancer Father No Known Problems Brother Breast Cancer Paternal Grandmother 67 Prostate Cancer Paternal Grandfather Social History Tobacco Use Smoking status: Former Packs/day: 0.50 Years: 20.00 Additional pack years: 0.00 Total pack years: 10.00 Types: Cigarettes Smokeless tobacco: Former Quit date: 11/21/2013 Vaping Use Vaping Use: Never used Substance Use Topics Alcohol use: Yes Comment: socially, 2x/year Drug use: No REVIEW OF SYSTEMS GENERAL: No weight loss, malaise or fevers/chills HEENT: Negative for frequent or significant headaches, No changes in hearing or vision. NECK: Negative for lumps, goiter, pain and significant neck swelling RESPIRATORY: Negative for cough, hemoptysis, wheezing, dyspnea or shortness of breath CARDIOVASCULAR: Negative for chest pain, leg swelling, orthopnea, or palpitations GI: No nausea, vomiting, or diarrhea/constipation. No hematochezia/melena. No heartburn or reflux symptoms. : No history of dysuria, frequency or incontinence MUSCULOSKELETAL: Negative for joint pain or swelling. SKIN: Negative for lesions, rash, and itching ENDOCRINE: Negative for cold or heat intolerance, polyuria, polydipsia and goiter NEURO: No history of headaches, syncope, paralysis, seizures or tremors MOOD: + Anxiety EXAM: BP 150/94 Pulse 64 Resp 16 Wt 119.7 kg (264 lb) LMP 06/02/2019 SpO2 97% BMI 43.93 kg/m BP 140/80 Pulse 64 Resp 16 Wt 119.7 kg (264 lb) LMP 06/02/2019 SpO2 97% BMI 43.93 kg/m PHYSICAL EXAM: General Appearance: Well appearing, alert, in no acute distress, well-hydrated, well nourished. Skin: Skin color, texture, turgor normal, no suspicious rashes or lesions. Head: Normocephalic, no masses, lesions, tenderness or abnormalities. Eyes: Anicteric sclera. Extraocular movements are intact. Lungs: Lungs clear to auscultation. No wheezing, rhonchi, rales. Heart: RRR without murmur, gallop, or rubs. No ectopy. Extremities: No deformities, edema, skin discoloration, clubbing or cyanosis. Good capillary refill. Peripheral Pulses: Normal, Capillary refill <2secs, strong peripheral pulses, Pulses palpable. Neurologic: Gait normal. Sensation grossly intact. Latest Ref Rng 08/14/2023 Protein, Total 6.3 - 8.0 g/dL 7.5 Albumin 3.9 - 4.9 g/dL 4.4 Calcium 8.5 - 10.2 mg/dL 9.9 Bilirubin, Total 0.2 - 1.3 mg/dL 0.4 Alkaline Phosphatase 34 - 123 U/L 81 AST 13 - 35 U/L 16 ALT 7 - 38 U/L 20 Glucose 74 - 99 mg/dL 144 (H) BUN 7 - 21 mg/dL 14 Creatinine 0.58 - 0.96 mg/dL 0.80 Sodium 136 - 144 mmol/L 137 Potassium 3.7 - 5.1 mmol/L 3.8 Chloride 97 - 105 mmol/L 101 CO2 22 - 30 mmol/L 26 Anion Gap 9 - 18 mmol/L 10 eGFR >=60 mL/min/1.73m 88 Cholesterol, Total <200 mg/dL 183 Triglyceride <150 mg/dL 249 (H) HDL Cholesterol >39 mg/dL 53 Non HDL Cholesterol <130 mg/dL 130 (H) Fasting Time hrs 12 VLDL Cholesterol <30 mg/dL 50 (H) TC:HDL Ratio <5.10 3.45 LDL Cholesterol <100 mg/dL 80 LDL:HDL Ratio <2.54 1.51 Hemoglobin A1C 4.3 - 5.6 % 6.4 (H) Estimated Average Glucose mg/dL 137 Legend: (H) High ASSESSMENT/PLAN: 1. Controlled type 2 diabetes mellitus without complication, without long-term current use of insulin (HCC) - ICD9: 250.00, ICD10: E11.9 (primary diagnosis) - Controlled - Continue current medications - Counseled on healthy diet and regular exercise - Discussed need for and benefit of weight loss. BMI 43.93 kg/(m^2) - Get repeat labs in 6 months prior to next OV. - Discussed adding on GLP1 to help with glucose and weight loss. Will consider it. Discuss at next follow up. - METFORMIN ER 500 MG TABLET,EXTENDED RELEASE 24 HR - COMPREHENSIVE METABOLIC PANEL - HEMOGLOBIN A1C 2. Hypertension, essential - ICD9: 401.9, ICD10: I10 - Uncontrolled - Continue current medications - Recommend home blood pressure monitoring, to bring results to next visit - Encouraged sodium restriction, DASH or Mediterranean diet - Recommend regular aerobic exercise - Discussed need for and benefit of weight loss. BMI 43.93 kg/(m^2) - Instructed to message the office if BP is higher than 130/80. - PROPRANOLOL 20 MG TABLET - HYDROCHLOROTHIAZIDE 12.5 MG CAPSULE 3. Generalized anxiety disorder with panic attacks - ICD9: 300.02, 300.01, ICD10: F41.1, F41.0 - Denied wanting to start an SSRI - Continue with Buspar - Incorporate relaxing/stress relieving activities. - BUSPIRONE 5 MG TABLET 4. Chronic pain syndrome - ICD9: 338.4, ICD10: G89.4 - Stable 5. Mixed hyperlipidemia - ICD9: 272.2, ICD10: E78.2 - Worsening control - Continue current medications - Counseled on healthy diet and regular exercise - Discussed need for and benefit of weight loss. BMI 43.93 kg/(m^2) - PRAVASTATIN 20 MG TABLET - LIPID PANEL BASIC Follow up in 6 months or sooner as needed. Discussed treatment plan and patient voices understanding. Patient's questions answered appropriately. Medications and potential side effects were discussed and patient voices understanding. Jaqui Berg APRN.AARON This note was partially generated using ralali voice recognition system. Note was reviewed for accuracy. There may be minor misspellings or grammar miscues with ralali voice recognition. documented in this encounterPark[facility]04-[facility] Miscellaneous Notes* Telephone Encounter - Bridget Padron MA - 07/30/2023 10:43 AM EDT Pt notified that she has fasting labs orders in to complete. Bridget Padron MA documented in this encounterParkview Health [facility]12-11-2023 Miscellaneous Notes* Telephone Encounter - Meaghan Dominique Ma - 04/09/2023 12:39 PM EST Offered pt appt at 7:20 PM tonight with PCP for VV or he can go to . Awaiting pt response. Meaghan Dominique Ma documented in this encounterParkview Health [facility]09-15-2023 Instructions* Patient Instructions* Jaqui Berg APRN.DUST CONTROL ENGINEER - 01/12/2023 1:58 PM EDT Schedule appointment with rheumatology Work on areas where sugar intake can be minimized Work on increasing physical activity, finding low impact options (IE: Slow flow yoga / restorative yoga / yin yoga) Get labs in 3 months Do Cologuard test when it comes Follow up in 6 months or sooner as needed *An anti-inflammatory diet includes: A) Eliminating meat, dairy products, butter, and even margarine because of their pro-inflammatory fats (saturated, trans, and partially hydrogenated vegetable oils). Most processed foods are also high in these fats. Protein sources should be fish, nuts, seeds, and beans. B) Increase sources of Deale-3 fatty acids in the diet, which include cold water fish (salmon, savage, sardines, tuna, and bluefish); fish oil supplements 4,000-6,000 milligrams per day (must be refrigerated). Note: recent reports regarding contaminants in farm-raised fish are concerning. These should be avoided. Mercury has been a concern for [place] and ocean fish. Savage, sardines, and canned chunk light tuna are very low in mercury. Alaskan salmon (fresh or canned) is also safe. Tuna steaks, halibut, and mackerel have been shown to have elevated mercury levels. C) Increasing fruits and vegetables to 8-10 servings per day. These are rich in antioxidants, whichare anti-inflammatory. Spices, such as turmeric, giovani, fern, and basil, as well as tea (greenand black) have anti-inflammatory effects. documented in this encounterParkview Health [facility]09-15-2023 History of Present illness Narrative* Jaqui Berg APRN.AARON - 01/12/2023 1:40 PM EDT This is a 52 year old female who presents today with: Patient presents with: Follow Up: 3 month follow up HISTORY OF PRESENT ILLNESS: Allison Boykin is a 52 year old female. Patient presents with: Follow Up: 3 month follow up 3 month follow up. Diabetes: Taking metformin ER 500 mg daily. Working on diet and exercise. A1C 6.2 to 6.4. Refers that she drinks sugary drinks such as ice coffee and pop. Tries to watch diet, eating lots of green leafy vegetables. HTN: Taking propanolol 30 mg daily and HCTZ 12.5 mg. Has been checking at home, running slightly high at home. Will continue to monitor for now, will update with readings. Denies chest pain, palpitations, or dizziness Anxiety: Taking BuSpar 5 mg as needed. Denies any increased sadness, anxiety, or SI/HI. Chronic pain: Has had autoimmune work-up in the past which was negative. Had an episode last week, labs were repeated, all normal except Sed Rate mildly elevated. Currently taking meloxicam. Pain hasimproved. Has had increased stress at work, has noticed more flareups with chronic pain. Will usually be bilateral such as shoulders, hips, knees. Pain may last 3 days and then resolve on its own. Dermatology: Following with Dr. Lynch, had autoimmune and thyroid work up, was normal. Has had somehairloss in the center of [place]. Using products from dermatology. Vaccines: Denies wanting any vaccines at this time. PAST MEDICAL HISTORY: PAST MEDICAL HISTORY Diagnosis Date Chronic low back pain with sciatica 09/18/2008 Diabetes (HCC) Diffuse cystic mastopathy 04/30/1999 Aspiration on left x2 Dysmetabolic syndrome 08/19/2013 Essential hypertension Hyperlipidemia Other and unspecified ovarian cyst Solitary cyst of breast 04/16/2007 PAST SURGICAL HISTORY Procedure Laterality Date DILATION & CURETTAGE DX&/THER NONOBSTETRIC 07/05 Dilation & curettage US FNA BREAST 04/16/07;2003 U/S FNA large outer mid left breast cyst ALLERGIES Vicodin [Hydrocodone-Acetaminophen] MEDICATIONS Current Outpatient Medications Medication Sig propranolol (INDERAL) 20 mg tablet Take 1 tablet by mouth three times daily. hydroCHLOROthiazide 12.5 mg capsule Take 1 capsule by mouth once daily. metFORMIN ER (GLUCOPHAGE XR) 500 mg 24 hr tablet Take 1 tablet by mouth daily with breakfast. pravastatin (PRAVACHOL) 20 mg tablet TAKE 1 TABLET BY MOUTH ONCE DAILY cholecalciferol, Vitamin D3, (VITAMIN D3) 1,250 mcg (50,000 unit) cap capsule Take 1 capsule by mouth one time a week. busPIRone (BUSPAR) 5 mg tablet Take 1 tablet by mouth three times daily as needed. ondansetron orally disintegrating (ZOFRAN ODT) 4 mg disintegrating tablet Take 1 tablet by mouth every 6 hours as needed for Nausea/Vomiting. (Patient not taking: Reported on 09/29/2022) diclofenac sodium (VOLTAREN) 1 % topical gel Apply 2 g to affected area as directed. 2-4 time daily No current facility-administered medications for this visit. FAMILY HISTORY Problem Relation Age of Onset Cancer Mother PANCREATIC, 48 Prostate Cancer Father No Known Problems Brother Breast Cancer Paternal Grandmother 67 Prostate Cancer Paternal Grandfather Social History Tobacco Use Smoking status: Former Packs/day: 0.50 Years: 20.00 Additional pack years: 0.00 Total pack years: 10.00 Types: Cigarettes Smokeless tobacco: Former Quit date: 11/21/2013 Vaping Use Vaping Use: Never used Substance Use Topics Alcohol use: Yes Comment: socially, 2x/year Drug use: No REVIEW OF SYSTEMS GENERAL: No weight loss, malaise or fevers/chills HEENT: Negative for frequent or significant headaches, No changes in hearing or vision. NECK: Negative for lumps, goiter, pain and significant neck swelling RESPIRATORY: Negative for cough, hemoptysis, wheezing, dyspnea or shortness of breath CARDIOVASCULAR: Negative for chest pain, leg swelling, orthopnea, or palpitations GI: No nausea, vomiting, or diarrhea/constipation. No hematochezia/melena. No heartburn or reflux symptoms. : No history of dysuria, frequency or incontinence MUSCULOSKELETAL: Negative for joint pain or swelling. SKIN: Negative for lesions, rash, and itching ENDOCRINE: Negative for cold or heat intolerance, polyuria, polydipsia and goiter NEURO: No history of headaches, syncope, paralysis, seizures or tremors MOOD: Negative for depression, anxiety, or suicidal ideation. EXAM: BP 150/98 Pulse 79 Resp 16 Wt 119.3 kg (263 lb) LMP 06/02/2019 SpO2 95% BMI 43.77 kg/m PHYSICAL EXAM: General Appearance: Well appearing, alert, in no acute distress, well-hydrated, well nourished. Skin: Skin color, texture, turgor normal, no suspicious rashes or lesions. Head: Normocephalic, no masses, lesions, tenderness or abnormalities. Eyes: Anicteric sclera. Extraocular movements are intact. Lungs: Lungs clear to auscultation. No wheezing, rhonchi, rales. Heart: RRR without murmur, gallop, or rubs. No ectopy. Extremities: No deformities, edema, skin discoloration, clubbing or cyanosis. Good capillary refill. Musculoskeletal: Bilateral joint pain/myalgias Peripheral Pulses: Normal, Capillary refill <2secs, strong peripheral pulses, Pulses palpable. Neurologic: Gait normal. Sensation grossly intact. Component Latest Ref Rng & Units 01/04/2023 WBC 3.70 - 11.00 k/uL 6.95 RBC 3.90 - 5.20 m/uL 4.44 Hemoglobin 11.5 - 15.5 g/dL 12.6 Hematocrit 36.0 - 46.0 % 37.5 MCV 80.0 - 100.0 fL 84.5 MCH 26.0 - 34.0 pg 28.4 MCHC 30.5 - 36.0 g/dL 33.6 RDW-CV 11.5 - 15.0 % 12.8 Platelet Count 150 - 400 k/uL 184 MPV 9.0 - 12.7 fL 11.8 Neut% % 58.8 Abs Neut (ANC) 1.45 - 7.50 k/uL 4.08 Lymph% % 30.6 Abs Lymph 1.00 - 4.00 k/uL 2.13 Essex% % 7.8 Abs [place] <0.87 k/uL 0.54 Eosin% % 2.3 Abs Eosin <0.46 k/uL 0.16 Baso% % 0.4 Abs Baso <0.11 k/uL 0.03 Immature Gran % % 0.1 IMMATURE GRANS (ABS) <0.10 k/uL <0.03 NRBC /100 WBC 0.0 Absolute nRBC <0.01 k/uL <0.01 DTYPE Auto Protein, Total 6.3 - 8.0 g/dL Albumin 3.9 - 4.9 g/dL Calcium 8.5 - 10.2 mg/dL Bilirubin, Total 0.2 - 1.3 mg/dL Alkaline Phosphatase 34 - 123 U/L AST 13 - 35 U/L ALT 7 - 38 U/L Glucose 74 - 99 mg/dL BUN 7 - 21 mg/dL Creatinine 0.58 - 0.96 mg/dL Sodium 136 - 144 mmol/L Potassium 3.7 - 5.1 mmol/L Chloride 97 - 105 mmol/L CO2 22 - 30 mmol/L Anion Gap 9 - 18 mmol/L eGFR >=60 mL/min/1.73m Hemoglobin A1C 4.3 - 5.6 % Estimated Average Glucose mg/dL TYLER Scr Qual Negative Negative WSR 0 - 20 mm/hr 22 (H) CRP <0.9 mg/dL 0.7 Rheumatoid Factor <16 IU/mL <10 Vitamin D 25 Hydroxy 31.0 - 80.0 ng/mL 60.5 Vitamin B12 232 - 1,245 pg/mL 734 Folate >4.7 ng/mL >20.0 Magnesium 1.7 - 2.3 mg/dL 2.2 TSH 0.270 - 4.200 mIU/L 1.630 ASSESSMENT/PLAN: 1. Hypertension, essential - ICD9: 401.9, ICD10: I10 (primary diagnosis) - Worsening control - Continue current medications - Recommend home blood pressure monitoring, to bring results to next visit - Encouraged sodium restriction, DASH or Mediterranean diet - Recommend regular aerobic exercise - Discussed need for and benefit of weight loss. BMI 43.77 kg/(m^2) - Message the office with BP readings. 2. Controlled type 2 diabetes mellitus without complication, without long-term current use of insulin (HCC) - ICD9: 250.00, ICD10: E11.9 - Worsening control - Continue current medications - Counseled on healthy diet and regular exercise - Discussed need for and benefit of weight loss. BMI 43.77 kg/(m^2) - Recommend decreasing sugary drinks in the diet. - Get repeat labs in 3 months. - HGB A1C - COMP METABOLIC PANEL 3. Generalized anxiety disorder with panic attacks - ICD9: 300.02, 300.01, ICD10: F41.1, F41.0 - Stable, continue take medication as prescribed. 4. Chronic pain syndrome - ICD9: 338.4, ICD10: G89.4 - Mild elevated sed rate, patient requesting evaluation from rheumatology. - Discussed possible causes such as fibromyalgia. - CONSULT TO RHEUM/IMMUN DISEASE 5. Elevated sed rate - ICD9: 790.1, ICD10: R70.0 - Same plan as #4. 6. Vitamin D deficiency - ICD9: 268.9, ICD10: E55.9 - Continue to take OTC medication. 7. Screening for colon cancer - ICD9: V76.51, ICD10: Z12.11 - COLOGUARD Follow up in 6 months or sooner pending test results. Discussed treatment plan and patient voices understanding. Patient's questions answered appropriately. Medications and potential side effects were discussed and patient voices understanding. Jaqui Berg APRN.CNP This note was partially generated using ralali voice recognition system. Note was reviewed for accuracy. There may be minor misspellings or grammar miscues with ralali voice recognition. documented in this encounterPark[facility] Instructions* Patient Instructions* Jaqui Berg APRN.CNP - 09/29/2022 10:21 AM EDT Get labs completed Tdap booster provided. Continue to take all medication as prescribed. Work on eating a healthy diet, increase protein, veggies, and stay active. Continue to monitor blood pressure at home. Follow up in 6 months or sooner as needed. Keep scheduled appointments with dermatology. documented in this encounterPark[facility]06-[facility] History of Present illness Narrative* Jaqui Berg APRN.CNP - 09/29/2022 10:00 AM EDT This is a 52 year old female who presents today with: Patient presents with: Follow Up: 6 month follow up HISTORY OF PRESENT ILLNESS: Allison Boykin is a 52 year old female. Patient presents with: Follow Up: 6 month follow up The office for 6-month follow-up. Diabetes: Taking metformin ER 500 mg daily. Working on diet and exercise. Last A1C 6.2. HTN: Taking propanolol 30 mg daily and HCTZ 12.5 mg. Not currently checking blood pressure at home.Denies chest pain, palpitations, or dizziness Anxiety: Taking BuSpar 5 mg as needed. Denies any increased sadness, anxiety, or SI/HI. Chronic pain: Has had autoimmune work-up in the past which was negative. Currently taking meloxicam. Pain has improved. Dermatology: Following with Dr. Lynch, had autoimmune and thyroid work up, was normal. Has had somehairloss in the center of [place]. Using products from dermatology. Vaccines: Denies wanting Colonoscopy: Completed cologuard PAST MEDICAL HISTORY: PAST MEDICAL HISTORY Diagnosis Date Chronic low back pain with sciatica 09/18/2008 Diabetes (HCC) Diffuse cystic mastopathy 04/30/1999 Aspiration on left x2 Dysmetabolic syndrome 08/19/2013 Essential hypertension Hyperlipidemia Other and unspecified ovarian cyst Solitary cyst of breast 04/16/2007 PAST SURGICAL HISTORY Procedure Laterality Date DILATION & CURETTAGE DX&/THER NONOBSTETRIC 07/05 Dilation & curettage US FNA BREAST 04/16/07;2003 U/S FNA large outer mid left breast cyst ALLERGIES Vicodin [Hydrocodone-Acetaminophen] MEDICATIONS Current Outpatient Medications Medication Sig propranolol (INDERAL) 20 mg tablet Take 1 tablet by mouth three times daily. hydroCHLOROthiazide 12.5 mg capsule Take 1 capsule by mouth once daily. metFORMIN ER (GLUCOPHAGE XR) 500 mg 24 hr tablet Take 1 tablet by mouth daily with breakfast. pravastatin (PRAVACHOL) 20 mg tablet TAKE 1 TABLET BY MOUTH ONCE DAILY cholecalciferol, Vitamin D3, (VITAMIN D3) 1,250 mcg (50,000 unit) cap capsule Take 1 capsule by mouth one time a week. busPIRone (BUSPAR) 5 mg tablet Take 1 tablet by mouth three times daily as needed. ondansetron orally disintegrating (ZOFRAN ODT) 4 mg disintegrating tablet Take 1 tablet by mouth every 6 hours as needed for Nausea/Vomiting. diclofenac sodium (VOLTAREN) 1 % topical gel Apply 2 g to affected area as directed. 2-4 time daily No current facility-administered medications for this visit. FAMILY HISTORY Problem Relation Age of Onset Cancer Mother PANCREATIC, 48 Prostate Cancer Father No Known Problems Brother Breast Cancer Paternal Grandmother 67 Prostate Cancer Paternal Grandfather Social History Tobacco Use Smoking status: Former Packs/day: 0.50 Years: 20.00 Pack years: 10.00 Types: Cigarettes Smokeless tobacco: Former Quit date: 11/21/2013 Vaping Use Vaping Use: Never used Substance Use Topics Alcohol use: Yes Comment: socially, 2x/year Drug use: No REVIEW OF SYSTEMS GENERAL: No weight loss, malaise or fevers/chills HEENT: Negative for frequent or significant headaches, No changes in hearing or vision. NECK: Negative for lumps, goiter, pain and significant neck swelling RESPIRATORY: Negative for cough, hemoptysis, wheezing, dyspnea or shortness of breath CARDIOVASCULAR: Negative for chest pain, leg swelling, orthopnea, or palpitations GI: No nausea, vomiting, or diarrhea/constipation. No hematochezia/melena. No heartburn or reflux symptoms. : No history of dysuria, frequency or incontinence MUSCULOSKELETAL: Negative for joint pain or swelling. SKIN: Negative for lesions, rash, and itching ENDOCRINE: Negative for cold or heat intolerance, polyuria, polydipsia and goiter NEURO: No history of headaches, syncope, paralysis, seizures or tremors MOOD: Negative for depression, anxiety, or suicidal ideation. EXAM: BP 150/106 Pulse 77 Resp 16 Wt 117.5 kg (259 lb) LMP 06/02/2019 SpO2 94% BMI 43.10 kg/m BP 140/88 Pulse 77 Resp 16 Wt 117.5 kg (259 lb) LMP 06/02/2019 SpO2 94% BMI 43.10 kg/m PHYSICAL EXAM: General Appearance: Well appearing, alert, in no acute distress, well-hydrated, well nourished. Skin: Skin color, texture, turgor normal, no suspicious rashes or lesions. Head: Normocephalic, no masses, lesions, tenderness or abnormalities. Eyes: Anicteric sclera. Extraocular movements are intact. Lungs: Lungs clear to auscultation. No wheezing, rhonchi, rales. Heart: RRR without murmur, gallop, or rubs. No ectopy. Extremities: No deformities, edema, skin discoloration, clubbing or cyanosis. Good capillary refill. Peripheral Pulses: Normal, Capillary refill <2secs, strong peripheral pulses, Pulses palpable. Neurologic: Gait normal. Sensation grossly intact. ASSESSMENT/PLAN: 1. Hypertension, essential - ICD9: 401.9, ICD10: I10 (primary diagnosis) - Continue current medications - Encouraged sodium restriction, DASH or Mediterranean diet - Recommend regular aerobic exercise - Discussed need for and benefit of weight loss. BMI 43.10 kg/(m^2) 2. Controlled type 2 diabetes mellitus without complication, without long-term current use of insulin (HCC) - ICD9: 250.00, ICD10: E11.9 - Controlled - Continue current medications - Get repeat labs - Discussed possible GLP in the future if A1C is elevated to help with glucose and weight loss. - COMP METABOLIC PANEL - HGB A1C 3. Generalized anxiety disorder with panic attacks - ICD9: 300.02, 300.01, ICD10: F41.1, F41.0 - Continue to use Buspar as needed 4. Myalgia - ICD9: 729.1, ICD10: M79.10 - Stable 5. Hair loss - ICD9: 704.00, ICD10: L65.9 - Continue to use products from dermatology. - Keep scheduled appointments with specialist. 6. Encounter for immunization - ICD9: V03.89, ICD10: Z23 - VIS provided. - TDAP VACCINE, AGE 7+ YR (ADACEL, BOOSTRIX) Follow-up in 6 months or sooner pending test results. Discussed treatment plan and patient voices understanding. Patient's questions answered appropriately. Medications and potential side effects were discussed and patient voices understanding. Jaqui Berg APRN.DUST CONTROL ENGINEER This note was partially generated using WorldPassKey recognition system. Note was reviewed for accuracy. There may be minor misspellings or grammar miscues with Dragon voice recognition. documented in this [facility]05-10[facility] Miscellaneous Notes* Telephone Encounter - Ashish Cook APRN.CNP - 09/06/2022 10:32 AM EDT The following approved medication requests have been transmitted electronically. Requested Prescriptions Pending Prescriptions Disp Refills propranolol (INDERAL) 20 mg tablet 90 tablet 11 Sig: Take 1 tablet by mouth three times daily. hydroCHLOROthiazide 12.5 mg capsule 90 capsule 3 Sig: Take 1 capsule by mouth once daily. Ashish Cook APRN.CNP * Telephone Encounter - Misty Costa MA - 09/06/2022 10:20 AM EDT Patient has been identified by name and date of : Yes Requested Prescriptions Pending Prescriptions Disp Refills propranolol (INDERAL) 20 mg tablet 90 tablet 11 Sig: Take 1 tablet by mouth three times daily. hydroCHLOROthiazide 12.5 mg capsule 90 capsule 3 Sig: Take 1 capsule by mouth once daily. RX INSTRUCTIONS: Patient aware RX will be sent to pharmacy. No need to notify patient. Patient last office visit: 03/31/22 Patient next office visit: 09/29/22 Misty Costa MA documented in this [facility]05-01-2023 Miscellaneous Notes* Telephone Encounter - Ashsih Cook APRN.CNP - 08/28/2022 12:11 PM EDT The following approved medication requests have been transmitted electronically. Requested Prescriptions Pending Prescriptions Disp Refills metFORMIN ER (GLUCOPHAGE XR) 500 mg 24 hr tablet 90 tablet 3 Sig: Take 1 tablet by mouth daily with breakfast. Ashish Cook APRN.CNP * Telephone Encounter - Misty Costa MA - 08/28/2022 11:18 AM EDT Patient has been identified by name and date of : Yes Requested Prescriptions Pending Prescriptions Disp Refills metFORMIN ER (GLUCOPHAGE XR) 500 mg 24 hr tablet 90 tablet 1 Sig: Take 1 tablet by mouth daily with breakfast. RX INSTRUCTIONS: Patient aware RX will be sent to pharmacy. No need to notify patient. Patient last office visit: 03/31/22 Patient next office visit: 09/29/22 Misty Costa MA documented in this [facility]Park[facility] Miscellaneous Notes* Telephone Encounter - Donn Choe MD - 08/12/2022 8:55 AM EDT OK to refill as ordered Donn Choe MD * Telephone Encounter - Edilma Hirsch LPN - 08/12/2022 8:35 AM EDT Patient phones requesting refills as follows: Requested Prescriptions Pending Prescriptions Disp Refills pravastatin (PRAVACHOL) 20 mg tablet [Pharmacy Med Name: Pravastatin Sodium 20 MG Oral Tablet] 90 tablet 3 Sig: TAKE 1 TABLET BY MOUTH ONCE DAILY BETTINA-03/31/22 Labs-07/14/22 NOV-09/29/22 med filled 07/25/21 Please review and advise. Edilma Hirsch LPN documented in this encounterPark[facility]03-17-[facility]23 History of Present illness Narrative* Diana Ballard APRN.DUST CONTROL ENGINEER - 07/14/2022 8:20 AM EDT [employer] Veterinarian offered: Patient declinesColleen Lay is a 51 year old who presents for an annual gynecologic exam without complaints. Postmenopausal: Yes since age 48 HRT use: No. Last Pap: 05/22/2016 normal HPV: 05/18/2016 negative History of abnormal pap: No Last mammogram: 2022 normal History of abnormal mammogram: Yes , fibrocystic breasts Sexually active: Yes History of STDS: None Patient concerns for STD exposure: No. 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 LMP: 10/24/2017, Perimenopausal Age at Menarche: Age at First : Age at Menopause: Warehouse Handler History Comments: Sexual Activity: Yes; Male Contraception: Condom PAST MEDICAL HISTORY Diagnosis Date Chronic low back pain with sciatica 09/18/2008 Diabetes (HCC) Diffuse cystic mastopathy 2000 Aspiration on left x2 Dysmetabolic syndrome 08/19/2013 Hyperlipidemia Other and unspecified ovarian cyst Solitary cyst of breast 04/16/2007 PAST SURGICAL HISTORY Procedure Laterality Date DILATION & CURETTAGE DX&/THER NONOBSTETRIC 07/05 Dilation & curettage US FNA BREAST 04/16/07;2003 U/S FNA large outer mid left breast cyst FAMILY HISTORY Problem Relation Age of Onset Cancer Mother PANCREATIC, 48 Prostate Cancer Father Breast Cancer Paternal Grandmother 67 Prostate Cancer Paternal Grandfather SOCIAL HISTORY Social History Tobacco Use Smoking status: Former Packs/day: 0.50 Years: 20.00 Pack years: 10.00 Types: Cigarettes Smokeless tobacco: Former Quit date: 11/21/2013 Substance Use Topics Alcohol use: Yes Comment: socially, 2x/year Drug use: No REVIEW OF SYSTEMS Abdomen: No abdominal pain, nausea, vomiting, diarrhea, or constipation. No bloating, early satiety, indigestion, or increased flatulence. Bladder: No dysuria, gross hematuria, urinary frequency, urinary urgency, + stress incontinence Breast: No breast lumps, nipple d/c, overlying skin changes, redness or skin retraction Allergies and current medication updated:Yes EXAM: BP 138/92 Ht 5' 5 (1.65m) Wt 257 lb (116.6kg) LMP 06/02/2019 BMI 42.77 kg/(m^2). GENERAL: pleasant, female in no apparent distress HEENT: Normocephalic, atraumatic, mucus membranes moist, and no lesions NECK: Supple, full range of motion, no adenopathy, and thyroid normal DERMATOLOGY: Normal, without lesions, non-icteric, and non-hirsute BREAST: soft, non-tender, symmetric, no dominant mass, normal nipple-areolar complex, no lymphadenopathy, and no nipple discharge CHEST: Normal inspiratory effort ABDOMEN: soft, non-tender, and no masses PELVIC: external genitalia normal, normal Bartholin's glands, urethra, Taft's glands, no vulvar lesions, no cervical lesions, physiologic discharge present, normal appearing perineal body and perianal region BIMANUAL: uterus normal size, shape and consistency, no adnexal masses, and non-tender RECTOVAGINAL: deferred. NEURO: alert and oriented x3,exam grossly non-focal EXTREMITIES: normal ASSESSMENT/PLAN: 1) Health maintenance: Pap done with HPV. Mammogram ordered Mammogram up to date Nutrition, exercise and routine health maintenance exams reviewed. Calcium/Vitamin D supplementation information provided. Colon cancer screening: up to date with screening 2. Class 3 severe obesity with serious comorbidity and body mass index (BMI) of 40.0 to 44.9 in adult, unspecified obesity type (HCC) - ICD9: 278.01, V85.41, ICD10: E66.01, Z68.41 - [facility] 3) Follow up one year or sooner as needed Diana Ballard APRN.DUST CONTROL ENGINEER documented in this encounterPark[facility]02-[facility] Miscellaneous Notes* Letter - Mammography Coordinator - 06/05/2022 10:24 AM EST June 07, 2022 PID: [id number] Allison Boykin [address] [place] [address] Dear Ms. Boykin, We are pleased to inform you that the results of your recent breast imaging exam on 06/05/2022 are normal. Your mammogram demonstrates that you have dense breast tissue, which could hide abnormalities. Dense breast tissue, in and of itself, is a relatively common condition. Therefore, this information is not provided to cause undue concern; rather, it is to raise your awareness and promote discussion with your health care provider regarding the presence of dense breast tissue in addition to other riskfactors. Early detection of cancer is very important. We also understand recommendations regarding breast cancer screening are controversial. Please discuss with your primary care provider which strategy is best for you and whether a mammogram is right for you. Your imaging studies and report will be kept on [facility] as part of your permanent medical record and are available for your continuing care. Thank you for allowing us to help in meeting your health care needs. Sincerely, Dr. Garcia Interpreting Radiologist [facility] (Normal over 40) documented in this encounterParkview [facility]02-06-2023 History of Present illness Narrative* Loreto Leavitt Mammo Tech - 06/05/2022 8:10 AM EST Radiology Service Progress Note PATIENT NAME: Allison Boykin DATE OF SERVICE: June 05, 2022 TIME: 8:09 AM PATIENT IDENTITY VERIFICATION COMPLETED USING TWO (2) IDENTIFIERS: Name and Date of confirmedby patient verbally. FALL SCREENING: Has the patient had 2 falls in the last year or 1 fall with injury or currently using an Ambulatory Assistive Device (Walker, Cane, Wheelchair, Crutches, etc.)? No PATIENT GENDER DATA: Female. status: : No status: NO. PATIENT RELEVANT IMPLANT DATA REVIEWED: Not Applicable RADIOLOGY DEPARTMENT: Mammography PERIPHERAL IV DATA: Not applicable SIGNED BY: Magdy Self June 05, 2022 8:09 AM documented in this encounterPark[facility]12-02-2022 Instructions* Patient Instructions* Jaqui Berg APRN.AARON - 03/31/2022 11:59 AM EST Start Vit D 50,000 international unit(s) weekly Recommend adding on a multivitamin with calcium Start Metformin XR 500 mg I tablet daily with food. Get labs repeated any time on or after June 29 Work on eating low carb diet, increase protein, veggies, and getting exercise. Follow up in 6 months or sooner as needed. May call office if you have flare up of pain, I can place repeat autoimmune labs if needed. documented in this encounterPark[facility]12-02-[facility]22 History of Present illness Narrative* Jaqui Berg APRN.AARON - 03/31/2022 10:40 AM EST This is a 51 year old female who presents today with: Patient presents with: Follow Up: BP and meds HISTORY OF PRESENT ILLNESS: Allison Boykin is a 51 year old female. Patient presents with: Follow Up: BP and meds Here in the office for 6-month follow-up. DM: Currently not taking any medication at this time. A1C 6.1. Has been working on eating better but refers struggles at times. Working on meal planning. HTN: Taking Propranolol 30 mg 3 times daily. Refers at times was forgetting last dose, started taking 1.5 tablet twice daily. Checking BP at home, 120-130's/80. Denies chest pain, palpitations, dizziness, or edema, Lipids: Taking Pravachol 20 mg. Working on diet. Anxiety: Taking Buspar 5 mg prn. Works well when needed. Chronic Pain: Taking Meloxicam prn. Recent lab work completed to rule out any autoimmune causes. All labs are within normal limits. Refers that she still has had episodes where she had pain shoulders/neck/upper arms, thighs. Pain is burning ache pain that is constant, lasting days to 1 week and resolves on own. Refers she has had this pain since her 20's. Vit D: Just starting Vit D3 50,000 international unit(s) once weekly. Recent labs show deficiency. Menes: Over 1 year without menses. Due for Pap. Mammogram: Due for mammogram, completed every 6 momnths. Refers she has had breast cysts drained previously. PAST MEDICAL HISTORY: PAST MEDICAL HISTORY Diagnosis Date Chronic low back pain with sciatica 09/18/2008 Diabetes (HCC) Diffuse cystic mastopathy 2000 Aspiration on left x2 Dysmetabolic syndrome 08/19/2013 Hyperlipidemia Other and unspecified ovarian cyst Solitary cyst of breast 04/16/2007 PAST SURGICAL HISTORY Procedure Laterality Date DILATION & CURETTAGE DX&/THER NONOBSTETRIC 3/08 Dilation & curettage US FNA BREAST 04/16/07;2003 U/S FNA large outer mid left breast cyst ALLERGIES Vicodin [Hydrocodone-Acetaminophen] MEDICATIONS Current Outpatient Medications Medication Sig cholecalciferol, Vitamin D3, (VITAMIN D3) 1,250 mcg (50,000 unit) cap capsule Take 1 capsule by mouth one time a week. hydroCHLOROthiazide (HYDRODIURIL, ESIDRIX) 12.5 mg capsule Take 1 capsule by mouth once daily. propranolol (INDERAL) 20 mg tablet TAKE 1 TABLET BY MOUTH 3 TIMES DAILY pravastatin (PRAVACHOL) 20 mg tablet Take 1 tablet by mouth once daily. busPIRone (BUSPAR) 5 mg tablet Take 1 tablet by mouth three times daily as needed. meloxicam (MOBIC) 15 mg tablet Take 1 tablet by mouth once daily. With food. cyclobenzaprine (FLEXERIL) 10 mg tablet Take 0.5-1 tablets by mouth three times daily as needed forMuscle Spasm. fluticasone (FLONASE) 50 mcg/actuation nasal spray Use 2 Sprays in each nostril once daily. Rinse mouth after use. fexofenadine (JANUSZ ALLERGY) 180 mg tablet Take 1 tablet by mouth once daily. ondansetron orally disintegrating (ZOFRAN ODT) 4 mg disintegrating tablet Take 1 tablet by mouth every 6 hours as needed for Nausea/Vomiting. SUMAtriptan (IMITREX) 50 mg tablet Take 1 tablet by mouth as needed for Migraine Headache (see administration instructions). May repeat dose in 2 hours if ineffective diclofenac sodium (VOLTAREN) 1 % topical gel Apply 2 g to affected area as directed. 2-4 time daily No current facility-administered medications for this visit. FAMILY HISTORY Problem Relation Age of Onset Cancer Mother PANCREATIC, 48 Prostate Cancer Father Breast Cancer Paternal Grandmother 67 Prostate Cancer Paternal Grandfather Social History Tobacco Use Smoking status: Former Packs/day: 0.50 Years: 20.00 Pack years: 10.00 Types: Cigarettes Smokeless tobacco: Former Quit date: 11/21/2013 Substance Use Topics Alcohol use: Yes Comment: socially, 2x/year Drug use: No REVIEW OF SYSTEMS GENERAL: No weight loss, malaise or fevers/chills HEENT: Negative for frequent or significant headaches, No changes in hearing or vision. NECK: Negative for lumps, goiter, pain and significant neck swelling RESPIRATORY: Negative for cough, hemoptysis, wheezing, dyspnea or shortness of breath CARDIOVASCULAR: Negative for chest pain, leg swelling, orthopnea, or palpitations GI: No nausea, vomiting, or diarrhea/constipation. No hematochezia/melena. No heartburn or reflux symptoms. : No history of dysuria, frequency or incontinence MUSCULOSKELETAL: Negative for joint pain or swelling. SKIN: Negative for lesions, rash, and itching ENDOCRINE: Negative for cold or heat intolerance, polyuria, polydipsia and goiter NEURO: No history of headaches, syncope, paralysis, seizures or tremors MOOD: Negative for depression, anxiety, or suicidal ideation. EXAM: BP 140/93 Pulse 70 Resp 16 Wt 116.6 kg (257 lb) LMP 10/24/2017 SpO2 96% BMI 42.77 kg/m PHYSICAL EXAM: General Appearance: Well appearing, alert, in no acute distress, well-hydrated, well nourished. Skin: Skin color, texture, turgor normal, no suspicious rashes or lesions. Head: Normocephalic, no masses, lesions, tenderness or abnormalities. Eyes: Anicteric sclera. Extraocular movements are intact. Lungs: Lungs clear to auscultation. No wheezing, rhonchi, rales. Heart: RRR without murmur, gallop, or rubs. No ectopy. Extremities: No deformities, edema, skin discoloration, clubbing or cyanosis. Good capillary refill. Musculoskeletal: No joint swelling, deformity, or tenderness. Peripheral Pulses: Normal, Capillary refill <2secs, strong peripheral pulses, Pulses palpable. Neurologic: Gait normal. Sensation grossly intact. ASSESSMENT/PLAN: 1. Controlled type 2 diabetes mellitus without complication, without long-term current use of insulin (HCC) - ICD9: 250.00, ICD10: E11.9 (primary diagnosis) Controlled. - Add metformin (Glucophage) - Encouraged regular aerobic exercise and weight loss - METFORMIN ER 500 MG TABLET,EXTENDED RELEASE 24 HR - HGB A1C - COMP METABOLIC PANEL 2. Hypertension, essential - ICD9: 401.9, ICD10: I10 - suboptimal control - Continue current medication(s) - Recommended regular aerobic exercise. - Recommend home blood pressure monitoring, to bring results in on next visit - Goal of BP <130/80 3. Vitamin D deficiency - ICD9: 268.9, ICD10: E55.9 - Start Vitamin D 50,000 international unit(s) once weekly. - Recheck labs in 3 months. 4. Generalized anxiety disorder with panic attacks - ICD9: 300.02, 300.01, ICD10: F41.1, F41.0 - Continue to use Buspar as needed. 5. Myalgia - ICD9: 729.1, ICD10: M79.10 - Continue to use Meloxicam as needed for pain. - Reevaluate after taking Vit D for at least 3 months. - Autoimmune work up WNL. Follow up in 3 months or sooner as needed. Discussed treatment plan and patient voices understanding. Patient's questions answered appropriately. Medications and potential side effects were discussed and patient voices understanding. Jaqui Berg APRN.CNP This note was partially generated using ralali voice recognition system. Note was reviewed for accuracy. There may be minor misspellings or grammar miscues with ralali voice recognition. documented in this encounterPark[facility] Miscellaneous Notes* Telephone Encounter - Jaqui Berg APRN.CNP - 03/29/2022 12:52 PM EST Vitamin D has been sent to mail order pharmacy. Lab orders have been entered and signed to have completed in 3 months. Thank you. Jaqui Berg APRN.CNP * Telephone Encounter - Katarzyna Smith LPN - 03/28/2022 10:06 AM EST Patient returned call and went over results, notes from Jaqui Berg CERTIFIED ANESTHESIOLOGIST ASSISTANT with understanding. Patient will do the Vitamin D rx, she uses [facility] for her 90 day rx please. Need order for next Vitamin D lab in 3 months please. * Telephone Encounter - Stephanie Chambers MA - 03/28/2022 9:55 AM EST Unable to reach patient. Left VM to return call to office. Please read below and advise. Stephanie Chambers MA * Telephone Encounter - Jaqui Berg APRN.CNP - 03/28/2022 9:40 AM EST Can you please call the patient and let her know that I reviewed her lab results. Autoimmune work up was normal. Cholesterol mildly elevated. A1C 6.1, which is prediabetes. I would recommend lifestyle changes to help improve this. Eat lean cuts of meat, increase veggies, and get some form of exercise. Try to decrease processed foods in the diet. Vit D was low. I would recommend taking a once weekly supplement and recheck labs in 3 months. If she is agreeable please verify pharmacy. She can keep up coming appointment. Please let me know if she has any questions. Thank you. Jaqui Berg APRN.CNP documented in this encounterPark[facility]-20-2022 Miscellaneous Notes* Telephone Encounter - Ashish Cook APRN.CNP - 10/17/2021 9:48 AM EDT The following approved medication requests have been transmitted electronically. Pending Prescriptions Disp Refills PROPRANOLOL 20 MG TABLET 90 tablet 11 Sig: TAKE 1 TABLET BY MOUTH 3 TIMES DAILY SHARLA: Yes Ashish Cook APRN.CNP * Telephone Encounter - Nick Begum Ma - 10/17/2021 9:43 AM EDT BETTINA: 07/25/2021 Last refill: 07/25/2021 QTY: 90 Refills: 3 Patient's request for medication is as follows: Pending Prescriptions Disp Refills PROPRANOLOL 20 MG TABLET 90 tablet 11 Sig: TAKE 1 TABLET BY MOUTH 3 TIMES DAILY SHARLA: Yes Please approve the above prescription(s) to electronically send to pharmacy. Nick Begum Ma documented in this encounterPark[facility]05-06-2022 Miscellaneous Notes* Telephone Encounter - Meaghan Dominique Ma - 09/02/2021 10:17 AM EDT Rx was refilled to [facility] for a year supply on 07/25/21. Meaghan Dominique Ma documented in this encounterParkview [facility]03-28-2022 Instructions* Patient Instructions* Jaqui Berg APRN.CNP - 07/25/2021 9:17 AM EDT 1.) Check labs about 1 week prior to next visit. 2.) May use Meloxicam as needed for joint pain. 3.) Continue to take all medications as prescribed. 4.) Focus on eating a well balanced diet, increase protein, veggies, and fruit. 5.) Follow up in 6 months or sooner. documented in this encounterParkview [facility]03-28-2022 History of Present illness Narrative* Jaqui Berg APRN.CNP - 07/25/2021 8:46 AM EDT This is a 50 year old female who presents today with: Patient presents with: 6 Month Exam HISTORY OF PRESENT ILLNESS: Allison Boykin is a 50 year old female. Patient presents with: 6 Month Exam Patient of Dr. Castanon here in the office for 6 month follow up. Would like to transfer care if possible to Dr. Choe, will discuss with provider. Labs just completed. A1C: 6.2 Lipids: 105. Trigs:192 DM: Does not take any medication. Does not monitor sugars at home. No hypoglycemic events or foot lesions. HTN: Taking propanolol 20 mg TID, difficulty remember 3rd dose due to work schedule. HCTZ 12.5 mg daily. Denies chest pain, palpitations, or edema. Lipids: Pravastin 20 mg daily. Watching diet for cholesterol. No leg pain. Anxiety: Buspar 5 mg TID PRN, using sparingly. Well controlled. Chronic Pain: Taking Meloxixam/ flexeril as needed. Low back pain that hurts all the time. All overpain that comes and goes. Arm/leg/neck/hips. Has been going on for years. PAST MEDICAL HISTORY: PAST MEDICAL HISTORY Diagnosis Date Chronic low back pain with sciatica 09/18/2008 Diabetes (HCC) Diffuse cystic mastopathy 1999 Aspiration on left x2 Dysmetabolic syndrome 08/19/2013 Hyperlipidemia Other and unspecified ovarian cyst Solitary cyst of breast 04/16/2007 PAST SURGICAL HISTORY Procedure Laterality Date DILATION & CURETTAGE DX&/THER NONOBSTETRIC 07/05 Dilation & curettage US FNA BREAST 04/16/07;2003 U/S FNA large outer mid left breast cyst ALLERGIES Vicodin [Hydrocodone-Acetaminophen] MEDICATIONS Current Outpatient Medications Medication Sig hydroCHLOROthiazide 12.5 mg capsule Take 1 capsule by mouth once daily. pravastatin (PRAVACHOL) 20 mg tablet Take 1 tablet by mouth once daily. propranolol (INDERAL) 20 mg tablet Take 1 tablet by mouth three times daily. busPIRone (BUSPAR) 5 mg tablet Take 1 tablet by mouth three times daily as needed. meloxicam (MOBIC) 15 mg tablet Take 1 tablet by mouth once daily. With food. cyclobenzaprine (FLEXERIL) 10 mg tablet Take 0.5-1 tablets by mouth three times daily as needed forMuscle Spasm. fluticasone (FLONASE) 50 mcg/actuation nasal spray Use 2 Sprays in each nostril once daily. Rinse mouth after use. fexofenadine (JANUSZ ALLERGY) 180 mg tablet Take 1 tablet by mouth once daily. ondansetron orally disintegrating (ZOFRAN ODT) 4 mg disintegrating tablet Take 1 tablet by mouth every 6 hours as needed for Nausea/Vomiting. SUMAtriptan (IMITREX) 50 mg tablet Take 1 tablet by mouth as needed for Migraine Headache (see administration instructions). May repeat dose in 2 hours if ineffective diclofenac sodium (VOLTAREN) 1 % topical gel Apply 2 g to affected area as directed. 2-4 time daily No current facility-administered medications for this visit. FAMILY HISTORY Problem Relation Age of Onset Cancer Mother PANCREATIC, 48 Prostate Cancer Father Breast Cancer Paternal Grandmother 67 Prostate Cancer Paternal Grandfather Social History Tobacco Use Smoking status: Former Smoker Packs/day: 0.50 Years: 20.00 Pack years: 10.00 Types: Cigarettes Smokeless tobacco: Former User Quit date: 11/21/2013 Substance Use Topics Alcohol use: Yes Comment: socially, 2x/year Drug use: No REVIEW OF SYSTEMS GENERAL: No weight loss, malaise or fevers/chills HEENT: Negative for frequent or significant headaches, No changes in hearing or vision. NECK: Negative for lumps, goiter, pain and significant neck swelling RESPIRATORY: Negative for cough, hemoptysis, wheezing, dyspnea or shortness of breath CARDIOVASCULAR: Negative for chest pain, leg swelling, orthopnea, or palpitations GI: No nausea, vomiting, or diarrhea/constipation. No hematochezia/melena. No heartburn or reflux symptoms. : No history of dysuria, frequency or incontinence MUSCULOSKELETAL: Myalgias SKIN: Negative for lesions, rash, and itching ENDOCRINE: Negative for cold or heat intolerance, polyuria, polydipsia and goiter NEURO: No history of headaches, syncope, paralysis, seizures or tremors MOOD: Negative for depression, anxiety, or suicidal ideation. EXAM: BP 140/90 Pulse 72 Resp 16 Wt 115.2 kg (254 lb) LMP 10/24/2017 SpO2 95% BMI 42.27 kg/m PHYSICAL EXAM: General Appearance: Well appearing, alert, in no acute distress, well-hydrated, well nourished. Skin: Skin color, texture, turgor normal, no suspicious rashes or lesions. Head: Normocephalic, no masses, lesions, tenderness or abnormalities. Eyes: Anicteric sclera. Extraocular movements are intact. Neck: Supple, no adenopathy; thyroid symmetric, normal size, no bruits. Lungs: Lungs clear to auscultation. No wheezing, rhonchi, rales. Heart: RRR without murmur, gallop, or rubs. No ectopy. Extremities: No deformities, edema, skin discoloration, clubbing or cyanosis. Good capillary refill. Musculoskeletal: No joint swelling, deformity, or tenderness. Peripheral Pulses: Normal, Capillary refill <2secs, strong peripheral pulses, Pulses palpable. ASSESSMENT/PLAN: 1. Generalized anxiety disorder with panic attacks - ICD9: 300.02, 300.01, ICD10: F41.1, F41.0 (primary diagnosis) - Refill provided - BUSPIRONE 5 MG TABLET 2. Hypertension, essential - ICD9: 401.9, ICD10: I10 - suboptimal control - Continue current medication(s) - Recommended regular aerobic exercise. - Discussed need and benefit for weight loss. - Goal of BP <130/80 - PROPRANOLOL 20 MG TABLET 3. Controlled type 2 diabetes mellitus without complication, without long-term current use of insulin (HCC) - ICD9: 250.00, ICD10: E11.9 The patient is new to me. - Encouraged regular aerobic exercise and weight loss. - Working on eating low carb diet, increase protein and veggies. - HGB A1C 4. Mixed hyperlipidemia - ICD9: 272.2, ICD10: E78.2 - suboptimal control - Continue current medication. - Encouraged following a low fat, low cholesterol diet. - Discussed the benefits of regular aerobic exercise and weight loss. - PRAVASTATIN 20 MG TABLET 5. Myalgia - ICD9: 729.1, ICD10: M79.10 - Will get the following labs completed to rule out any autoimmune causes. - Would like wait until next visit to have labs completed. - CBC + DIFF - COMP METABOLIC PANEL - VITAMIN D 25 HYDROXY - FOLATE SERUM - VITAMIN B12 BLOOD - C-REACTIVE PROTEIN (CRP) - SED RATE WESTERGREN - TYLER BLOOD - RHEUMATOID FACTOR BL Follow up in 6 months or sooner as needed. Discussed treatment plan and patient voices understanding. Patient's questions answered appropriately. Medications and potential side effects were discussed and patient voices understanding. Jaqui Berg APRN.AARON The patient indicates understanding of these issues and agrees with the plan. documented in this encounterPark[facility]03-28-2022 Miscellaneous Notes* Telephone Encounter - Edilma Hirsch LPN - 07/25/2021 8:28 AM EDT TC to pt. Updated her that Morena dose not take her own pt. She is with Dr. Choe. And he is taking tranfer pts only from Dr. Hare. Pt Agreed to stay with Dr. Castanon and see DUST CONTROL ENGINEER for all care. Edilma Hirsch LPN documented in this encounterPark[facility]03-25-2022 Miscellaneous Notes* Telephone Encounter - Lila Calix LPN - 07/22/2021 3:08 PM EDT Orders have been filed no other orders are needed. Lila Calix LPN * Telephone Encounter - Sophia Cortez APRN.CNP - 07/22/2021 12:43 PM EDT The orders are all in process and one is already finalized. Please clarify if this is still needingdone. Thank you Sophia Cortez APRN.AARON * Telephone Encounter - Jorge Dickey - 07/21/2021 11:30 AM EDT Patient needs lab orders replaced, can no longer say (FOR REMOTE USE). Labs are not able to draw them. Patient is coming back tomorrow. Thank you! documented in this encounterPark[facility]-30-[facility] History of Past illness Narrative* Problem Noted Date Resolved Date Pilonidal cyst with abscess 03/29/201509/28 Lump or mass in breast 08/16/2011 5 Cellulitis and abscess of foot, except toes 06/2808/18/2014 Ingrowing nail 06/17/2008 08/18/2014 Excessive or frequent menstruation 09/24/2007 08/18/2014 Dysmenorrhea 09/24/2007 08/18/2014 documented as of this encounter (statuses as of 07/22/2021) [facility] of Past illness Narrative* Problem Noted Date Resolved Date Pilonidal cyst with abscess 03/29/201509/28 Lump or mass in breast 08/16/2011 5 Cellulitis and abscess of foot, except toes 06/2808/18/2014 Ingrowing nail 06/17/2008 08/18/2014 Excessive or frequent menstruation 09/24/2007 08/18/2014 Dysmenorrhea 09/24/2007 08/18/2014 documented as of this encounter (statuses as of 07/25/2021) [facility] of [facility] illness Narrative* Problem Noted Date Resolved Date Pilonidal cyst with abscess 03/29/201509/28 Lump or mass in breast 08/16/2011 5 Cellulitis and abscess of foot, except toes 06/2808/18/2014 Ingrowing nail 06/17/2008 08/18/2014 Excessive or frequent menstruation 09/24/2007 08/18/2014 Dysmenorrhea 09/24/2007 08/18/2014 documented as of this encounter (statuses as of 08/08/2021) [facility] of [facility] illness Narrative* Problem Noted Date Resolved Date Pilonidal cyst with abscess 03/29/201509/28 Lump or mass in breast 08/16/2011 5 Cellulitis and abscess of foot, except toes 06/2808/18/2014 Ingrowing nail 06/17/2008 08/18/2014 Excessive or frequent menstruation 09/24/2007 08/18/2014 Dysmenorrhea 09/24/2007 08/18/2014 documented as of this encounter (statuses as of 09/02/2021) [facility] Narrative* Problem Noted Date Resolved Date Pilonidal cyst with abscess 03/29/201509/28 Lump or mass in breast 08/16/2011 5 Cellulitis and abscess of foot, except toes 06/2808/18/2014 Ingrowing nail 06/17/2008 08/18/2014 Excessive or frequent menstruation 09/24/2007 08/18/2014 Dysmenorrhea 09/24/2007 08/18/2014 documented as of this encounter (statuses as of 10/17/2021) [place] [id number] History of Past illness Narrative* Problem Noted Date Resolved Date Pilonidal cyst with abscess 03/29/201509/28 Lump or mass in breast 08/16/2011 5 Cellulitis and abscess of foot, except toes 06/2808/18/2014 Ingrowing nail 06/17/2008 08/18/2014 Excessive or frequent menstruation 09/24/2007 08/18/2014 Dysmenorrhea 09/24/2007 08/18/2014 documented as of this encounter (statuses as of 12/26/2021) [facility] Narrative* Problem Noted Date Resolved Date Pilonidal cyst with abscess 03/29/201509/28 Lump or mass in breast 08/16/2011 5 Cellulitis and abscess of foot, except toes 06/2808/18/2014 Ingrowing nail 06/17/2008 08/18/2014 Excessive or frequent menstruation 09/24/2007 08/18/2014 Dysmenorrhea 09/24/2007 08/18/2014 documented as of this encounter (statuses as of 03/29/2022) [facility] Narrative* Problem Noted Date Resolved Date Pilonidal cyst with abscess 03/29/201509/28 Lump or mass in breast 08/16/2011 5 Cellulitis and abscess of foot, except toes 06/2808/18/2014 Ingrowing nail 06/17/2008 08/18/2014 Excessive or frequent menstruation 09/24/2007 08/18/2014 Dysmenorrhea 09/24/2007 08/18/2014 documented as of this encounter (statuses as of 04/02/2022) [facility] Narrative* Problem Noted Date Resolved Date Pilonidal cyst with abscess 03/29/201509/28 Lump or mass in breast 08/16/2011 5 Cellulitis and abscess of foot, except toes 06/2808/18/2014 Ingrowing nail 06/17/2008 08/18/2014 Excessive or frequent menstruation 09/24/2007 08/18/2014 Dysmenorrhea 09/24/2007 08/18/2014 documented as of this encounter (statuses as of 06/08/2022) [facility] Narrative* Problem Noted Date Resolved Date Pilonidal cyst with abscess 03/29/201509/28 Lump or mass in breast 08/16/2011 5 Cellulitis and abscess of foot, except toes 06/2808/18/2014 Ingrowing nail 06/17/2008 08/18/2014 Excessive or frequent menstruation 09/24/2007 08/18/2014 Dysmenorrhea 09/24/2007 08/18/2014 documented as of this encounter (statuses as of 07/14/2022) [facility] Narrative* Problem Noted Date Resolved Date Pilonidal cyst with abscess 03/29/201509/28 Lump or mass in breast 08/16/2011 5 Cellulitis and abscess of foot, except toes 06/2808/18/2014 Ingrowing nail 06/17/2008 08/18/2014 Excessive or frequent menstruation 09/24/2007 08/18/2014 Dysmenorrhea 09/24/2007 08/18/2014 documented as of this encounter (statuses as of 08/14/2022) [facility] Narrative* Problem Noted Date Resolved Date Pilonidal cyst with abscess 03/29/201509/28 Lump or mass in breast 08/16/2011 5 Cellulitis and abscess of foot, except toes 06/2808/18/2014 Ingrowing nail 06/17/2008 08/18/2014 Excessive or frequent menstruation 09/24/2007 08/18/2014 Dysmenorrhea 09/24/2007 08/18/2014 documented as of this encounter (statuses as of 08/28/2022) [facility] Narrative* Problem Noted Date Resolved Date Pilonidal cyst with abscess 03/29/201509/28 Lump or mass in breast 08/16/2011 5 Cellulitis and abscess of foot, except toes 06/2808/18/2014 Ingrowing nail 06/17/2008 08/18/2014 Excessive or frequent menstruation 09/24/2007 08/18/2014 Dysmenorrhea 09/24/2007 08/18/2014 documented as of this encounter (statuses as of 09/06/2022) [facility] Narrative* Problem Noted Date Resolved Date Pilonidal cyst with abscess 03/29/201509/28 Lump or mass in breast 08/16/2011 5 Cellulitis and abscess of foot, except toes 06/2808/18/2014 Ingrowing nail 06/17/2008 08/18/2014 Excessive or frequent menstruation 09/24/2007 08/18/2014 Dysmenorrhea 09/24/2007 08/18/2014 documented as of this encounter (statuses as of 09/29/2022) [facility] Narrative* Problem Noted Date Diagnosed Date Resolved Date Pilonidal cyst with abscess 03/29/2015 10/12/2015 Lump or mass in breast 08/16/201108/18 Cellulitis and abscess of foot, except toes 07/15/2008 08/18/2014 Ingrowing nail 06/17/2008 08/18/2014 Excessive or frequent menstruation 09/24/2007 08/18/2014 Dysmenorrhea 09/24/2007 08/18/2014 documented as of this encounter (statuses as of 01/12/2023) [facility] Narrative* Problem Noted Date Diagnosed Date Resolved Date Pilonidal cyst with abscess 03/29/2015 10/12/2015 Lump or mass in breast 08/16/201108/18 Cellulitis and abscess of foot, except toes 07/15/2008 08/18/2014 Ingrowing nail 06/17/2008 08/18/2014 Excessive or frequent menstruation 09/24/2007 08/18/2014 Dysmenorrhea 09/24/2007 08/18/2014 documented as of this encounter (statuses as of 03/04/2023) [facility] Narrative* Problem Noted Date Diagnosed Date Resolved Date Pilonidal cyst with abscess 03/29/2015 10/12/2015 Lump or mass in breast 08/16/201108/18 Cellulitis and abscess of foot, except toes 07/15/2008 08/18/2014 Ingrowing nail 06/17/2008 08/18/2014 Excessive or frequent menstruation 09/24/2007 08/18/2014 Dysmenorrhea 09/24/2007 08/18/2014 documented as of this encounter (statuses as of 04/10/2023) [facility] Past illness Narrative* Problem Noted Date Diagnosed Date Resolved Date Pilonidal cyst with abscess 03/29/2015 10/12/2015 Lump or mass in breast 08/16/201108/18 Cellulitis and abscess of foot, except toes 07/15/2008 08/18/2014 Ingrowing nail 06/17/2008 08/18/2014 Excessive or frequent menstruation 09/24/2007 08/18/2014 Dysmenorrhea 09/24/2007 08/18/2014 documented as of this encounter (statuses as of 06/28/2023) [facility] History of Past illness Narrative* Problem Noted Date Diagnosed Date Resolved Date Pilonidal cyst with abscess 03/29/2015 10/12/2015 Lump or mass in breast 08/16/201108/18 Cellulitis and abscess of foot, except toes 07/15/2008 08/18/2014 Ingrowing nail 06/17/2008 08/18/2014 Excessive or frequent menstruation 09/24/2007 08/18/2014 Dysmenorrhea 09/24/2007 08/18/2014 documented as of this encounter (statuses as of 07/16/2023) [facility] History of Past illness Narrative* Problem Noted Date Diagnosed Date Resolved Date Pilonidal cyst with abscess 03/29/2015 10/12/2015 Lump or mass in breast 08/16/201108/18 Cellulitis and abscess of foot, except toes 07/15/2008 08/18/2014 Ingrowing nail 06/17/2008 08/18/2014 Excessive or frequent menstruation 09/24/2007 08/18/2014 Dysmenorrhea 09/24/2007 08/18/2014 documented as of this encounter (statuses as of 07/30/2023) [facility] History of Past illness Narrative* Problem Noted Date Diagnosed Date Resolved Date Pilonidal cyst with abscess 03/29/2015 10/12/2015 Lump or mass in breast 08/16/201108/18 Cellulitis and abscess of foot, except toes 07/15/2008 08/18/2014 Ingrowing nail 06/17/2008 08/18/2014 Excessive or frequent menstruation 09/24/2007 08/18/2014 Dysmenorrhea 09/24/2007 08/18/2014 documented as of this encounter (statuses as of 08/13/2023) [facility] Diagnosis Generalized anxiety disorder with panic attacks- Primary Hypertension, essential Unspecified essential hypertension Controlled type 2 diabetes mellitus without complication, without long-term current use of insulin (HCC) Mixed hyperlipidemia Myalgia Mylagia and myositis, unspecified [facility] this [facility] Diagnosis Hypertension, essential Unspecified essential hypertension [facility]* Diagnosis Hypertension, essential Unspecified essential hypertension [facility]* Diagnosis Encounter for screening mammogram for breast cancer [facility] Diagnosis Vitamin D deficiency- Primary Unspecified vitamin D deficiency [facility]* Diagnosis Controlled type 2 diabetes mellitus without complication, without long-term current use of insulin (HCC)- Primary Hypertension, essential Unspecified essential hypertension Vitamin D deficiency Unspecified vitamin D deficiency Generalized anxiety disorder with panic attacks Myalgia Mylagia and myositis, unspecified documented in this encounter [facility] noteNo assessment information availableWThe [facility] Work Phone: Evaluation note* Diagnosis Encounter for gynecological examination (general) (routine) without abnormal findings- Primary Encounter for screening for human papillomavirus (HPV) Special screening examination for human papillomavirus (HPV) Pap smear for cervical cancer screening Screening for malignant neoplasm of the cervix Encounter for screening mammogram for breast cancer Dense breast tissue Class 3 severe obesity with serious comorbidity and body mass index (BMI) of 40.0 to 44.9 in adult, unspecified obesity type (HCC) [facility]* Diagnosis Mixed hyperlipidemia documented in this encounter [facility] note* Diagnosis Controlled type 2 diabetes mellitus without complication, without long-term current use of insulin (HCC) documented in this encounter [facility] note* Diagnosis Hypertension, essential Unspecified essential hypertension Essential hypertension Unspecified essential hypertension documented in this encounter [facility] note* Diagnosis Hypertension, essential- Primary Unspecified essential hypertension Controlled type 2 diabetes mellitus without complication, without long-term current use of insulin (HCC) Generalized anxiety disorder with panic attacks Myalgia Mylagia and myositis, unspecified Hair loss Alopecia, unspecified Encounter for immunization Need for other specified prophylactic vaccination against single bacterial disease documented in this encounter [facility] note* Diagnosis Hypertension, essential- Primary Unspecified essential hypertension Controlled type 2 diabetes mellitus without complication, without long-term current use of insulin (HCC) Generalized anxiety disorder with panic attacks Chronic pain syndrome Elevated sed rate Elevated sedimentation rate Vitamin D deficiency Unspecified vitamin D deficiency Screening for colon cancer Special screening for malignant neoplasms, colon documented in this encounter [facility] note* Diagnosis Encounter for screening mammogram for breast cancer documented in this encounter [facility] note* Diagnosis Controlled type 2 diabetes mellitus without complication, without long-term current use of insulin (HCC) documented in this encounter [facility] note* Diagnosis Encounter for screening mammogram for breast cancer documented in this encounter [facility] note* Diagnosis Hypertension, essential Unspecified essential hypertension documented in this encounter [facility] note* Diagnosis Controlled type 2 diabetes mellitus without complication, without long-term current use of insulin (HCC)- Primary Hypertension, essential Unspecified essential hypertension Generalized anxiety disorder with panic attacks Chronic pain syndrome Mixed hyperlipidemia documented in this encounter [facility] note* Diagnosis Encounter for screening mammogram for breast cancer documented in this encounter [facility] note* Diagnosis Controlled type 2 diabetes mellitus without complication, without long-term current use of insulin (HCC)- Primary Stress at home Unspecified family circumstance Need for vaccination Need for prophylactic vaccination and inoculation against unspecified single disease Other and unspecified hyperlipidemia Controlled type 2 diabetes mellitus without complication, without long-term current use of insulin (HCC)- Primary Hypertension, essential Unspecified essential hypertension Mixed hyperlipidemia Generalized anxiety disorder with panic attacks Chronic pain syndrome Vitamin D deficiency Unspecified vitamin D deficiency Encounter for immunization Need for other specified prophylactic vaccination against single bacterial disease documented in this encounter [facility] note* Diagnosis Controlled type 2 diabetes mellitus without complication, without long-term current use of insulin (HCC)- Primary Stress at home Unspecified family circumstance Need for vaccination Need for prophylactic vaccination and inoculation against unspecified single disease Other and unspecified hyperlipidemia Controlled type 2 diabetes mellitus without complication, without long-term current use of insulin (HCC) Mixed hyperlipidemia documented in this encounter [facility] note* Diagnosis Controlled type 2 diabetes mellitus without complication, without long-term current use of insulin (HCC)- Primary Stress at home Unspecified family circumstance Need for vaccination Need for prophylactic vaccination and inoculation against unspecified single disease Other and unspecified hyperlipidemia Acute cystitis without hematuria- Primary Acute cystitis documented in this encounter [facility] note* Diagnosis Controlled type 2 diabetes mellitus without complication, without long-term current use of insulin (HCC)- Primary Stress at home Unspecified family circumstance Need for vaccination Need for prophylactic vaccination and inoculation against unspecified single disease Other and unspecified hyperlipidemia Hypertension, essential Unspecified essential hypertension documented in this encounter [facility] note* Diagnosis Controlled type 2 diabetes mellitus without complication, without long-term current use of insulin (HCC)- Primary Stress at home Unspecified family circumstance Need for vaccination Need for prophylactic vaccination and inoculation against unspecified single disease Other and unspecified hyperlipidemia Controlled type 2 diabetes mellitus without complication, without long-term current use of insulin (HCC)- Primary Primary hypertension Unspecified essential hypertension Vitamin D deficiency Unspecified vitamin D deficiency Mixed hyperlipidemia BMI 40.0-44.9, adult ([facility]) Body Mass Index 40.0-44.9, adult Screening for depression Encounter for screening examination for other mental health and behavioral disorders documented in this encounter [facility] note* Diagnosis Controlled type 2 diabetes mellitus without complication, without long-term current use of insulin ([facility])- Primary Stress at home Unspecified family circumstance Need for vaccination Need for prophylactic vaccination and inoculation against unspecified single disease Other and unspecified hyperlipidemia Encounter for gynecological examination with abnormal finding- Primary Routine gynecological examination Hair thinning Alopecia, unspecified Vasomotor symptoms due to menopause Encounter for screening mammogram for breast cancer Class 3 severe obesity with body mass index (BMI) of 40.0 to 44.9 in adult, unspecified obesity type, unspecified whether serious comorbidity present (HCC) documented in this encounter [facility] note* Diagnosis Controlled type 2 diabetes mellitus without complication, without long-term current use of insulin (HCC)- Primary Stress at home Unspecified family circumstance Need for vaccination Need for prophylactic vaccination and inoculation against unspecified single disease Other and unspecified hyperlipidemia Encounter for screening mammogram for malignant neoplasm of breast Other screening mammogram documented in this encounter [facility] note* Diagnosis Controlled type 2 diabetes mellitus without complication, without long-term current use of insulin (HCC)- Primary Stress at home Unspecified family circumstance Need for vaccination Need for prophylactic vaccination and inoculation against unspecified single disease Other and unspecified hyperlipidemia Encounter for gynecological examination with abnormal finding Routine gynecological examination Encounter for screening mammogram for breast cancer documented in this encounter [facility] note* Diagnosis Controlled type 2 diabetes mellitus without complication, without long-term current use of insulin (HCC)- Primary Stress at home Unspecified family circumstance Need for vaccination Need for prophylactic vaccination and inoculation against unspecified single disease Other and unspecified hyperlipidemia Encounter for screening mammogram for malignant neoplasm of breast Other screening mammogram documented in this encounter [facility] note* Diagnosis Controlled type 2 diabetes mellitus without complication, without long-term current use of insulin (HCC)- Primary Stress at home Unspecified family circumstance Need for vaccination Need for prophylactic vaccination and inoculation against unspecified single disease Other and unspecified hyperlipidemia Abnormal finding on breast imaging- Primary Other (abnormal) findings on radiological examination of breast Benign mammary dysplasia of left breast Benign mammary dysplasia, unspecified Encounter for screening mammogram for malignant neoplasm of breast Other screening mammogram documented in this encounter [facility] note* Diagnosis Controlled type 2 diabetes mellitus without complication, without long-term current use of insulin (HCC)- Primary Stress at home Unspecified family circumstance Need for vaccination Need for prophylactic vaccination and inoculation against unspecified single disease Other and unspecified hyperlipidemia Abnormal mammogram- Primary Abnormal mammogram, unspecified [facility]* Oncology Location: None Selected [facility] Work Phone: Hospital Discharge instructionsAmbulatory Orders* Prior Authorization Referral - ONC/HEM Location: None Selected * General Surgery Location: None Selected [facility] Work Phone: Reason for referral (narrative)* Diagnostic Procedure Only (Routine) - Pending Review Specialty Diagnoses / Procedures Referred By Bryan t Referred To Contact [facility] Diagnoses Encounter for screening mammogram for breast cancer Procedures ARYAN SCREENING SCREENING MAMMOGRAPHY BI 2-VIEW BREAST INC Donn Kimbrough MD [address] [place] [address] [facility] [address] [place] [address] Referral ID Status Reason Start Date Expiration Date Visits Requested Visits Authorized [id number] Pending Review Auto-Generat ed Referral 12/21/2021 01/20/2023 1 1 [facility] for referral (narrative)* Diagnostic Procedure Only (Routine) - Closed Specialty Diagnoses / Procedures Referred By Bryan shepard Referred To Contact [facility] Diagnoses Encounter for screening mammogram for breast cancer Procedures ARYAN SCREENING SCREENING MAMMOGRAPHY BI 2-VIEW BREAST INC Donn Kimbrough MD [address] [place] [address] [facility] [address] [place] [address] Referral ID Status Reason Start Date Expiration Date V isits Requested Visits Authorized [id number] Closed Auto-Generate d Referral 12/21/2021 01/20/2023 1 1 [facility] for referral (narrative)* Diagnostic Procedure Only (Routine) - Pending Review Specialty Diagnoses / Procedures Referred By Bryan shepard Referred To Contact [facility] Diagnoses Encounter for screening mammogram for breast cancer Procedures ARYAN SCREENING SCREENING MAMMOGRAPHY BI 2-VIEW BREAST INC Donn Kimbrough MD [address] [place] [address] [facility] [address] [place] [address] Referral ID Status Reason Start Date Expiration Date Visits Requested Visits Authorized [id number] Pending Review Auto-Generat ed Referral 07/11/2023 08/09/2024 1 1 [facility] for referral (narrative)No reason for referral information [facility] Work Phone: Reason for visit Narrative* Diagnostic Procedure Only (Routine) - Closed Specialty Diagnoses / Procedures Referred By Bryan t Referred To Contact [facility] Diagnoses Encounter for screening mammogram for breast cancer Procedures ARYAN SCREENING SCREENING MAMMOGRAPHY BI 2-VIEW BREAST INC CAD Donn Choe MD [address] [place] [address] [facility] [address] [place] [address] Referral ID Status Reason Start Date Expiration Date V isits Requested Visits Authorized [id number] Closed Auto-Generate d Referral 12/21/2021 01/20/2023 1 1 [facility] for visit Narrative* Diagnostic Procedure Only (Routine) - Closed Specialty Diagnoses / Procedures Referred By Bryan shepard Referred To Contact [facility] Diagnoses Encounter for screening mammogram for breast cancer Procedures ARYAN SCREENING SCREENING MAMMOGRAPHY BI 2-VIEW BREAST INC CAD Donn Choe MD [address] [place] [address] [facility] [address] [place] [address] Referral ID Status Reason Start Date Expiration Date V isits Requested Visits Authorized [id number] Closed Auto-Generate d Referral 07/11/2023 08/09/2024 1 1 [facility] for visit Narrative* Consult, Test, Treat (Routine) - Closed Specialty Diagnoses / Procedures Referred By Bryan t Referred To Contact [facility] Diagnoses Encounter for screening mammogram for malignant neoplasm of breast Procedures ARYAN SCREENING W GUY SCREENING DIGITAL BREAST TOMOSYNTHESIS BI SCREENING MAMMOGRAPHY BI 2-VIEW BREAST INC CAD Diana Ballard, CERTIFIED TECHNICIAN SPECIALIST.DUST CONTROL ENGINEER [address] [place] [address] Phone: tel: fax: [facility] [address] [place] [address] Referral ID Status Reason Start Date Expiration Date V isits Requested Visits Authorized [id number] Closed Auto-Generate d Referral 10/24/2024 04/29/2025 1 1 [facility] Advance Directives No Advanced Directives Records FoundDocuments on File Type Date Recorded 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 Expl 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 Advance Directive(s) Reason for Referral Specialty Diagnoses / Procedures Referred By Bryan shepard Referred To Contact Diagnoses Class 3 severe obesity with serious comorbidity and body mass index (BMI) of 40.0 to 44.9 in adult, unspecified obesity type (HCC) Procedures CONSULT [facility]RIC[facility] OFFICE/OUTPATIENT [facility] 60-74 MINUTES Diana Ballard, CERTIFIED TECHNICIAN SPECIALIST.DUST CONTROL ENGINEER [address] [place] [place] [address] Referral ID Status Reason Start Date Expiration Date Visits Requested Visits Authorized [id number] Pending Review PCP Requested Referral 07/14/2022 07/14/2023 1 1 Specialty Diagnoses / Procedures Referred By Bryan shepard Referred To Contact [facility] Diagnoses Encounter for gynecological examination (general) (routine) without abnormal findings Encounter for screening mammogram for breast cancer Dense breast tissue Procedures ARYAN SCREENING W GUY SCREENING DIGITAL BREAST TOMOSYNTHESIS BI SCREENING MAMMOGRAPHY BI 2-VIEW BREAST INC CAD Diana Ballard, CERTIFIED TECHNICIAN SPECIALIST.DUST CONTROL ENGINEER [address] [place] [address] [facility] [address] [place] [address] Referral ID Status Reason Start Date Expiration Date Visits Requested Visits Authorized [id number] Authorized Auto-Generat ed Referral 07/14/2022 08/13/2023 1 1 Specialty Diagnoses / Procedures Referred By Bryan t Referred To Contact Rheumatology Diagnoses Chronic pain syndrome Elevated sed rate Procedures CONSULT TO RHEUM/IMMUN DISEASE OFFICE/OUTPATIENT [facility] 60-74 MINUTES Jaqui Berg, SHREYA.DUST CONTROL ENGINEER [address] [place] [address] Referral ID Status Reason Start Date Expiration Date Visits Requested Visits Authorized [id number] Pending Review PCP Requested Referral 01/12/2023 01/12/2024 1 1 Chief Complaint and Reason for Visit Chief Complaint Admit Date ABNORMAL MAMMOGRAM November 26, 2024 12:5 9pm Chief Complaint Admit Date ABNORMAL MAMMOGRAM November 26, 2024 12:5 9pm Birads December 17, 2024 8: 49am Chief Complaint Admit Date ABNORMAL MAMMOGRAM November 26, 2024 12:5 9pm Birads 5 December 17, 2024 8: 49am LEFT BREAST BIOPSY December 17, 2024 10 :54am Referral Order December 22, 2024 7: 37am Reason for Visit Admit Date Left breast mass December 17, 2024 8: 49am Chief Complaint Admit Date ABNORMAL MAMMOGRAM November 26, 2024 12:5 9pm Birads 5 December 17, 2024 8: 49am LEFT BREAST BIOPSY December 17, 2024 10 :54am Referral Order December 22, 2024 7: 37am BREAST CA January 05, 2025 10:46am Reason for Visit Admit Date Left breast mass December 17, 2024 8: 49am Breast cancer January 05, 2025 10:46am Chief Complaint Admit Date ABNORMAL MAMMOGRAM November 26, 2024 12:5 9pm Birads 5 December 17, 2024 8: 49am LEFT BREAST BIOPSY December 17, 2024 10 :54am Referral Order December 22, 2024 7: 37am BREAST CA January 05, 2025 10:46am PORT PLACEMENT January 07, 2025 2:22pm Reason for Visit Admit Date Left breast mass December 17, 2024 8: 49am Breast cancer January 05, 2025 10:46am Breast cancer January 07, 2025 2:22pm Encounter for insertion of venous access port January 07, 2025 2:22pm Chief Complaint Admit Date ABNORMAL MAMMOGRAM November 26, 2024 12:5 9pm Birads 5 December 17, 2024 8: 49am LEFT BREAST BIOPSY December 17, 2024 10 :54am Referral Order December 22, 2024 7: 37am BREAST CA January 05, 2025 10:46am [facility] - [facility] - [facility] January 05 11:34am PORT PLACEMENT January 07, 2025 2:22pm CHEMO ED January 07, 2025 3:16pm Reason for Visit Admit Date Left breast mass December 17, 2024 8: 49am Breast cancer January 05, 2025 10:46am Breast cancer January 07, 2025 2:22pm Encounter for insertion of venous access port January 07, 2025 2:22pm Breast cancer January 07, 2025 3:16pm Family History No Family History Records Found Relationship Condition Age at Onset Recorded Date/T magda father Malignant neoplasm of colon Unknown mother Malignant neoplasm Unknown grandmother Malignant neoplasm of breast Unknown Relationship Condition Age at Onset Recorded Date/T magda father Malignant neoplasm of colon Unknown mother Malignant neoplasm Unknown grandmother Malignant neoplasm of breast Unknown Cardiac disease Unknown grandfather Malignant neoplasm of colon Unknown Summary Purpose Additional Source Comments Source Comments (unrecognize d section and content) In the event this informatio n is protected by the Federal Confidentiality of Alcohol and Drug Abuse Patient Records regulations: The Federal rules restrict any use of the information to criminally investigate or prosecute any alcohol or drug abuse patient.[facility] the event this information is protected by the Federal Confidentiality of Alcohol and Drug Abuse Patient Records regulations: The Federal rules restrict any use of the information to criminally investigate or prosecute any alcohol or drug abuse patient.[facility] the event this information is protected by the Federal Confidentiality of Alcohol and Drug Abuse Patient Records regulations: The Federal rules restrict any use of the information to criminally investigate or prosecute any alcohol or drug abuse patient.[facility] the event this information is protected by the Federal Confidentiality of Alcohol and Drug Abuse Patient Records regulations: The Federal rules restrict any use of the information to criminally investigate or prosecute any alcohol or drug abuse patient.[facility] the event this information is protected by the Federal Confidentiality of Alcohol and Drug Abuse Patient Records regulations: The Federal rules restrict any use of the information to criminally investigate or prosecute any alcohol or drug abuse patient.[facility] the event this information is protected by the Federal Confidentiality of Alcohol and Drug Abuse Patient Records regulations: The Federal rules restrict any use of the information to criminally investigate or prosecute any alcohol or drug abuse patient.[facility] Hospital[facility] the event this information is protected by the Federal Confidentiality of Alcohol and Drug Abuse Patient Records regulations: The Federal rules restrict any use of the information to criminally investigate or prosecute any alcohol or drug abuse patient.[facility] Hospital[facility] the event this information is protected by the Federal Confidentiality of Alcohol and Drug Abuse Patient Records regulations: The Federal rules restrict any use of the information to criminally investigate or prosecute any alcohol or drug abuse patient.[facility] Hospital[facility] the event this information is protected by the Federal Confidentiality of Alcohol and Drug Abuse Patient Records regulations: The Federal rules restrict any use of the information to criminally investigate or prosecute any alcohol or drug abuse patient.[facility] Hospital[facility] the event this information is protected by the Federal Confidentiality of Alcohol and Drug Abuse Patient Records regulations: The Federal rules restrict any use of the information to criminally investigate or prosecute any alcohol or drug abuse patient.[facility] Hospital[facility] the event this information is protected by the Federal Confidentiality of Alcohol and Drug Abuse Patient Records regulations: The Federal rules restrict any use of the information to criminally investigate or prosecute any alcohol or drug abuse patient.[facility] HospitalIn the event this information is protected by the Federal Confidentiality of Alcohol and Drug Abuse Patient Records regulations: The Federal rules restrict any use of the information to criminally investigate or prosecute any alcohol or drug abuse patient.[facility] HospitalIn the event this information is protected by the Federal Confidentiality of Alcohol and Drug Abuse Patient Records regulations: The Federal rules restrict any use of the information to criminally investigate or prosecute any alcohol or drug abuse patient.[facility] HospitalIn the event this information is protected by the Federal Confidentiality of Alcohol and Drug Abuse Patient Records regulations: The Federal rules restrict any use of the information to criminally investigate or prosecute any alcohol or drug abuse patient.[facility] HospitalIn the event this information is protected by the Federal Confidentiality of Alcohol and Drug Abuse Patient Records regulations: The Federal rules restrict any use of the information to criminally investigate or prosecute any alcohol or drug abuse patient.[facility] HospitalIn the event this information is protected by the Federal Confidentiality of Alcohol and Drug Abuse Patient Records regulations: The Federal rules restrict any use of the information to criminally investigate or prosecute any alcohol or drug abuse patient.[facility] HospitalIn the event this information is protected by the Federal Confidentiality of Alcohol and Drug Abuse Patient Records regulations: The Federal rules restrict any use of the information to criminally investigate or prosecute any alcohol or drug abuse patient.[facility] HospitalIn the event this information is protected by the Federal Confidentiality of Alcohol and Drug Abuse Patient Records regulations: The Federal rules restrict any use of the information to criminally investigate or prosecute any alcohol or drug abuse patient.[facility] HospitalIn the event this information is protected by the Federal Confidentiality of Alcohol and Drug Abuse Patient Records regulations: The Federal rules restrict any use of the information to criminally investigate or prosecute any alcohol or drug abuse patient.[facility] HospitalIn the event this information is protected by the Federal Confidentiality of Alcohol and Drug Abuse Patient Records regulations: The Federal rules restrict any use of the information to criminally investigate or prosecute any alcohol or drug abuse patient.[facility] HospitalIn the event this information is protected by the Federal Confidentiality of Alcohol and Drug Abuse Patient Records regulations: The Federal rules restrict any use of the information to criminally investigate or prosecute any alcohol or drug abuse patient.[facility] HospitalIn the event this information is protected by the Federal Confidentiality of Alcohol and Drug Abuse Patient Records regulations: The Federal rules restrict any use of the information to criminally investigate or prosecute any alcohol or drug abuse patient.[facility] HospitalIn the event this information is protected by the Federal Confidentiality of Alcohol and Drug Abuse Patient Records regulations: The Federal rules restrict any use of the information to criminally investigate or prosecute any alcohol or drug abuse patient.[facility] HospitalIn the event this information is protected by the Federal Confidentiality of Alcohol and Drug Abuse Patient Records regulations: The Federal rules restrict any use of the information to criminally investigate or prosecute any alcohol or drug abuse patient.[facility] HospitalIn the event this information is protected by the Federal Confidentiality of Alcohol and Drug Abuse Patient Records regulations: The Federal rules restrict any use of the information to criminally investigate or prosecute any alcohol or drug abuse patient.[facility] HospitalIn the event this information is protected by the Federal Confidentiality of Alcohol and Drug Abuse Patient Records regulations: The Federal rules restrict any use of the information to criminally investigate or prosecute any alcohol or drug abuse patient.[facility] HospitalIn the event this information is protected by the Federal Confidentiality of Alcohol and Drug Abuse Patient Records regulations: The Federal rules restrict any use of the information to criminally investigate or prosecute any alcohol or drug abuse patient.[facility] HospitalIn the event this information is protected by the Federal Confidentiality of Alcohol and Drug Abuse Patient Records regulations: The Federal rules restrict any use of the information to criminally investigate or prosecute any alcohol or drug abuse patient.[facility] HospitalIn the event this information is protected by the Federal Confidentiality of Alcohol and Drug Abuse Patient Records regulations: The Federal rules restrict any use of the information to criminally investigate or prosecute any alcohol or drug abuse patient.[facility] HospitalIn the event this information is protected by the Federal Confidentiality of Alcohol and Drug Abuse Patient Records regulations: The Federal rules restrict any use of the information to criminally investigate or prosecute any alcohol or drug abuse patient.[facility] HospitalIn the event this information is protected by the Federal Confidentiality of Alcohol and Drug Abuse Patient Records regulations: The Federal rules restrict any use of the information to criminally investigate or prosecute any alcohol or drug abuse patient.[facility] HospitalIn the event this information is protected by the Federal Confidentiality of Alcohol and Drug Abuse Patient Records regulations: The Federal rules restrict any use of the information to criminally investigate or prosecute any alcohol or drug abuse patient.[facility] HospitalIn the event this information is protected by the Federal Confidentiality of Alcohol and Drug Abuse Patient Records regulations: The Federal rules restrict any use of the information to criminally investigate or prosecute any alcohol or drug abuse patient.[facility] HospitalIn the event this information is protected by the Federal Confidentiality of Alcohol and Drug Abuse Patient Records regulations: The Federal rules restrict any use of the information to criminally investigate or prosecute any alcohol or drug abuse patient.[facility] HospitalIn the event this information is protected by the Federal Confidentiality of Alcohol and Drug Abuse Patient Records regulations: The Federal rules restrict any use of the information to criminally investigate or prosecute any alcohol or drug abuse patient.[facility] HospitalIn the event this information is protected by the Federal Confidentiality of Alcohol and Drug Abuse Patient Records regulations: The Federal rules restrict any use of the information to criminally investigate or prosecute any alcohol or drug abuse patient.[facility] HospitalIn the event this information is protected by the Federal Confidentiality of Alcohol and Drug Abuse Patient Records regulations: The Federal rules restrict any use of the information to criminally investigate or prosecute any alcohol or drug abuse patient.[facility] HospitalIn the event this information is protected by the Federal Confidentiality of Alcohol and Drug Abuse Patient Records regulations: The Federal rules restrict any use of the information to criminally investigate or prosecute any alcohol or drug abuse patient.[facility] HospitalIn the event this information is protected by the Federal Confidentiality of Alcohol and Drug Abuse Patient Records regulations: The Federal rules restrict any use of the information to criminally investigate or prosecute any alcohol or drug abuse patient.[facility] HospitalIn the event this information is protected by the Federal Confidentiality of Alcohol and Drug Abuse Patient Records regulations: The Federal rules restrict any use of the information to criminally investigate or prosecute any alcohol or drug abuse patient.[facility] Reason for Visit (unrecogniz ed section and content) Reason Comments Orders Reason Comments 6 Month Exam Reason Comments Appointment Reason Comments Refill Request Reason Comments Results Labs Reason Comments Follow Up BP and meds Reason Comments Well Woman Reason Onset Date Comments Refill Request 08/28/2022 Reason Onset Date Comments Refill Request 09/06/2022 Reason Comments Follow Up 6 month follow up Reason Comments Follow Up 3 month follow up Reason Onset Date Comments Refill Request 06/21/2024 Reason Comments UTI Reason Comments Establish Care Reason Comments Well Woman Specialty Diagnoses / Procedures Referred By Conttylor t Referred To Contact Gynecology / CMO & PRESIDENT Diagnoses Annual physical exam Yearly exam Procedures OFFICE/OUTPATIENT ESTABLISHED HIGH MDM 40 MIN OFFICE/OUTPATIENT EST PT MAY NOT REQ PHYS/QHP MYC WHI ANNUAL Diana Ballard APRN.[employer]INE[employer] [address] [place] [address] Phone: tel: fax: Diana Ballard APRN.[employer] [address] [place] [address] Phone: tel: fax: Referral ID Status Reason Start Date Expiration Date V isits Requested Visits Authorized [id number] Authorized 10/24/2024 04/29/2025 99 99 Reason Comments Consult Abnormal mammogram Specialty Diagnoses / Procedures Referred By Bryan shepard Referred To Contact General Surgery Diagnoses Abnormal mammogram Procedures OFFICE/OUTPATIENT [facility] 60 MINUTES Yuko Osborn APRN.[employer] ENGINEER [address] [place] [address] Phone: tel: fax: Referral ID Status Reason Start Date Expiration Date V isits Requested Visits Authorized [id number] Closed PCP Requested Referral 12/01/2024 12/01/2025 1 1 Reason Comments Consult Lt breast abnormal m ammogram Reason Comments Outside Recommended Biopsy Review Care Teams (unrecognized sec tion and content) Psychology Department Chair Relationship Specialty Start Date End Date Ivet Castanon MD [address] [place] [address] PCP - General Internal Medicine 11/13/17 Psychology Department Chair Relationship Specialty Start Date End Date Ivet Castanon MD [address] [place] [address] PCP - General Internal Medicine 11/13/17 Psychology Department Chair Relationship Specialty Start Date End Date Donn Choe MD [address] [place] [address] PCP - General Family Practice 07/25/21 Psychology Department Chair Relationship Specialty Start Date End Date Donn Choe MD [address] [place] [address] PCP - General Family Practice 07/25/21 Psychology Department Chair Relationship Specialty Start Date End Date Donn Choe MD [address] [place] [address] PCP - General Family Practice 07/25/21 Psychology Department Chair Relationship Specialty Start Date End Date Donn Choe MD [address] [place] [address] PCP - General Family Medicine 07/25/21 Psychology Department Chair Relationship Specialty Start Date End Date Donn Choe MD [address] [place] [address] PCP - General Family Medicine 07/25/21 Psychology Department Chair Relationship Specialty Start Date End Date Donn Choe MD [address] [place] [address] PCP - General Family Medicine 07/25/21 Team Status: Active Member Role Status Dates Dr. Ivet Castanon MD Family Provider Active Dr. Ivet Castanon MD Primary Care Provider Active Team Status: Inactive Member Role Status Dates Dr. Ivet Castanon MD Primary Care Provider Active Dr. Geno Lynch MD Attending Provider, Referring Pro vider Active Psychology Department Chair Relationship Specialty Start Date End Date Donn Choe MD [address] [place] [address] PCP - General Family Medicine 07/25/21 Psychology Department Chair Relationship Specialty Start Date End Date Donn Choe MD [address] [place] [address] PCP - General Family Medicine 07/25/21 Psychology Department Chair Relationship Specialty Start Date End Date Donn Choe MD [address] [place] [address] PCP - General Family Medicine 07/25/21 Psychology Department Chair Relationship Specialty Start Date End Date Donn Choe MD [address] [place] [address] PCP - General Family Medicine 07/25/21 Psychology Department Chair Relationship Specialty Start Date End Date Donn Choe MD [address] [place] [address] PCP - General Family Medicine 07/25/21 Psychology Department Chair Relationship Specialty Start Date End Date Donn Choe MD [address] [facility] [place] [address] PCP - General Family Medicine 07/25/21 Psychology Department Chair Relationship Specialty Start Date End Date Donn Choe MD [address] [facility] [place] [address] PCP - General Family Medicine 07/25/21 Psychology Department Chair Relationship Specialty Start Date End Date Donn Choe MD [address] [place] [address] PCP - General Family Medicine 07/25/21 Psychology Department Chair Relationship Specialty Start Date End Date Donn Choe MD [address] [place] [address] PCP - General Family Medicine 07/25/21 Psychology Department Chair Relationship Specialty Start Date End Date Donn Choe MD [address] [facility] [place] [address] PCP - General Family Medicine 07/25/21 Psychology Department Chair Relationship Specialty Start Date End Date Donn Choe MD [address] [facility] [place] [address] PCP - General Family Medicine 07/25/21 Psychology Department Chair Relationship Specialty Start Date End Date Donn Choe MD [address] [facility] [place] [address] PCP - General Family Medicine 07/25/21 Psychology Department Chair Relationship Specialty Start Date End Date Donn Choe MD [address] [facility] [place] [address] PCP - General Family Medicine 07/25/21 Psychology Department Chair Relationship Specialty Start Date End Date Donn Choe MD [address] [facility] [place] [address] PCP - General Family Medicine 07/25/21 Psychology Department Chair Relationship Specialty Start Date End Date Donn Choe MD [address] [place] [address] PCP - General Family Medicine 07/25/21 Psychology Department Chair Relationship Specialty Start Date End Date Donn Choe MD [address] [place] [address] PCP - General Family Medicine 07/25/21 Jaqui Berg APRN.[employer] ENGINEER [address] [place] [address] Transport Specialist Family Medicine 04/06/24 Ashish Cook APRN.[employer] ENGINEER [address] [place] [address] Transport Specialist Family Medicine 04/15/24 Psychology Department Chair Relationship Specialty Start Date End Date Donn Choe MD [address] [place] [address] PCP - General Family Medicine 07/25/21 Jaqui Berg CERTIFIED TECHNICIAN SPECIALIST.[employer] CONTR[employer] ENGINEER [address] [facility] [place] [address] Transport Specialist Family Medicine 04/06/24 Ashish Cook APRN.D[employer] CONTR[employer] ENGINEER [address] [place] [address] Transport Specialist Family Medicine 04/15/24 Psychology Department Chair Relationship Specialty Start Date End Date Donn Choe MD [address] [place] [address] PCP - General Family Medicine 07/25/21 Ashish Cook, CERTIFIED TECHNICIAN SPECIALIST.[employer] ENGINEER [address] [place] [address] Transport Specialist Family [facility] 04/15/24 Psychology Department Chair Relationship Specialty Start Date End Date Farzad Covarrubias MD [address] [place] [address] PCP - General Internal Medicine 10/20/24 Nenita Mejia, CERTIFIED TECHNICIAN SPECIALIST.D[employer] ENGINEER [address] [place] [address] Internal Medicine 10/20/24 Nenita Mejia, CERTIFIED TECHNICIAN SPECIALIST.[employer] CONTR[employer] ENGINEER [address] [place] [address] Transport Specialist Internal Medicine 10/20/24 Psychology Department Chair Relationship Specialty Start Date End Date Farzad Covarrubias MD [address] [place] [address] PCP - General Internal Medicine 10/20/24 Nenita Mejia, CERTIFIED TECHNICIAN SPECIALIST.DUST CONTROL ENGINEER [address] [place] [address] Internal Medicine 10/20/24 Nenita Mejia, CERTIFIED TECHNICIAN SPECIALIST.D[employer] CONTROL ENGINEER [address] [place] [address] Transport Specialist Internal Medicine 10/20/24 Psychology Department Chair Relationship Specialty Start Date End Date Farzad Covarrubias MD [address] [facility] [place] [address] PCP - General Internal Medicine 10/20/24 Nenita Mejia, CERTIFIED TECHNICIAN SPECIALIST.DUST CONTROL ENGINEER [address] [place], [place] [address] Internal Medicine 10/20/24 Nenita Mejia, CERTIFIED TECHNICIAN SPECIALIST.DUST CONTROL ENGINEER [address] [facility] [place] [address] Transport Specialist Internal Medicine 10/20/24 Psychology Department Chair Relationship Specialty Start Date End Date Farzad Covarrubias MD [address] [place] [address] PCP - General Internal Medicine 10/20/24 Nenita Mejia, CERTIFIED TECHNICIAN SPECIALIST.DUST CONTROL ENGINEER [address] [place] [address] Internal Medicine 10/20/24 Nenita Mejia, CERTIFIED TECHNICIAN SPECIALIST.DUST CONTROL ENGINEER [address] [place], [place] [address] Transport Specialist Internal Medicine 10/20/24 Team Status: Active Member Role/Relationship Status Dates Dr. Ivet Castanon MD Primary Care Provider Active Team Status: Inactive Member Role/Relationship Status Dates Dr. Ivet Castanon MD Primary Care Provider Active Start: November 26, 2024 End: November 26, 2024 Diana Ballard NP, CERTIFIED ANESTHESIOLOGIST ASSISTANT-C Attending Provider Active S tart: November 26, 2024 End: November 26, 2024 Diana Ballard NP CERTIFIED ANESTHESIOLOGIST ASSISTANT-C Referring Provider Active S tart: November 26, 2024 End: November 26, 2024 Psychology Department Chair Relationship Specialty Start Date End Date Farzad Covarrubias MD [address] [facility] [place] [address] PCP - General Internal Medicine 10/20/24 Nenita Mejia, CERTIFIED TECHNICIAN SPECIALIST.DUST CONTROL ENGINEER [address] [facility] [place] [address] Internal Medicine 10/20/24 Nenita Mejia, CERTIFIED TECHNICIAN SPECIALIST.DUST CONTROL ENGINEER [address] [facility] [place] [address] Transport Specialist Internal Medicine 10/20/24 Psychology Department Chair Relationship Specialty Start Date End Date Farzad Covarrubias MD [address] [facility] [place] [address] PCP - General Internal Medicine 10/20/24 Nenita Mejia, CERTIFIED TECHNICIAN SPECIALIST.DUST CONTROL ENGINEER [address] [facility] [place] [address] Internal Medicine 10/20/24 Nenita Mejia, CERTIFIED TECHNICIAN SPECIALIST.DUST CONTROL ENGINEER [address] [facility] [place] [address] Transport Specialist Internal Medicine 10/20/24 Team Status: Active Member Role/Relationship Status Dates JAMAL MccarthyC Primary Care Provider Active Team Status: Inactive Member Role/Relationship Status Dates Dr. Aimee Hylton MD Attending Provider Active Start: December 17, 2024 End: December 17, 2024 TORIE Mccarthy Primary Care Provider Active Start: December 17, 2024 End: December 17, 2024 TORIE Mccarthy Referring Provider Active Start: December 17, 2024 End: December 17, 2024 Team Status: Active Member Role/Relationship Status Dates TORIE Mccarthy Primary Care Provider Active Start: December 17, 2024 Dr. Aimee Hylton MD Attending Provider Active Start: December 17, 2024 Dr. Aimee Hylton MD Referring Provider Active Start: December 17, 2024 Team Status: Active Member Role/Relationship Status Dates TORIE Mccarthy Primary Care Provider Active Start: December 22, 2024 Dr. Aimee Hylton MD Attending Provider Active Start: December 22, 2024 Team Status: Inactive Member Role/Relationship Status Dates TORIE Mccarthy Primary Care Provider Active Start: December 17, 2024 End: December 17, 2024 Dr. Aimee Hylton MD Attending Provider Active Start: December 17, 2024 End: December 17, 2024 Dr. Aimee Hylton MD Referring Provider Active Start: December 17, 2024 End: December 17, 2024 Psychology Department Chair Relationship Specialty Start Date End Date Farzad Covarrubias MD [address] [facility] [place] [address] PCP - General Internal Medicine 10/20/24 Nenita Mejia, CERTIFIED TECHNICIAN SPECIALIST.DUST CONTROL ENGINEER [address] [facility] [place] [address] Internal Medicine 10/20/24 Nenita Mejia, CERTIFIED TECHNICIAN SPECIALIST.DUST CONTROL ENGINEER [address] [facility] [place] [address] Transport Specialist Internal Medicine 10/20/24 Psychology Department Chair Relationship Specialty Start Date End Date Farzad Covarrubias MD [address] [facility] [place] [address] PCP - General Internal Medicine 10/20/24 Nenita Mejia, CERTIFIED TECHNICIAN SPECIALIST.DUST CONTROL ENGINEER [address] [facility] [place] [address] Internal Medicine 10/20/24 Nenita Mejia, CERTIFIED TECHNICIAN SPECIALIST.DUST CONTROL ENGINEER [address] [place] [address] Transport Specialist Internal Medicine 10/20/24 Team Status: Inactive Member Role/Relationship Status Dates Jaqui Berg CERTIFIED ANESTHESIOLOGIST ASSISTANT-C Primary Care Provider Active Start: January 05, 2025 End: January 05, 2025 Dr. Aimee Hylton MD Referring Provider Active Start: January 05, 2025 End: January 05, 2025 Dr. Jason Bueno MD Attending Provider Active Start: January 05, 2025 End: January 05, 2025 Team Status: Active Member Role/Relationship Status Dates Jaqui Berg CERTIFIED ANESTHESIOLOGIST ASSISTANT-C Primary Care Provider Active Start: January 05, 2025 Dr. Jason Bueno MD Attending Provider Active Start: January 05, 2025 Dr. Jason Bueno MD Referring Provider Active Start: January 05, 2025 Team Status: Inactive Member Role/Relationship Status Dates Jaqui Berg , CERTIFIED ANESTHESIOLOGIST ASSISTANT-C Primary Care Provider Active Start: January 07, 2025 End: January 07, 2025 Jaqui Berg , CERTIFIED ANESTHESIOLOGIST ASSISTANT-C Referring Provider Active Start: January 07, 2025 End: January 07, 2025 Dr. Aimee Hylton MD Attending Provider Active Start: January 07, 2025 End: January 07, 2025 Team Status: Inactive Member Role/Relationship Status Dates Jaqui Berg CERTIFIED ANESTHESIOLOGIST ASSISTANT-C Primary Care Provider Active Start: January 07, 2025 End: January 07, 2025 Jaqui Berg , CERTIFIED ANESTHESIOLOGIST ASSISTANT-C Referring Provider Active Start: January 07, 2025 End: January 07, 2025 Milana Shafer NP, CERTIFIED ANESTHESIOLOGIST ASSISTANT-C Attending Provider Active Start: January 07, 2025 End: January 07, 2025 Goals (unrecognized section and content) Goals may be documented in a n alternate sectionGoals may be documented in an alternate sectionGoals may be documented in an alternate sectionGoals may be documented in an alternate sectionGoals may be documented in an alternate sectionGoals may be documented in an alternate sectionGoals may be documented in an alternate sectionGoals may be documented in an alternate section INFORMATION SOURCE (unrecogn ized section and content) DATE CREATED AUTHOR 01/13/2025 [facility] DATE CREATED AUTHOR 'S [place] ATION 01/13/2025 [facility] FOR RECORDS PERTAINING TO PATIENTS WHO ARE OR HAVE BEEN ENROLLED IN A CHEMICAL DEPENDENCY/SUBSTANCEABUSE PROGRAM, SOME INFORMATION MAY BE OMITTED. This clinical summary was aggregated from multiple sources. Caution should be exercised in using it in the provision of clinical care. This summary normalizes information from multiple sources, and as a consequence, information in this document may materially change the coding, format and clinical context of patient data. In addition, data may be omitted in some cases. CLINICAL DECISIONS SHOULD BE BASED ON THE PRIMARY CLINICAL RECORDS. [facility]. provides no warranty or guarantee of the accuracy or completeness of information in this document.
[2025-01-14] MEDS: Lactated Ringers 1,000 ML 15 ML IV (06:39)
--- NOTE | 2025-01-14 06:53 | PCM.PRE.AN2 ---
ASA Classification* ASA Classification ASA Classification: 3 Assessment & Plan Anesthesia* Anesthesia Assessment Anesthesia Assessment: Discussed sedation and/or anesthesia options, risks, benefits, and alternatives with patient/parents/legal guardian/POA. Questions invited. The patient/parents/legal guardian/POA seems to understand and agrees to proceed with anesthesia plan. Reviewed the physical assessment, medical history, allergy history and patient home medications list prior to surgery/procedure/anesthetic and documented any changes. Performed airway and anesthesia risk assessments. Anesthesia Type Anesthesia Type: General History Source History Obtained from:: Patient and Chart Anesthesia Focused Assessment* Temperature: 98 F Pulse Rate: 55 Blood Pressure: 159/85 Respiratory Rate: 16 Pulse Ox: 99 Oxygen Delivery Method: Room Air Airway Assessment Mouth opens: >3 cm Mallampati Score: II Teeth Condition: Intact Neck Range of motion (ROM): Full ROM Labs Anesthesia Preop lab: CBC WBC, (4.4-11.0) 8.2 K/mm3 01/05/25, 12:37 RBC, (4.2-5.4) 4.99 M/mm3 01/05/25, 12:37 Hgb, (12.0-15.0) 13.8 g/dL 01/05/25, 12:37 Hct, (37-47) 41.7 % 01/05/25, 12:37 Plt Count, (150-450) 208 K/mm3 01/05/25, 12:37 CHEMISTRY Potassium, (3.3-5.1) 3.7 mmol/L 01/05/25, 12:37 Sodium, (133-145) 140 mmol/L 01/05/25, 12:37 BUN, (4-19) 20 mg/dL H 01/05/25, 12:37 Creatinine, (0.70-1.20) 0.83 mg/dL 01/05/25, 12:37 Glucose, (70-99) 123 mg/dL H 01/05/25, 12:37 TSH, (0.358-3.74) 1.07 uIU/mL 06/19/22, 09:55 COAG HCG, Quant, (1-3) 4 mIU/mL 06/19/22, 09:55 Pre-Assessment Diagnosis/Proposed Procedure Planned Operative Procedure(s): INSERTION VASCULAR PORT RIGHT POSS LEFT Anesthesia History 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 When Was Last Pacemaker Check QUESTION #4 FULL TEXT: You/Your Family Experience fever (hyperthermia) with Anesthesia Last Oral Intake Last Oral intake: Last Oral Intake NPO since 20:30 01/14/25 06:29 Meds taken in AM with sips of Yes 01/14/25 06:29 water? Meds patient instructed to propranolol @0530 01/14/25 06:29 take am of surgery PONV PONV - news videographer: PONV - news videographer Female Yes 01/08/25 15:07 HX of Motion Sickness No 01/08/25 15:07 HX of N/V After Surgery No 01/08/25 15:07 Non-Smoker Yes 01/08/25 15:07 Duration of Surgery greater No 01/08/25 15:07 than 60 minutes Number of Risk Factors 2 01/08/25 15:07 PONV Score Moderate Risk 01/08/25 15:07 Height & Weight Height & Weight: Anesthesia: Height & Weight Height 5 ft 5 in 01/14/25 06:29 Weight: 111 kg 01/14/25 06:29 Body Mass Index (BMI) 40.7 01/14/25 06:29 Respiratory Assessment Respiratory Assessment - news videographer: Respiratory Tract Infection Hx - news videographer Hx Respiratory Tract Infection No 01/08/25 15:07 STOP Sleep Apnea STOP Sleep Apnea - news videographer: STOP Sleep Apnea - news videographer Hx Hypertension Yes: CONTROLLED WITH MED 01/08/25 15:07 Hx Sleep Apnea No 01/08/25 15:07 CPAP BIPAP Do you snore loudly (louder No 01/08/25 15:07 than talking or can be heard Do you often feel tired/ No 01/08/25 15:07 fatigued/ sleepy during daytime? Has anyone observed you stop No 01/08/25 15:07 breathing during sleep? STOP Results Negative 01/08/25 15:07 QUESTION #5 FULL TEXT : Do you snore loudly (louder than talking or can be heard through closed doors)? 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 Specify any problems Hx of Preganancy in last 3 No 01/08/25 15:07 Months Nurse Filling Out Transfusion DSCHRIBER 01/08/25 15:07 & Questions: Date: 01/08/25 01/08/25 15:07 Time: 15:11 01/08/25 15:07 Patient unable to answer at this time (ie. confused, unrespo /Reproduction History /Reproductive History - news videographer: /Reproductive Hx- news videographer Hx Now No 01/08/25 15:07 Gestational Age (in weeks): EDC: Hx Hx Para Hx Section SAB No 01/08/25 15:07 Active Medications Active Medications: Current Medications Generic Name Dose Route Start Last Admin Trade Name Freq PRN Reason Stop Dose Admin Cefazolin Sodium 2 gm/ Sodium 110 mls @ 200 mls/hr 01/14/25 07:30 Chloride IV 01/14/25 08:02 INTRAOP ONE Lactated Ringer's 1,000 mls @ 15 mls/hr 01/14/25 06:15 01/14/25 06:39 IV 15 mls/hr .Q48H TRISHA Administration PFSH Medical History Post-menopausal Wears glasses Cancer Arthritis High cholesterol Back pain Migraine headache Pre-diabetes Dietary restriction Former smoker History of echocardiogram History of Holter monitoring Endometriosis HTN (hypertension) Anxiety Home Medications ?Medication ?Instructions ?Recorded ?Last Taken ?Type cholecalciferol (vitamin D3) 1,250 1,250 mcg PO QWEEK 12/17/24 Unknown History mcg (50,000 unit) tablet hydrochlorothiazide 12.5 mg capsule 12.5 mg PO QAM 12/17/24 Unknown History metformin 500 mg tablet 500 mg PO BID 12/17/24 Unknown History pravastatin 20 mg tablet 20 mg PO QDAY 12/17/24 Unknown History propranolol 60 mg capsule,24 60 mg PO QDAY 12/17/24 01/14/25 06:28 History hr,extended release lidocaine-prilocaine 2.5 %-2.5 % 1 applic topical ONCE PRN port 01/07/25 Unknown Rx topical cream access 30 days #30 grams ondansetron 8 mg disintegrating 8 mg PO Q8H PRN nausea and 01/07/25 Unknown Rx tablet vomiting #30 tabs prochlorperazine maleate 10 mg 10 mg PO Q6H PRN nausea and 01/07/25 Unknown Rx tablet vomiting #30 tabs Allergy/AdvReac Type Severity Reaction Status Date / Time adhesive tape Allergy Severe rash Verified 01/08/25 15:04 acetaminophen (From Vicodin) Allergy Intermediate Other Verified 01/08/25 15:04 hydrocodone (From Vicodin) Allergy Intermediate Other Verified 01/08/25 15:04 Family History Father Colon cancer Mother Cancer pancreatic Grandmother Breast cancer paternal grandmother Heart disease Grandfather Colon cancer Heart disease Surgical History History of hysteroscopy H/O left breast biopsy Social History Smoking Status: Former smoker Tobacco: How many years used: 20 alcohol intake: never substance use type: does not use Review of Systems (Anesthesia) ROS Narrative System reviewed and no additional complaints, except as documented.
--- NOTE | 2025-01-14 07:17 | HP.PCM_ITS ---
History and Physical Date of Admission: 01/14/25 Date of Service: 01/07/25 MR#: [id number] Acct: [id number] Name: DEEPIKA BOYKIN Rep #: [id number] : 1970 Provider: Dr. Aimee Hylton MD Age/Sex: 54/F Location: [facility] Status: Signed Intake Vital Signs 01/05/2511:29 01/07/2514:33 Height 5 ft 5 in 5 ft 5 in Weight: 248 lb 246 lb 6 oz BMI 41.2 41.0 BP 142/90 H 169/96 H Blood Pressure Location Rt brachial Rt brachial Position Sitting Sitting Respiration 18 17 Pulse 60 75 Pulse Source Monitor Monitor Temp 98.2 F Pulse Oximetry (%) 97 98 Oxygen Delivery Method room air room air Intake Visit Reasons: PORT PLACEMENT Chief Complaint: port placement Allergies adhesive tape Allergy (Severe, Verified 01/07/25 14:35) rash acetaminophen (From Vicodin) Allergy (Intermediate, Verified 01/07/25 14:35) Other hydrocodone (From Vicodin) Allergy (Intermediate, Verified 01/07/25 14:35) Other Medications ?Medication ?Instructions ?Recorded ?Confirmed ?Type cholecalciferol (vitamin D3) 1,250 1,250 mcg PO QWEEK 12/17/24 01/07/25 His tory mcg (50,000 unit) tablet hydrochlorothiazide 12.5 mg capsule 12.5 mg PO QAM 12/17/24 01/07/25 History metformin 500 mg tablet 500 mg PO BID 12/17/24 01/07/25 History pravastatin 20 mg tablet 20 mg PO QDAY 12/17/24 01/07/25 History propranolol 60 mg capsule,24 60 mg PO QDAY 12/17/24 01/07/25 History hr,extended release lorazepam 0.5 mg tablet (Ativan) 0.5 mg PO ONCE PRN anxiety #2 tabs 12/2301/07/25 Rx PFSH Medical History (Updated 01/07/25 @ 14:[address] Aimee Hylton MD) Dyslipidemia Breast cancer Prediabetes Endometriosis HTN (hypertension) Anxiety Surgical History (Updated 01/05/25 @ 11:23 by Lin Terrazas) H/O left breast biopsy Family History (Updated 01/05/25 @ 11:22 by Lin Terrazas) Father Colon cancer Mother Cancer pancreatic Grandmother Breast cancer paternal grandmother Heart disease Grandfather Colon cancer Heart disease Social History (Updated 01/05/25 @ 11:21 by Lin Terrazas) Smoking Status: Former smoker Tobacco: How many years used: 20 alcohol intake: never substance use type: does not use HPI HPI HPI: 54-year-old female presents to discuss port placement due to 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 Patient will plan to get her MRI done at an outpatient facility as insurance will not pay for a hospital facility. Patient states she had multiple conversations with insurance to try to get chemotherapy approved. ROS General General: Yes breast cancer; No weight change, appetite, fatigue, colon cancer or weakness HEENT HEENT: No difficulty swallowing, eye injury, eye surgery, swollen glands or hoarseness Endo Endocrine: No thyroid disease, diabetes mellitus, thyroid cancer, Hair loss, heat intolerance or cold intolerance Additional Details: pre diabetic Skin Skin: No rash or changing moles Breast Breast: Yes left breast lump, abnormal mammogram and abnormal US; No right breast lump, nipple discharge, breast pain or breast enlargement Musc Musculoskeletal: No back problems, arthritis, rheumatoid arthritis, gout or joint pain Cardio Cardiovascular: No murmur, pacemaker, heart disease, atrial fibrillation, high blood pressure, heart attack, heart stent, palpitations, shortness of breath with exertion or chest pain Psych Psychiatric: No depression, anxiety or hearing voices Resp Respiratory: No shortness of breath, No sleep apnea, No cough, No COPD, No asthma, No emphysema and No wheezing Gastro Gastrointestinal: No abdominal pain, No nausea or vomiting, No diarrhea, No constipation, No blood in stool, No acid reflux, No hemorrhoids, No ulcers, No gallbladder problem and No black,tarry stools Adams Hematologic: No blood thinners, No blood disorders, No bleeding, No anemia and No blood clots Neuro Neurologic: No system reviewed and no additional complaints, except as documented, No as per HPI, No abnormal gait, No abnormal hearing, No abnormal movements, No abnormal speech, No behavioral changes, No burning sensations, No confusion, No convulsions, No disequilibrium, No dizziness, No localized weakness, No frequent falls, No headache(s), No lack of coordination, No loss of vision, No memory loss, No numbness, No other visual disturbances, No radicular pain, No restless legs, No sensory deficit, No syncope, No tingling, No tremor(s), No weakness and No other Exam Const General: cooperative, healthy appearing, comfortable and no acute distress [facility] Head: normocephalic Neck Neck: supple Chest Other: Palpation upper chest bilaterally normal Resp Effort & Inspection: normal respiratory effort Cardio Rate: regular rate Skin General: no rashes or lesions noted Neuro General: CN's II-XI intact bilaterally Extrem General: normal to inspection Psych Mental Status: mental status grossly normal Attitude: cooperative Assessment and Plan Assessment and Plan (1) Encounter for insertion of venous access port: Status: Acute (2) Breast cancer: Status: Acute Qualifiers: Breast location: unspecified site of breast Estrogen receptor status: positive Patient sex: female Laterality: left Qualified Code(s): C50.912 - Malignant neoplasm of unspecified site of left female breast; Z17.0 - Estrogen receptor positive status [ER+] Plan Patient plan to get breast MRI at outpatient facility as insurance would not pay for hospital facility. I have discussed above with the patient- Port-a-Cath placement. Right IJ possible left Patient has been counseled as to the risks/benefits of the procedure. I have explained the risks of the surgery, including but not limited to: infection, bleeding, injury to any blood vessels/nerves, injury to lungs (such as pneumothorax or hemothorax and need for chest tube), not having any access, nonfunctioning of port due to thrombosis, infection of port, etc. the patient understands and agrees to proceed. I have answered all the patient's questions to the patient?s satisfaction and the patient has no further questions. Aimee Hylton M.D. Pager: [phone] [facility] [address] [place] [address], [facility], [address] [place] [address] Office: [phone] Coding Level of Care Code Off vis,est,level 3 Diagnoses Encounter for insertion of venous access port Z45.2 Malignant neoplasm of left breast in female, estrogen receptor positive, unspecified site of breast C50.912; Z17.0 Breast location: unspecified site of breast Estrogen receptor status: positive Patient sex: female Laterality: left 01/07/25 1455 <Electronically signed by Aimee Hylton MD> Date Aimee Hylton MD
[2025-01-14] MEDS: Midazolam 2 MG/2 ML Syringe IV (07:29)
[2025-01-14] MEDS: Cefazolin 1 GM/5 ML Vial 2 GM IV (07:31)
[2025-01-14] MEDS: Lidocaine 1% (5 ml sdv) 5 ML Vial 10 ML IV (07:40)
[2025-01-14] MEDS: Lidocaine 1% /Epi 1:100 (20ml) 20 ML Vial (07:44)
--- NOTE | 2025-01-14 08:07 | OP.PCM_ITS ---
Operative Report (Standard) Operative Information Date of Procedure: 01/14/25 Pre-Operative Diagnosis: Z45.2, left breast cancer Post-Operative Diagnosis: Same Surgery/Procedure Performed: 1. placement of right IJ Port-A-Cath 2. Use of ultrasound 3. Use of fluoroscopy processing supervisor: No Type of Anesthesia: Local MAC RN Documented Start/Stop Times: Operation Date: 01/14/25 07:30 Case Time Into Pre-Op 01/14/25 06:06 Out of Pre-Op 01/14/25 07:25 Anesthesia Start 01/14/25 07:29 Into Room 01/14/25 07:29 Procedure Start 01/14/25 07:44 Procedure End 01/14/25 08:03 Anesthesia End 01/14/25 08:10 Out of Room 01/14/25 08:10 Into Recovery 01/14/25 08:14 Out of Recovery 01/14/25 08:28 Into Phase II Recovery 01/14/25 08:29 Out of Phase II 01/14/25 09:09 Procedure Start Time: 07:44 Procedure Stop Time: 08:03 Select all DRAINS/GRAFTS/IMPLANTS that apply: Implanted device Implanted device details: [employer] PowerPort isp M.R.I. 6Fr Lot [id number] Special Medications: Ancef 2 g IV x 1 Estimated Blood Loss: < 10 cc Specimen collected: No Description of surgery: After informed consent was given, the patient was brought to the operating room and placed in the supine position. Appropriate time out protocol was followed. Patient was then given IV conscious sedation for anesthesia. The patient's [facility] upper chest and neck were then prepped with a surgical skin preparation and sterile surgical drapes were placed. After proper landmarks were ascertained, the skin at the upper right chest area was then infiltrated with 1:1 mixture of 1% lidocaine with epinephrine and 0.5% marcaine. A needle trocar was then inserted into the right internal jugular vein with ultrasound guidance-multiple vessels were viewed with u/s and the right IJ was chosen-- and there was good aspiration of venous blood. A wire was then threaded into the needle trocar and this was visualized under fluoroscopy to en sure that the wire was in the superior vena cava. Once this was done, then the needle trocar was removed. A small skin jc was made with an 11 blade knife at the wire entrance site. The dilator with the introducer sheath attached was then placed over the wire into the right internal jugular vein via the Seldinger technique and this was visualized under fluoroscopy. The dilator and sheath were in proper position as visualized by fluoroscopy. A subcutaneous pocket was then created caudad to the catheter insertion site. A transverse skin incision was made after the skin and subcutaneous tissues were infiltrated with local anesthetic. Blunt dissection was then used to create a space large enough for placement of the subcutaneous port. The catheter was then tunneled into the subcutaneous pocket. The wire and dilator were then removed. The catheter was then threaded into the introducer sheath and was positioned with its tip at the junction of the superior vena cava and the right atrium as visualized under fluoroscopy. The excess catheter was transected. The catheter was then attached to the subcutaneous port using manufacturers guidelines. The catheter was flushed with a heparin saline mixture prior to placement. Hemostasis was carefully controlled with electrocautery. The port was sutured to the subcutaneous fascia using 2-0 Vicryl suture at two sites. The port was then placed in the subcutaneous pocket. The incision were reapproximated with interrupted subdermal 3-0 vicryl sutures. The skin was reapproximated with 3-0 nylon suture in a interrupted fashion. Steristrips were used for reinforcement of the skin closure at IJ insertion site and a sterile opsite dressings were applied. The patient tolerated the procedure well. Surgical Findings: see op note Complications Complications: No
--- NOTE | 2025-01-14 08:09 | RAD_ITS ---
PROCEDURE: CHEST 1 VIEW (PORTABLE) 01/14/2025 REASON FOR EXAM: PORT TECHNIQUE: Frontal view of the chest. COMPARISON: None FINDINGS: Hardware: A right-sided port a catheter has been placed. The tip is at the junction of the superior vena cava and right atrium. EKG electrodes are seen. Heart: The heart size is normal. Lungs: The lungs are clear. Bones: Degenerative changes are identified within the thoracic spine. Other: No evidence of pneumothorax. RAD/Chest 1 View (Portable) IMPRESSION: The right-sided port a catheter has been placed. The tip is at the junction of the superior vena cava and right atrium. Reading Location: [facility]
--- NOTE | 2025-01-14 08:11 | EX.PCM.DISCH ---
Discharge Instructions Procedure Port-A-Cath Diet Discharge Diet: Light diet - advance as tolerated Activity May shower in (days): 5 (Keep port site clean and dry x5 days. Neck incision okay to get wet after 1 day. Okay to lower shower and upper sponge bath. OR okay to taper off port site with a Ziploc bag to shower) Lifting Restrictions: No lifting > 15 pounds for 3 days with the arm on the side of the port Dressing / Incision Call your doctor if your incision/area has: Continuous Slow Oozing, Sudden Increased Bleeding, Increased Pain/ Swelling, Increased Redness, Foul Smelling Discharge and Swelling at the incision site Call your doctor if you observe: Fever of 101 or Higher Change Dressing in: 2 days (2-3 days- port site; ok to remove neck opsite in 1 day) Follow Up Care Please Follow Up With: Aimee Hylton MD When: In 10 days for permanent suture removal?call office for appointment Test Results: Test results from this visit will be discussed in further detail at your follow-up appointment, if applicable. Discharge Plan Admission Attending Provider: Aimee Hylton Primary Care Provider: Jaqui Berg Instructions Print Language: Congolese Discharge Orders/Prescriptions Prescriptions: New tramadol 50 mg tablet 50 mg PO Q6H PRN (Reason: pain) 2 Days Qty: 3 0RF Continued metformin 500 mg tablet 500 mg PO BID propranolol 60 mg capsule,extended release 24 hr 60 mg PO QDAY hydrochlorothiazide 12.5 mg capsule 12.5 mg PO QAM pravastatin 20 mg tablet 20 mg PO QDAY cholecalciferol (vitamin D3) 1,250 mcg (50,000 unit) tablet 1,250 mcg PO QWEEK ondansetron 8 mg tablet,disintegrating 8 mg PO Q8H PRN (Reason: nausea and vomiting) Qty: 30 2RF prochlorperazine maleate 10 mg tablet 10 mg PO Q6H PRN (Reason: nausea and vomiting) Qty: 30 2RF lidocaine-prilocaine 2.5-2.5 % cream 1 applic topical ONCE PRN (Reason: port access) 30 Days Qty: 30 2RF Referrals / Follow Up: Jaqui Berg, [facility] [Primary Care Provider, Family Practice] Disposition Disposition (needs filled in before D/C Order can be placed): Home, Self Care
--- NOTE | 2025-01-14 08:22 | PCM.POST.ANE ---
Anesthesia: Postop Eval I Current Vital Signs Temperature: 97.0 F Pulse Rate: 67 Blood Pressure: 156/92 Respiratory Rate: 20 Pulse Ox: 98 Oxygen Delivery Method: Room Air Assessment Airway patent: Yes Spontaneous unlabored respirations: Yes Mental status: Awake nausea: No Vomiting: No Anesthesia Complication: No Fluid Hydration Crystalloid volume administer (ml): 400 Total IV fluid infused: 400 Progress Note Anesthesia document: Postop Eval 1 completed: Yes
--- NOTE | 2025-01-14 12:30 | POSTOPAN2_ITS ---
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 Anesthesia Postop Eval I: Fluid Summary Crystalloid volume administer 400 01/14/25 08:23 WASTEWATER TREATMENT OPERATOR.TMEN (ml) Colloids volume administered ( ml) Blood Product volume administered (ml) Total IV fluid infused 400 01/14/25 08:23 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
--- NOTE | 2025-01-14 12:30 | PCM.POSTANE2 ---
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 Anesthesia Postop Eval I: Fluid Summary Crystalloid volume administer 400 01/14/25 08:23 GEOTHERMAL SHEET METAL WORKER.TMEN (ml) Colloids volume administered ( ml) Blood Product volume administered (ml) Total IV fluid infused 400 01/14/25 08:23 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
== END 2025-01-14 09:09 | disposition home or self-care (01) ==
LOC: SDC 05:54 → AC 05:55
PROVIDERS: PCP Nurse Practitioner Family; Referring Provider Surgery; Visit Provider Surgery
PROC: (CPT 36561; principal; 2025-01-14 07:15)
DX: Z45.2 Encounter for adjustment and management of vascular access device (principal); C50.912 Malignant neoplasm of unspecified site of left female breast; I10 Essential (primary) hypertension; Z17.0 Estrogen receptor positive status [ER+]; Z17.31 Human epidermal growth factor receptor 2 positive status; Z87.891 Personal history of nicotine dependence; E78.00 Pure hypercholesterolemia, unspecified; Z79.899 Other long term (current) drug therapy
CPT/HCPCS: 36561; 00532; 71045; 77001; 82962; J2405